=== PATIENT | female | born 1935 | race Caucasian/White ===

== ENCOUNTER → 2017-07-22 | Outpatient (CLI) | payer MEDICARE, BC ==
[2017-07-22 07:56] LABS: Anisocytosis Moderate; HCT 33.5 % (34.0-46.0); HGB 9.4 gm/dL (11.4-16.0); Hypochromasia Marked; MCH 22.8 pg (25.0-35.0); Mean Platelet Volume 8.8; Microcytosis Moderate; Platelet Count 326 k/uL (150-450); Poikilocytosis Slight; RBC 4.11 m/uL (3.80-5.40); RDW 21.2 % (11.5-15.5); WBC 7.2 k/uL (3.8-10.6)
[2017-07-22 08:01] LABS: MCV 81.3 fL (80.0-100.0)
[2017-07-22 08:08] LABS: Anion Gap 9 mmol/L; Blood Urea Nitrogen 8 mg/dL (7-17); Carbon Dioxide 31 mmol/L (22-30); Chloride 100 mmol/L (98-107); Potassium 3.9 mmol/L (3.5-5.1); Sodium 140 mmol/L (137-145)
== END | disposition home or self-care (01) ==
LOC: LABWHC1 07:15
PROVIDERS: ATTEND Internal Medicine Cardiovascular Disease
DX: I50.31 Acute diastolic (congestive) heart failure (principal)
CPT/HCPCS: 36415; 80051; 82565; 83880; 84443; 84520; 85027

== ENCOUNTER → 2017-08-28 | Outpatient (CLI) | payer MEDICARE, BC ==
--- NOTE | 2017-08-29 08:07 | MM ---
Reason for exam: screening (asymptomatic). Baseline mammogram. History: Patient is postmenopausal, has history of colon cancer at age 81, and history of other cancer. Family history of breast cancer in mother at age 60. Physical Findings: A clinical breast exam by your physician is recommended on an annual basis and results should be correlated with mammographic findings. MG 3D Screening Mammo W/Cad Bilateral CC and MLO view(s) were taken. There are scattered fibroglandular densities. Finding: There are typically benign vascular, round calcifications in both breasts. There is a chronic nodularity in the right axilla, presumed benign lymph node. There is no discrete abnormality. These results were verbally communicated with the patient and result sheet given to the patient on 08/28/17. ASSESSMENT: Benign, BI-RAD 2 RECOMMENDATION: Routine screening mammogram of both breasts in 1 year.
== END | disposition home or self-care (01) ==
LOC: RADMAMWWP 14:08
PROVIDERS: ATTEND Internal Medicine Hematology & Oncology
DX: Z12.31 Encounter for screening mammogram for malignant neoplasm of breast (principal)
CPT/HCPCS: 77063; 77067

== ENCOUNTER → 2017-12-10 | Outpatient (CLI) | payer MEDICARE, BC ==
[2017-12-10 16:16] LABS: Anisocytosis Slight; HCT 39.3 % (34.0-46.0); HGB 12.4 gm/dL (11.4-16.0); MCH 27.4 pg (25.0-35.0); MCHC 31.5 g/dL (31.0-37.0); MCV 86.9 fL (80.0-100.0); Mean Platelet Volume 9.4; Platelet Count 256 k/uL (150-450); RBC 4.52 m/uL (3.80-5.40)
== END | disposition home or self-care (01) ==
LOC: LABWHC1 15:25
PROVIDERS: ATTEND Internal Medicine Cardiovascular Disease
DX: I48.2 Chronic atrial fibrillation (principal)
CPT/HCPCS: 36415; 85027

== ENCOUNTER 2019-06-24 20:18 | Emergency (ER) | payer BC, MEDICARE ==
[2019-06-24] MEDS ORDERED: TOPICAL SKIN ADHESIVE 1 EACH AMP TOPICAL ONE (21:28)
--- NOTE | 2019-06-24 21:54 | ED ---
Wound/Laceration HPI - General Chief Complaint: Wound/Laceration Stated Complaint: L Hand Lac Time Seen by Provider: 06/24/19 21:14 Source: patient Mode of arrival: ambulatory Limitations: no limitations - History of Present Illness Initial Comments: patient is an 83-year-old female presenting to emergency Department with complaints of a small wound on her left hand that will not stop bleeding. Patient states she was making her bed and lifted up her left hand and hit the side table. Patient states she has a small skin tear on her left hand however it will not stop bleeding. Patient is on a blood thinner. Patient states she has applied pressure to the area for approximate 4 hours and it continues to bleed. Patient's tetanus is up-to-date. Patient has no other complaints at this time. Upon arrival to the ER, her vital signs are stable. - Related Data Home Medications Medication Instructions Recorded Confirmed Aspirin EC [Ecotrin Low Dose] 81 mg PO DAILY 05/25/17 06/24/19 Atenolol [Tenormin] 25 mg PO BID 05/25/17 06/24/19 Cholecalciferol [Vitamin D3 (25 1,000 unit PO DAILY 05/25/17 06/24/19 Mcg = 1000 Iu)] Cyanocobalamin (Vitamin B-12) 1,000 mcg PO DAILY 05/25/17 06/24/19 [Vitamin B-12] Olmesartan Medoxomil [Benicar] 40 mg PO DAILY 05/25/17 06/24/19 Vit A/Vit C/Vit E/Zinc/Copper 1 cap PO DAILY 05/25/17 06/24/19 [ICAPS SOFTGEL] metFORMIN HCL 1,000 mg PO BID 05/25/17 06/24/19 Rivaroxaban [Xarelto] 2.5 mg PO 06/24/19 Previous Rx's Medication Instructions Recorded Ferrous Sulfate [Iron (65 MG 325 mg PO BID-W/MEALS tab 05/30/17 Elemental)] Allergies Allergy/AdvReac Type Severity Reaction Status Date / Time No Known Allergies Allergy Verified 06/24/19 20:24 Review of Systems ROS Statement: Those systems with pertinent positive or pertinent negative responses have been documented in the HPI. ROS Other: All systems not noted in ROS Statement are negative. Past Medical History Past Medical History: Atrial Fibrillation, Diabetes Mellitus, Hypertension Additional Past Medical History / Comment(s): "heart beats too fast" History of Any Multi-Drug Resistant Organisms: None Reported Past Surgical History: Cholecystectomy, Hernia Repair, Hysterectomy Additional Past Surgical History / Comment(s): cataract surgery Past Anesthesia/Blood Transfusion Reactions: Postoperative Nausea & Vomiting (PONV) Additional Past Anesthesia/Blood Transfusion Reaction / Comment(s): this is first blood transfusion- no reaction Past Psychological History: No Psychological Hx Reported Smoking Status: Never smoker Past Alcohol Use History: None Reported Past Drug Use History: None Reported - Past Family History Sister(s) Family Medical History: Cancer Additional Family Medical History / Comment(s): both sisters had cancer. one had colon cancer. Brother(s) Family Medical History: Cancer Additional Family Medical History / Comment(s): colon cancer Mother Family Medical History: Cancer Additional Family Medical History / Comment(s): breast cancer and colon cancer Father Family Medical History: CVA/TIA General Exam - General Exam Comments Initial Comments: GENERAL: Well-appearing, well-nourished and in no acute distress. HEAD: Atraumatic, normocephalic. EYES: Pupils equal round and reactive to light, extraocular movements intact, sclera anicteric, conjunctiva are normal. ENT: Moist mucous membranes. NECK: Normal range of motion, supple without lymphadenopathy or JVD. LUNGS: Breath sounds clear to auscultation bilaterally and equal. No wheezes rales or rhonchi. HEART: Regular rate and rhythm without murmurs, rubs or gallops. ABDOMEN: Soft, nontender, normoactive bowel sounds. No guarding, no rebound. No masses appreciated. EXTREMITIES: she has full range of motion of her left hand and wrist. SKIN: Warm, Dry, normal turgor, no rashes. Pt has a 1 cm skin tear to the dorsal aspect of her left hand. There is mild bleeding coming from the wound. No signs of infection. Limitations: no limitations Course Vital Signs 06/24/19 20:19 Temperature 98.1 F Pulse Rate 90 Respiratory 16 Rate Blood Pressure 227/130 O2 Sat by Pulse 96 Oximetry Medical Decision Making - Medical Decision Making patient is an 83-year-old female presenting with a 1 cm skin tear of the dorsal aspect of the left hand that happened today. There is minimal bleeding from the wound however it will not stop. Patient's wound was cleaned and Steri-Strips were applied along with topical skin glue. A pressure bandage was also applied and bleeding has stopped. patient's skin is too thin for sutures. I discussed with patient to keep this bandage in place until tomorrow. Steri-Strips should stay on the wound for approximately one week. Patient is stable for discharge at this time and she is in agreement with plan of care. Patient can follow-up with her PCP. Disposition Clinical Impression: Skin tear of left hand without complication Disposition: HOME SELF-CARE Condition: Stable Instructions (If sedation given, give patient instructions): Skin Tear (ED) Additional Instructions: Please return to the Emergency Department if symptoms worsen or any other concerns. Pressure bandage in place until tomorrow. May change bandage at that point. Keep Steri-Strips in place for 1 week. Is patient prescribed a controlled substance at d/c from ED?: No Referrals: Wiliam Myers MD [Primary Care Provider] - 1-2 days
[2019-06-24 21:59] VITALS: BP 149/89; PULSE 79; RESP 18; TEMP 97
== END 2019-06-24 21:58 | disposition home or self-care (01) ==
LOC: EC 20:18
DX: S61.412A Laceration without foreign body of left hand, initial encounter (principal); I48.91 Unspecified atrial fibrillation; E11.9 Type 2 diabetes mellitus without complications; I10 Essential (primary) hypertension; Z79.82 Long term (current) use of aspirin; Z79.84 Long term (current) use of oral hypoglycemic drugs; Z79.01 Long term (current) use of anticoagulants; Z79.899 Other long term (current) drug therapy; W22.03XA Walked into furniture, initial encounter; Y93.89 Activity, other specified; Y92.003 Bedroom of unspecified non-institutional (private) residence as the place of occurrence of the external cause
CPT/HCPCS: 99282

== ENCOUNTER 2019-08-19 14:00 | Inpatient (IN) | payer MEDICARE, BC ==
--- NOTE | 2019-08-19 15:31 | ED ---
General Adult HPI - General Chief complaint: Extremity Problem,Nontraumatic Stated complaint: Leg weakness Time Seen by Provider: 08/19/19 14:45 Source: patient, family, RN notes reviewed Mode of arrival: wheelchair Limitations: no limitations - History of Present Illness Initial comments: Patient is a pleasant 84-year-old female presenting to the emergency Department with complaints of leg weakness. Symptoms have progressed with the past several days. Symptoms do worsen with exertion. Patient states she is barely able to make it to the bathroom with the use of her walker. states she also appears somewhat generally fatigued. No isolated area of weakness or confusion. No back pain. Patient states there is some mild discomfort right lateral hip region however this is not severe. No history of similar symptoms previously. Onset of symptoms was gradual. - Related Data Home Medications Medication Instructions Recorded Confirmed Aspirin EC [Ecotrin Low Dose] 81 mg PO DAILY 05/25/17 06/24/19 Atenolol [Tenormin] 25 mg PO BID 05/25/17 06/24/19 Cholecalciferol [Vitamin D3 (25 1,000 unit PO DAILY 05/25/17 06/24/19 Mcg = 1000 Iu)] Cyanocobalamin (Vitamin B-12) 1,000 mcg PO DAILY 05/25/17 06/24/19 [Vitamin B-12] Olmesartan Medoxomil [Benicar] 40 mg PO DAILY 05/25/17 06/24/19 Vit A/Vit C/Vit E/Zinc/Copper 1 cap PO DAILY 05/25/17 06/24/19 [ICAPS SOFTGEL] metFORMIN HCL 1,000 mg PO BID 05/25/17 06/24/19 Rivaroxaban [Xarelto] 2.5 mg PO 06/24/19 Previous Rx's Medication Instructions Recorded Ferrous Sulfate [Iron (65 MG 325 mg PO BID-W/MEALS tab 05/30/17 Elemental)] Allergies Allergy/AdvReac Type Severity Reaction Status Date / Time No Known Allergies Allergy Verified 08/19/19 14:11 Review of Systems ROS Statement: Those systems with pertinent positive or pertinent negative responses have been documented in the HPI. ROS Other: All systems not noted in ROS Statement are negative. Constitutional: Denies: fever Eyes: Denies: eye pain ENT: Denies: ear pain Respiratory: Denies: cough Cardiovascular: Denies: chest pain Endocrine: Reports: fatigue Gastrointestinal: Denies: abdominal pain Genitourinary: Denies: dysuria Musculoskeletal: Denies: back pain Skin: Denies: rash Neurological: Reports: weakness. Denies: headache, confusion Past Medical History Past Medical History: Atrial Fibrillation, Diabetes Mellitus, Hypertension Additional Past Medical History / Comment(s): "heart beats too fast" History of Any Multi-Drug Resistant Organisms: None Reported Past Surgical History: Cholecystectomy, Hernia Repair, Hysterectomy Additional Past Surgical History / Comment(s): cataract surgery Past Anesthesia/Blood Transfusion Reactions: Postoperative Nausea & Vomiting (PONV) Additional Past Anesthesia/Blood Transfusion Reaction / Comment(s): this is first blood transfusion- no reaction Past Psychological History: No Psychological Hx Reported Smoking Status: Never smoker Past Alcohol Use History: None Reported Past Drug Use History: None Reported - Past Family History Sister(s) Family Medical History: Cancer Additional Family Medical History / Comment(s): both sisters had cancer. one had colon cancer. Brother(s) Family Medical History: Cancer Additional Family Medical History / Comment(s): colon cancer Mother Family Medical History: Cancer Additional Family Medical History / Comment(s): breast cancer and colon cancer Father Family Medical History: CVA/TIA General Exam Limitations: no limitations General appearance: alert, in no apparent distress Head exam: Present: normocephalic Eye exam: Present: normal appearance, PERRL ENT exam: Present: normal oropharynx Neck exam: Present: normal inspection Respiratory exam: Present: normal lung sounds bilaterally Cardiovascular Exam: Present: regular rate, normal rhythm Expanded Peripheral pulses: 2+: Dorsalis Pedis (R), Dorsalis Pedis (L) GI/Abdominal exam: Present: soft. Absent: tenderness Extremities exam: Present: pedal edema (+1 bilateral). Absent: calf tenderness Back exam: Absent: vertebral tenderness Neurological exam: Present: alert Expanded Motor strength exam: RUE: 5, LUE: 5, RLE: 2/1 (Good strength with dorsi and plantarflexion of the feet), LLE: 2/1 (Good strength with dorsi and plantarflexion of the feet) Eye Response: (4) open spontaneously Motor Response: (6) obeys commands Verbal Response: (5) oriented Psychiatric exam: Present: normal affect, normal mood Skin exam: Present: normal color Course Vital Signs 08/19/19 14:08 Temperature 97.8 F Pulse Rate 81 Respiratory 20 Rate Blood Pressure 153/74 O2 Sat by Pulse 99 Oximetry - Reevaluation(s) Reevaluation #1: 08/19/19 17:11 Case was discussed with Dr. Ruthann Ramirez, who will admit Medical Decision Making - Medical Decision Making Patient reevaluated and resting comfortably in bed. Patient and family updated on results and plan. Some physician group has been paged for admission covering for Dr. Montes, who admits for Dr. Weston - Lab Data Result diagrams: 08/19/19 16:00 08/19/19 16:00 Lab Results 08/19/19 08/19/19 08/19/19 Range/Units 16:00 16:00 16:00 WBC 12.0 H (3.8-10.6) k/uL RBC 4.75 (3.80-5.40) m/uL Hgb 14.2 (11.4-16.0) gm/dL Hct 43.4 (34.0-46.0) % MCV 91.3 (80.0-100.0) fL MCH 30.0 (25.0-35.0) pg MCHC 32.8 (31.0-37.0) g/dL RDW 13.4 (11.5-15.5) % Plt Count 199 (150-450) k/uL Neutrophils % 86 % Lymphocytes % 7 % Monocytes % 4 % Eosinophils % 1 % Basophils % 1 % Neutrophils # 10.3 H (1.3-7.7) k/uL Lymphocytes # 0.8 L (1.0-4.8) k/uL Monocytes # 0.5 (0-1.0) k/uL Eosinophils # 0.1 (0-0.7) k/uL Basophils # 0.1 (0-0.2) k/uL PT 10.0 (9.0-12.0) sec INR 1.0 (<1.2) APTT 25.6 (22.0-30.0) sec Sodium 132 L (137-145) mmol/L Potassium 3.6 (3.5-5.1) mmol/L Chloride 97 L (98-107) mmol/L Carbon Dioxide 24 (22-30) mmol/L Anion Gap 11 mmol/L BUN 16 (7-17) mg/dL Creatinine 0.64 (0.52-1.04) mg/dL Est GFR (CKD-EPI)AfAm >90 (>60 ml/min/1.73 sqM) Est GFR (CKD-EPI)NonAf 83 (>60 ml/min/1.73 sqM) Glucose 165 H (74-99) mg/dL Calcium 9.1 (8.4-10.2) mg/dL Total Bilirubin 1.5 H (0.2-1.3) mg/dL AST 28 (14-36) U/L ALT 16 (4-34) U/L Alkaline Phosphatase 90 (38-126) U/L Troponin I (0.000-0.034) ng/mL Total Protein 6.4 (6.3-8.2) g/dL Albumin 3.5 (3.5-5.0) g/dL Urine Color Urine Appearance (Clear) Urine pH (5.0-8.0) Ur Specific [place] (1.001-1.035) Urine Protein (Negative) Urine Glucose (UA) (Negative) Urine Ketones (Negative) Urine Blood (Negative) Urine Nitrite (Negative) Urine Bilirubin (Negative) Urine Urobilinogen (<2.0) mg/dL Ur Leukocyte Esterase (Negative) Urine RBC (0-5) /hpf Urine WBC (0-5) /hpf Ur Squamous Epith Cells (0-4) /hpf Urine Mucus (None) /hpf 08/19/19 08/19/19 Range/Units 16:00 16:25 WBC (3.8-10.6) k/uL RBC (3.80-5.40) m/uL Hgb (11.4-16.0) gm/dL Hct (34.0-46.0) % MCV (80.0-100.0) fL MCH (25.0-35.0) pg MCHC (31.0-37.0) g/dL RDW (11.5-15.5) % Plt Count (150-450) k/uL Neutrophils % % Lymphocytes % % Monocytes % % Eosinophils % % Basophils % % Neutrophils # (1.3-7.7) k/uL Lymphocytes # (1.0-4.8) k/uL Monocytes # (0-1.0) k/uL Eosinophils # (0-0.7) k/uL Basophils # (0-0.2) k/uL PT (9.0-12.0) sec INR (<1.2) APTT (22.0-30.0) sec Sodium (137-145) mmol/L Potassium (3.5-5.1) mmol/L Chloride (98-107) mmol/L Carbon Dioxide (22-30) mmol/L Anion Gap mmol/L BUN (7-17) mg/dL Creatinine (0.52-1.04) mg/dL Est GFR (CKD-EPI)AfAm (>60 ml/min/1.73 sqM) Est GFR (CKD-EPI)NonAf (>60 ml/min/1.73 sqM) Glucose (74-99) mg/dL Calcium (8.4-10.2) mg/dL Total Bilirubin (0.2-1.3) mg/dL AST (14-36) U/L ALT (4-34) U/L Alkaline Phosphatase (38-126) U/L Troponin I <0.012 (0.000-0.034) ng/mL Total Protein (6.3-8.2) g/dL Albumin (3.5-5.0) g/dL Urine Color Yellow Urine Appearance Clear (Clear) Urine pH 5.5 (5.0-8.0) Ur Specific [place] 1.010 (1.001-1.035) Urine Protein 1+ H (Negative) Urine Glucose (UA) Negative (Negative) Urine Ketones Negative (Negative) Urine Blood Negative (Negative) Urine Nitrite Negative (Negative) Urine Bilirubin Negative (Negative) Urine Urobilinogen <2.0 (<2.0) mg/dL Ur Leukocyte Esterase Moderate H (Negative) Urine RBC 1 (0-5) /hpf Urine WBC 30 H (0-5) /hpf Ur Squamous Epith Cells 1 (0-4) /hpf Urine Mucus Occasional H (None) /hpf - Radiology Data Radiology results: report reviewed (Computed tomography scan of the brain shows mild. Ventricular white matter changes. No acute intercranial abnormality.), image reviewed (Chest x-ray shows cardiomegaly) Disposition Clinical Impression: Leg weakness, UTI (urinary tract infection) Disposition: ADMITTED IP TO THIS HOSP Is patient prescribed a controlled substance at d/c from ED?: No Referrals: Wiliam Myers MD [Primary Care Provider] - 1-2 days Decision Time: 17:04
[2019-08-19 16:20] LABS: Basophils # (A) 0.1 k/uL (0-0.2); Basophils % (A) 1 %; Eosinophils # (A) 0.1 k/uL (0-0.7); Eosinophils % (A) 1 %; HCT 43.4 % (34.0-46.0); HGB 14.2 gm/dL (11.4-16.0); Lymphocytes # (A) 0.8 k/uL (1.0-4.8); Lymphocytes % (A) 7 %; MCHC 32.8 g/dL (31.0-37.0); MCV 91.3 fL (80.0-100.0); Mean Platelet Volume 10.3; Monocytes # (A) 0.5 k/uL (0-1.0); Monocytes % (A) 4 %; Neutrophils # (A) 10.3 k/uL (1.3-7.7); Neutrophils % (A) 86 %; Platelet Count 199 k/uL (150-450); RBC 4.75 m/uL (3.80-5.40); RDW 13.4 % (11.5-15.5)
[2019-08-19 16:33] LABS: Partial Thromboplastin Time 25.6 sec (22.0-30.0)
--- NOTE | 2019-08-19 16:52 | CT ---
EXAMINATION TYPE: CT brain wo con DATE OF EXAM: 08/19/2019 COMPARISON: None INDICATION: bilateral foot numbness DLP: 1099.4 mGycm, Automated exposure control for dose reduction was used. CONTRAST: None CT of the brain is performed utilizing 3 mm thick sections through the posterior fossa and 3 mm thick sections through the remaining calvarium. Study is performed within 24 hours of arrival to the hosp ital. No abnormal hyperdensity is present to suggest an acute intracranial hemorrhage. No mass lesion is evident. No acute infarcts are evident. There is mild periventricular white matter hypodensity, likely on the basis of chronic white matter ischemic changes. Ventricles and sulci are appropriate for the patient age. Paranasal sinuses and mastoid air cells within the [id number] are clear. IMPRESSIONS: 1. Mild periventricular white matter ischemic changes. 2. No acute intracranial process.
[2019-08-19 16:53] LABS: ALT 16 U/L (4-34); AST 28 U/L (14-36); African American GFR (CKD) >90 (>60 ml/min/1.73 sqM); Albumin 3.5 g/dL (3.5-5.0); Alkaline Phosphatase 90 U/L (38-126); Anion Gap 11 mmol/L; Blood Urea Nitrogen 16 mg/dL (7-17); Calcium 9.1 mg/dL (8.4-10.2); Carbon Dioxide 24 mmol/L (22-30); Chloride 97 mmol/L (98-107); Glucose 165 mg/dL (74-99); Non-African American GFR(CKD) 83 (>60 ml/min/1.73 sqM); Potassium 3.6 mmol/L (3.5-5.1); Sodium 132 mmol/L (137-145); Total Bilirubin 1.5 mg/dL (0.2-1.3); Total Protein 6.4 g/dL (6.3-8.2)
--- NOTE | 2019-08-19 16:53 | XR ---
EXAMINATION TYPE: XR chest 2V DATE OF EXAM: 08/19/2019 COMPARISON: 05/25/2017 INDICATION: Weakness TECHNIQUE: Frontal and lateral views of the chest are obtained. FINDINGS: The heart size is borderline prominent. The pulmonary vasculature is normal. The lungs are clear. IMPRESSION: 1. Mild cardiomegaly
[2019-08-19 16:58] LABS: Appearance,Urine Clear (Clear); Bilirubin,Urine Negative (Negative); Blood,Urine Negative (Negative); Color,Urine Yellow; Glucose,Urine (UA) Negative (Negative); Ketones,Urine Negative (Negative); Leukocyte Esterase,Urine Moderate (Negative); Mucus,Urine Occasional /hpf; Nitrite,Urine Negative (Negative); PH, Urine 5.5 (5.0-8.0); Protein,Urine 1+ (Negative); RBC,Urine 1 /hpf (0-5); Squamous Epithelial Cell,Urine 1 /hpf (0-4); Urobilinogen,Urine <2.0 mg/dL (<2.0); WBC,Urine 30 /hpf (0-5)
[2019-08-19] MEDS ORDERED: NALOXONE 0.4 MG/ML 1 ML VIAL IV PRN (17:04)
--- NOTE | 2019-08-19 17:30 | XR ---
EXAMINATION TYPE: XR Hip Complete RT DATE OF EXAM: 08/19/2019 COMPARISON: none HISTORY: pain TECHNIQUE: 2 view right hip FINDINGS: There is mild narrowing of the joint space. No fractures are evident. IMPRESSION: 1. No acute fractures.
--- NOTE | 2019-08-19 18:10 | P.HPIM ---
History of Present Illness Chief Complaint: Leg weakness This is a 84-year-old female who comes to emergency department for evaluation of bilateral lower extremity weakness for 3 days. 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 Patient's usual state is ambulation with a cane. She was in her usual state of health up about 3 days ago when she started noticing difficulties in ambulation that she attributed to "my legs not listening ". She started feeling that her legs are weak and she has difficulties initiating the movements. She was not able to stand up from sitting position. She was feeling mostly weak in her thighs. She did not have any pain in her muscles. She not have any weakness in her upper extremities. She denies any pain in her shoulders. Denies any joint swelling headache. Denies any pain or paresthesias in her legs. She does state that she might be having some sort of a discomfort in both buttocks but not radiating further down. She denies any difficulties with urination and she states that her last bowel movement was yesterday. Patient denies any recent febrile illnesses or respiratory illnesses. She does have steady chronic diarrhea due to: Surgery. Patient denies any acute back pain. In emergency department her basic blood work was stable along with vital signs. CT of the head showed chronic ischemic changes. Chest x-ray was unremarkable. Patient is admitted for further evaluation Review of Systems Review of system was performed and is negative except mentioned in HPI Past Medical History Past Medical History: Atrial Fibrillation, Diabetes Mellitus, Hypertension Additional Past Medical History / Comment(s): "heart beats too fast" History of Any Multi-Drug Resistant Organisms: None Reported Past Surgical History: Cholecystectomy, Hernia Repair, Hysterectomy Additional Past Surgical History / Comment(s): cataract surgery Past Anesthesia/Blood Transfusion Reactions: Postoperative Nausea & Vomiting (PONV) Additional Past Anesthesia/Blood Transfusion Reaction / Comment(s): this is first blood transfusion- no reaction Past Psychological History: No Psychological Hx Reported Smoking Status: Never smoker Past Alcohol Use History: None Reported Past Drug Use History: None Reported - Past Family History Sister(s) Family Medical History: Cancer Additional Family Medical History / Comment(s): both sisters had cancer. one had colon cancer. Brother(s) Family Medical History: Cancer Additional Family Medical History / Comment(s): colon cancer Mother Family Medical History: Cancer Additional Family Medical History / Comment(s): breast cancer and colon cancer Father Family Medical History: CVA/TIA Medications and Allergies Home Medications Medication Instructions Recorded Confirmed Type Aspirin EC [Ecotrin Low Dose] 81 mg PO DAILY 05/25/17 08/19/19 History Cholecalciferol [Vitamin D3 (25 1,000 unit PO DAILY 05/25/17 08/19/19 History Mcg = 1000 Iu)] Cyanocobalamin (Vitamin B-12) 1,000 mcg PO DAILY 05/25/17 08/19/19 History [Vitamin B-12] Vit A/Vit C/Vit E/Zinc/Copper 1 cap PO DAILY 05/25/17 08/19/19 History [ICAPS SOFTGEL] metFORMIN HCL 1,000 mg PO BID 05/25/17 08/19/19 History Ferrous Sulfate [Iron (65 MG 325 mg PO BID-W/MEALS tab 05/30/17 08/19/19 Rx Elemental)] Rivaroxaban [Xarelto] 2.5 mg PO BID 06/24/19 08/19/19 History Atenolol [Tenormin] 50 mg PO DAILY 08/19/19 08/19/19 History Bimatoprost [Lumigan .01% Ophth 1 drop BOTH EYES HS 08/19/19 08/19/19 History Soln] Furosemide [Lasix] 20 mg PO DAILY PRN 08/19/19 08/19/19 History Losartan Potassium 100 mg PO DAILY 08/19/19 08/19/19 History Timolol Maleate [Timolol Maleate 1 applic BOTH EYES HS 08/19/19 08/19/19 History 0.5% Ophth Gel] Allergies Allergy/AdvReac Type Severity Reaction Status Date / Time No Known Allergies Allergy Verified 08/19/19 18:41 Physical Exam Vitals: Vital Signs Temp Pulse Resp BP Pulse Ox 08/19/19 14:08 97.8 F 81 20 153/74 99 Intake and Output 08/19/19 08/19/19 08/19/19 06:59 14:59 22:59 Other: Weight 81.647 kg Vital Signs: I have reviewed the vital signs. GENERAL: Well-nourished, Well-developed , no apparent distress, cooperative Eyes: PERRL, extraoculry movements intact, clear conjunctiva Head: : Atraumatic external nose and ears, oropharyngeal mucosa is moist without lesions or exudates Neck: Symmetric, trachea midline, No thyromegaly, no masses or neck vain pulsation, no neck rigidity CVS: +S1/S2, No murmurs or gallops. Peripheral pulses 2+ and equal in all extremities. RESP: Unlabored respiratory effort. Clear to auscultation bilaterally. Abdomen: Bowel sounds present in all 4 quadrants, Soft to palpation, Nontender/Nondistended, No hepatosplenomegaly, no hernias or masses, no CVA tnderness Musculoskeletal: Extremities w/o deformity, No cyanosis or clubbing, no joint swelling ; she does not have any tenderness over her spine or paraspinal muscles or succulent joints Skin: Warm, Dry. No rashes or lesions Neuro: technical project lead II-XII grossly intact, she clearly has motor strength 2/5 approximately in both thighs. She is able to lift both legs against gravity but not keep them up more than a second. She has a good strength on plantar and dorsiflexion in both feet. There is no clonus. Flexor is equivocal bilaterally. Patellar reflex bilaterally is absent. Sensitivity to light touch and pinprick in the feet is preserved. Positional sensitivity and lower extremity is preserved. [id number] test is in tach. [id number] not able to perform. Psych: Awake, Alert, & Oriented (AAO) x3 Appropriate mood and affect Results CBC & Chem 7: 08/19/19 16:00 08/19/19 16:00 Labs: Abnormal Lab Results - Last 24 Hours (Table) 08/19/19 08/19/19 08/19/19 Range/Units 16:00 16:00 16:25 WBC 12.0 H (3.8-10.6) k/uL Neutrophils # 10.3 H (1.3-7.7) k/uL Lymphocytes # 0.8 L (1.0-4.8) k/uL Sodium 132 L (137-145) mmol/L Chloride 97 L (98-107) mmol/L Glucose 165 H (74-99) mg/dL Total Bilirubin 1.5 H (0.2-1.3) mg/dL Urine Protein 1+ H (Negative) Ur Leukocyte Esterase Moderate H (Negative) Urine WBC 30 H (0-5) /hpf Urine Mucus Occasional H (None) /hpf Assessment and Plan Assessment: 1. Paraplegia 2. Type 2 diabetes mellitus 3. Chronic diarrhea 4. History of colon cancer 5. History of atrial fibrillation on Xarelto 6. Hypertension Plan: This is a 84-year-old female that presenting with bilateral leg weakness, on examination consistent with proximal bilateral leg weakness and thigh weakness. She does not have any shoulder weakness or pain or any muscle discomfort. Exam is also consistent with peripheral nerve involvement. Whether this patient has underlying peripheral neuropathy that could be obscuring clinical picture is not known at this time per At this time differential diagnosis include stroke, myelopathy, GBS, myopathy, peripheral neuropathy of diabetes versus nutritional given her chronic diarrhea. I will order MRI of the spine and brain stat, total CPK, ESR, CRP, A1c, B12, B1, B6, copper levels. Neurology consulted. If this tests are not sufficient to explain her symptomatology she might need to proceed with lumbar puncture and or EMG. Appetite will defer this decision to neurology at this point. Patient is a full code is surrogate decision maker Patient will need more than 2 midnights stay for this hospitalization Patient has listed aspirin and Xarelto her list of home medications. This is for atrial fibrillation. I will hold his medications for now until we rule out any problem in the spine and spinal cord including bleeding.
[2019-08-19] MEDS: SODIUM CHLORIDE 0.9% 1,000 ML IV SCH (18:17)
[2019-08-19] MEDS: ATENOLOL 50 MG TAB PO SCH (18:55)
[2019-08-19 20:04] LABS: C Reactive Protein 174.2 mg/L (<10.0)
[2019-08-19 21:16] LABS: Glucose,Whole Blood 187 mg/dL (75-99)
[2019-08-19] MEDS: LATANOPROST 0.005% OPHTH DROPS 2.5 ML BTL BOTH EYES SCH (21:30)
[2019-08-19] MEDS: TIMOLOL 0.5% OPHTH DROPS 5 ML BTL BOTH EYES SCH (21:31)
[2019-08-19] MEDS: INSULIN ASPART (NovoLOG) 100 UNIT/ML VIAL SQ SCH (21:31)
[2019-08-20 05:48] LABS: Hemoglobin A1C 6.1 % (4.0-6.0)
[2019-08-20] MEDS: SODIUM CHLORIDE 0.9% 1,000 ML IV SCH ×2 (06:09→22:29)
[2019-08-20 06:58] LABS: Glucose,Whole Blood 140 mg/dL (75-99)
[2019-08-20] MEDS: ATENOLOL 50 MG TAB PO SCH (07:44)
[2019-08-20] MEDS: FERROUS SULFATE 325 MG TAB PO SCH ×2 (07:44→17:19)
[2019-08-20] MEDS: TIMOLOL 0.5% OPHTH DROPS 5 ML BTL BOTH EYES SCH ×2 (07:45→20:56)
[2019-08-20] MEDS: LOSARTAN 50 MG TAB PO SCH (07:45)
[2019-08-20] MEDS: INSULIN ASPART (NovoLOG) 100 UNIT/ML VIAL SQ SCH ×4 (07:45→20:52)
[2019-08-20 08:37] LABS: Basophils # (A) 0.1 k/uL (0-0.2); Basophils % (A) 1 %; Eosinophils # (A) 0.1 k/uL (0-0.7); Eosinophils % (A) 1 %; HCT 37.1 % (34.0-46.0); HGB 12.5 gm/dL (11.4-16.0); Lymphocytes # (A) 0.9 k/uL (1.0-4.8); Lymphocytes % (A) 8 %; MCH 31.1 pg (25.0-35.0); MCHC 33.8 g/dL (31.0-37.0); Mean Platelet Volume 10.3; Monocytes # (A) 0.7 k/uL (0-1.0); Monocytes % (A) 6 %; Neutrophils # (A) 9.9 k/uL (1.3-7.7); Neutrophils % (A) 84 %; Platelet Count 241 k/uL (150-450); RBC 4.03 m/uL (3.80-5.40); RDW 13.3 % (11.5-15.5); WBC 11.8 k/uL (3.8-10.6)
[2019-08-20 08:46] LABS: ALT 13 U/L (4-34); AST 22 U/L (14-36); African American GFR (CKD) >90 (>60 ml/min/1.73 sqM); Albumin 3.1 g/dL (3.5-5.0); Alkaline Phosphatase 84 U/L (38-126); Anion Gap 10 mmol/L; Blood Urea Nitrogen 13 mg/dL (7-17); Calcium 8.8 mg/dL (8.4-10.2); Carbon Dioxide 26 mmol/L (22-30); Chloride 100 mmol/L (98-107); Glucose 200 mg/dL (74-99); Non-African American GFR(CKD) 84 (>60 ml/min/1.73 sqM); Potassium 3.3 mmol/L (3.5-5.1); Sodium 136 mmol/L (137-145); Total Bilirubin 1.5 mg/dL (0.2-1.3); Total Protein 5.8 g/dL (6.3-8.2)
[2019-08-20] MEDS ORDERED: POTASSIUM CHLORIDE ER 20 MEQ TAB.ER PO STA (10:25)
--- NOTE | 2019-08-20 11:45 | P.CNNES ---
History of Present Illness Consult date: 08/20/19 Requesting physician: Kolton Champagne Reason for Consult: Leg weakness History of Present Illness: Patient is an 84-year-old female with history of diabetes for last 15 years, controlled, has been using cane off and on for the last 3 years for walking. Sometimes she uses a walker. Patient has been usual state of health, until 3 days ago, when gradually she started noticing weakness in the legs, to the point that she couldn't walk with her walker, could not move her feet for the last 3 days. Patient denies any back pain, hip pain, neck pain or any numbness or tingling of the lower extremities. She does have mild low back discomfort, as she has been laying in the bed for the last 3 days. Denies any radicular pains. Patient states that she does occasionally has bladder accidents but that is not a new problem, have been there for some time. Patient denies any numbness or tingling or pain in her feet or legs. Denies history of diabetic neuropathy. Denies any injury, or moving furniture. No slurred speech facial droop problem with the vision hoarseness or throat dysphagia. Patient has history of diabetes for around 15 years, controlled. Denies any tobacco or alcohol use. Patient denies any injury to her back, did not move furniture. Patient's blood test shows elevated WBC 12.0 with mild left shift. ESR is 46, PT/PTT normal. Sodium 136 potassium 3.3 renal functions normal. Hemoglobin A1c 6.1. Liver panel normal. CRP 174, B12 1096, UA showed moderate leukocyte esterase, 30 WBCs and occasional bacteria. Urine culture so far negative. RPR negative. Patient had x-ray of the right hip, which showed no acute fracture. Mild narrowing of the joint space. Chest x-ray showed mild cardiomegaly. Lungs are clear. CT of the head revealed mild periventricular white matter ischemic changes. No acute process. On my review, there is evidence of possible chronic lacunar infarction in the left anterior limb of internal capsule. Patient currently takes aspirin 81 mg and Xarelto 2.5 mg twic e a day. Review of Systems As per in HPI in detail. Patient denies any chest pain shortness of breath wheezing cough diplopia. Denies headache. Past Medical History Past Medical History: Atrial Fibrillation, Cancer, Diabetes Mellitus, Hypertension Additional Past Medical History / Comment(s): colon cancer History of Any Multi-Drug Resistant Organisms: None Reported Past Surgical History: Bowel Resection, Cholecystectomy, Hernia Repair, Hysterectomy Additional Past Surgical History / Comment(s): cataract surgery; bowel resection June 2017 r/t colon cancer Past Anesthesia/Blood Transfusion Reactions: Postoperative Nausea & Vomiting (PONV) Additional Past Anesthesia/Blood Transfusion Reaction / Comment(s): Has had blood transfusion; no reaction. Past Psychological History: No Psychological Hx Reported Smoking Status: Never smoker Past Alcohol Use History: None Reported Past Drug Use History: None Reported - Past Family History Sister(s) Family Medical History: Cancer Additional Family Medical History / Comment(s): both sisters had cancer. one had colon cancer. other sister in her thirties from cancer (unknown) but she had a hysterectomy prior to her . Brother(s) Family Medical History: Cancer Additional Family Medical History / Comment(s): colon cancer Mother Family Medical History: Cancer Additional Family Medical History / Comment(s): breast cancer and colon cancer Father Family Medical History: CVA/TIA Medications and Allergies Home Medications Medication Instructions Recorded Confirmed Type Aspirin EC [Ecotrin Low Dose] 81 mg PO DAILY 05/25/17 08/19/19 History Cholecalciferol [Vitamin D3 (25 1,000 unit PO DAILY 05/25/17 08/19/19 History Mcg = 1000 Iu)] Cyanocobalamin (Vitamin B-12) 1,000 mcg PO DAILY 05/25/17 08/19/19 History [Vitamin B-12] Vit A/Vit C/Vit E/Zinc/Copper 1 cap PO DAILY 05/25/17 08/19/19 History [ICAPS SOFTGEL] metFORMIN HCL 1,000 mg PO BID 05/25/17 08/19/19 History Ferrous Sulfate [Iron (65 MG 325 mg PO BID-W/MEALS tab 05/30/17 08/19/19 Rx Elemental)] Rivaroxaban [Xarelto] 2.5 mg PO BID 06/24/19 08/19/19 History Atenolol [Tenormin] 50 mg PO DAILY 08/19/19 08/19/19 History Bimatoprost [Lumigan .01% Ophth 1 drop BOTH EYES HS 08/19/19 08/19/19 History Soln] Furosemide [Lasix] 20 mg PO DAILY PRN 08/19/19 08/19/19 History Losartan Potassium 100 mg PO DAILY 08/19/19 08/19/19 History Timolol Maleate [Timolol Maleate 1 applic BOTH EYES HS 08/19/19 08/19/19 History 0.5% Ophth Gel] Allergies Allergy/AdvReac Type Severity Reaction Status Date / Time No Known Allergies Allergy Verified 08/19/19 18:41 Physical Examination - Vital Signs Vital Signs: Vital Signs Temp Pulse Pulse Resp BP BP Pulse Ox 08/20/19 07:40 73 12 08/20/19 07:00 97.7 F 73 12 171/93 95 08/20/19 01:05 98.4 F 61 159/82 94 L 08/20/19 00:00 16 08/19/19 18:40 97.7 F 71 16 208/91 94 L 08/19/19 18:23 87 16 187/93 98 08/19/19 14:08 97.8 F 81 20 153/74 99 Intake and Output 08/19/19 08/20/19 08/20/19 22:59 06:59 14:59 Other: Voiding Method Toilet Toilet Bedside Commode Bedside Commode Diaper Diaper # Voids 1 1 Weight 81.647 kg On examination patient is an elderly female, in no distress. Patient is alert and awake oriented to time place and person. Speech and language functions are normal. Attention and concentration fund of knowledge is adequate. On cranial nerve examination pupils are round and reactive to light, visual oglesby are full on confrontation, extraocular muscles are intact with no nystagmus. Face is symmetric, tongue protrudes the midline. Palatal elevation and sensation normal. On muscle strength testing there is no pronator drift and the strength is normal in arms distally and proximally. In the lower extremities, the strength is normal in the ankles, toes in the knees. Her hip flexion is 2-3, hip abduction is 5, abduction 4+. Straight leg raising test was mildly positive. Examination of the hip was also mildly positive. Reflexes are 1 at the knees, absent ankles and plantars are downgoing. Sensory touch is equal in both lower extremities. No ataxia for [id number] testing. Patient cannot perform [id number] testing because of leg weakness. Tone and bulk of muscles normal. No carotid bruit or murmur, peripheral pulses present. Results - Laboratory Findings CBC and BMP: 08/20/19 07:47 08/20/19 07:47 Abnormal Lab Findings: Abnormal Labs 08/19/19 08/19/19 08/19/19 16:00 16:00 16:25 WBC 12.0 H Neutrophils # 10.3 H Lymphocytes # 0.8 L ESR Sodium 132 L Potassium Chloride 97 L Glucose 165 H POC Glucose (mg/dL) Hemoglobin A1c Total Bilirubin 1.5 H C-Reactive Protein Total Protein Albumin Vitamin B12 Urine Protein 1+ H Ur Leukocyte Esterase Moderate H Urine WBC 30 H Urine Mucus Occasional H 08/19/19 08/19/19 08/19/19 18:40 18:40 19:48 WBC Neutrophils # Lymphocytes # ESR 46 H Sodium Potassium Chloride Glucose POC Glucose (mg/dL) Hemoglobin A1c Total Bilirubin C-Reactive Protein 174.2 H Total Protein Albumin Vitamin B12 1096.0 H Urine Protein Ur Leukocyte Esterase Urine WBC Urine Mucus 08/19/19 08/19/19 08/20/19 19:48 21:15 06:56 WBC Neutrophils # Lymphocytes # ESR Sodium Potassium Chloride Glucose POC Glucose (mg/dL) 187 H 140 H Hemoglobin A1c 6.1 H Total Bilirubin C-Reactive Protein Total Protein Albumin Vitamin B12 Urine Protein Ur Leukocyte Esterase Urine WBC Urine Mucus 08/20/19 08/20/19 07:47 07:47 WBC 11.8 H Neutrophils # 9.9 H Lymphocytes # 0.9 L ESR Sodium 136 L Potassium 3.3 L Chloride Glucose 200 H POC Glucose (mg/dL) Hemoglobin A1c Total Bilirubin 1.5 H C-Reactive Protein Total Protein 5.8 L Albumin 3.1 L Vitamin B12 Urine Protein Ur Leukocyte Esterase Urine WBC Urine Mucus Assessment and Plan Assessment: * 84-year-old female admitted with 3 days history of gradual weakness of bilateral lower extremities with difficulty walking. Examination reveals only proximal weakness in bilateral hip flexion and hip abduction. Her knees, ankles and toes are normal. Reflexes are mildly hypoactive at the knees and absent ankles. Patient denies any back pain or any radicular symptoms. Exact cause is uncertain. Rule out lumbar spinal stenosis. Her presentation with rapid progression over 3 days raises concerns of CVA, although the weakness is very symmetric with no laterality and no symptoms related to the upper extremities or the cranial region. Diabetic bilateral lumbar plexopathy is a possibility, but patient has no pain, which usually occurs with plexopathy. Plan: * Patient is undergoing MRI of the thoracic and lumbar spines, as well as MRI of the brain. * Further management will be based upon results of these MRI. * Discussed with primary attending.
[2019-08-20 11:47] LABS: Glucose,Whole Blood 128 mg/dL (75-99)
--- NOTE | 2019-08-20 14:34 | MR ---
EXAMINATION TYPE: MR thoracic spine wo con DATE OF EXAM: 08/20/2019 2:16 PM COMPARISON: NONE HISTORY: Bilateral leg weakness x 3 days Multiplanar MultiSpin echo imaging of the thoracic spine was performed. Sagittal T2 weighted data im age of the lumbar spine was also obtained. The patient could not tolerate further imaging. Therefore evaluation of the lumbar spine is limited. Disc spaces: Multilevel decreased signal ossified throughout the cervical spine compatible with degen erative disc disease. There is posterior disc bulge are noted. No evidence for disc herniation or pro trusion. Spinal canal: No evidence for canal stenosis. No intrinsic or extrinsic lesion. Thoracic spinal cord: Thoracic spinal cord is of normal caliber and signal. Paraspinal soft tissues: No evidence for paraspinal mass. No destructive lesions seen. Vertebral segments: Minimal loss of height involving the superior endplate of T12 does not appear to be acute. No bony retropulsion. No distinct fracture is identified. Sagittal T2 lumbar spine: Moderate multilevel decreased signal ossified compatible degenerative disc disease. Posterior disc bulge L2-3 through L5-S1. Facet joint arthropathy with L3-4 and L4-5 bilatera l foraminal encroachment. Mild central stenosis suggested at L3-4 and L4-5. IMPRESSION: 1. Multilevel degenerative disc disease throughout the thoracic spine without evidence for cord compr ession or central stenosis. 2. Multilevel degenerative disc disease throughout the lumbar spine with a mild stenosis suggested at L3-4 and L4-5. 3. Age-indeterminate minimal loss of height superior endplate T12.
--- NOTE | 2019-08-20 16:18 | P.PN ---
Subjective Progress Note Date: 08/20/19 (delayed charting seen at 10:15) Principal diagnosis: weakness Patient is an 84-year-old female with past medical history of colon cancer status post surgical resection not requiring chemo or radiation, A. fib, diabetes, and hypertension who presented to the emergency department with complaints of progressive lower extremity weakness over 3 days' time. In the ER she underwent an extensive evaluation. Initial vital signs were within normal limits. Initial laboratory analysis showed an elevated white blood cell count at 12, PTT and INR were normal, sodium low at 132, negative troponin, and negative urinalysis. CT brain showed no acute process with mild periventricular white matter ischemic changes, chest x-ray showed mild cardiomegaly, hip x-ray showed no acute fractures. She is admitted for further management. Upon arrival an ESR and CRP checked which were grossly elevated, B12 normal, hemoglobin A1c acceptable at 6.1, and bilirubin mildly elevated at 1.5. Neurology was consulted. Patient seen and examined at bedside with family present. She states she initially started noticing weakness in the feet which progressed up to her legs, she then noted some low back pain after presenting to the hospital. She denies any recent falls or trauma, she has no history of lesions in the spine, she has not had anything similar previously. She has not had any surgeries in the back. No recent instrumentation. Objective - Vital Signs Vital signs: Vital Signs Temp 98.2 F 08/20/19 15:00 Pulse 82 08/20/19 15:00 Resp 12 08/20/19 15:00 BP 183/83 08/20/19 15:00 Pulse Ox 96 08/20/19 15:00 Intake & Output 08/19/19 08/20/19 08/20/19 18:59 06:59 18:59 Weight 81.647 kg Other: Voiding Method Toilet Toilet Bedside Commode Bedside Commode Diaper Diaper # Voids 1 2 - Exam General: ill appearing, no distress, appears at stated age Derm: warm, dry Head: atraumatic, normocephalic, symmetric Eyes: EOMI, no lid lag, anicteric sclera Mouth: no lip lesion, mucus membranes moist Cardiovascular: S1S2 reg, systolic ejection murmur, positive posterior tibial pulse bilateral, Lungs: Decreased bs bilateral, no rhonchi, no rales , no accessory muscle use Abdominal: soft, nontender to palpation, no guarding, no appreciable organomegaly Ext: no gross muscle atrophy, no edema, no contractures Neuro: CN II-XI grossly intact, muscle strength 2/5 b/l hip flexors, 4/5 dorsi and planta flexion, hypoactive b/l patellar reflexes, light touch intact all 4 extremities and bilateral face Psych: Alert, oriented, appropriate affect - Labs CBC & Chem 7: 08/20/19 07:47 08/20/19 07:47 Labs: Abnormal Lab Results - Last 24 Hours (Table) 08/19/19 08/19/19 08/19/19 Range/Units 16:00 16:00 16:25 WBC 12.0 H (3.8-10.6) k/uL Neutrophils # 10.3 H (1.3-7.7) k/uL Lymphocytes # 0.8 L (1.0-4.8) k/uL ESR (0-20) mm/hr Sodium 132 L (137-145) mmol/L Potassium (3.5-5.1) mmol/L Chloride 97 L (98-107) mmol/L Glucose 165 H (74-99) mg/dL POC Glucose (mg/dL) (75-99) mg/dL Hemoglobin A1c (4.0-6.0) % Total Bilirubin 1.5 H (0.2-1.3) mg/dL C-Reactive Protein (<10.0) mg/L Total Protein (6.3-8.2) g/dL Albumin (3.5-5.0) g/dL Vitamin B12 (200.0-944.0) pg/mL Urine Protein 1+ H (Negative) Ur Leukocyte Esterase Moderate H (Negative) Urine WBC 30 H (0-5) /hpf Urine Mucus Occasional H (None) /hpf 08/19/19 08/19/19 08/19/19 Range/Units 18:40 18:40 19:48 WBC (3.8-10.6) k/uL Neutrophils # (1.3-7.7) k/uL Lymphocytes # (1.0-4.8) k/uL ESR 46 H (0-20) mm/hr Sodium (137-145) mmol/L Potassium (3.5-5.1) mmol/L Chloride (98-107) mmol/L Glucose (74-99) mg/dL POC Glucose (mg/dL) (75-99) mg/dL Hemoglobin A1c (4.0-6.0) % Total Bilirubin (0.2-1.3) mg/dL C-Reactive Protein 174.2 H (<10.0) mg/L Total Protein (6.3-8.2) g/dL Albumin (3.5-5.0) g/dL Vitamin B12 1096.0 H (200.0-944.0) pg/mL Urine Protein (Negative) Ur Leukocyte Esterase (Negative) Urine WBC (0-5) /hpf Urine Mucus (None) /hpf 08/19/19 08/19/19 08/20/19 Range/Units 19:48 21:15 06:56 WBC (3.8-10.6) k/uL Neutrophils # (1.3-7.7) k/uL Lymphocytes # (1.0-4.8) k/uL ESR (0-20) mm/hr Sodium (137-145) mmol/L Potassium (3.5-5.1) mmol/L Chloride (98-107) mmol/L Glucose (74-99) mg/dL POC Glucose (mg/dL) 187 H 140 H (75-99) mg/dL Hemoglobin A1c 6.1 H (4.0-6.0) % Total Bilirubin (0.2-1.3) mg/dL C-Reactive Protein (<10.0) mg/L Total Protein (6.3-8.2) g/dL Albumin (3.5-5.0) g/dL Vitamin B12 (200.0-944.0) pg/mL Urine Protein (Negative) Ur Leukocyte Esterase (Negative) Urine WBC (0-5) /hpf Urine Mucus (None) /hpf 08/20/19 08/20/19 08/20/19 Range/Units 07:47 07:47 11:43 WBC 11.8 H (3.8-10.6) k/uL Neutrophils # 9.9 H (1.3-7.7) k/uL Lymphocytes # 0.9 L (1.0-4.8) k/uL ESR (0-20) mm/hr Sodium 136 L (137-145) mmol/L Potassium 3.3 L (3.5-5.1) mmol/L Chloride (98-107) mmol/L Glucose 200 H (74-99) mg/dL POC Glucose (mg/dL) 128 H (75-99) mg/dL Hemoglobin A1c (4.0-6.0) % Total Bilirubin 1.5 H (0.2-1.3) mg/dL C-Reactive Protein (<10.0) mg/L Total Protein 5.8 L (6.3-8.2) g/dL Albumin 3.1 L (3.5-5.0) g/dL Vitamin B12 (200.0-944.0) pg/mL Urine Protein (Negative) Ur Leukocyte Esterase (Negative) Urine WBC (0-5) /hpf Urine Mucus (None) /hpf Microbiology - Last 24 Hours (Table) 08/19/19 16:25 Urine Culture - Preliminary Urine,Voided Assessment and Plan Assessment: bilateral lower extremity weakness with elevated ESR and CRP - MRI T and L spine with disc buldge at multiple levels. - Neurorecs appreciated - PT/POT evaluation - Start prednisone for possible polymyalgia rheumatica - creatinine kinase level normal - Possible outpatient rheumoatology evaluation - fall precuations - B 12 normal - consult spine for review of MRI T/L spine withcentral steonsis at L3/4 or L4/5 DM 2 well controlled - A1C 6.1 - of metfromin on SSI - follow BS closely with steroids HTN, controlled - coontinue with atenolol, cozaar - follow BP A fib - xarelto on hold until MRI brain obtained - follow HR - atenolol DVT prophylaxis: SCDs Discussed with: Patient, family, nursing, neurology Anticipated discharge: 2-[address]: Home with home health vs SNF A total of 45 minutes was spent on the care of this complex patient more than 50% of the time was spent in counseling and care coordination.
[2019-08-20] MEDS: predniSONE 20 MG TAB PO SCH (16:22)
[2019-08-20 17:04] LABS: Glucose,Whole Blood 132 mg/dL (75-99)
[2019-08-20 19:57] LABS: Glucose,Whole Blood 254 mg/dL (75-99)
[2019-08-20] MEDS: CEPHALEXIN 500 MG CAP PO SCH (20:51)
[2019-08-20] MEDS: LATANOPROST 0.005% OPHTH DROPS 2.5 ML BTL BOTH EYES SCH (20:56)
[2019-08-21 07:01] LABS: Glucose,Whole Blood 193 mg/dL (75-99)
[2019-08-21] MEDS: TIMOLOL 0.5% OPHTH DROPS 5 ML BTL BOTH EYES SCH ×2 (07:39→20:52)
[2019-08-21] MEDS: predniSONE 20 MG TAB PO SCH (07:42)
[2019-08-21] MEDS: LOSARTAN 50 MG TAB PO SCH (07:42)
[2019-08-21] MEDS: CEPHALEXIN 500 MG CAP PO SCH ×2 (07:42→20:50)
[2019-08-21] MEDS: ATENOLOL 50 MG TAB PO SCH (07:42)
[2019-08-21] MEDS: INSULIN ASPART (NovoLOG) 100 UNIT/ML VIAL SQ SCH ×4 (07:43→20:50)
[2019-08-21] MEDS: SODIUM CHLORIDE 0.9% 1,000 ML IV SCH (07:43)
[2019-08-21] MEDS: FERROUS SULFATE 325 MG TAB PO SCH ×2 (07:43→17:43)
[2019-08-21 08:52] LABS: HCT 38.2 % (34.0-46.0); HGB 12.4 gm/dL (11.4-16.0); MCH 30.2 pg (25.0-35.0); MCHC 32.6 g/dL (31.0-37.0); MCV 92.8 fL (80.0-100.0); Mean Platelet Volume 9.8; Platelet Count 270 k/uL (150-450); RBC 4.11 m/uL (3.80-5.40); RDW 13.2 % (11.5-15.5); WBC 10.7 k/uL (3.8-10.6)
[2019-08-21 09:09] LABS: ALT 15 U/L (4-34); AST 22 U/L (14-36); African American GFR (CKD) >90 (>60 ml/min/1.73 sqM); Alkaline Phosphatase 85 U/L (38-126); Anion Gap 7 mmol/L; Blood Urea Nitrogen 17 mg/dL (7-17); Calcium 8.7 mg/dL (8.4-10.2); Carbon Dioxide 27 mmol/L (22-30); Chloride 103 mmol/L (98-107); Glucose 238 mg/dL (74-99); Non-African American GFR(CKD) 80 (>60 ml/min/1.73 sqM); Sodium 137 mmol/L (137-145); Total Bilirubin 0.7 mg/dL (0.2-1.3); Total Protein 5.8 g/dL (6.3-8.2)
[2019-08-21 09:24] LABS: C Reactive Protein 180.8 mg/L (<10.0)
--- NOTE | 2019-08-21 09:49 | MR ---
EXAMINATION TYPE: MR brain wo/w con DATE OF EXAM: 08/21/2019 COMPARISON: CT brain 08/19/2019 HISTORY: Bilateral leg weakness CONTRAST: Performed utilizing 7.5 mL intravenous Gadavist gadolinium contrast. TECHNIQUE: Multiplanar, multiecho imaging on a 3.0 Moira magnet is performed through the brain. Stud y is performed within 24 hours of arrival to the hospital. The craniovertebral junction is normal. The pituitary is normal. Diffusion-weighted imaging is performed. No abnormal hyperintensity is present to suggest an acute i ntracranial infarct or acute ischemic change. There are multiple periventricular white matter changes some of which are perpendicular to the ventri cles. Findings can be suggestive for, although not diagnostic of, multiple sclerosis. The patient of this age microvascular ischemic change be considered high within the differential. Reference lesions: 1. 0.8 cm white matter change right centrum semiovale series 501 image 22. 2. 0.9 cm white matter change left centrum semiovale, series 501 image 22. Ventricles and sulci are prominent for the patient age. Normal vascular flow voids are present. Optic chiasm is visualized appears normal. Orbits as visualiz ed are normal. Tiny liver, robins space may be within the left basal ganglion. No suspicious enhancement is evident. IMPRESSIONS: 1. Multiple bilateral white matter changes are more likely related to microvascular ischemic change. Other etiologies including multiple sclerosis are not excluded.
--- NOTE | 2019-08-21 11:59 | CDI ---
+- Documentation Clarification Form Date: 08/21/2019 11:43:28 AM From: Yoselyn Oliver RN, CCDS Admit Date: 08/20/2019 08:49:00 AM Patient Name: Alma Singer Visit Number: [id number] Discharge Date: ATTENTION: The Clinical Documentation Specialists (CDI) and [facility] Coding Staff appreciate your assistance in clarifying documentation. Please respond to the clarification below the line at the bottom and electronically sign. The CDI & [facility] Coding staff will review the response and follow-up if needed. Please note: Queries are made part of the Legal Health Record. If you have any questions, please contact the author of this message via ITS. Dr. Beth Dietz Atrial Fibrillation is documented in the patient past medical history, the H&P on 08/20, the ongoing progress notes with current treatment and further clarification is needed History/Risk Factors: Atrial fibrillation, Hypertension, Diabetes mellitus Clinical Indicators: The past medical history under comments on 08/19" heart beats too fast" per patient. Her home medication include; ASA (low dose 81 mg, and Xarelto 2.5 mg po bid for treatment of her atrial fibrillation. EKG/telemetry: not noted 08/18 PT 11.6, INR 1.1, APTT 29.5 Treatment: Xarelto 2.5 mg PO BID (on hold0 ASA 81 mg POS Daily (on hold) Monitor PT/INR, APTT n your professional opinion, can you please clarify the type of Atrial Fibrillation, if known? Chronic/Permanent Paroxysmal Persistent Other, please specify Unable to determine (Last Revision: October 2017) Chronic/Permanent MTDD
[2019-08-21 12:09] LABS: Glucose,Whole Blood 177 mg/dL (75-99)
--- NOTE | 2019-08-21 12:25 | P.CNOR ---
History of Present Illness - [facility] Consult date: 08/21/19 Requesting physician: Beth Dietz Consult reason: other (Bilateral hip flexion weakness) History of present illness: Patient is a very pleasant 84-year-old female who is seen and examined at bedside for further evaluation for bilateral lower extremity weakness. Patient states she is known to have using a walker over the past 3 years intermittently to aid in ambulation. Since 08/19/2019, she started to experience significant extremity weakness and difficulty with ambulation. She was unable to ambulate even a few steps. She was brought to the emergency department for further evaluation. She denied any specific back pain or lower extremity radiculopathy bilaterally. She has been seen by neurology. Patient is scheduled to have a brain MRI performed today. Patient's lower extremity weakness is mainly when trying to perform hip flexion bilaterally. She was started on prednisone yesterday. Since that time she has had great improvement of her symptoms. She has been able to stand and ambulate some at the bedside. She feels her weakness has been significantly improving. She is not complaining of low back pain or lower extremity radiculopathy at the bedside. She denies any recent injuries. Patient did have MRI imaging of the thoracic and lumbar spine performed yesterday the patient was unable to finish the MRI due to nausea. She is not currently nauseous at the bedside. Patient has been discussed in detail with medicine who states the patient has also significantly improved since yesterday. They're planning for discharge tomorrow. Patient does have a medical history which includes diabetes mellitus over the past 15 years, hypertension, and atrial fibrillation. Past Medical History Past Medical History: Atrial Fibrillation, Cancer, Diabetes Mellitus, Hypertension Additional Past Medical History / Comment(s): colon cancer History of Any Multi-Drug Resistant Organisms: None Reported Past Surgical History: Bowel Resection, Cholecystectomy, Hernia Repair, Hysterectomy Additional Past Surgical History / Comment(s): cataract surgery; bowel resection June 2017 r/t colon cancer Past Anesthesia/Blood Transfusion Reactions: Postoperative Nausea & Vomiting (PONV) Additional Past Anesthesia/Blood Transfusion Reaction / Comm: Has had blood transfusion; no reaction. Past Psychological History: No Psychological Hx Reported Smoking Status: Never smoker Past Alcohol Use History: None Reported Past Drug Use History: None Reported - Past Family History Sister(s) Family Medical History: Cancer Additional Family Medical History / Comment(s): both sisters had cancer. one had colon cancer. other sister in her thirties from cancer (unknown) but she had a hysterectomy prior to her . Brother(s) Family Medical History: Cancer Additional Family Medical History / Comment(s): colon cancer Mother Family Medical History: Cancer Additional Family Medical History / Comment(s): breast cancer and colon cancer Father Family Medical History: CVA/TIA Medications and Allergies Home Medications Medication Instructions Recorded Confirmed Type Aspirin EC [Ecotrin Low Dose] 81 mg PO DAILY 05/25/17 08/19/19 History Cholecalciferol [Vitamin D3 (25 1,000 unit PO DAILY 05/25/17 08/19/19 History Mcg = 1000 Iu)] Cyanocobalamin (Vitamin B-12) 1,000 mcg PO DAILY 05/25/17 08/19/19 History [Vitamin B-12] Vit A/Vit C/Vit E/Zinc/Copper 1 cap PO DAILY 05/25/17 08/19/19 History [ICAPS SOFTGEL] metFORMIN HCL 1,000 mg PO BID 05/25/17 08/19/19 History Ferrous Sulfate [Iron (65 MG 325 mg PO BID-W/MEALS tab 05/30/17 08/19/19 Rx Elemental)] Rivaroxaban [Xarelto] 2.5 mg PO BID 06/24/19 08/19/19 History Atenolol [Tenormin] 50 mg PO DAILY 08/19/19 08/19/19 History Bimatoprost [Lumigan .01% Ophth 1 drop BOTH EYES HS 08/19/19 08/19/19 History Soln] Furosemide [Lasix] 20 mg PO DAILY PRN 08/19/19 08/19/19 History Losartan Potassium 100 mg PO DAILY 08/19/19 08/19/19 History Timolol Maleate [Timolol Maleate 1 applic BOTH EYES HS 08/19/19 08/19/19 History 0.5% Ophth Gel] Allergies Allergy/AdvReac Type Severity Reaction Status Date / Time No Known Allergies Allergy Verified 08/19/19 18:41 Physical Examination Physical exam: Patient is awake, alert, and oriented 3 Vital signs stable Good chest excursion with deep inspiration and expiration Abdomen soft nontender Examination of &lumbar spine reveals skin is intact with no abrasions, lacerations, or bruises; no erythema, purulence or signs of infection No pain with palpation along the thoracic or lumbar spines Dorsiflexion, plantarflexion, and extensor hallucis longus positive sustained bilaterally Patient is able to lift her legs off the bed independently with hip flexion but does continue to have weakness with hip flexion bilaterally No lower extremity hyperreflexia bilaterally Straight leg test negative bilateral lower extremities Negative Lasegue's test bilaterally No signs or symptoms of DVT; no calf pain No pain with internal and external rotation of the hips bilaterally Neurovascularly intact Results Pertinent Studies: MRI of the thoracic and lumbar spine taken on 08/20/2019: Multilevel thoracic degenerative disc disease without evidence of cord compression; T12 age-indeterm inate compression fracture deformity; multilevel lumbar degenerative disc disease with mild spinal canal stenosis at L3-4 and L4-5; L2-3 degenerative disc disease; L2-S1 disc desiccation; axial imaging of the lumbar spine is not visible due to discontinuation of the MRI during testing - Labs Labs: Abnormal Lab Results - Last 24 Hours (Table) 08/20/19 08/20/19 08/21/19 Range/Units 17:00 19:56 06:59 WBC (3.8-10.6) k/uL Glucose (74-99) mg/dL POC Glucose (mg/dL) 132 H 254 H 193 H (75-99) mg/dL C-Reactive Protein (<10.0) mg/L Total Protein (6.3-8.2) g/dL Albumin (3.5-5.0) g/dL 08/21/19 08/21/19 08/21/19 Range/Units 08:22 08:22 12:03 WBC 10.7 H (3.8-10.6) k/uL Glucose 238 H (74-99) mg/dL POC Glucose (mg/dL) 177 H (75-99) mg/dL C-Reactive Protein 180.8 H (<10.0) mg/L Total Protein 5.8 L (6.3-8.2) g/dL Albumin 3.0 L (3.5-5.0) g/dL Microbiology - Last 24 Hours (Table) 08/19/19 16:25 Urine Culture - Preliminary Urine,Voided Gram Neg Bacilli H & H 08/19/19 08/20/19 08/21/19 Range/Units 16:00 07:47 08:22 Hgb 14.2 12.5 12.4 (11.4-16.0) gm/dL Hct 43.4 37.1 38.2 (34.0-46.0) % Coagulation 08/19/19 Range/Units 16:00 INR 1.0 (<1.2) Result Diagrams: 08/21/19 08:22 08/21/19 08:22 Assessment and Plan Assessment: Assessment: Bilateral acute onset hip flexion weakness improving since yesterday Inability to ambulate at presentation with improvement since admission Thoracic degenerative disc disease Lumbar degenerative disc disease T12 age-indeterminate compression fracture deformity Hypertension Diabetes mellitus History of atrial fibrillation (1) Bilateral leg weakness Current Visit: Yes Status: Acute Code(s): R29.898 - OTH SYMPTOMS AND SIGNS INVOLVING THE MUSCULOSKELETAL SYSTEM SNOMED Code(s): 0613782 (2) Thoracic degenerative disc disease Current Visit: Yes Status: Acute Code(s): M51.34 - OTHER INTERVERTEBRAL DISC DEGENERATION, THORACIC REGION SNOMED Code(s): 38777320 (3) Lumbar degenerative disc disease Current Visit: Yes Status: Acute Code(s): M51.36 - OTHER INTERVERTEBRAL DISC DEGENERATION, LUMBAR REGION SNOMED Code(s): 90818437 (4) T12 compression fracture Current Visit: Yes Status: Acute Code(s): S22.080A - WEDGE COMPRESSION FRACTURE OF T11-T12 VERTEBRA, INIT SNOMED Code(s): 689577585 (5) Diabetes mellitus Current Visit: Yes Status: Acute Code(s): E11.9 - TYPE 2 DIABETES MELLITUS WITHOUT COMPLICATIONS SNOMED Code(s): 44095112 (6) History of atrial fibrillation Current Visit: Yes Status: Acute Code(s): Z86.79 - PERSONAL HISTORY OF OTHER DISEASES OF THE CIRCULATORY SYSTEM SNOMED Code(s): 731243448 (7) Hypertension Current Visit: No Status: Acute Code(s): I10 - ESSENTIAL (PRIMARY) HYPERTENSION SNOMED Code(s): 38743997 Plan: Plan: 1. After further discussion with the patient, physical examination the patient, reviewing of imaging, and further discussion with medicine, we are not currently planning for any acute surgical intervention or further imaging to be obtained at this time. Patient was experiencing significant difficulty with hip flexion bilaterally and inability to ambulate yesterday. She has had significant improvement since that time after being started on prednisone. Patient has been able to ambulate small distances with the assistance of a walker. She is planning to try to increase her mobility today. She is not currently experiencing any significant low back pain or lower extremity radiculopathy bilaterally. Patient does have some degenerative changes at her thoracic and lumbar spines. Due to her overall improvement, medicine is planning for discharge home tomorrow. We discussed we will plan have the patient follow up in the outpatient setting approximately 2-3 weeks for further evaluation. If her symptoms worsen or do not continue to improve to her baseline, we may plan to obtain further imaging at that time. Patient is clear for discharge from an orthopedic spine standpoint. She may follow-up with Lyle Bello PA-C or Dr. Jamel Mobley at [facility]. 2. Patient will continue be seen and examined by medicine for further evaluation treatment; medicine is currently planning for discharge tomorrow Time with Patient: Greater than 30 (Including obtaining history, physical exam ination, reviewing of imaging, and dictation.)
[2019-08-21 17:21] LABS: Glucose,Whole Blood 219 mg/dL (75-99)
--- NOTE | 2019-08-21 18:23 | P.PN ---
Subjective Progress Note Date: 08/21/19 (delayed charting seen at 1130) Principal diagnosis: weakness Patient is an 84-year-old female with past medical history of colon cancer status post surgical resection not requiring chemo or radiation, A. fib, diabetes, and hypertension who presented to the emergency department with complaints of progressive lower extremity weakness over 3 days' time. In the ER she underwent an extensive evaluation. Initial vital signs were within normal limits. Initial laboratory analysis showed an elevated white blood cell count at 12, PTT and INR were normal, sodium low at 132, negative troponin, and negative urinalysis. CT brain showed no acute process with mild periventricular white matter ischemic changes, chest x-ray showed mild cardiomegaly, hip x-ray showed no acute fractures. She is admitted for further management. Upon arrival an ESR and CRP checked which were grossly elevated, B12 normal, hemoglobin A1c acceptable at 6.1, and bilirubin mildly elevated at 1.5. Neurology was consulted. MRI thorasic adn lumbar spine shoed degenerative disc disease with mild central canal stenosis, and MRI brain showed 2 white matter ischemic lesions. She was started on prednisone for possible PMR on 08/20 and had a repid improvement by 08/21. She was seen by ortho spine who recommended outpatient follow-up. Patient seen and examined at bedside. Feeling much better today. Able to move her legs much better than yesterday. Was able to ambulate the door with physic al therapy. No chest pain, shortness breath, nausea, or vomiting. Eating well. Discussed option of home with home health versus correction facility. Patient like to go home with home health and feels as though her daughter and to help her manage at home. We discussed the possibility of polymyalgia rheumatica was likely diagnosis. We discussed that it sometimes takes a long time to recover and she could be followed by rheumatology. Objective - Vital Signs Vital signs: Vital Signs Temp 98 F 08/21/19 14:40 Pulse 79 08/21/19 14:40 Resp 12 08/21/19 14:40 BP 185/92 08/21/19 14:40 Pulse Ox 98 08/21/19 14:40 Intake & Output 08/20/19 08/21/19 08/21/19 18:59 06:59 18:59 Other: Voiding Method Diaper Bedside Commode Bedside Commode Diaper Diaper # Voids 2 1 1 - Exam General: Nontoxic, no distress, appears at stated age Derm: warm, dry Head: atraumatic, normocephalic, symmetric Eyes: EOMI, no lid lag, anicteric sclera Mouth: no lip lesion, mucus membranes moist Cardiovascular: S1S2 reg, systolic ejection murmur, positive posterior tibial pulse bilateral, Lungs: Decreased bs bilateral, no rhonchi, no rales , no accessory muscle use Abdominal: soft, nontender to palpation, no guarding, no appreciable organomegaly Ext: no gross muscle atrophy, no edema, no contractures Neuro: CN II-XI grossly intact, muscle strength 4 out of 5 bilateral hip flexors, 4 out of 5 bilateral knee flexors and extensors, 4 out of 5 with dorsi and plantar flexion Psych: Alert, oriented, appropriate affect - Labs CBC & Chem 7: 08/21/19 08:22 08/21/19 08:22 Labs: Abnormal Lab Results - Last 24 Hours (Table) 08/20/19 08/21/19 08/21/19 Range/Units 19:56 06:59 08:22 WBC 10.7 H (3.8-10.6) k/uL Glucose (74-99) mg/dL POC Glucose (mg/dL) 254 H 193 H (75-99) mg/dL C-Reactive Protein (<10.0) mg/L Total Protein (6.3-8.2) g/dL Albumin (3.5-5.0) g/dL 08/21/19 08/21/19 08/21/19 Range/Units 08:22 12:03 17:19 WBC (3.8-10.6) k/uL Glucose 238 H (74-99) mg/dL POC Glucose (mg/dL) 177 H 219 H (75-99) mg/dL C-Reactive Protein 180.8 H (<10.0) mg/L Total Protein 5.8 L (6.3-8.2) g/dL Albumin 3.0 L (3.5-5.0) g/dL Microbiology - Last 24 Hours (Table) 08/19/19 16:25 Urine Culture - Preliminary Urine,Voided Gram Neg Bacilli Assessment and Plan Assessment: bilateral lower extremity weakness with elevated ESR and CRP probable PMR - MRI T and L spine with disc buldge at multiple levels., Outpatient follow-up with ortho spine - Neurorecs appreciated - PT/POT evaluation - Start prednisone for possible polymyalgia rheumatica - creatinine kinase level normal - Possible outpatient rheumoatology evaluation - fall precuations - B 12 normal DM 2 well controlled - A1C 6.1 - of metfromin on SSI - follow BS closely with steroids HTN, controlled - coontinue with atenolol, cozaar - follow BP Chronic A fib - resume xarelto - follow HR - atenolol DVT prophylaxis: SCDs Discussed with: Patient, family, nursing, neurology Anticipated discharge: in AM Anticipated discharge place: Home with home health vs SNF A total of 25 minutes was spent on the care of this complex patient more than 50% of the time was spent in counseling and care coordination.
--- NOTE | 2019-08-21 19:39 | P.PN ---
Subjective Progress Note Date: 08/21/19 Patient states she is doing much better. She feels can lift her legs, move her feet and can walk with her walker. Nothing hurts yet. Denies any new focal symptoms. Objective - Vital Signs Vital signs: Vital Signs Temp 98 F 08/21/19 14:40 Pulse 79 08/21/19 14:40 Resp 12 08/21/19 14:40 BP 185/92 08/21/19 14:40 Pulse Ox 98 08/21/19 14:40 Intake & Output 08/21/19 08/21/19 08/22/19 06:59 18:59 06:59 Other: Voiding Method Bedside Commode Bedside Commode Diaper Diaper # Voids 1 1 - Exam Patient's mental status, speech and language functions normal. Cranial nerves normal. Muscle strength is normal in both arms. In the lower limbs, hip flexion is 4+, adduction 5, abduction 5-, knees and ankles toes normal. Sensations normal. - Labs CBC & Chem 7: 08/21/19 08:22 08/21/19 08:22 Labs: Abnormal Lab Results - Last 24 Hours (Table) 08/20/19 08/21/19 08/21/19 Range/Units 19:56 06:59 08:22 WBC 10.7 H (3.8-10.6) k/uL Glucose (74-99) mg/dL POC Glucose (mg/dL) 254 H 193 H (75-99) mg/dL C-Reactive Protein (<10.0) mg/L Total Protein (6.3-8.2) g/dL Albumin (3.5-5.0) g/dL 08/21/19 08/21/19 08/21/19 Range/Units 08:22 12:03 17:19 WBC (3.8-10.6) k/uL Glucose 238 H (74-99) mg/dL POC Glucose (mg/dL) 177 H 219 H (75-99) mg/dL C-Reactive Protein 180.8 H (<10.0) mg/L Total Protein 5.8 L (6.3-8.2) g/dL Albumin 3.0 L (3.5-5.0) g/dL Microbiology - Last 24 Hours (Table) 08/19/19 16:25 Urine Culture - Preliminary Urine,Voided Gram Neg Bacilli Assessment and Plan Assessment: * Possible polymyalgia rheumatica with elevated ESR and CRP. Patient does not have much pain however. All workup negative. Plan: * Patient underwent MRI of the thoracic and lumbar spines, yesterday, which revealed multilevel degenerative disc disease throughout the thoracic spine without evidence for cord compression or central stenosis. Multilevel degenerative disc disease throughout the lumbar spine with a mild spinal stenosis at L3 4 and L4 5. * Patient underwent MRI of the brain, which is normal, with no evidence of an acute stroke. * Patient has elevated ESR 46 and CRP 180. She possibly has polymyalgia rheumatica, although does not have significant pain which is unusual. * Patient has been started on prednisone 60 mg daily. Patient is doing much better. Recheck ESR and CRP to guide the treatment with steroids. * Possible discharge in a.m. Patient to follow up with neurologist locally as outpatient.
[2019-08-21 19:57] LABS: Glucose,Whole Blood 237 mg/dL (75-99)
[2019-08-21] MEDS: LATANOPROST 0.005% OPHTH DROPS 2.5 ML BTL BOTH EYES SCH (20:52)
[2019-08-22 03:25] VITALS: RESP 18
[2019-08-22] MEDS: SODIUM CHLORIDE 0.9% 1,000 ML IV SCH (04:09)
[2019-08-22] MEDS: TIMOLOL 0.5% OPHTH DROPS 5 ML BTL BOTH EYES SCH (06:06)
[2019-08-22] MEDS: predniSONE 20 MG TAB PO SCH (06:34)
[2019-08-22] MEDS: LOSARTAN 50 MG TAB PO SCH (06:34)
[2019-08-22] MEDS: CEPHALEXIN 500 MG CAP PO SCH (06:34)
[2019-08-22] MEDS: FERROUS SULFATE 325 MG TAB PO SCH (06:34)
[2019-08-22] MEDS: ATENOLOL 50 MG TAB PO SCH (06:34)
[2019-08-22 06:43] LABS: Glucose,Whole Blood 127 mg/dL (75-99)
[2019-08-22] MEDS: INSULIN ASPART (NovoLOG) 100 UNIT/ML VIAL SQ SCH ×2 (06:43→11:49)
[2019-08-22] MEDS ORDERED: FUROSEMIDE 20 MG TAB PO STA (08:11)
[2019-08-22 08:41] LABS: HGB 12.3 gm/dL (11.4-16.0); MCH 29.7 pg (25.0-35.0); MCHC 32.3 g/dL (31.0-37.0); MCV 91.9 fL (80.0-100.0); Mean Platelet Volume 10.1; Platelet Count 275 k/uL (150-450); RBC 4.13 m/uL (3.80-5.40); RDW 13.3 % (11.5-15.5); WBC 13.1 k/uL (3.8-10.6)
[2019-08-22 08:48] VITALS: BP 161/82; PULSE 94; TEMP 97.7
[2019-08-22] MEDS ORDERED: ASPIRIN 81 MG PO SCH (09:00)
[2019-08-22] MEDS ORDERED: RIVAROXABAN 2.5 MG TABLET PO SCH (09:00)
--- NOTE | 2019-08-22 11:01 | P.DS ---
Providers Date of admission: 08/20/19 08:49 Expected date of discharge: 08/22/19 Attending physician: Prashanth Garsia MD Consults: 08/19/19 17:10 Consult Physician Urgent Consulting Provider: [place] Consult Reason/Comments: leg weakness Do you want consulting provider notified?: Yes 08/20/19 16:17 Consult Physician Routine Consulting Provider: Garrett Mobley Consult Reason/Comments: L3/4 L 4/5 central stenosis with b/l LE weakness Do you want consulting provider notified?: Yes Primary care physician: Wiliam Myers [facility] Course: Discharge Diagnosis: Bilateral lower extremity weakness-secondary to degenerative disc disease versus polymyalgia rheumatica though this felt to be less likely secondary to significant amounts of weakness. stroke ruled out, space-occupying lesion ruled out, epidural hematoma ruled out. Thoracic and lumbar degenerative disc disease with T12 age indeterminate compression fracture Diabetes mellitus type 2 Hypertension Chronic A. fib, has not been taking Xarelto Klebsiella urinary tract infection, present on admission Hospital Course: Patient is an 84-year-old female with past medical history of colon cancer status post surgical resection not requiring chemo or radiation, A. fib, diabetes, and hypertension who presented to the emergency department with complaints of progressive lower extremity weakness over 3 days' time. In the ER she underwent an extensive evaluation. Initial vital signs were within normal limits. Initial laboratory analysis showed an elevated white blood cell count at 12, PTT and INR were normal, sodium low at 132, negative troponin, and negative urinalysis. CT brain showed no acute process with mild periventricular white matter ischemic changes, chest x-ray showed mild cardiomegaly, hip x-ray showed no acute fractures. She is admitted for further management. Upon arrival an ESR and CRP checked which were grossly elevated, B12 normal, hemoglobin A1c acceptable at 6.1, and bilirubin mildly elevated at 1.5. Neurology was consulted. MRI thorasic adn lumbar spine shoed degenerative disc disease with mild central canal stenosis, and MRI brain showed 2 white matter ischemic lesions. She was started on prednisone for possible PMR on 08/20 and had a rapid improvement by 08/21. She was seen by ortho spine who recommended outpatient follow-up due to degenerative disc disease. Her urine culture came back with kelbsiella. Her weakness is much improved and she was determined stable for discharge home. D/W patient that there could be multiple etiologies of her weakness including DJD, PMR, or UTI and patient is aware. She will follow-up with Dr. Myers next week, Dr. Sams for neurology in 2 weeks, and Dr. Mobley in 2 weeks. Consider rheumatology improvement if pain/weakness recurs. She will complete Keflex and prednisone treatment. Patient seen and examined at bedside. Weakness is greatly improved doing better every day, no nausea, no vomiting, no chest pain, no shortness of breath, no diarrhea. She is not having any significant urinary symptoms on presentation however she was feeling generally weak and worn down. Vital signs reviewed and stable. General: non toxic, no distress, appears at stated age Derm: warm, dry Head: atraumatic, normocephalic, symmetric Eyes: EOMI, no lid lag, anicteric sclera Mouth: no lip lesion, mucus membranes moist Cardiovascular: S1S2 reg, no murmur, positive posterior tibial pulse bilateral, Lungs: Decreased bs bilateral, no rhonchi, no rales , no accessory muscle use Abdominal: soft, nontender to palpation, no guarding, no appreciable organomegaly Ext: no gross muscle atrophy, no edema, no contractures Neuro: CN II-XI grossly intact, no focal neuro deficits, bilateral lower extremities 4/5 hip flexors, knee extensors/flexors 4/5, dorsi and plantar flexion 5/5 Psych: Alert, oriented, appropriate affect A total of 35 minutes of time were spent preparing this complex discharge summary . Patient Condition at Discharge: Stable Plan - Discharge Summary Discharge Rx Participant: Yes New Discharge Prescriptions: New Cephalexin [Keflex] 500 mg PO BID #7 cap predniSONE 0 mg PO DIRECTED #15 tab Continue Cyanocobalamin (Vitamin B-12) [Vitamin B-12] 1,000 mcg PO DAILY metFORMIN HCL 1,000 mg PO BID Vit A/Vit C/Vit E/Zinc/Copper [ICAPS SOFTGEL] 1 cap PO DAILY Cholecalciferol [Vitamin D3 (25 Mcg = 1000 Iu)] 1,000 unit PO DAILY Aspirin EC [Ecotrin Low Dose] 81 mg PO DAILY Ferrous Sulfate [Iron (65 MG Elemental)] 325 mg PO BID-W/MEALS tab Timolol Maleate [Timolol Maleate 0.5% Ophth Gel] 1 applic BOTH EYES HS Losartan Potassium 100 mg PO DAILY Bimatoprost [Lumigan .01% Ophth Soln] 1 drop BOTH EYES HS Furosemide [Lasix] 20 mg PO DAILY PRN PRN Reason: Edema Atenolol [Tenormin] 50 mg PO DAILY Discontinued Rivaroxaban [Xarelto] 2.5 mg PO BID Discharge Medication List Aspirin EC [Ecotrin Low Dose] 81 mg PO DAILY 05/25/17 [History] Cholecalciferol [Vitamin D3 (25 Mcg = 1000 Iu)] 1,000 unit PO DAILY 05/25/17 [History] Cyanocobalamin (Vitamin B-12) [Vitamin B-12] 1,000 mcg PO DAILY 05/25/17 [History] Vit A/Vit C/Vit E/Zinc/Copper [ICAPS SOFTGEL] 1 cap PO DAILY 05/25/17 [History] metFORMIN HCL 1,000 mg PO BID 05/25/17 [History] Ferrous Sulfate [Iron (65 MG Elemental)] 325 mg PO BID-W/MEALS tab 05/30/17 [Rx] Atenolol [Tenormin] 50 mg PO DAILY 08/19/19 [History] Bimatoprost [Lumigan .01% Ophth Soln] 1 drop BOTH EYES HS 08/19/19 [History] Furosemide [Lasix] 20 mg PO DAILY PRN 08/19/19 [History] Losartan Potassium 100 mg PO DAILY 08/19/19 [History] Timolol Maleate [Timolol Maleate 0.5% Ophth Gel] 1 applic BOTH EYES HS 08/19/19 [History] Cephalexin [Keflex] 500 mg PO BID #7 cap 08/22/19 [Rx] predniSONE 0 mg PO DIRECTED #15 tab 08/22/19 [Rx] Follow up Appointment(s)/Referral(s): Garrett Mobley DO [Doctor of Osteopathic Medicine] - 09/01/19 8:30 am [facility], [NON-STAFF] - As Needed Wiliam Myers MD [Primary Care Provider] - 1-2 days Montrell Sams DO [STAFF PHYSICIAN] - 2 Weeks Activity/Diet/Wound Care/Special Instructions: Activity: as tolerated Diet: carb consistent Special Instructions: 1. Patient may ambulate to tolerance 2. Patient is encouraged to use a walker or other aid to aid in ambulation as needed Discharge Disposition: HOME SELF-CARE
[2019-08-22 11:46] LABS: Glucose,Whole Blood 301 mg/dL (75-99)
[2019-08-22 14:29] LABS: Vit B1(Thiamine) 57 ug/L (38-122)
== END 2019-08-22 12:48 | disposition home health service (06) | DRG 552 ==
LOC: EC 14:00 → 4SSUR 17:05 → OBSVTOIN 08-20 08:49
PROVIDERS: ADMIT Internal Medicine; ATTEND Internal Medicine
DX: M51.36 Other intervertebral disc degeneration, lumbar region (principal); N39.0 Urinary tract infection, site not specified; I48.20 Chronic atrial fibrillation, unspecified; S22.089A Unspecified fracture of T11-T12 vertebra, initial encounter for closed fracture; M48.54XA Collapsed vertebra, not elsewhere classified, thoracic region, initial encounter for fracture; B96.1 Klebsiella pneumoniae [K. pneumoniae] as the cause of diseases classified elsewhere; E11.9 Type 2 diabetes mellitus without complications; I10 Essential (primary) hypertension; M35.3 Polymyalgia rheumatica; K52.9 Noninfective gastroenteritis and colitis, unspecified; M48.061 Spinal stenosis, lumbar region without neurogenic claudication; M51.34 Other intervertebral disc degeneration, thoracic region; R26.2 Difficulty in walking, not elsewhere classified; Z79.82 Long term (current) use of aspirin; Z79.84 Long term (current) use of oral hypoglycemic drugs; Z79.01 Long term (current) use of anticoagulants; Z79.899 Other long term (current) drug therapy; Z85.038 Personal history of other malignant neoplasm of large intestine; Z90.49 Acquired absence of other specified parts of digestive tract; Z90.710 Acquired absence of both cervix and uterus; Z98.890 Other specified postprocedural states; Z98.49 Cataract extraction status, unspecified eye; Z80.0 Family history of malignant neoplasm of digestive organs; Z80.3 Family history of malignant neoplasm of breast; Z82.3 Family history of stroke
CPT/HCPCS: 36415; 70450; 70553; 71046; 72146; 73502; 80053; 81001; 82525; 82550; 82607; 83036; 83605; 83880; 84425; 84484; 85025; 85027; 85610; 85652; 85730; 86140; 86780; 87077; 87086; 87186; 93005; 99285

== ENCOUNTER 2019-11-27 11:58 | Inpatient (IN) | payer MEDICARE, BC ==
[2019-11-27] MEDS ORDERED: SODIUM CHLORIDE 0.9% 500 ML 500 ML IV STA (12:45)
--- NOTE | 2019-11-27 12:48 | ED ---
Weakness HPI - General Chief complaint: Weakness Stated complaint: Unable to walk Time Seen by Provider: 11/27/19 12:17 Source: patient, family Mode of arrival: ambulatory Limitations: physical limitation - History of Present Illness Initial comments: Patient is an 84 year old female past medical history of A. fib on eliquis, colon cancer with resection who presents to the emergency room in with reported progressive weakness, nausea and diarrhea. Patient states that nausea and diarrhea is chronic for however it has been a little bit more profuse recently. Denies any melenic stools or hematochezia. Patient has been taking Imodium and Zofran at home without improvement in her symptoms. states she's had poor by mouth intake. He states that when she does eat she ends up throwing up. She had a history of colon cancer however has been in remission for the past 2 years. She saw a surgeon out of [facility]. Patient is anticoagulated on Eliquis. Denies any urinary changes. No history of kidney disease. Denies hematemesis. There are no other alleviating, Perceptin or modifying factors - Related Data Home Medications Medication Instructions Recorded Confirmed Aspirin EC [Ecotrin Low Dose] 81 mg PO DAILY 05/25/17 11/27/19 Vit A/Vit C/Vit E/Zinc/Copper 1 cap PO DAILY 05/25/17 11/27/19 [ICAPS SOFTGEL] metFORMIN HCL 1,000 mg PO BID 05/25/17 11/27/19 Atenolol [Tenormin] 25 mg PO BID 08/19/19 11/27/19 Bimatoprost [Lumigan .01% Ophth 1 drop BOTH EYES HS 08/19/19 11/27/19 Soln] Losartan Potassium 100 mg PO DAILY 08/19/19 11/27/19 Timolol Maleate [Timolol Maleate 1 drop BOTH EYES HS 08/19/19 11/27/19 0.5% Ophth Gel] Dulaglutide [Trulicity] 0.75 mg SQ FR 11/27/19 11/27/19 Furosemide [Lasix] 40 mg PO BID 11/27/19 11/27/19 Loperamide [Imodium] 2 mg PO QID PRN 11/27/19 11/27/19 Metolazone [Zaroxolyn] 2.5 mg PO HS 11/27/19 11/27/19 Multivitamins, Thera [Multivitamin 1 tab PO DAILY 11/27/19 11/27/19 (formulary)] Ondansetron Odt [Zofran Odt] 4 mg PO Q4H PRN 11/27/19 11/27/19 Potassium Chloride ER [K-Dur 20] 20 meq PO DAILY 11/27/19 11/27/19 Rivaroxaban [Xarelto] 20 mg PO HS 11/27/19 11/27/19 Allergies Allergy/AdvReac Type Severity Reaction Status Date / Time No Known Allergies Allergy Verified 11/27/19 16:07 Review of Systems ROS Statement: Those systems with pertinent positive or pertinent negative responses have been documented in the HPI. ROS Other: All systems not noted in ROS Statement are negative. Past Medical History Past Medical History: Atrial Fibrillation, Cancer, Diabetes Mellitus, Hypertension Additional Past Medical History / Comment(s): colon cancer History of Any Multi-Drug Resistant Organisms: None Reported Past Surgical History: Bowel Resection, Cholecystectomy, Hernia Repair, Hysterectomy Additional Past Surgical History / Comment(s): cataract surgery; bowel resection June 2017 r/t colon cancer Past Anesthesia/Blood Transfusion Reactions: Postoperative Nausea & Vomiting (PONV) Additional Past Anesthesia/Blood Transfusion Reaction / Comment(s): Has had blood transfusion; no reaction. Past Psychological History: No Psychological Hx Reported Smoking Status: Never smoker Past Alcohol Use History: None Reported Past Drug Use History: None Reported - Past Family History Sister(s) Family Medical History: Cancer Additional Family Medical History / Comment(s): both sisters had cancer. one had colon cancer. other sister in her thirties from cancer (unknown) but she had a hysterectomy prior to her . Brother(s) Family Medical History: Cancer Additional Family Medical History / Comment(s): colon cancer Mother Family Medical History: Cancer Additional Family Medical History / Comment(s): breast cancer and colon cancer Father Family Medical History: CVA/TIA General Exam Limitations: physical limitation General appearance: alert, other (weak, pale, clammy) Head exam: Present: atraumatic, normocephalic, normal inspection ENT exam: Present: mucous membranes dry Neck exam: Present: normal inspection. Absent: tenderness, meningismus, lymphadenopathy Respiratory exam: Present: normal lung sounds bilaterally. Absent: respiratory distress, wheezes, rales, rhonchi, stridor Cardiovascular Exam: Present: regular rate, normal rhythm, normal heart sounds. Absent: systolic murmur, diastolic murmur, rubs, gallop, clicks GI/Abdominal exam: Present: soft, tenderness (mild, generalized) Rectal exam: Present: heme (+) stool, black stool Extremities exam: Present: normal inspection, full ROM, normal capillary refill. Absent: tenderness, pedal edema, joint swelling, calf tenderness Neurological exam: Present: alert Psychiatric exam: Present: flat affect Skin exam: Present: warm, pallor Course Vital Signs 11/27/19 11/27/19 11/27/19 12:06 14:02 15:18 Temperature 97.8 F Pulse Rate 67 61 Respiratory 16 16 Rate Blood Pressure 96/50 132/54 132/54 O2 Sat by Pulse 100 98 Oximetry 11/27/19 11/27/19 16:29 17:03 Temperature Pulse Rate 59 L 60 Respiratory 16 18 Rate Blood Pressure 124/73 132/56 O2 Sat by Pulse 97 95 Oximetry EKG Findings - EKG Comments: EKG Findings:: EKG demonstrates atrial fibrillation with a ventricular rate of 69. DC interval 0 QRS 90. QTC of 426. Mild ST depression in 1, aVL and V6. No acute ST segment elevations Medical Decision Making - Medical Decision Making Upon return of the patient's placed into room 3. There are history and physical exam was performed. Patient does have a bowel movement. On rectal exam she does have dark melenic stools. Fecal occult is sent to lab. Peripheral IV is established. Laboratory studies are performed. The patient doesn't a chest x-ray performed. Hemoglobin is 9.5 which is fallen from the patient's previous value 12.3. Sodium is 125. The 1133. Creatinine 8.1. BNP is elevated at 17,700. Fecal occult is positive. C. diff is negative. Chest x-ray demonstrates no acute cardiopulmonary process. The patient is given a 500 mL bolus of normal saline and she does have physical signs of third spacing. This is then followed by 50 mL per hour. I recommended hospital admission. I called and discussed the case with Dr. Stearns who accepted admission. I discussed the case with Dr. Mclean who accepted admission to the ICU. Case discussed with Dr. Garzon as well. I attempted to call and page nephrology multiple times however I'm currently awaiting callback. Patient remained in hemodynamically stable condition awaiting transfer to floor - Lab Data Result diagrams: 12/01/19 08:26 12/01/19 08:26 Lab Results 11/27/19 11/27/19 11/27/19 Range/Units 13:08 13:08 13:08 WBC 9.1 (3.8-10.6) k/uL RBC 3.37 L (3.80-5.40) m/uL Hgb 9.5 L (11.4-16.0) gm/dL Hct 29.4 L (34.0-46.0) % MCV 87.2 (80.0-100.0) fL MCH 28.2 (25.0-35.0) pg MCHC 32.3 (31.0-37.0) g/dL RDW 18.7 H (11.5-15.5) % Plt Count 315 (150-450) k/uL Neutrophils % 75 % Lymphocytes % 19 % Monocytes % 3 % Eosinophils % 1 % Basophils % 0 % Neutrophils # 6.8 (1.3-7.7) k/uL Lymphocytes # 1.7 (1.0-4.8) k/uL Monocytes # 0.3 (0-1.0) k/uL Eosinophils # 0.1 (0-0.7) k/uL Basophils # 0.0 (0-0.2) k/uL Anisocytosis Slight PT (9.0-12.0) sec INR (<1.2) APTT (22.0-30.0) sec Sodium 125 L (137-145) mmol/L Potassium 3.6 (3.5-5.1) mmol/L Chloride 90 L (98-107) mmol/L Carbon Dioxide 17 L (22-30) mmol/L Anion Gap 18 mmol/L BUN 173 H* (7-17) mg/dL Creatinine 8.16 H* (0.52-1.04) mg/dL Est GFR (CKD-EPI)AfAm 5 (>60 ml/min/1.73 sqM) Est GFR (CKD-EPI)NonAf 4 (>60 ml/min/1.73 sqM) Glucose 130 H (74-99) mg/dL Plasma Lactic Acid Wilber 2.0 (0.7-2.0) mmol/L Calcium 8.4 (8.4-10.2) mg/dL Magnesium 1.1 L (1.6-2.3) mg/dL Total Bilirubin 0.4 (0.2-1.3) mg/dL AST 22 (14-36) U/L ALT 16 (4-34) U/L Alkaline Phosphatase 61 (38-126) U/L Creatine Kinase <20 L (30-135) U/L Troponin I (0.000-0.034) ng/mL NT-Pro-B Natriuret Pep pg/mL Total Protein 5.8 L (6.3-8.2) g/dL Albumin 3.0 L (3.5-5.0) g/dL TSH 1.730 (0.465-4.680) mIU/L Stool Occult Blood (Negative) C. difficile (EIA) Intrp (Negative) 11/27/19 11/27/19 11/27/19 Range/Units 13:08 13:08 13:08 WBC (3.8-10.6) k/uL RBC (3.80-5.40) m/uL Hgb (11.4-16.0) gm/dL Hct (34.0-46.0) % MCV (80.0-100.0) fL MCH (25.0-35.0) pg MCHC (31.0-37.0) g/dL RDW (11.5-15.5) % Plt Count (150-450) k/uL Neutrophils % % Lymphocytes % % Monocytes % % Eosinophils % % Basophils % % Neutrophils # (1.3-7.7) k/uL Lymphocytes # (1.0-4.8) k/uL Monocytes # (0-1.0) k/uL Eosinophils # (0-0.7) k/uL Basophils # (0-0.2) k/uL Anisocytosis PT 10.4 (9.0-12.0) sec INR 1.0 (<1.2) APTT 23.7 (22.0-30.0) sec Sodium (137-145) mmol/L Potassium (3.5-5.1) mmol/L Chloride (98-107) mmol/L Carbon Dioxide (22-30) mmol/L Anion Gap mmol/L BUN (7-17) mg/dL Creatinine (0.52-1.04) mg/dL Est GFR (CKD-EPI)AfAm (>60 ml/min/1.73 sqM) Est GFR (CKD-EPI)NonAf (>60 ml/min/1.73 sqM) Glucose (74-99) mg/dL Plasma Lactic Acid Wilber (0.7-2.0) mmol/L Calcium (8.4-10.2) mg/dL Magnesium (1.6-2.3) mg/dL Total Bilirubin (0.2-1.3) mg/dL AST (14-36) U/L ALT (4-34) U/L Alkaline Phosphatase (38-126) U/L Creatine Kinase (30-135) U/L Troponin I 0.024 (0.000-0.034) ng/mL NT-Pro-B Natriuret Pep 61509 pg/mL Total Protein (6.3-8.2) g/dL Albumin (3.5-5.0) g/dL TSH (0.465-4.680) mIU/L Stool Occult Blood (Negative) C. difficile (EIA) Intrp (Negative) 11/27/19 11/27/19 Range/Units 14:30 14:30 WBC (3.8-10.6) k/uL RBC (3.80-5.40) m/uL Hgb (11.4-16.0) gm/dL Hct (34.0-46.0) % MCV (80.0-100.0) fL MCH (25.0-35.0) pg MCHC (31.0-37.0) g/dL RDW (11.5-15.5) % Plt Count (150-450) k/uL Neutrophils % % Lymphocytes % % Monocytes % % Eosinophils % % Basophils % % Neutrophils # (1.3-7.7) k/uL Lymphocytes # (1.0-4.8) k/uL Monocytes # (0-1.0) k/uL Eosinophils # (0-0.7) k/uL Basophils # (0-0.2) k/uL Anisocytosis PT (9.0-12.0) sec INR (<1.2) APTT (22.0-30.0) sec Sodium (137-145) mmol/L Potassium (3.5-5.1) mmol/L Chloride (98-107) mmol/L Carbon Dioxide (22-30) mmol/L Anion Gap mmol/L BUN (7-17) mg/dL Creatinine (0.52-1.04) mg/dL Est GFR (CKD-EPI)AfAm (>60 ml/min/1.73 sqM) Est GFR (CKD-EPI)NonAf (>60 ml/min/1.73 sqM) Glucose (74-99) mg/dL Plasma Lactic Acid Wilber (0.7-2.0) mmol/L Calcium (8.4-10.2) mg/dL Magnesium (1.6-2.3) mg/dL Total Bilirubin (0.2-1.3) mg/dL AST (14-36) U/L ALT (4-34) U/L Alkaline Phosphatase (38-126) U/L Creatine Kinase (30-135) U/L Troponin I (0.000-0.034) ng/mL NT-Pro-B Natriuret Pep pg/mL Total Protein (6.3-8.2) g/dL Albumin (3.5-5.0) g/dL TSH (0.465-4.680) mIU/L Stool Occult Blood Positive H (Negative) C. difficile (EIA) Intrp Negative (Negative) Critical Care Time Critical Care Time: Yes Critical Care Time: 35 minutes Disposition Clinical Impression: Anemia, Acute renal failure, GI bleed, Hyponatremia Disposition: ADMITTED IP TO THIS [facility] Condition: Serious Is patient prescribed a controlled substance at d/c from ED?: No Decision to Admit Reason: Admit from EC Decision Date: 11/27/19 Decision Time: 14:58
[2019-11-27 13:58] LABS: Partial Thromboplastin Time 23.7 sec (22.0-30.0); Prothrombin Time 10.4 sec (9.0-12.0)
--- NOTE | 2019-11-27 14:00 | XR ---
EXAMINATION TYPE: XR chest 2V DATE OF EXAM: 11/27/2019 COMPARISON: 08/19/2019 HISTORY: Weakness TECHNIQUE: Frontal and lateral views of the chest are obtained. FINDINGS: There is no focal air space opacity, pleural effusion, or pneumothorax seen. The cardiac silhouette size is mildly enlarged as seen on the prior. Moderate multilevel degenerative change of t he spine and diffuse osseous demineralization. Dextroscoliosis of the thoracic spine, likely partiall y positional. IMPRESSION: No acute cardiopulmonary process.
[2019-11-27 14:01] LABS: Anisocytosis Slight; Basophils % (A) 0 %; Eosinophils # (A) 0.1 k/uL (0-0.7); Eosinophils % (A) 1 %; HCT 29.4 % (34.0-46.0); HGB 9.5 gm/dL (11.4-16.0); Lymphocytes # (A) 1.7 k/uL (1.0-4.8); Lymphocytes % (A) 19 %; MCH 28.2 pg (25.0-35.0); MCHC 32.3 g/dL (31.0-37.0); MCV 87.2 fL (80.0-100.0); Mean Platelet Volume 8.6; Monocytes # (A) 0.3 k/uL (0-1.0); Monocytes % (A) 3 %; Neutrophils # (A) 6.8 k/uL (1.3-7.7); Neutrophils % (A) 75 %; Platelet Count 315 k/uL (150-450); RBC 3.37 m/uL (3.80-5.40); RDW 18.7 % (11.5-15.5); WBC 9.1 k/uL (3.8-10.6)
[2019-11-27 14:02] LABS: ALT 16 U/L (4-34); AST 22 U/L (14-36); African American GFR (CKD) 5 (>60 ml/min/1.73 sqM); Alkaline Phosphatase 61 U/L (38-126); Anion Gap 18 mmol/L; Calcium 8.4 mg/dL (8.4-10.2); Carbon Dioxide 17 mmol/L (22-30); Chloride 90 mmol/L (98-107); Creatine Kinase <20 U/L (30-135); Glucose 130 mg/dL (74-99); Magnesium 1.1 mg/dL (1.6-2.3); Non-African American GFR(CKD) 4 (>60 ml/min/1.73 sqM); Potassium 3.6 mmol/L (3.5-5.1); Sodium 125 mmol/L (137-145); Total Bilirubin 0.4 mg/dL (0.2-1.3); Total Protein 5.8 g/dL (6.3-8.2)
[2019-11-27 14:12] LABS: Blood Urea Nitrogen 173 mg/dL (7-17)
[2019-11-27] MEDS ORDERED: PANTOPRAZOLE 40 MG/10 ML VIAL IVP STA (14:38)
[2019-11-27] MEDS ORDERED: NALOXONE 0.4 MG/ML 1 ML VIAL IV PRN (14:59)
[2019-11-27] MEDS: MAGNESIUM SULFATE-D5W PMX 1 GM in DEXTROSE/WATER 1 100ML.BAG IVPB SCH ×2 (17:01→20:09)
[2019-11-27] MEDS: SODIUM CHLORIDE 0.9% 1,000 ML IV SCH (17:02)
[2019-11-27 17:29] LABS: Glucose,Whole Blood 158 mg/dL (75-99)
[2019-11-27] MEDS ORDERED: LOPERAMIDE 2 MG CAP PO PRN (17:57)
[2019-11-27] MEDS ORDERED: ONDANSETRON 4 MG/2 ML VIAL IVP PRN (18:02)
[2019-11-27 18:11] LABS: Appearance,Urine Cloudy (Clear); Bacteria,Urine Rare /hpf; Bilirubin,Urine Negative (Negative); Blood,Urine Negative (Negative); Budding Yeast,Urine Many /hpf; Color,Urine Yellow; Glucose,Urine (UA) Negative (Negative); Ketones,Urine Negative (Negative); Leukocyte Esterase,Urine Negative (Negative); Nitrite,Urine Negative (Negative); Protein,Urine Trace (Negative); RBC,Urine 2 /hpf (0-5); Specific Gravity,Urine 1.013 (1.001-1.035); Urobilinogen,Urine <2.0 mg/dL (<2.0); WBC,Urine 3 /hpf (0-5)
[2019-11-27 19:32] LABS: Anisocytosis Slight; HCT 26.7 % (34.0-46.0); HGB 8.8 gm/dL (11.4-16.0); MCHC 32.8 g/dL (31.0-37.0); MCV 88.3 fL (80.0-100.0); Mean Platelet Volume 7.5; Platelet Count 300 k/uL (150-450); RBC 3.02 m/uL (3.80-5.40); RDW 18.8 % (11.5-15.5); WBC 9.2 k/uL (3.8-10.6)
[2019-11-27] MEDS: INSULIN ASPART (NovoLOG) 100 UNIT/ML VIAL SQ SCH ×2 (19:37→23:51)
[2019-11-27 19:41] LABS: Albumin 2.6 g/dL (3.5-5.0); Calcium 8.1 mg/dL (8.4-10.2); Potassium 3.2 mmol/L (3.5-5.1); Total Bilirubin 0.3 mg/dL (0.2-1.3); Total Protein 5.1 g/dL (6.3-8.2)
[2019-11-27] MEDS: LATANOPROST 0.005% OPHTH DROPS 2.5 ML BTL BOTH EYES SCH (20:10)
[2019-11-27] MEDS ORDERED: TIMOLOL 0.5% OPHTH DROPS 5 ML BTL BOTH EYES SCH (21:00)
[2019-11-27 23:15] LABS: Glucose,Whole Blood 175 mg/dL (75-99)
[2019-11-27] MEDS ORDERED: ATROPINE SULFATE 0.1 MG/ML 10ML SYRINGE ONE (23:30)
--- NOTE | 2019-11-28 00:32 | P.HPIM ---
History of Present Illness H&P Date: 11/27/19 Chief Complaint: N/V Patient is a 84-year-old female with a known history of atrial fibrillation on anticoagulation with Eliquis, history of colon cancer status post resection in 2017 currently in remission., hypertension, diabetes type 2, chronic bilateral lower extremity swelling presents to ER with complaints of nausea vomiting and generalized weakness for the past 1 month. Patient also complaining of blood in the emesis mainly bright-colored streaks. Patient was also having diarrhea. Patient does have chronic diarrhea but more profuse recently. Denied any dark- colored stools. Patient has been taking Imodium and Zofran at home without any improvement of symptoms. Patient does have decreased appetite and unable to tolerate any oral diet. Denied any complaints of dysuria or hematuria. No fever no chills. Patient has been taking 2 diuretics for bilateral lower extremity edema. Chest x-ray showed no acute cardiopulmonary process EKG showed atrial fibrillation with heart rate 69 laboratory data showed WBC 9.1, hemoglobin 9.5 was 12.4 during recent admissions RDW 18.7 Sodium 135, potassium 3.6, chloride 90 and bicarb is 17 BUN 173 and creatinine 8.16 GFR 5 Magnesium 1.1 proBNP 70742 Albumin 3.0 and TSH 1.73 FOBT positive Urine is cloudy and 2 RBCs and 3 WBCs. C. difficile negative Review of Systems Constitutional: Patient denies any fever or chills . generalized weakness and fatigue. Abdomen: Patient denied nausea vomiting and diarrhea and abdominal pain. Cardiovascular: Patient denies any chest pain or short of breath no palpitations. leg swelling Respiratory: patient denied any cough is from production. No shortness of breath Neurologic: Patient denied any numbness or tingling. Patient does have dizziness and near syncope.. Musculoskeletal: Patient denies any complaints of joint swelling or deformity. Skin: Negative Psychiatric: Negative Endocrine: No heat or cold intolerance. No recent weight gain. Genitourinary: No dysuria or hematuria. All other 14 point ROS negative except the above Past Medical History Past Medical History: Atrial Fibrillation, Cancer, Diabetes Mellitus, Hypertension Additional Past Medical History / Comment(s): colon cancer History of Any Multi-Drug Resistant Organisms: None Reported Past Surgical History: Bowel Resection, Cholecystectomy, Hernia Repair, Hysterectomy Additional Past Surgical History / Comment(s): cataract surgery; bowel resection June 2017 r/t colon cancer Past Anesthesia/Blood Transfusion Reactions: Postoperative Nausea & Vomiting (PONV) Additional Past Anesthesia/Blood Transfusion Reaction / Comment(s): Has had blood transfusion; no reaction. Past Psychological History: No Psychological Hx Reported Smoking Status: Never smoker Past Alcohol Use History: None Reported Past Drug Use History: None Reported - Past Family History Sister(s) Family Medical History: Cancer Additional Family Medical History / Comment(s): both sisters had cancer. one had colon cancer. other sister in her thirties from cancer (unknown) but she had a hysterectomy prior to her . Brother(s) Family Medical History: Cancer Additional Family Medical History / Comment(s): colon cancer Mother Family Medical History: Cancer Additional Family Medical History / Comment(s): breast cancer and colon cancer Father Family Medical History: CVA/TIA Medications and Allergies Home Medications Medication Instructions Recorded Confirmed Type Aspirin EC [Ecotrin Low Dose] 81 mg PO DAILY 05/25/17 11/27/19 History Vit A/Vit C/Vit E/Zinc/Copper 1 cap PO DAILY 05/25/17 11/27/19 History [ICAPS SOFTGEL] metFORMIN HCL 1,000 mg PO BID 05/25/17 11/27/19 History Atenolol [Tenormin] 25 mg PO BID 08/19/19 11/27/19 History Bimatoprost [Lumigan .01% Ophth 1 drop BOTH EYES HS 08/19/19 11/27/19 History Soln] Losartan Potassium 100 mg PO DAILY 08/19/19 11/27/19 History Timolol Maleate [Timolol Maleate 1 drop BOTH EYES HS 08/19/19 11/27/19 History 0.5% Ophth Gel] Dulaglutide [Trulicity] 0.75 mg SQ FR 11/27/19 11/27/19 History Furosemide [Lasix] 40 mg PO BID 11/27/19 11/27/19 History Loperamide [Imodium] 2 mg PO QID PRN 11/27/19 11/27/19 History Metolazone [Zaroxolyn] 2.5 mg PO HS 11/27/19 11/27/19 History Multivitamins, Thera [Multivitamin 1 tab PO DAILY 11/27/19 11/27/19 History (formulary)] Ondansetron Odt [Zofran Odt] 4 mg PO Q4H PRN 11/27/19 11/27/19 History Potassium Chloride ER [K-Dur 20] 20 meq PO DAILY 11/27/19 11/27/19 History Rivaroxaban [Xarelto] 20 mg PO HS 11/27/19 11/27/19 History Allergies Allergy/AdvReac Type Severity Reaction Status Date / Time No Known Allergies Allergy Verified 11/27/19 16:07 Physical Exam Vitals: Vital Signs Temp Pulse Pulse Resp BP BP Pulse Ox 11/28/19 00:00 97.9 F 51 L 16 92/42 98 11/27/19 23:30 47 L 10 L 86/46 98 11/27/19 23:00 40 L 10 L 99/41 98 11/27/19 22:30 42 L 11 L 97/43 98 11/27/19 22:00 48 L 18 94/42 98 11/27/19 21:30 46 L 12 117/63 95 11/27/19 21:00 67 22 118/58 94 L 11/27/19 20:30 55 L 15 110/49 98 11/27/19 20:00 97.9 F 60 19 107/60 99 11/27/19 19:30 60 21 105/51 98 11/27/19 19:00 50 L 16 110/55 97 11/27/19 18:30 50 L 20 114/63 97 11/27/19 18:00 52 L 19 104/56 97 11/27/19 17:30 97.9 F 63 59 L 17 113/58 114/63 95 11/27/19 17:03 60 18 132/56 95 11/27/19 16:29 59 L 16 124/73 97 11/27/19 15:18 61 16 132/54 98 11/27/19 14:02 132/54 11/27/19 12:06 97.8 F 67 16 96/50 100 Intake and Output 11/27/19 11/27/19 11/28/19 14:59 22:59 06:59 Intake Total 400 100 Output Total 825 110 Balance -425 -10 Intake: IV 400 100 Magnesium Sulfate-D5w Pmx 100 1 gm In Dextrose/Water 1 100ml.bag @ 100 mls/hr IVPB Q1H [facility] Rx#: [id number] Sodium Chloride 0.9% 1, 300 100 000 ml @ 50 mls/hr IV . Q20H [facility] Rx#:[id number] Output: Urine 825 110 Other: Voiding Method Indwelling Catheter Indwelling Catheter Weight 65.771 kg 69.536 kg PHYSICAL EXAMINATION: Patient is lying in the bed comfortably, no acute distress, awake alert and oriented.lethargic . HEENT: Normocephalic. Neck is supple. Pupils reactive. Nostrils clear. Oral cavity is moist. Ears reveal no drainage. Neck reveals no JVD, carotid bruits, or thyromegaly. CHEST EXAMINATION: Trachea is central. Symmetrical expansion. CTA. no wheezing. CARDIAC: Normal S1, S2 with no gallops. No murmurs ABDOMEN: Soft. Bowel sounds normal. No organomegaly. No abdominal bruits. Extremities: 2+ b/l edema. No clubbing or cyanosis. tachycardic Neurologically awake, alert, oriented x3 with well-coordinated movements. No focal deficits noted Skin: No rash or skin lesions. Psychiatric: Coperative. Nonsuicidal Musculoskeletal: No joint swelling or deformity. Normal range of motion. Results CBC & Chem 7: 11/27/19 19:18 11/27/19 19:18 Labs: Abnormal Lab Results - Last 24 Hours (Table) 11/27/19 11/27/19 11/27/19 Range/Units 13:08 13:08 14:30 RBC 3.37 L (3.80-5.40) m/uL Hgb 9.5 L (11.4-16.0) gm/dL Hct 29.4 L (34.0-46.0) % RDW 18.7 H (11.5-15.5) % Sodium 125 L (137-145) mmol/L Potassium (3.5-5.1) mmol/L Chloride 90 L (98-107) mmol/L Carbon Dioxide 17 L (22-30) mmol/L BUN 173 H* (7-17) mg/dL Creatinine 8.16 H* (0.52-1.04) mg/dL Glucose 130 H (74-99) mg/dL POC Glucose (mg/dL) (75-99) mg/dL Calcium (8.4-10.2) mg/dL Magnesium 1.1 L (1.6-2.3) mg/dL Creatine Kinase <20 L (30-135) U/L Total Protein 5.8 L (6.3-8.2) g/dL Albumin 3.0 L (3.5-5.0) g/dL Urine Appearance (Clear) Urine Protein (Negative) Urine Bacteria (None) /hpf Urine Yeast (Budding) (None) /hpf Stool Occult Blood Positive H (Negative) 11/27/19 11/27/19 11/27/19 Range/Units 17:26 17:50 19:18 RBC 3.02 L (3.80-5.40) m/uL Hgb 8.8 L (11.4-16.0) gm/dL Hct 26.7 L (34.0-46.0) % RDW 18.8 H (11.5-15.5) % Sodium (137-145) mmol/L Potassium (3.5-5.1) mmol/L Chloride (98-107) mmol/L Carbon Dioxide (22-30) mmol/L BUN (7-17) mg/dL Creatinine (0.52-1.04) mg/dL Glucose (74-99) mg/dL POC Glucose (mg/dL) 158 H (75-99) mg/dL Calcium (8.4-10.2) mg/dL Magnesium (1.6-2.3) mg/dL Creatine Kinase (30-135) U/L Total Protein (6.3-8.2) g/dL Albumin (3.5-5.0) g/dL Urine Appearance Cloudy H (Clear) Urine Protein Trace H (Negative) Urine Bacteria Rare H (None) /hpf Urine Yeast (Budding) Many H (None) /hpf Stool Occult Blood (Negative) 11/27/19 11/27/19 Range/Units 19:18 23:13 RBC (3.80-5.40) m/uL Hgb (11.4-16.0) gm/dL Hct (34.0-46.0) % RDW (11.5-15.5) % Sodium 125 L (137-145) mmol/L Potassium 3.2 L (3.5-5.1) mmol/L Chloride 93 L (98-107) mmol/L Carbon Dioxide 16 L (22-30) mmol/L BUN 165 H* (7-17) mg/dL Creatinine 7.60 H* (0.52-1.04) mg/dL Glucose 118 H (74-99) mg/dL POC Glucose (mg/dL) 175 H (75-99) mg/dL Calcium 8.1 L (8.4-10.2) mg/dL Magnesium (1.6-2.3) mg/dL Creatine Kinase (30-135) U/L Total Protein 5.1 L (6.3-8.2) g/dL Albumin 2.6 L (3.5-5.0) g/dL Urine Appearance (Clear) Urine Protein (Negative) Urine Bacteria (None) /hpf Urine Yeast (Budding) (None) /hpf Stool Occult Blood (Negative) Thrombosis Risk Factor Assmnt - DVT/VTE Prophylaxis DVT/VTE Prophylaxis: Mechanical Prophylaxis ordered - Choose All That Apply Any of the Below Risk Factors Present?: Yes Each Risk Factor Represents 3 Points: Age 75 years or older Thrombosis Risk Factor Assessment Total Risk Factor Score: 3 Thrombosis Risk Factor Assessment Level: Moderate Risk Assessment and Plan Assessment: Acute blood loss anemia likely due to upper GI bleed. Symptomatic anemia Acute kidney injury due to ATN and diuretic therapy. Creatinine 8.16 on admission Generalized weakness Metabolic acidosis secondary to kidney injury Intractable nausea vomiting and diarrhea. Elevated BNP level Chronic atrial fibrillation on anticoagulation with Eliquis History of colon cancer status post resection 2017 currently in remission follow-up at [facility] Hypertension Diabetes type 2 Chronic lower extremity swel. Ling bilaterally DVT prophylaxis with SCDs Plan: Patient is being transfused with 2 units of PRBC. Continue with telemetry monitoring. Monitor renal function closely. Replace magnesium. Nephrology was consulted and patient is being transferred to medical intensive care unit. Prognosis guarded due to multiple medical problems and comorbid conditions. Discussed with the patient and her at bedside in detail. Eliquis is on hold. Continue with PPI IV, IV hydration and symptomatic management for nausea and vomiting. Time with Patient: Greater than 30
[2019-11-28] MEDS ORDERED: POTASSIUM CHLORIDE 10 MEQ in WATER FOR INJECTION 1 100ML.BAG IVPB SCH (01:00)
[2019-11-28] MEDS ORDERED: POTASSIUM CHLORIDE 40 MEQ in WATER FOR INJECTION 1 100ML.BAG IVPB STA (01:04)
[2019-11-28] MEDS ORDERED: POTASSIUM CHLORIDE 20 MEQ in WATER FOR INJECTION 1 100ML.BAG IVPB STA (01:08)
[2019-11-28] MEDS ORDERED: POTASSIUM CHLORIDE 20 MEQ in WATER FOR INJECTION 1 100ML.BAG IVPB ONE (03:09)
[2019-11-28] MEDS ORDERED: DOPamine DRIP 250 ML IV ONE (06:29)
[2019-11-28 06:30] LABS: Anisocytosis Slight; Basophils % (A) 0 %; Eosinophils # (A) 0.1 k/uL (0-0.7); Eosinophils % (A) 1 %; HCT 22.7 % (34.0-46.0); Lymphocytes # (A) 1.7 k/uL (1.0-4.8); Lymphocytes % (A) 20 %; MCH 27.8 pg (25.0-35.0); MCHC 31.9 g/dL (31.0-37.0); MCV 87.2 fL (80.0-100.0); Mean Platelet Volume 8.6; Monocytes # (A) 0.4 k/uL (0-1.0); Monocytes % (A) 5 %; Neutrophils # (A) 6.2 k/uL (1.3-7.7); Neutrophils % (A) 73 %; Platelet Count 269 k/uL (150-450); RBC 2.61 m/uL (3.80-5.40); WBC 8.5 k/uL (3.8-10.6)
[2019-11-28 06:41] LABS: Calcium 7.5 mg/dL (8.4-10.2); Magnesium 1.8 mg/dL (1.6-2.3); Phosphorus 3.7 mg/dL (2.5-4.5); Potassium 3.7 mmol/L (3.5-5.1)
[2019-11-28 06:51] LABS: HGB 7.3 gm/dL (11.4-16.0)
[2019-11-28] MEDS: DOPamine DRIP 800 MG in WATER FOR INJECTION 1 250ML.BAG IV SCH (06:51)
[2019-11-28] MEDS: INSULIN ASPART (NovoLOG) 100 UNIT/ML VIAL SQ SCH ×3 (07:01→20:41)
[2019-11-28] MEDS ORDERED: ATENOLOL 25 MG TAB PO SCH (09:00)
[2019-11-28] MEDS: MULTIVITAMINS, THERA 1 EACH TAB PO SCH (09:12)
[2019-11-28] MEDS: PANTOPRAZOLE 40 MG/10 ML VIAL IV SCH (09:13)
[2019-11-28] MEDS: SODIUM CHLORIDE 0.9% 1,000 ML IV SCH (09:36)
--- NOTE | 2019-11-28 10:10 | P.NPCON ---
History of Present Illness - Reason for Consult acute renal failure - History of Present Illness Reason for consultation: Acute kidney injury History of present illness: The patient is a 84-year-old female seen in renal consultation for acute kidney injury. Creatinine was 8.16 on admission and is down to 7.02 today. Baseline creatinine from August 2019 is 0.7. Patient presented to the hospital with generalized weakness along with vomiting and diarrhea going on for the last few days. Patient is not a reliable historian but states her symptoms have been going on for the last few days. She's also been having dark-colored bowel movements. Hemoglobin was 9.5 on admission is 7.3 today. She has not received any blood transfusions so far. She is not sure if she was taking any nonsteroidals or not. She's currently receiving IV fluids. Urine output was 35-40 mL per hour overnight but last hour she had 100 mL out. She did receive 1 L normal saline bolus and is currently maintained on normal saline at 100 mL an hour. Diuretics, losartan are held. Patient's heart rate was in the 30s yesterday and she is maintained on dopamine. Chest x-ray is not suggestive of fluid overload. No hematuria or dysuria. Vital signs are stable. General: The patient appeared well nourished and normally developed. HEENT: Head exam is unremarkable. Neck is without jugular venous distension. LUNGS: Lungs are clear to auscultation and percussion. Breath sounds decreased. HEART: Rate and Rhythm are regular. First and second heart sounds normal. No murmurs, rubs or gallops. ABDOMEN: Abdominal exam reveals normal bowel sounds. Non-tender and non- distended. EXTREMITITES: No clubbing, cyanosis, or edema. Past Medical History Past Medical History: Atrial Fibrillation, Cancer, Diabetes Mellitus, Hypertension Additional Past Medical History / Comment(s): colon cancer History of Any Multi-Drug Resistant Organisms: None Reported Past Surgical History: Bowel Resection, Cholecystectomy, Hernia Repair, Hysterectomy Additional Past Surgical History / Comment(s): cataract surgery; bowel resection June 2017 r/t colon cancer Past Anesthesia/Blood Transfusion Reactions: Postoperative Nausea & Vomiting (PONV) Additional Past Anesthesia/Blood Transfusion Reaction / Comment(s): Has had blood transfusion; no reaction. Past Psychological History: No Psychological Hx Reported Smoking Status: Never smoker Past Alcohol Use History: None Reported Past Drug Use History: None Reported - Past Family History Sister(s) Family Medical History: Cancer Additional Family Medical History / Comment(s): both sisters had cancer. one had colon cancer. other sister in her thirties from cancer (unknown) but she had a hysterectomy prior to her . Brother(s) Family Medical History: Cancer Additional Family Medical History / Comment(s): colon cancer Mother Family Medical History: Cancer Additional Family Medical History / Comment(s): breast cancer and colon cancer Father Family Medical History: CVA/TIA Medications and Allergies Home Medications Medication Instructions Recorded Confirmed Type Aspirin EC [Ecotrin Low Dose] 81 mg PO DAILY 05/25/17 11/27/19 History Vit A/Vit C/Vit E/Zinc/Copper 1 cap PO DAILY 05/25/17 11/27/19 History [ICAPS SOFTGEL] metFORMIN HCL 1,000 mg PO BID 05/25/17 11/27/19 History Atenolol [Tenormin] 25 mg PO BID 08/19/19 11/27/19 History Bimatoprost [Lumigan .01% Ophth 1 drop BOTH EYES HS 08/19/19 11/27/19 History Soln] Losartan Potassium 100 mg PO DAILY 08/19/19 11/27/19 History Timolol Maleate [Timolol Maleate 1 drop BOTH EYES HS 08/19/19 11/27/19 History 0.5% Ophth Gel] Dulaglutide [Trulicity] 0.75 mg SQ FR 11/27/19 11/27/19 History Furosemide [Lasix] 40 mg PO BID 11/27/19 11/27/19 History Loperamide [Imodium] 2 mg PO QID PRN 11/27/19 11/27/19 History Metolazone [Zaroxolyn] 2.5 mg PO HS 11/27/19 11/27/19 History Multivitamins, Thera [Multivitamin 1 tab PO DAILY 11/27/19 11/27/19 History (formulary)] Ondansetron Odt [Zofran Odt] 4 mg PO Q4H PRN 11/27/19 11/27/19 History Potassium Chloride ER [K-Dur 20] 20 meq PO DAILY 11/27/19 11/27/19 History Rivaroxaban [Xarelto] 20 mg PO HS 11/27/19 11/27/19 History Allergies Allergy/AdvReac Type Severity Reaction Status Date / Time No Known Allergies Allergy Verified 11/27/19 16:07 Physical Exam Vitals: Vital Signs Temp Pulse Pulse Resp BP BP Pulse Ox 11/28/19 07:00 45 L 12 95/55 96 11/28/19 06:00 45 L 12 85/51 98 11/28/19 05:00 41 L 12 73/37 97 11/28/19 04:00 97.9 F 40 L 12 88/54 97 11/28/19 03:00 42 L 12 88/48 97 11/28/19 02:30 49 L 22 82/42 98 11/28/19 02:00 40 L 19 86/35 98 11/28/19 01:30 37 L 12 81/35 97 11/28/19 01:00 39 L 14 83/40 99 11/28/19 00:30 35 L 13 95/57 98 11/28/19 00:00 97.9 F 51 L 16 92/42 98 11/27/19 23:30 47 L 10 L 86/46 98 11/27/19 23:00 40 L 10 L 99/41 98 11/27/19 22:30 42 L 11 L 97/43 98 11/27/19 22:00 48 L 18 94/42 98 11/27/19 21:30 46 L 12 117/63 95 11/27/19 21:00 67 22 118/58 94 L 11/27/19 20:30 55 L 15 110/49 98 11/27/19 20:00 97.9 F 60 19 107/60 99 11/27/19 19:30 60 21 105/51 98 11/27/19 19:00 50 L 16 110/55 97 11/27/19 18:30 50 L 20 114/63 97 11/27/19 18:00 52 L 19 104/56 97 11/27/19 17:30 97.9 F 63 59 L 17 113/58 114/63 95 11/27/19 17:03 60 18 132/56 95 11/27/19 16:29 59 L 16 124/73 97 11/27/19 15:18 61 16 132/54 98 11/27/19 14:02 132/54 11/27/19 12:06 97.8 F 67 16 96/50 100 Intake and Output 11/27/19 11/28/19 11/28/19 22:59 06:59 14:59 Intake Total 400 1350 114.015 Output Total 825 385 140 Balance -425 965 -25.985 Intake: IV 400 1350 100 Magnesium Sulfate-D5w Pmx 100 1 gm In Dextrose/Water 1 100ml.bag @ 100 mls/hr IVPB Q1H [facility] Rx#: [id number] Sodium Chloride 0.9% 1, 300 1350 100 000 ml @ 50 mls/hr IV . Q20H [facility] Rx#:[id number] Intake, IV Titration 14.015 Amount DOPamine DRIP 800 mg In 14.015 Water For Injection 1 250ml.bag @ 5 MCG/KG/MIN 6.519 mls/hr IV .Q24H [facility] Rx#:[id number] Output: Urine 825 385 140 Other: Voiding Method Indwelling Catheter Indwelling Catheter Weight 69.536 kg 68 kg 68 kg Results - Lab Results Most recent lab results Calcium 7.5 mg/dL (8.4-10.2) L 11/28/19 05:27 Phosphorus 3.7 mg/dL (2.5-4.5) 11/28/19 05:27 Magnesium 1.8 mg/dL (1.6-2.3) 11/28/19 05:27 11/28/19 05:27 11/28/19 05:27 Assessment and Plan Plan: Assessment: 1. Acute kidney injury secondary to ATN secondary to hypotension and further worsened with the use of losartan and Lasix. Creatinine was 8.1 on admission and is 7.02 today. 2. Chronic A. fib. Bradycardic this admission. Currently on dopamine. 3. Metabolic acidosis secondary to acute kidney injury and diarrhea. 4. Hypovolemic hyponatremia improving with IV hydration. 5. GI bleed. Hemoglobin 7.3 this morning. 6. Hypokalemia from poor oral intake and diuresis. Magnesium normal. Plan: Discontinue normal saline and start isotonic bicarbonate drip to be run at 100 mL an hour. I will give her 1 dose of IV DDAVP. Potassium being replaced. Monitor hemoglobin. Avoid nephrotoxins. Continue to hold antihypertensives and diuretics. Check renal ultrasound. Wean vasopressors. No urgent need for renal replacement therapy at this time. Continue to assess on a daily basis. Thank you for the consultation. I will continue to follow the patient with you during her hospital stay.
[2019-11-28] MEDS ORDERED: DESMOPRESSIN ACETATE 20 MCG in SODIUM CHLORIDE 0.9% 50 ML IVPB ONE (10:30)
[2019-11-28] MEDS: DEXTROSE 5% IN WATER 1,000 ML with SODIUM BICARB (1 MEQ/ML) 150 ML IV SCH ×2 (11:17→22:38)
--- NOTE | 2019-11-28 12:17 | P.CNPUL ---
History of Present Illness Consult date: 11/28/19 Requesting physician: Price Stearns Reason for consult: other (GI bleeding) Chief complaint: Generalized weakness times one month History of present illness: This is an 84-year-old female with history of multiple medical problems including chronic atrial fibrillation, maintained on Eliquis, history of colon cancer and resection in 2017, benign essential hypertension, type 2 diabetes, patient presented to the ER yesterday with one month history of nausea vomiting and generalized weakness. Patient also had some intermittent episodes of blood streaked vomitus, and she was also experiencing diarrhea with normal colored stools. The diarrhea has been more perfuse in the last couple of days. Denies any abdominal pain, denies any fever, no chills, no hemoptysis. Patient does have poor appetite, has been compliant with all her medications including her Eliquis, denies taking any nonsteroidal anti-inflammatory drugs. On admission the patient had a relatively normal chest x-ray. She was noted to have acute kidney injury with BUN of 173 creatinine 8.16. Patient was noted to have low magnesium, relatively low potassium, and elevated BNP level. Considering the patient's blood pressure was marginal and considering her multiple comorbidities and suspected upper GI bleeding, patient was admitted to the intensive care unit, and I was asked to see her on consultation. Since admission, the patient did not require any blood transfusion. She has been receiving fluids, and she required dopamine because of intermittent episodes of bradycardia arrhythmias with marginal blood pressure, hence she was placed on dopamine by cardiology. The dopamine is being tapered down she is on 1 mcg/kg/m at present. Patient was seen by nephrology, placed on sodium bicarb drip, and she was also seen by gastroenterology, scheduled to undergo EGD in a.m. Review of Systems Constitutional: Weakness fatigue malaise no fever no chills. HEENT: Negative. Cardiovascular denies any chest pain orthopnea or PND she does have chronic leg swelling. Pulmonary: Denies any cough wheezing shortness of breath chest pain or hemoptysis. GI: As noted in HPI. Hematologic: History of atrial fibrillation maintained on Eliquis. Genitourinary: Negative musculoskeletal: Negative Endocrine: No heat or cold intolerance. Psychiatric: No symptoms of active depression. Neurologic: No blurred vision no headache, no dizziness no syncope. Past Medical History Past Medical History: Atrial Fibrillation, Cancer, Diabetes Mellitus, Hypertension Additional Past Medical History / Comment(s): colon cancer History of Any Multi-Drug Resistant Organisms: None Reported Past Surgical History: Bowel Resection, Cholecystectomy, Hernia Repair, Hysterectomy Additional Past Surgical History / Comment(s): cataract surgery; bowel resection June 2017 r/t colon cancer Past Anesthesia/Blood Transfusion Reactions: Postoperative Nausea & Vomiting (PONV) Additional Past Anesthesia/Blood Transfusion Reaction / Comment(s): Has had blood transfusion; no reaction. Past Psychological History: No Psychological Hx Reported Smoking Status: Never smoker Past Alcohol Use History: None Reported Past Drug Use History: None Reported - Past Family History Sister(s) Family Medical History: Cancer Additional Family Medical History / Comment(s): both sisters had cancer. one had colon cancer. other sister in her thirties from cancer (unknown) but she had a hysterectomy prior to her . Brother(s) Family Medical History: Cancer Additional Family Medical History / Comment(s): colon cancer Mother Family Medical History: Cancer Additional Family Medical History / Comment(s): breast cancer and colon cancer Father Family Medical History: CVA/TIA Medications and Allergies Home Medications Medication Instructions Recorded Confirmed Type Aspirin EC [Ecotrin Low Dose] 81 mg PO DAILY 05/25/17 11/27/19 History Vit A/Vit C/Vit E/Zinc/Copper 1 cap PO DAILY 05/25/17 11/27/19 History [ICAPS SOFTGEL] metFORMIN HCL 1,000 mg PO BID 05/25/17 11/27/19 History Atenolol [Tenormin] 25 mg PO BID 08/19/19 11/27/19 History Bimatoprost [Lumigan .01% Ophth 1 drop BOTH EYES HS 08/19/19 11/27/19 History Soln] Losartan Potassium 100 mg PO DAILY 08/19/19 11/27/19 History Timolol Maleate [Timolol Maleate 1 drop BOTH EYES HS 08/19/19 11/27/19 History 0.5% Ophth Gel] Dulaglutide [Trulicity] 0.75 mg SQ FR 11/27/19 11/27/19 History Furosemide [Lasix] 40 mg PO BID 11/27/19 11/27/19 History Loperamide [Imodium] 2 mg PO QID PRN 11/27/19 11/27/19 History Metolazone [Zaroxolyn] 2.5 mg PO HS 11/27/19 11/27/19 History Multivitamins, Thera [Multivitamin 1 tab PO DAILY 11/27/19 11/27/19 History (formulary)] Ondansetron Odt [Zofran Odt] 4 mg PO Q4H PRN 11/27/19 11/27/19 History Potassium Chloride ER [K-Dur 20] 20 meq PO DAILY 11/27/19 11/27/19 History Rivaroxaban [Xarelto] 20 mg PO HS 11/27/19 11/27/19 History Allergies Allergy/AdvReac Type Severity Reaction Status Date / Time No Known Allergies Allergy Verified 11/27/19 16:07 Physical Exam Vitals: Vital Signs Temp Pulse Pulse Resp BP BP Pulse Ox 11/28/19 07:00 45 L 12 95/55 96 11/28/19 06:00 45 L 12 85/51 98 11/28/19 05:00 41 L 12 73/37 97 11/28/19 04:00 97.9 F 40 L 12 88/54 97 11/28/19 03:00 42 L 12 88/48 97 11/28/19 02:30 49 L 22 82/42 98 11/28/19 02:00 40 L 19 86/35 98 11/28/19 01:30 37 L 12 81/35 97 11/28/19 01:00 39 L 14 83/40 99 11/28/19 00:30 35 L 13 95/57 98 11/28/19 00:00 97.9 F 51 L 16 92/42 98 11/27/19 23:30 47 L 10 L 86/46 98 11/27/19 23:00 40 L 10 L 99/41 98 11/27/19 22:30 42 L 11 L 97/43 98 11/27/19 22:00 48 L 18 94/42 98 11/27/19 21:30 46 L 12 117/63 95 11/27/19 21:00 67 22 118/58 94 L 11/27/19 20:30 55 L 15 110/49 98 11/27/19 20:00 97.9 F 60 19 107/60 99 11/27/19 19:30 60 21 105/51 98 11/27/19 19:00 50 L 16 110/55 97 05/22/20 18:30 50 L 20 114/63 97 11/27/19 18:00 52 L 19 104/56 97 11/27/19 17:30 97.9 F 63 59 L 17 113/58 114/63 95 11/27/19 17:03 60 18 132/56 95 11/27/19 16:29 59 L 16 124/73 97 11/27/19 15:18 61 16 132/54 98 11/27/19 14:02 132/54 11/27/19 12:06 97.8 F 67 16 96/50 100 Intake and Output 11/27/19 11/28/19 11/28/19 22:59 06:59 14:59 Intake Total 400 1350 116.688 Output Total 825 385 140 Balance -425 965 -23.312 Intake: IV 400 1350 100 Magnesium Sulfate-D5w Pmx 100 1 gm In Dextrose/Water 1 100ml.bag @ 100 mls/hr IVPB Q1H [facility] Rx#: [id number] Sodium Chloride 0.9% 1, 300 1350 100 000 ml @ 50 mls/hr IV . Q20H [facility] Rx#:[id number] Intake, IV Titration 16.688 Amount DOPamine DRIP 800 mg In 16.688 Water For Injection 1 250ml.bag @ 5 MCG/KG/MIN 6.519 mls/hr IV .Q24H [facility] Rx#:[id number] Output: Urine 825 385 140 Other: Voiding Method Indwelling Catheter Indwelling Catheter Weight 69.536 kg 68 kg 68 kg Physical Exam: Revealed a 84-year-old female, pleasant, in no distress. Patient is on room air. Head: Atraumatic, normocephalic. HEENT:[Neck is supple.] [No neck masses.] [No thyromegaly.] [No JVD.] PERRLA, EOMI, no active. Chest: [Clear throughout, no crackles, no rhonchi, no wheezes.] Cardiac Exam: [Irregular irregular rhythm, no S3 gallop..] Abdomen: [Soft, nontender, no megaly, no rebound, no guarding, normal bowel sounds.] Extremities: [No clubbing, 1+ bipedal edema, no cyanosis.] Neurological Exam: [No focal neurologic deficit.] Alert oriented 3. Psychiatric: Normal mood, affect and normal mental status examination. Skin: No rashes. Results - Laboratory Findings CBC and BMP: 11/28/19 05:27 11/28/19 05:27 PT/INR, D-dimer PT 10.4 sec (9.0-12.0) 11/27/19 13:08 INR 1.0 (<1.2) 11/27/19 13:08 Abnormal lab findings: Abnormal Labs 11/27/19 11/27/19 11/27/19 13:08 13:08 14:30 RBC 3.37 L Hgb 9.5 L Hct 29.4 L RDW 18.7 H Sodium 125 L Potassium Chloride 90 L Carbon Dioxide 17 L BUN 173 H* Creatinine 8.16 H* Glucose 130 H POC Glucose (mg/dL) Calcium Magnesium 1.1 L Creatine Kinase <20 L Total Protein 5.8 L Albumin 3.0 L Urine Appearance Urine Protein Urine Bacteria Urine Yeast (Budding) Stool Occult Blood Positive H 11/27/19 11/27/19 11/27/19 17:26 17:50 19:18 RBC 3.02 L Hgb 8.8 L Hct 26.7 L RDW 18.8 H Sodium Potassium Chloride Carbon Dioxide BUN Creatinine Glucose POC Glucose (mg/dL) 158 H Calcium Magnesium Creatine Kinase Total Protein Albumin Urine Appearance Cloudy H Urine Protein Trace H Urine Bacteria Rare H Urine Yeast (Budding) Many H Stool Occult Blood 11/27/19 11/27/19 11/28/19 19:18 23:13 05:27 RBC Hgb Hct RDW Sodium 125 L 127 L Potassium 3.2 L Chloride 93 L Carbon Dioxide 16 L 16 L BUN 165 H* 155 H* Creatinine 7.60 H* 7.02 H* Glucose 118 H POC Glucose (mg/dL) 175 H Calcium 8.1 L 7.5 L Magnesium Creatine Kinase Total Protein 5.1 L Albumin 2.6 L Urine Appearance Urine Protein Urine Bacteria Urine Yeast (Budding) Stool Occult Blood 11/28/19 05:27 RBC 2.61 L Hgb 7.3 L D Hct 22.7 L RDW 19.0 H Sodium Potassium Chloride Carbon Dioxide BUN Creatinine Glucose POC Glucose (mg/dL) Calcium Magnesium Creatine Kinase Total Protein Albumin Urine Appearance Urine Protein Urine Bacteria Urine Yeast (Budding) Stool Occult Blood - Diagnostic Findings Chest x-ray: image reviewed (No evidence of active cardiopulmonary process.) Assessment and Plan Assessment: Impression: Acute blood loss anemia, strongly suspect upper GI bleeding. Acute kidney injury, exact etiology is yet to be determined, nephrology is following. Chronic atrial fibrillation on anticoagulations therapy which is a contributing factor to her upper GI bleeding. Acute anion gap metabolic acidosis secondary to acute kidney injury. Intractable nausea and vomiting with diarrhea. Benign essential hypertension. Type 2 diabetes. Possible underlying nephropathy related to diabetes. History of colon cancer and previous resection in 2017 presently in remission. Recommendation: I fully agree with the present treatment plan, Transfuse if hemoglobin below 7. Continue to monitor in the ICU, continue to hold Eliquis. Started on Protonix 40 mg IV push every 12 hours. Nephrology is addressing her acute kidney injury and metabolic acidosis. Gastroenterology is planning EGD in the next 24 hours. Cautious hydration, and we will continue to follow closely. Taper and discontinue dopamine. Time with Patient: Greater than 30
--- NOTE | 2019-11-28 12:56 | US ---
EXAMINATION TYPE: US kidneys/renal and bladder DATE OF EXAM: 11/28/2019 COMPARISON: CT 05/30/2017 CLINICAL HISTORY: [facility] ICU patient EXAM MEASUREMENTS: Right Kidney: 11.3 x 4.6 x 4.7 cm Left Kidney: 11.0 x 5.7 x 5.5 cm Right Kidney: No hydronephrosis. Difficult to visualized upper pole exophytic lesion measuring 1.0 cm , possible cyst vs other Left Kidney: No hydronephrosis or masses seen Bladder: Not distended, patient has cr Bilateral Jets seen: No There is no evidence for hydronephrosis at this point in time. No nephrolithiasis is seen. Cortical medullary differentiation is maintained but somewhat increased. IMPRESSION: Renal sizes as described, there may be underlying medical renal disease.
--- NOTE | 2019-11-28 13:22 | CONS ---
CONSULTATION DATE OF DICTATION: November 28, 2019. REQUESTING PHYSICIAN: Dr. Chan. REASON FOR CONSULTATION: Acute GI bleed. HISTORY OF PRESENT ILLNESS: The patient is an 84-year-old pleasant white female with history of atrial fibrillation on Xarelto, prior history of colon cancer for which she underwent resection in 2017 and remains in clinical remission. She came to the emergency room complaining of fatigue, weakness, nausea, vomiting for the last one month duration. She also had some bloody emesis with apparently a small amount of bright red blood streaks and several episodes of black tarry stools. She had about 3 or 4 of these loose black stools yesterday. Came to the emergency room yesterday and subsequently was noted to have anemia with a hemoglobin of 8.8 and repeat hemoglobin today 7.3 g/dL. Of note, she was also noted to have significantly elevated BUN and creatinine at 165 and 7.6 respectively and nephrology has also been consulted. The patient since being in the hospital has had not had any active bleeding. She denies any abdominal pain. Reports no nausea, vomiting. She is n.p.o. currently. Her last dose of Xarelto was yesterday morning. She denies any prior history of peptic ulcer disease. She does not recall using any NSAIDs recently. Last EGD and colonoscopy was done by Dr. Witt in 2017 at which time she was diagnosed with a cecal mass and subsequently underwent colon resection. PAST MEDICAL HISTORY: Past medical history is significant for atrial fibrillation on Xarelto, history of hypertension, diabetes mellitus, chronic lower extremity swelling. PAST SURGICAL HISTORY: Cholecystectomy, right colon resection for colon cancer in 2006, hernia repair, hysterectomy, bilateral cataract surgery. SOCIAL HISTORY: No smoking. No alcohol use. FAMILY HISTORY: Sister had colon cancer and mother had colon cancer also. REVIEW OF SYSTEMS: CARDIOPULMONARY: No chest pain, shortness of breath. no dysuria or hematuria. Musculoskeletal she complains of chronic back pain. Neurology unremarkable. Psychiatric unremarkable. ENT/vision unremarkable. HEMATOLOGY severe anemia as mentioned above. ENT vision: Unremarkable. CONSTITUTIONAL: Fatigue, weakness but no weight loss. No fever, chills, night sweats. PHYSICAL EXAMINATION: She appears comfortable. No apparent distress. Vital signs are stable. Blood pressure is 95/55, pulse 45, temperature 97.8. HEENT examination unremarkable. Conjunctivae pink. Sclerae anicteric. Oral cavity no lesions. NECK: No JVD or lymph node enlargement. CHEST: The chest was clear to auscultation. HEART: Regular rate and rhythm. ABDOMEN: Soft, it was nontender, nondistended. Bowel sounds are positive. No organomegaly. EXTREMITIES no pedal edema. SKIN no rashes. NEURO: She is alert and oriented x3. No focal deficits. LABS: Done at the time of admission to the hospital: WBC 9.2, hemoglobin 8.8, platelets 300. Today, hemoglobin is 7.3, and platelets are 269. BUN 165, creatinine 7.6. AST, ALT, T- bilirubin and alkaline phosphatase are within normal limits. C difficile toxin negative. IMPRESSION: 1. Acute gastrointestinal bleed, possibly upper in etiology. Rule out peptic ulcer disease. The patient had multiple episodes of black tarry stools for the last 2-3 days duration. Hemoglobin is 7.2 g/dL. No active bleeding since being in the hospital. 2. Atrial fibrillation on Xarelto which is currently on hold last dose was yesterday. 3. Acute kidney injury. Nephrology following the patient closely. 4. History of metabolic acidosis secondary to acute kidney injury. 5. History of colon cancer status post resection in 2017, in clinical remission. RECOMMENDATIONS: 1. Continue with Protonix 40 mg twice daily. 2. Monitor CBC on a daily basis and transfuse if hemoglobin is less than 7.2. 3. We will proceed with an upper endoscopy tomorrow. I discussed with the patient risks, benefits and complications of the procedure and she is agreeable to it. Thank you for this consultation. We will follow with you closely. MMODL / IJN: [id number] /
[2019-11-28 14:17] LABS: Anisocytosis Slight; HCT 26.8 % (34.0-46.0); HGB 8.5 gm/dL (11.4-16.0); Hypochromasia Slight; MCH 28.2 pg (25.0-35.0); MCHC 31.6 g/dL (31.0-37.0); MCV 89.2 fL (80.0-100.0); Mean Platelet Volume 7.8; Platelet Count 251 k/uL (150-450); RDW 18.9 % (11.5-15.5); WBC 8.3 k/uL (3.8-10.6)
[2019-11-28 16:57] LABS: Glucose,Whole Blood 186 mg/dL (75-99)
--- NOTE | 2019-11-28 20:13 | PN ---
PROGRESS NOTE DATE OF SERVICE: 11/28/2019 This 84-year-old woman was admitted with acute blood loss anemia due to upper gastrointestinal bleeding. Symptomatic anemia. Patient also had acute kidney injury as well. Gastroenterology is following the patient for possible EGD. The bladder ultrasound was also done which showed no evidence of hydronephrosis and no nephrolithiasis. Dr. Yen and Dr. Moralez is also following the patient closely. The patient closely monitored in ICU. Acute kidney injury was thought to be secondary to ATN secondary to hypotension, further worsened by use of losartan, Lasix. The hemoglobin currently it is 8.5, and the patient is not receiving transfusions yet. Creatinine is at 7.2. The baseline creatinine was 0.7, which was done a few months ago. The patient being closely monitored. The patient also had bradycardia with atrial fibrillation for which dopamine drip was also administered. PAST MEDICAL HISTORY: Reviewed. REVIEW OF SYSTEMS: CARDIOVASCULAR SYSTEM: No angina or palpitations. RESPIRATIONS as mentioned earlier. GI: As mentioned earlier. : As mentioned earlier. NERVOUS SYSTEM: Diffusely weak. CURRENT MEDICATIONS: Reviewed and include: 1. Bicarb drip. 2. Dopamine drip. 3. NovoLog. 4. Imodium. 5. Multivitamins. 6. Narcan. 7. Zofran. 8. Protonix. 9. Doses reviewed. PHYSICAL EXAM: Patient is alert, oriented x3. Pulse 48. Blood pressure is 84/41, respiration 11, temperature is normal. Pulse ox 98% on room air. HEENT: Conjunctivae normal. Oral mucosa moist. NECK is no jugular venous distention. No carotid bruit. No lymph node enlargement. CARDIOVASCULAR system: S1, S2 muffled. RESPIRATORY: Breath sounds diminished in the bases. A few scattered rhonchi. ABDOMEN: Soft, nontender. LEGS are no edema. No swelling. CENTRAL NERVOUS SYSTEM: Diffusely weak. LABS: WBC 8.2, hemoglobin is 8.5, and sodium 127. ASSESSMENT: 1. Acute upper gastrointestinal bleeding with acute blood loss anemia. 2. Symptomatic anemia. 3. Acute kidney injury, possibly secondary to acute tubular necrosis secondary to hypotension and medication induced. 4. Chronic atrial fibrillation. 5. Generalized weakness. 6. Metabolic acidosis. 7. Intractable nausea, vomiting. 8. Elevated BNP. 9. Chronic atrial fibrillation anticoagulated with Eliquis. 10.History of colon cancer status post resection at [facility]. 11.Hypertension. 12.Diabetes mellitus type 2. 13.Chronic lower extremity swelling. 14.Hyponatremia. 15.Hypokalemia. 16.Hypoalbuminemia. 17.History of hypertension. 18.History of bowel resection. 19.History of cholecystectomy. 20.History of cataracts. 21.FULL CODE. RECOMMENDATIONS AND DISCUSSION: This 84-year-old woman who presented with multiple complex medical issues, we will monitor the patient closely, continue the current medications, management and symptomatic treatment. Otherwise, at this time, I recommend continue the bicarb drip. Otherwise monitor the heart rate closely and dopamine drip has also been recommended. Avoid beta blockers. Recommend proton pump inhibitors. EGD by Gastroenterology. We will hold the patient's usual medications including Atenolol and Lasix. Monitor the blood sugars closely. The anticoagulation rivaroxaban and as well as aspirin is also on hold. Once again, the prognosis is extremely guarded because of multiple complex medical issues. Further recommendations to follow. MMODL / IJN: [id number] /
[2019-11-28] MEDS: LATANOPROST 0.005% OPHTH DROPS 2.5 ML BTL BOTH EYES SCH (20:33)
[2019-11-28 20:40] LABS: Glucose,Whole Blood 197 mg/dL (75-99)
--- NOTE | 2019-11-28 22:24 | P.CRDCN ---
History of Present Illness History of present illness: This is Dr. Dukes dictating a consult on this patient The patient was interviewed and examined by me IMPRESSION / ASSESSMENT: GI bleeding with low hemoglobin, acute anemia Permanent atrial fibrillation, heart rates in the 50s currently on dopamine Acute kidney injury, ATN, secondary to hypertension, creatinine 8.0 on admission Hyperkalemia PLAN: Agree with stopping atenolol for now Stopping losartan Avoiding diuretics Management of hyperkalemia Low dose dopamine Workup and management of acute anemia Further recommendations to follow HPI 84-year-old female presenting with progressive weakness nausea diarrhea and black stools. She is complaining of weakness and inability to walk Past history of atrial fibrillation, on ELIQUIS Past history of colon cancer with resection, in remission for the last 2 years Following evaluation in the ER she was found to be acutely anemic secondary to GI bleed, hypernatremic and acute renal failure She is on aspirin atenolol 50 g daily Lasix losartan and atenolol eyedrops History of type 2 diabetes and hypertension Patient's main complaint is weakness at this time. Denies any chest discomfort dizziness and does not appear to be short of breath, denies shortness of breath ROS: No fever chills or rigors, no cough, phlegm or expectoration, no nausea, vomiting or diarrhea, no hematuria, dysuria, no musculoskeletal complaints, no strokes or seizures, no skin lesions. EXAMINATION: Blood pressure is still in the 80s and 90s systolic pulse rate in the 50s and 60s afebrile Breath sounds are clear no rhonchi no crackles Abdomen is soft nontender Extremities warm no edema Heart sounds are irregular but normal On telemetry heart rate in the 50s REVIEW OF LABS, ECG & MEDICAL DATA Chest x-ray no acute changes Twelve-lead ECG shows atrial fibrillation, ventricular rate 69 beats a minute narrow QRS Past Medical History Past Medical History: Atrial Fibrillation, Cancer, Diabetes Mellitus, Hypertension Additional Past Medical History / Comment(s): colon cancer History of Any Multi-Drug Resistant Organisms: None Reported Past Surgical History: Bowel Resection, Cholecystectomy, Hernia Repair, H ysterectomy Additional Past Surgical History / Comment(s): cataract surgery; bowel resection June 2017 r/t colon cancer Past Anesthesia/Blood Transfusion Reactions: Postoperative Nausea & Vomiting (PONV) Additional Past Anesthesia/Blood Transfusion Reaction / Comment(s): Has had blood transfusion; no reaction. Past Psychological History: No Psychological Hx Reported Smoking Status: Never smoker Past Alcohol Use History: None Reported Past Drug Use History: None Reported - Past Family History Sister(s) Family Medical History: Cancer Additional Family Medical History / Comment(s): both sisters had cancer. one had colon cancer. other sister in her thirties from cancer (unknown) but she had a hysterectomy prior to her . Brother(s) Family Medical History: Cancer Additional Family Medical History / Comment(s): colon cancer Mother Family Medical History: Cancer Additional Family Medical History / Comment(s): breast cancer and colon cancer Father Family Medical History: CVA/TIA Medications and Allergies Home Medications Medication Instructions Recorded Confirmed Type Aspirin EC [Ecotrin Low Dose] 81 mg PO DAILY 05/25/17 11/27/19 History Vit A/Vit C/Vit E/Zinc/Copper 1 cap PO DAILY 05/25/17 11/27/19 History [ICAPS SOFTGEL] metFORMIN HCL 1,000 mg PO BID 05/25/17 11/27/19 History Atenolol [Tenormin] 25 mg PO BID 08/19/19 11/27/19 History Bimatoprost [Lumigan .01% Ophth 1 drop BOTH EYES HS 08/19/19 11/27/19 History Soln] Losartan Potassium 100 mg PO DAILY 08/19/19 11/27/19 History Timolol Maleate [Timolol Maleate 1 drop BOTH EYES HS 08/19/19 11/27/19 History 0.5% Ophth Gel] Dulaglutide [Trulicity] 0.75 mg SQ FR 11/27/19 11/27/19 History Furosemide [Lasix] 40 mg PO BID 11/27/19 11/27/19 History Loperamide [Imodium] 2 mg PO QID PRN 11/27/19 11/27/19 History Metolazone [Zaroxolyn] 2.5 mg PO HS 11/27/19 11/27/19 History Multivitamins, Thera [Multivitamin 1 tab PO DAILY 11/27/19 11/27/19 History (formulary)] Ondansetron Odt [Zofran Odt] 4 mg PO Q4H PRN 11/27/19 11/27/19 History Potassium Chloride ER [K-Dur 20] 20 meq PO DAILY 11/27/19 11/27/19 History Rivaroxaban [Xarelto] 20 mg PO HS 11/27/19 11/27/19 History Allergies Allergy/AdvReac Type Severity Reaction Status Date / Time No Known Allergies Allergy Verified 11/27/19 16:07 Physical Exam Vitals: Vital Signs Temp Pulse Resp BP Pulse Ox 11/28/19 22:00 64 33 H 88/50 99 11/28/19 21:30 42 L 12 88/45 92 L 11/28/19 21:00 61 14 96/44 11/28/19 20:30 97.8 F 58 L 17 90/54 11/28/19 20:00 62 19 100/50 96 11/28/19 19:30 58 L 17 102/49 97 11/28/19 19:00 54 L 19 98/37 97 11/28/19 18:30 56 L 12 103/45 96 11/28/19 18:00 62 17 112/50 94 L 11/28/19 17:30 61 16 91/41 97 11/28/19 17:00 48 L 12 78/40 96 11/28/19 16:30 48 L 11 L 84/41 96 11/28/19 16:00 46 L 12 103/47 96 11/28/19 15:30 44 L 18 101/47 96 11/28/19 15:00 54 L 15 92/38 97 11/28/19 14:30 71 20 88/55 97 11/28/19 14:00 58 L 16 97/42 96 11/28/19 13:30 53 L 16 96/53 98 11/28/19 13:00 59 L 25 H 96/47 98 11/28/19 12:30 54 L 22 101/42 96 11/28/19 12:00 97.1 F L 51 L 12 104/55 97 11/28/19 11:30 12 99/49 100 11/28/19 11:00 48 L 12 99/49 98 11/28/19 10:30 49 L 7 L 100/55 98 11/28/19 10:00 55 L 15 99/54 98 11/28/19 09:30 67 14 114/47 98 11/28/19 09:00 63 14 114/62 96 11/28/19 08:30 78 13 116/51 96 11/28/19 08:00 97.5 F L 19 99/48 92 L 11/28/19 07:30 61 12 89/50 94 L 11/28/19 07:00 45 L 12 95/55 96 11/28/19 06:00 45 L 12 85/51 98 11/28/19 05:00 41 L 12 73/37 97 11/28/19 04:00 97.9 F 40 L 12 88/54 97 11/28/19 03:00 42 L 12 88/48 97 11/28/19 02:30 49 L 22 82/42 98 11/28/19 02:00 40 L 19 86/35 98 11/28/19 01:30 37 L 12 81/35 97 11/28/19 01:00 39 L 14 83/40 99 11/28/19 00:30 35 L 13 95/57 98 11/28/19 00:00 97.9 F 51 L 16 92/42 98 11/27/19 23:30 47 L 10 L 86/46 98 11/27/19 23:00 40 L 10 L 99/41 98 11/27/19 22:30 42 L 11 L 97/43 98 Intake and Output 11/28/19 11/28/19 11/28/19 06:59 14:59 22:59 Intake Total 1350 766.688 800 Output Total 385 410 445 Balance 965 356.688 355 Intake: IV 1350 750 800 Desmopressin Acetate 20 50 mcg In Sodium Chloride 0. 9% 50 ml @ 200 mls/hr IVPB ONCE ONE Rx#: [id number] Dextrose 5% in Water 1, 300 800 000 ml @ 100 mls/hr IV . [id number] BRIDGETTE with Sodium Bicarb (1 Meq/ml) 150 ml Rx#:[id number] Sodium Chloride 0.9% 1, 1350 400 000 ml @ 50 mls/hr IV . Q20H BR[facility] Rx#:[id number] Intake, IV Titration 16.688 Amount DOPamine DRIP 800 mg In 16.688 Water For Injection 1 250ml.bag @ 5 MCG/KG/MIN 6.519 mls/hr IV .Q24H BRIDGETTE Rx#:[id number] Output: Urine 385 410 445 Other: Voiding Method Indwelling Catheter Indwelling Catheter Indwelling Catheter Weight 68 kg 68 kg Results 11/28/19 14:02 11/28/19 05:27 CBC 11/28/19 11/28/19 Range/Units 05:27 14:02 WBC 8.5 8.3 (3.8-10.6) k/uL RBC 2.61 L 3.00 L (3.80-5.40) m/uL Hgb 7.3 L D 8.5 L (11.4-16.0) gm/dL Hct 22.7 L 26.8 L (34.0-46.0) % Plt Count 269 251 (150-450) k/uL Comprehensive Metabolic Panel 11/28/19 Range/Units 05:27 Sodium 127 L (137-145) mmol/L Potassium 3.7 (3.5-5.1) mmol/L Chloride 98 (98-107) mmol/L Carbon Dioxide 16 L (22-30) mmol/L BUN 155 H* (7-17) mg/dL Creatinine 7.02 H* (0.52-1.04) mg/dL Glucose 76 (74-99) mg/dL Calcium 7.5 L (8.4-10.2) mg/dL Current Medications Generic Name Dose Route Start Last Admin Trade Name Freq PRN Reason Stop Dose Admin Dopamine HCl/Dextrose 800 mg/ 250 mls @ 6.519 mls/hr 11/28/19 06:45 11/28/19 11:23 IV Solution IV 0 mcg/kg/min .Q24H BRIDGETTE 0 mls/hr Titration Protocol 5 MCG/KG/MIN Sodium Bicarbonate 150 ml/ 1,150 mls @ 100 mls/hr 11/28/19 10:30 11/28/19 11:17 Dextrose/Water IV 100 mls/hr .[id number] BRIDGETTE Administration Insulin Aspart 0 unit 11/28/19 17:30 11/28/19 20:41 Novolog SQ 2 unit ACHS BRIDGETTE Administration Protocol Latanoprost 1 drops 11/27/19 21:00 11/28/19 20:33 Xalatan 0.005% BOTH EYES 1 drops HS BR[facility]GETTE Administration Loperamide HCl 2 mg 11/27/19 17:57 Imodium PO QID PRN Diarrhea Multivitamins 1 each 11/28/19 09:00 11/28/19 09:12 Theragran PO Not Given DAILY BRIDGETTE Naloxone HCl 0.2 mg 11/27/19 14:59 Narcan IV Q2M PRN Opioid Reversal Ondansetron HCl 4 mg 11/27/19 18:02 Zofran IVP Q8HR PRN Nausea And Vomiting Pantoprazole Sodium 40 mg 11/28/19 09:00 11/28/19 09:13 Protonix IV 40 mg DAILY BRIDGETTE Administration Intake and Output 11/28/19 11/28/19 11/28/19 06:59 14:59 22:59 Intake Total 1350 766.688 800 Output Total 385 410 445 Balance 965 356.688 355 Intake: IV 1350 750 800 Desmopressin Acetate 20 50 mcg In Sodium Chloride 0. 9% 50 ml @ 200 mls/hr IVPB ONCE ONE Rx#: [id number] Dextrose 5% in Water 1, 300 800 000 ml @ 100 mls/hr IV . [id number] BR[facility]GETTE with Sodium Bicarb (1 Meq/ml) 150 ml Rx#:[id number] Sodium Chloride 0.9% 1, 1350 400 000 ml @ 50 mls/hr IV . Q20H BR[facility]GETTE Rx#:[id number] Intake, IV Titration 16.688 Amount DOPamine DRIP 800 mg In 16.688 Water For Injection 1 250ml.bag @ 5 MCG/KG/MIN 6.519 mls/hr IV .Q24H BR[facility]GETTE Rx#:[id number] Output: Urine 385 410 445 Other: Voiding Method Indwelling Catheter Indwelling Catheter Indwelling Catheter Weight 68 kg 68 kg Patient Weight 11/29/19 06:59 Weight 68 kg 11/28/19 14:02 11/28/19 05:27
[2019-11-29 02:06] LABS: Anisocytosis Slight; Basophils # (A) 0.1 k/uL (0-0.2); Basophils % (A) 1 %; Eosinophils # (A) 0.2 k/uL (0-0.7); Eosinophils % (A) 3 %; HCT 25.4 % (34.0-46.0); Lymphocytes # (A) 2.1 k/uL (1.0-4.8); Lymphocytes % (A) 25 %; MCH 27.2 pg (25.0-35.0); MCHC 31.4 g/dL (31.0-37.0); MCV 86.6 fL (80.0-100.0); Mean Platelet Volume 8.6; Monocytes # (A) 0.4 k/uL (0-1.0); Monocytes % (A) 5 %; Neutrophils # (A) 5.3 k/uL (1.3-7.7); Neutrophils % (A) 66 %; Platelet Count 211 k/uL (150-450); RBC 2.93 m/uL (3.80-5.40); RDW 19.9 % (11.5-15.5); WBC 8.2 k/uL (3.8-10.6)
[2019-11-29 05:19] LABS: Calcium 7.7 mg/dL (8.4-10.2); Potassium 2.9 mmol/L (3.5-5.1)
[2019-11-29] MEDS ORDERED: POTASSIUM CHLORIDE 20 MEQ in WATER FOR INJECTION 1 100ML.BAG IVPB STA (06:07)
[2019-11-29 06:27] LABS: Glucose,Whole Blood 172 mg/dL (75-99)
[2019-11-29] MEDS: POTASSIUM CHLORIDE 10 MEQ in WATER FOR INJECTION 1 100ML.BAG IVPB SCH (06:48)
[2019-11-29] MEDS: INSULIN ASPART (NovoLOG) 100 UNIT/ML VIAL SQ SCH ×4 (06:49→21:09)
[2019-11-29] MEDS: DOPamine DRIP 800 MG in WATER FOR INJECTION 1 250ML.BAG IV SCH (07:05)
[2019-11-29] MEDS ORDERED: ePHEDrine SULFATE/0.9% NACL/PF 50 MG/5 ML SYRINGE IV ONE (07:30)
[2019-11-29] MEDS ORDERED: PROPOFOL 10 MG/ML 20 ML VIAL IV ONE (07:30)
[2019-11-29] MEDS ORDERED: LIDOCAINE 1% INJ 10MG/ML (20 ML MDV) ONE (07:30)
[2019-11-29] MEDS ORDERED: SODIUM CHLORIDE 0.9% 500 ML 500 ML IV ONE (07:44)
--- NOTE | 2019-11-29 07:52 | P.PCN ---
Date of Procedure: 11/29/19 Procedure(s) Performed: BRIEF HISTORY: Patient is a 84-year-old, pleasant, female admitted to the hospital with black tarry stools for the last 3 days' duration. Hemoglobin is 9.3 g/dL. She was on Xarelto which has been on hold for the last 2 days. She is scheduled for an upper endoscopy to evaluate for acute GI bleed. PROCEDURE PERFORMED: Esophagogastroduodenoscopy with biopsy. PREOPERATIVE DIAGNOSIS: Acute GI bleed. IV sedation per anesthesia. PROCEDURE: After informed consent was obtained, the patient was brought into the endoscopy unit. IV sedation was administered by Anesthesia under continuous monitoring. Initially the Olympus GIF-140 video endoscope was inserted into the mouth. Esophagus intubated without any difficulty. It was gradually advanced into the stomach and duodenum and carefully examined. The bulb and the second part of the duodenum appeared normal. The scope at this time was withdrawn to the stomach, adequately insufflated with air, and upon careful examination, mucosa of the antrum, had mild gastritis. In the mid body the stomach there are at least small superficial ulcerations measuring between 5 mm to 1 cm in size with no active bleeding. Biopsies were done from the margin of the ulcer. The rest of the body, cardia and the fundus appeared normal. The scope was then withdrawn into the esophagus. The GE junction was located at 39 cm from the incisors. The esophagus appeared normal. There were no erosions or ulcerations seen and the patient tolerated the procedure well. IMPRESSION: 1. Multiple small superficial ulcerations in the mid body the stomach measuring between 5 mm to 1 cm in size with no active bleeding. 2. Mild antral gastritis. RECOMMENDATIONS: The findings of this examination were discussed with the patient. She'll be continued on Protonix 40 mg twice daily. Advance diet as tolerated. Monitor CBC on a daily basis. Continue to hold the Xarelto for.
[2019-11-29] MEDS ORDERED: POTASSIUM CHLORIDE 20 MEQ in WATER FOR INJECTION 1 100ML.BAG IVPB ONE (08:15)
[2019-11-29] MEDS ORDERED: POTASSIUM CHLORIDE ER 10 MEQ TAB.ER.PRT PO STA (09:20)
[2019-11-29] MEDS: MULTIVITAMINS, THERA 1 EACH TAB PO SCH (09:46)
[2019-11-29] MEDS: SODIUM CHLORIDE 0.9% 1,000 ML IV SCH (09:47)
[2019-11-29] MEDS: PANTOPRAZOLE 40 MG/10 ML VIAL IV SCH ×2 (09:47→20:53)
--- NOTE | 2019-11-29 10:34 | P.PN ---
Subjective Patient is seen in follow for acute kidney injury. Renal function is improving. Creatinine 5.54 today. She is nonoliguric. Awake and alert. Off vasopressors. She underwent EGD this morning which revealed stomach ulcerations with no active bleeding. Vital signs are stable. General: The patient appeared well nourished and normally developed. HEENT: Head exam is unremarkable. Neck is without jugular venous distension. LUNGS: Breath sounds decreased. HEART: Rate and Rhythm are regular. ABDOMEN: Nontender, nondistended. EXTREMITITES: No clubbing, cyanosis, or edema. Objective - Vital Signs Vital signs: Vital Signs Temp 97.9 F 11/29/19 08:30 Pulse 62 11/29/19 09:00 Resp 17 11/29/19 09:00 BP 112/58 11/29/19 09:00 Pulse Ox 95 11/29/19 09:00 Intake & Output 11/28/19 11/29/19 11/29/19 18:59 06:59 18:59 Intake Total 0850.369 2212 350 Output Total 595 710 210 Balance 571.688 490 140 Weight 68 kg 70.1 kg Intake: IV 1150 1200 350 Desmopressin Acetate 20 50 mcg In Sodium Chloride 0. 9% 50 ml @ 200 mls/hr IVPB ONCE ONE Rx#: [id number] Dextrose 5% in Water 1, 700 1200 300 000 ml @ 100 mls/hr IV . [id number] BR[facility]GETTE with Sodium Bicarb (1 Meq/ml) 150 ml Rx#:[id number] Sodium Chloride 0.9% 1, 400 000 ml @ 50 mls/hr IV . Q20H [facility] Rx#:[id number] Intake, IV Titration 16.688 0 Amount DOPamine DRIP 800 mg In 16.688 0 Water For Injection 1 250ml.bag @ 5 MCG/KG/MIN 6.519 mls/hr IV .Q24H [facility] Rx#:[id number] Output: Urine 595 710 210 Other: Voiding Method Indwelling Catheter Indwelling Catheter Indwelling Catheter - Labs CBC & Chem 7: 11/29/19 01:50 11/29/19 04:51 Labs: Abnormal Lab Results - Last 24 Hours (Table) 11/28/19 11/28/19 11/28/19 Range/Units 14:02 16:55 20:37 RBC 3.00 L (3.80-5.40) m/uL Hgb 8.5 L (11.4-16.0) gm/dL Hct 26.8 L (34.0-46.0) % RDW 18.9 H (11.5-15.5) % Sodium (137-145) mmol/L Potassium (3.5-5.1) mmol/L Chloride (98-107) mmol/L BUN (7-17) mg/dL Creatinine (0.52-1.04) mg/dL Glucose (74-99) mg/dL POC Glucose (mg/dL) 186 H 197 H (75-99) mg/dL Calcium (8.4-10.2) mg/dL 11/29/19 11/29/19 11/29/19 Range/Units 01:50 04:51 06:26 RBC 2.93 L (3.80-5.40) m/uL Hgb 8.0 L (11.4-16.0) gm/dL Hct 25.4 L (34.0-46.0) % RDW 19.9 H (11.5-15.5) % Sodium 129 L (137-145) mmol/L Potassium 2.9 L (3.5-5.1) mmol/L Chloride 96 L (98-107) mmol/L BUN 141 H* (7-17) mg/dL Creatinine 5.54 H (0.52-1.04) mg/dL Glucose 158 H (74-99) mg/dL POC Glucose (mg/dL) 172 H (75-99) mg/dL Calcium 7.7 L (8.4-10.2) mg/dL Assessment and Plan Plan: Assessment: 1. Acute kidney injury secondary to ATN secondary to hypotension and further worsened with the use of losartan and Lasix. Creatinine was 8.1 on admission and is 5.54 today. No evidence of hydronephrosis and kidney ultrasound. 2. Chronic A. fib. Bradycardic this admission. Status post dopamine. Better. 3. Metabolic acidosis secondary to acute kidney injury and diarrhea. Improved. 4. Hypovolemic hyponatremia improving with IV hydration. 5. GI bleed. Hemoglobin 8 this morning. EGD this admission revealed stomach ulcers without any active bleeding. Status post IV DDAVP on admission. 6. Hypokalemia secondary to intracellular shifting due to IV bicarb. Plan: Discontinue bicarbonate drip. Start normal saline at 100 mL an hour. Potassium being replaced. Avoid nephrotoxins. Continue to monitor renal function and urine output.
[2019-11-29 12:10] LABS: Glucose,Whole Blood 118 mg/dL (75-99)
--- NOTE | 2019-11-29 12:18 | P.PN ---
Subjective Progress Note Date: 11/29/19 Principal diagnosis: Acute blood loss anemia secondary to GI bleeding This is an 84-year-old female with history of multiple medical problems including chronic atrial fibrillation, maintained on Eliquis, history of colon cancer and resection in 2017, benign essential hypertension, type 2 diabetes, patient presented to the ER yesterday with one month history of nausea vomiting and generalized weakness. Patient also had some intermittent episodes of blood streaked vomitus, and she was also experiencing diarrhea with normal colored stools. The diarrhea has been more perfuse in the last couple of days. Denies any abdominal pain, denies any fever, no chills, no hemoptysis. Patient does have poor appetite, has been compliant with all her medications including her Eliquis, denies taking any nonsteroidal anti-inflammatory drugs. On admission the patient had a relatively normal chest x-ray. She was noted to have acute kidney injury with BUN of 173 creatinine 8.16. Patient was noted to have low magnesium, relatively low potassium, and elevated BNP level. Considering the patient's blood pressure was marginal and considering her multiple comorbidities and suspected upper GI bleeding, patient was admitted to the intensive care unit, and I was asked to see her on consultation. Since admission, the patient did not require any blood transfusion. She has been receiving fluids, and she required dopamine because of intermittent episodes of bradycardia arrhythmias with marginal blood pressure, hence she was placed on dopamine by cardiology. The dopamine is being tapered down she is on 1 mcg/kg/m at present. Patient was seen by nephrology, placed on sodium bicarb drip, and she was also seen by gastroenterology, scheduled to undergo EGD in a.m. Reevaluated today on 11/25/19, patient remains in the intensive care unit, her Xarelto remains on hold, EGD revealed a gastric ulcer, no active bleeding. Patient remains on bicarb which I have discontinued today. Her Xarelto remains on hold. And she remains on Protonix. She was on dopamine yesterday, this was discontinued today. Patient had intermittent episodes of bradycardia today, however she seems to be in sinus rhythm today, and doing fairly well. Electrolytes showed low sodium and low potassium 129 and 2.9 respectively. Her BUN is improving down to 141 and creatinine is down to 5.54. Hence I have recommended we continue slow hydration of the patient, patient must have been quite hypovolemic on admission. And she is responding well to hydration. And her electrolytes are being corrected accordingly. Bicarb drip was discontinued this morning. And we'll continue to correct her electrolytes. Objective - Vital Signs Vital signs: Vital Signs Temp 97.9 F 11/29/19 08:30 Pulse 62 11/29/19 09:00 Resp 17 11/29/19 09:00 BP 112/58 11/29/19 09:00 Pulse Ox 95 11/29/19 09:00 Intake & Output 11/28/19 11/29/19 11/29/19 18:59 06:59 18:59 Intake Total 1589.604 6762 350 Output Total 595 710 210 Balance 571.688 490 140 Weight 68 kg 70.1 kg Intake: IV 1150 1200 350 Desmopressin Acetate 20 50 mcg In Sodium Chloride 0. 9% 50 ml @ 200 mls/hr IVPB ONCE ONE Rx#: [id number] Dextrose 5% in Water 1, 700 1200 300 000 ml @ 100 mls/hr IV . [id number] BRIDGETTE with Sodium Bicarb (1 Meq/ml) 150 ml Rx#:[id number] Sodium Chloride 0.9% 1, 400 000 ml @ 50 mls/hr IV . Q20H BRIDGETTE Rx#:[id number] Intake, IV Titration 16.688 0 Amount DOPamine DRIP 800 mg In 16.688 0 Water For Injection 1 250ml.bag @ 5 MCG/KG/MIN 6.519 mls/hr IV .Q24H BRIDGETTE Rx#:[id number] Output: Urine 595 710 210 Other: Voiding Method Indwelling Catheter Indwelling Catheter Indwelling Catheter - Exam Physical Exam: Revealed a 84-year-old female, pleasant, in no distress. Patient is on room air. Head: Atraumatic, normocephalic. HEENT:[Neck is supple.] [No neck masses.] [No thyromegaly.] [No JVD.] PERRLA, EOMI, no active. Chest: [Clear throughout, no crackles, no rhonchi, no wheezes.] Cardiac Exam: [Irregular irregular rhythm, no S3 gallop..] Abdomen: [Soft, nontender, no megaly, no rebound, no guarding, normal bowel sounds.] Extremities: [No clubbing, 1+ bipedal edema, no cyanosis.] Neurological Exam: [No focal neurologic deficit.] Alert oriented 3. Psychiatric: Normal mood, affect and normal mental status examination. Skin: No rashes. - Labs CBC & Chem 7: 11/29/19 01:50 11/29/19 04:51 Labs: Abnormal Lab Results - Last 24 Hours (Table) 11/28/19 11/28/19 11/28/19 Range/Units 14:02 16:55 20:37 RBC 3.00 L (3.80-5.40) m/uL Hgb 8.5 L (11.4-16.0) gm/dL Hct 26.8 L (34.0-46.0) % RDW 18.9 H (11.5-15.5) % Sodium (137-145) mmol/L Potassium (3.5-5.1) mmol/L Chloride (98-107) mmol/L BUN (7-17) mg/dL Creatinine (0.52-1.04) mg/dL Glucose (74-99) mg/dL POC Glucose (mg/dL) 186 H 197 H (75-99) mg/dL Calcium (8.4-10.2) mg/dL 11/29/19 11/29/19 11/29/19 Range/Units 01:50 04:51 06:26 RBC 2.93 L (3.80-5.40) m/uL Hgb 8.0 L (11.4-16.0) gm/dL Hct 25.4 L (34.0-46.0) % RDW 19.9 H (11.5-15.5) % Sodium 129 L (137-145) mmol/L Potassium 2.9 L (3.5-5.1) mmol/L Chloride 96 L (98-107) mmol/L BUN 141 H* (7-17) mg/dL Creatinine 5.54 H (0.52-1.04) mg/dL Glucose 158 H (74-99) mg/dL POC Glucose (mg/dL) 172 H (75-99) mg/dL Calcium 7.7 L (8.4-10.2) mg/dL Assessment and Plan Assessment: Impression: Acute blood loss anemia, strongly suspect upper GI bleeding. Acute kidney injury, exact etiology is yet to be determined, nephrology is follo wing. Possible profound hypovolemia on presentation. Chronic atrial fibrillation on anticoagulations therapy which is a contributing factor to her upper GI bleeding. Acute anion gap metabolic acidosis secondary to acute kidney injury. Resolved. Intractable nausea and vomiting with diarrhea. With hypovolemia, Improving. Benign essential hypertension. Type 2 diabetes. Possible underlying nephropathy related to diabetes. History of colon cancer and previous resection in 2017 presently in remission. Recommendation: Discontinue bicarb. And place patient on IV fluid 0.9 normal saline at 100 mL per hour. Continue to monitor hemoglobin and hematocrit, and transfuse if hemoglobin below 7.. Continue to hold Eliquis.. Continue Protonix. Continue hydration. Consider transferring the patient out of the ICU to a monitor bed on selective. We'll continue to follow. Time with Patient: Less than 30
--- NOTE | 2019-11-29 14:58 | XR ---
EXAMINATION TYPE: XR chest 1V portable DATE OF EXAM: 11/29/2019 COMPARISON: Prior chest x-ray 11/27/2019 HISTORY: Congestive heart failure, abnormal chest x-ray TECHNIQUE: Single frontal view of the chest is obtained. FINDINGS: Retrocardiac density is present with suggestion of air bronchograms. No evident pneumothor ax or pleural effusion. Patient is rotated. Aorta is dense. Heart size is likely stable accounting fo r differences in technique. There are overlying cardiac leads. IMPRESSION: Probable left lower lobe atelectasis, correlate to exclude pneumonia. Follow-up recommen ded.
[2019-11-29 17:38] LABS: Glucose,Whole Blood 187 mg/dL (75-99)
[2019-11-29] MEDS: SUCRALFATE 1 GM TAB PO SCH ×2 (17:52→20:53)
--- NOTE | 2019-11-29 18:11 | PN ---
PROGRESS NOTE DATE OF SERVICE: 11/29/2019 This 84-year-old woman who was admitted with acute upper GI bleeding as well as acute blood loss anemia had symptomatic anemia. The patient underwent EGD by Dr. Garzon and EGD showed multiple small superficial ulceration in the midbody of the stomach measuring 5 mm to 1 cm with no active bleeding. Mild antral gastritis. Biopsies obtained at this time. The patient continues to be mildly confused. Hemoglobin is 8 this morning and BUN is 141, creatinine is 5.54. PAST MEDICAL HISTORY: Reviewed. REVIEW OF SYSTEMS: Cardiovascular system: No angina. Respiratory: As mentioned earlier. GASTROINTESTINAL: As mentioned earlier. no dysuria. NERVOUS SYSTEM: Weakness. CURRENT MEDICATIONS: 1. NovoLog scale. 2. Xalatan. 3. Imodium 2 mg q.i.d. p.r.n. 4. Multivitamins 1 p.o. daily. 5. Narcan. 6. Zofran. 7. Protonix 40 mg IV daily. PHYSICAL EXAMINATION: Alert and oriented times three. Pulse 62, blood pressure 112/58, respirations 17, temperature 97.9, pulse ox 94% on room air. HEENT conjunctivae normal. Oral mucosa moist. NECK is no jugular venous distention. No carotid bruit. No lymph node enlargement. CARDIOVASCULAR: S1, S2 muffled. RESPIRATION: Breath sounds diminished in the bases. Scattered rhonchi and crackles. Expiratory wheezing also present. ABDOMEN: Soft, nontender. No mass palpable. LEGS are no edema. GOLD MINER BLASTING: No focal deficits. LABS: WBC 8.2, hemoglobin is 8, sodium is 129, potassium 2.9. ASSESSMENT: 1. Acute upper gastrointestinal bleeding with acute blood loss anemia due to multiple gastric ulcer, status post EGD and mild antral gastritis. 2. Symptomatic anemia. 3. Severe hyponatremia. 4. Severe hypokalemia. 5. Acute kidney injury with possibly secondary to acute tubular necrosis secondary to hypertension and medication induced. 6. Chronic atrial fibrillation. 7. Generalized weakness. 8. Acute metabolic acidosis. 9. Intractable nausea, vomiting. 10.Elevated BNP. 11.Chronic atrial fibrillation with anticoagulated with Eliquis. 12.History of colon cancer status post resection at [facility]. 13.Hypertension. 14.Diabetes mellitus type 2. 15.Chronic lower extremity swelling. 16.Hypoalbuminemia. 17.Hypertension. 18.History of bowel resection. 19.History of cholecystectomy. 20.History of cataracts. 21.FULL CODE. RECOMMENDATIONS AND DISCUSSION: In this 84-year-old woman who presented with multiple complex medical issues, we will monitor the patient closely, continue the current management. Increase the dose of Protonix to IV twice daily and add Carafate to the current regimen. Otherwise closely monitor with Dr. Yen. Potassium supplementation. We will check lytes, repeat lytes. Prognosis guarded because of multiple complex medical issues. Follow closely with Dr. Moralez. See orders for details. Monitor blood pressure closely. Patient is off on multiple medications. Hold off anticoagulants and antiplatelets because of concerns of gastric ulcers and the bleeding also. MMODL / IJN: [id number] /
[2019-11-29 21:03] LABS: Glucose,Whole Blood 136 mg/dL (75-99)
[2019-11-29] MEDS: LATANOPROST 0.005% OPHTH DROPS 2.5 ML BTL BOTH EYES SCH (21:04)
[2019-11-30 04:47] LABS: Anisocytosis Slight; Basophils % (A) 0 %; Eosinophils # (A) 0.2 k/uL (0-0.7); Eosinophils % (A) 2 %; HCT 25.4 % (34.0-46.0); HGB 7.9 gm/dL (11.4-16.0); Hypochromasia Slight; Lymphocytes # (A) 1.8 k/uL (1.0-4.8); Lymphocytes % (A) 24 %; MCH 27.8 pg (25.0-35.0); MCHC 31.2 g/dL (31.0-37.0); MCV 89.2 fL (80.0-100.0); Mean Platelet Volume 8.1; Monocytes # (A) 0.4 k/uL (0-1.0); Monocytes % (A) 5 %; Neutrophils % (A) 67 %; Platelet Count 228 k/uL (150-450); RBC 2.85 m/uL (3.80-5.40); RDW 19.4 % (11.5-15.5); WBC 7.4 k/uL (3.8-10.6)
[2019-11-30 04:56] LABS: Calcium 7.9 mg/dL (8.4-10.2); Potassium 3.4 mmol/L (3.5-5.1)
[2019-11-30 06:12] LABS: Glucose,Whole Blood 122 mg/dL (75-99)
[2019-11-30] MEDS ORDERED: POTASSIUM BICARBONATE/CIT AC 20 MEQ TABLET.EFF PO ONE (06:33)
[2019-11-30] MEDS: SODIUM CHLORIDE 0.9% 1,000 ML IV SCH ×3 (06:37→19:29)
[2019-11-30] MEDS: SUCRALFATE 1 GM TAB PO SCH ×4 (08:01→22:36)
[2019-11-30] MEDS: INSULIN ASPART (NovoLOG) 100 UNIT/ML VIAL SQ SCH ×6 (08:01→22:34)
[2019-11-30] MEDS: MULTIVITAMINS, THERA 1 EACH TAB PO SCH (08:49)
[2019-11-30] MEDS: PANTOPRAZOLE 40 MG/10 ML VIAL IV SCH ×2 (08:49→22:34)
--- NOTE | 2019-11-30 11:00 | PN ---
PROGRESS NOTE DATE OF SERVICE: November 30, 2019 Patient is an 84-year-old pleasant white female admitted to the hospital with abdominal pain, nausea, vomiting, and black tarry stools. She was noted to have a hemoglobin of 7.9 g/dL. She underwent an upper endoscopy yesterday that showed multiple small gastric ulcers in the proximal body of the stomach. Remains on Protonix 40 mg daily. She is doing much better on a regular diet tolerating well. No further episodes of bleeding. She also has acute kidney injury and with gentle IV hydration her renal parameters are improving. PHYSICAL EXAMINATION: Appears comfortable, no apparent distress. VITAL SIGNS: Stable. Blood pressure 114/49, pulse is 76, temperature 98.5. HEENT examination unremarkable. Conjunctivae pink. Sclerae anicteric. Oral cavity no lesions. NECK: No JVD or lymph node enlargement. CHEST: Clear to auscultation. HEART: Regular rate and rhythm. ABDOMEN: Soft. Bowel sounds are positive. No organomegaly. EXTREMITIES: No pedal edema. SKIN no rashes. NEUROLOGIC: Alert and oriented x3. No focal deficits. LABS: From today WBC 7.4, hemoglobin 7.9, platelets normal. Basic metabolic panel showed a BUN of 131, creatinine 4.36. IMPRESSION: 1. Acute gastrointestinal bleed, stable hemoglobin at 7.9 g/dL. She is status post EGD yesterday that showed multiple small gastric ulcers in the proximal body of the stomach. Biopsies are still pending on Protonix 40 mg daily, doing well. No bleeding. 2. Acute kidney injury. Improving renal parameters with gentle hydration. 3. History of atrial fibrillation on Xarelto, currently on hold. RECOMMENDATIONS: 1. Continue with Protonix 40 mg daily. 2. Advance diet as tolerated. 3. Monitor CBC daily. 4. Hold Xarelto for now. 5. We will follow with you. Thank you for this consultation. MMODL / IJN: [id number] /
--- NOTE | 2019-11-30 11:09 | PN ---
PROGRESS NOTE This is an 84-year-old lady with a history of chronic atrial fibrillation, who has been on Xarelto, came in with a GI bleed, also demonstrated some low heart rates. Atenolol has been held and since then, her heart rates have come up to the mid 70s. She is resting comfortably today. No chest pain, shortness of breath or palpitation. No further GI bleeding. Her vitals are stable today. Blood pressure is about 114/70, pulse rate is about 70 irregular. JVD 1 cm. No carotid bruit. S1-S2 heard normally. Irregularly irregular rhythm noted. Short systolic murmur. Lungs are clear. Abdomen is soft, nontender. Lower extremities reveal diminished pulses. Central nervous system grossly no focal deficits. IMPRESSION: 1. Atrial fibrillation with controlled rate probably underlying sick sinus syndrome off atenolol. 2. Gastrointestinal bleeding with black tarry stool. Multiple superficial stomach ulcerations with no active bleeding and antral gastritis noted. RECOMMENDATIONS: I would recommend that we continue current medications. No anticoagulation. No atenolol. We will continue to see her as needed. MMODL / IJN: [id number] /
--- NOTE | 2019-11-30 11:16 | P.PN ---
Subjective Patient is seen in follow for acute kidney injury. Renal function is improving. Creatinine 4.36 today. She is nonoliguric. Awake and alert. Off vasopressors. She underwent EGD November 28 which revealed stomach ulcerations with no active bleeding. She's been having loose bowel movements. Oral intake fair. Vital signs are stable. General: The patient appeared well nourished and normally developed. HEENT: Head exam is unremarkable. Neck is without jugular venous distension. LUNGS: Breath sounds decreased. HEART: Rate and Rhythm are regular. ABDOMEN: Nontender, nondistended. EXTREMITITES: No clubbing, cyanosis, or edema. Objective - Vital Signs Vital signs: Vital Signs Temp 98.5 F 11/30/19 09:56 Pulse 76 11/30/19 09:56 Resp 16 11/30/19 09:56 BP 113/65 11/30/19 09:56 Pulse Ox 99 11/30/19 09:56 Intake & Output 11/29/19 11/30/19 11/30/19 18:59 06:59 18:59 Intake Total 1050 1100 Output Total 1210 1250 Balance -160 -150 Intake: IV 1050 Dextrose 5% in Water 1, 1000 000 ml @ 100 mls/hr IV . [id number] BRIDGETTE with Sodium Bicarb (1 Meq/ml) 150 ml Rx#:[id number] Intake, IV Titration 1100 Amount Sodium Chloride 0.9% 1, 1100 000 ml @ 100 mls/hr IV . Q10H BRIDGETTE Rx#:[id number] Output: Urine 1210 1250 Other: Voiding Method Indwelling Catheter Indwelling Catheter Indwelling Catheter - Labs CBC & Chem 7: 11/30/19 03:59 11/30/19 03:59 Labs: Abnormal Lab Results - Last 24 Hours (Table) 11/29/19 11/29/19 11/29/19 Range/Units 12:08 17:37 21:01 RBC (3.80-5.40) m/uL Hgb (11.4-16.0) gm/dL Hct (34.0-46.0) % RDW (11.5-15.5) % Sodium (137-145) mmol/L Potassium (3.5-5.1) mmol/L Carbon Dioxide (22-30) mmol/L BUN (7-17) mg/dL Creatinine (0.52-1.04) mg/dL POC Glucose (mg/dL) 118 H 187 H 136 H (75-99) mg/dL Calcium (8.4-10.2) mg/dL 11/30/19 11/30/19 11/30/19 Range/Units 03:59 03:59 06:10 RBC 2.85 L (3.80-5.40) m/uL Hgb 7.9 L (11.4-16.0) gm/dL Hct 25.4 L (34.0-46.0) % RDW 19.4 H (11.5-15.5) % Sodium 132 L (137-145) mmol/L Potassium 3.4 L (3.5-5.1) mmol/L Carbon Dioxide 19 L (22-30) mmol/L BUN 131 H* (7-17) mg/dL Creatinine 4.36 H (0.52-1.04) mg/dL POC Glucose (mg/dL) 122 H (75-99) mg/dL Calcium 7.9 L (8.4-10.2) mg/dL Assessment and Plan Plan: Assessment: 1. Acute kidney injury secondary to ATN secondary to hypotension and further worsened with the use of losartan and Lasix. Creatinine was 8.1 on admission and is 4.36 today. No evidence of hydronephrosis and kidney ultrasound. 2. Chronic A. fib. Bradycardic this admission. Status post dopamine. Better. 3. Metabolic acidosis secondary to acute kidney injury and diarrhea. 4. Hypovolemic hyponatremia improving with IV hydration. 5. GI bleed. EGD this admission revealed stomach ulcers without any active bleeding. Status post IV DDAVP on admission. 6. Hypokalemia secondary to intracellular shifting due to IV bicarb and poor intake. Plan: Continue normal saline at 100 mL an hour. Potassium was replaced. Avoid nephrotoxins. Continue to monitor renal function and urine output. Add oral sodium bicarbonate.
[2019-11-30 11:23] LABS: Glucose,Whole Blood 113 mg/dL (75-99)
--- NOTE | 2019-11-30 11:40 | P.PN ---
Subjective Progress Note Date: 11/29/19 Alma Singer Patient seen on 28 of November in the ICU Patient resting in bed. Still feels weak heart rate 7 the 50s and 60s Blood pressure 112/58 mmHg Breath sounds are reduced bilaterally Heart sounds S1 and S2 are normal Atenolol is been discontinued No further GI bleeding Hemoglobin 7.9 BUN 131 creatinine 4.36 Sodium 3.4 Impression Bradycardia Underlying persistent atrial fibrillation Currently atenolol and hold Acute anemia secondary to GI bleeding Elevated BUN and creatinine Suggest Stop atenolol completely and continue telemetry monitoring Patient may go to a regular floor or 3 S. Objective - Vital Signs Vital signs: Vital Signs Temp 98.5 F 11/30/19 09:56 Pulse 76 11/30/19 09:56 Resp 16 11/30/19 09:56 BP 113/65 11/30/19 09:56 Pulse Ox 99 11/30/19 09:56 Intake & Output 11/29/19 11/30/19 11/30/19 18:59 06:59 18:59 Intake Total 1050 1100 Output Total 1210 1250 Balance -160 -150 Intake: IV 1050 Dextrose 5% in Water 1, 1000 000 ml @ 100 mls/hr IV . [id number] BRIDGETTE with Sodium Bicarb (1 Meq/ml) 150 ml Rx#:[id number] Intake, IV Titration 1100 Amount Sodium Chloride 0.9% 1, 1100 000 ml @ 100 mls/hr IV . Q10H BRIDGETTE Rx#:[id number] Output: Urine 1210 1250 Other: Voiding Method Indwelling Catheter Indwelling Catheter Indwelling Catheter - Labs CBC & Chem 7: 11/30/19 03:59 11/30/19 03:59 Labs: Abnormal Lab Results - Last 24 Hours (Table) 11/29/19 11/29/19 11/29/19 Range/Units 12:08 17:37 21:01 RBC (3.80-5.40) m/uL Hgb (11.4-16.0) gm/dL Hct (34.0-46.0) % RDW (11.5-15.5) % Sodium (137-145) mmol/L Potassium (3.5-5.1) mmol/L Carbon Dioxide (22-30) mmol/L BUN (7-17) mg/dL Creatinine (0.52-1.04) mg/dL POC Glucose (mg/dL) 118 H 187 H 136 H (75-99) mg/dL Calcium (8.4-10.2) mg/dL 11/30/19 11/30/19 11/30/19 Range/Units 03:59 03:59 06:10 RBC 2.85 L (3.80-5.40) m/uL Hgb 7.9 L (11.4-16.0) gm/dL Hct 25.4 L (34.0-46.0) % RDW 19.4 H (11.5-15.5) % Sodium 132 L (137-145) mmol/L Potassium 3.4 L (3.5-5.1) mmol/L Carbon Dioxide 19 L (22-30) mmol/L BUN 131 H* (7-17) mg/dL Creatinine 4.36 H (0.52-1.04) mg/dL POC Glucose (mg/dL) 122 H (75-99) mg/dL Calcium 7.9 L (8.4-10.2) mg/dL 11/30/19 Range/Units 11:16 RBC (3.80-5.40) m/uL Hgb (11.4-16.0) gm/dL Hct (34.0-46.0) % RDW (11.5-15.5) % Sodium (137-145) mmol/L Potassium (3.5-5.1) mmol/L Carbon Dioxide (22-30) mmol/L BUN (7-17) mg/dL Creatinine (0.52-1.04) mg/dL POC Glucose (mg/dL) 113 H (75-99) mg/dL Calcium (8.4-10.2) mg/dL
[2019-11-30] MEDS: SODIUM BICARBONATE TAB 650 MG TAB PO SCH ×2 (12:36→22:34)
[2019-11-30] MEDS: POTASSIUM CHLORIDE 10 MEQ in WATER FOR INJECTION 1 100ML.BAG IVPB SCH (12:38)
--- NOTE | 2019-11-30 13:51 | P.PN ---
Subjective Progress Note Date: 11/30/19 Principal diagnosis: Acute blood loss anemia secondary to GI bleed This is an 84-year-old female with history of multiple medical problems including chronic atrial fibrillation, maintained on Eliquis, history of colon cancer and resection in 2017, benign essential hypertension, type 2 diabetes, patient presented to the ER yesterday with one month history of nausea vomiting and generalized weakness. Patient also had some intermittent episodes of blood streaked vomitus, and she was also experiencing diarrhea with normal colored stools. The diarrhea has been more perfuse in the last couple of days. Denies any abdominal pain, denies any fever, no chills, no hemoptysis. Patient does have poor appetite, has been compliant with all her medications including her Eliquis, denies taking any nonsteroidal anti-inflammatory drugs. On admission the patient had a relatively normal chest x-ray. She was noted to have acute kidney injury with BUN of 173 creatinine 8.16. Patient was noted to have low magnesium, relatively low potassium, and elevated BNP level. Considering the patient's blood pressure was marginal and considering her multiple comorbidities and suspected upper GI bleeding, patient was admitted to the intensive care unit, and I was asked to see her on consultation. Since admission, the patient did not require any blood transfusion. She has been receiving fluids, and she required dopamine because of intermittent episodes of bradycardia arrhythmias with marginal blood pressure, hence she was placed on dopamine by cardiology. The dopamine is being tapered down she is on 1 mcg/kg/m at present. Patient was seen by nephrology, placed on sodium bicarb drip, and she was also seen by gastroenterology, scheduled to undergo EGD in a.m. Reevaluated today on 11/25/19, patient remains in the intensive care unit, her Xarelto remains on hold, EGD revealed a gastric ulcer, no active bleeding. Patient remains on bicarb which I have discontinued today. Her Xarelto remains on hold. And she remains on Protonix. She was on dopamine yesterday, this was discontinued today. Patient had intermittent episodes of bradycardia today, however she seems to be in sinus rhythm today, and doing fairly well. Electrolytes showed low sodium and low potassium 129 and 2.9 respectively. Her BUN is improving down to 141 and creatinine is down to 5.54. Hence I have recommended we continue slow hydration of the patient, patient must have been quite hypovolemic on admission. And she is responding well to hydration. And her electrolytes are being corrected accordingly. Bicarb drip was discontinued this morning. And we'll continue to correct her electrolytes. The patient is seen today 11/30/2019 in follow-up on the regular medical floor. She is currently resting comfortably in bed. Awake and alert in no acute distress. Maintaining in good O2 saturations in the high 90s on room air. She's afebrile. Hemodynamically stable. White count 7.4. Hemoglobin 7.9. Sodium 132. Potassium 3.4. BUN 131. Creatinine 4.36. She remains on oral bicarb. 0.9 normal saline at 100 ML's per hour. Protonix. Carafate. Objective - Vital Signs Vital signs: Vital Signs Temp 98.5 F 11/30/19 09:56 Pulse 76 11/30/19 09:56 Resp 16 11/30/19 09:56 BP 113/65 11/30/19 09:56 Pulse Ox 99 11/30/19 09:56 Intake & Output 11/29/19 11/30/19 11/30/19 18:59 06:59 18:59 Intake Total 1050 1100 Output Total 1210 1250 Balance -160 -150 Intake: IV 1050 Dextrose 5% in Water 1, 1000 000 ml @ 100 mls/hr IV . [id number] [facility] with Sodium Bicarb (1 Meq/ml) 150 ml Rx#:[id number] Intake, IV Titration 1100 Amount Sodium Chloride 0.9% 1, 1100 000 ml @ 100 mls/hr IV . Q10H [facility] Rx#:[id number] Output: Urine 1210 1250 Other: Voiding Method Indwelling Catheter Indwelling Catheter Indwelling Catheter - Exam GENERAL EXAM: Alert, pleasant 84-year-old female patient, on room air, comfortable in no apparent distress. HEAD: Normocephalic. EYES: Normal reaction of pupils, equal size. NOSE: Clear with pink turbinates. THROAT: No erythema or exudates. NECK: No masses, no JVD. CHEST: No chest wall deformity. LUNGS: Equal air entry with no crackles, wheeze, rhonchi or dullness. CVS: S1 and S2 normal with no audible murmur, regular rhythm. ABDOMEN: No hepatosplenomegaly, normal bowel sounds, no guarding or rigidity. SPINE: No scoliosis or deformity SKIN: No rashes CENTRAL NERVOUS SYSTEM: No focal deficits, tone is normal in all 4 extremities. EXTREMITIES: There is no peripheral edema. No clubbing, no cyanosis. Peripheral pulses are intact. - Labs CBC & Chem 7: 11/30/19 03:59 11/30/19 03:59 Labs: Abnormal Lab Results - Last 24 Hours (Table) 11/29/19 11/29/19 11/30/19 Range/Units 17:37 21:01 03:59 RBC 2.85 L (3.80-5.40) m/uL Hgb 7.9 L (11.4-16.0) gm/dL Hct 25.4 L (34.0-46.0) % RDW 19.4 H (11.5-15.5) % Sodium (137-145) mmol/L Potassium (3.5-5.1) mmol/L Carbon Dioxide (22-30) mmol/L BUN (7-17) mg/dL Creatinine (0.52-1.04) mg/dL POC Glucose (mg/dL) 187 H 136 H (75-99) mg/dL Calcium (8.4-10.2) mg/dL 11/30/19 11/30/19 11/30/19 Range/Units 03:59 06:10 11:16 RBC (3.80-5.40) m/uL Hgb (11.4-16.0) gm/dL Hct (34.0-46.0) % RDW (11.5-15.5) % Sodium 132 L (137-145) mmol/L Potassium 3.4 L (3.5-5.1) mmol/L Carbon Dioxide 19 L (22-30) mmol/L BUN 131 H* (7-17) mg/dL Creatinine 4.36 H (0.52-1.04) mg/dL POC Glucose (mg/dL) 122 H 113 H (75-99) mg/dL Calcium 7.9 L (8.4-10.2) mg/dL Assessment and Plan Assessment: Acute blood loss anemia, strongly suspect upper GI bleeding. Acute kidney injury, exact etiology is yet to be determined, nephrology is following. Possible profound hypovolemia on presentation. Chronic atrial fibrillation on anticoagulations therapy which is a contributing factor to her upper GI bleeding. Acute anion gap metabolic acidosis secondary to acute kidney injury. Resolved. Intractable nausea and vomiting with diarrhea. With hypovolemia, Improving. Benign essential hypertension. Type 2 diabetes. Possible underlying nephropathy related to diabetes. History of colon cancer and previous resection in 2017 presently in remission. Recommendation: The patient was seen and evaluated by Dr. Moralez Continue Protonix and Carafate Continue bicarb and IV hydration Continue to monitor hemoglobin We'll continue to follow I, the cosigning physician, performed a history & physical examination of the patient. Lungs sounds with crackles in the left lower lobe. Maintaining good O2 saturations in the 90s on room air. I discussed the assessment and plan of care with my nurse practitioner, Tiffany Metcalf. I attest to the above note as dictated by her.
[2019-11-30 16:52] LABS: Glucose,Whole Blood 192 mg/dL (75-99)
--- NOTE | 2019-11-30 22:09 | PN ---
PROGRESS NOTE DATE OF SERVICE: 11/30/2019 This 84-year-old woman was admitted with acute upper gastrointestinal bleeding, has been closely monitored. EGD showed multiple gastric ulcers without any active bleeding, but hemoglobin has dropped to 7.9 from admission 8.8. Patient closely monitored. Patient also received DDAVP. The patient also had renal failure which is multifactorial. Creatinine was 7.6 on admission, slightly improving at 4.36. Patient is still complaining of tiredness and weakness. PAST MEDICAL HISTORY: Reviewed. REVIEW OF SYSTEMS: CARDIOVASCULAR: No angina, palpitations. RESPIRATORY: No cough, hemoptysis. GI: As mentioned earlier. GI: No dysuria or retention. NERVOUS SYSTEM: No numbness, weakness. PHYSICAL EXAM: Patient is alert, oriented x2. Pulse 87. Blood pressure 128/79, respirations 16, temperature 97.7, pulse ox 94% on room air. HEENT: Conjunctivae normal. Oral mucosa moist. NECK: No jugular venous distention. No lymph node enlargement. CARDIOVASCULAR: S1, S2. RESPIRATORY: Diminished breath sounds at the bases. A few scattered rhonchi, no crackles. ABDOMEN: Soft, nontender. LEGS: No edema, no swelling. NERVOUS SYSTEM: No focal deficits. LABS: WBC 7.4, hemoglobin 7.9, sodium 132, potassium 3.4. Creatinine is 4.36. ASSESSMENT: 1. Acute upper gastrointestinal bleeding with acute blood loss anemia due to multiple gastric ulcers, status post EGD and mild antral gastritis. 2. Symptomatic anemia. 3. Severe hyponatremia. 4. Severe hypokalemia. 5. Acute kidney injury possibly secondary to acute tubular necrosis secondary to hypotension and medication induced. 6. Chronic atrial fibrillation. 7. Generalized weakness. 8. Acute metabolic acidosis. 9. Intractable nausea, vomiting. 10.Elevated BNP. 11.Chronic atrial fibrillation with anticoagulation with Eliquis. 12.History of colon cancer status post resection at [facility]. 13.Hypertension history. 14.Diabetes mellitus type 2. 15.Chronic lower extremity swelling. 16.Hypoalbuminemia. 17.History of cholecystectomy. 18.History of cataracts. 19.FULL CODE. RECOMMENDATIONS AND DISCUSSION: Recommend to continue current medication, continue symptomatic treatment. Otherwise, as mentioned earlier we will continue with cautious IV fluids. Carafate has been added to the current regimen. Monitor hemoglobin closely. If the hemoglobin goes less than 7 I would recommend transfusion. Otherwise, hold off antiplatelet agents and anticoagulants for now. We will monitor the blood pressure closely. Once the blood pressure is elevated, we will restart some of the home medications. I will monitor blood sugars closely. Prognosis guarded because of multiple complex medical issues. Further recommendations to follow. MMODL / IJN: [id number] /
[2019-11-30] MEDS: LATANOPROST 0.005% OPHTH DROPS 2.5 ML BTL BOTH EYES SCH (22:38)
[2019-11-30 22:45] LABS: Glucose,Whole Blood 197 mg/dL (75-99)
[2019-12-01] MEDS: SODIUM CHLORIDE 0.9% 1,000 ML IV SCH ×3 (03:03→21:44)
[2019-12-01 07:06] LABS: Glucose,Whole Blood 142 mg/dL (75-99)
[2019-12-01] MEDS: MULTIVITAMINS, THERA 1 EACH TAB PO SCH (07:52)
[2019-12-01] MEDS: SODIUM BICARBONATE TAB 650 MG TAB PO SCH ×2 (07:52→21:44)
[2019-12-01] MEDS: INSULIN ASPART (NovoLOG) 100 UNIT/ML VIAL SQ SCH ×4 (07:52→21:33)
[2019-12-01] MEDS: SUCRALFATE 1 GM TAB PO SCH ×4 (07:52→21:44)
[2019-12-01] MEDS: PANTOPRAZOLE 40 MG/10 ML VIAL IV SCH ×2 (07:52→21:44)
[2019-12-01 09:21] LABS: Anisocytosis Slight; Basophils % (A) 1 %; Eosinophils # (A) 0.1 k/uL (0-0.7); Eosinophils % (A) 1 %; HCT 24.8 % (34.0-46.0); HGB 7.9 gm/dL (11.4-16.0); Lymphocytes # (A) 1.2 k/uL (1.0-4.8); Lymphocytes % (A) 19 %; MCH 28.3 pg (25.0-35.0); MCHC 31.7 g/dL (31.0-37.0); MCV 89.1 fL (80.0-100.0); Mean Platelet Volume 8.9; Monocytes # (A) 0.2 k/uL (0-1.0); Monocytes % (A) 4 %; Neutrophils # (A) 4.8 k/uL (1.3-7.7); Neutrophils % (A) 75 %; Platelet Count 199 k/uL (150-450); RBC 2.79 m/uL (3.80-5.40); RDW 19.8 % (11.5-15.5); WBC 6.4 k/uL (3.8-10.6)
[2019-12-01 09:32] LABS: Calcium 7.6 mg/dL (8.4-10.2); Magnesium 1.1 mg/dL (1.6-2.3); Potassium 2.8 mmol/L (3.5-5.1)
[2019-12-01 11:04] VITALS: BMI 24.9
[2019-12-01 12:06] LABS: Glucose,Whole Blood 128 mg/dL (75-99)
[2019-12-01] MEDS ORDERED: POTASSIUM CHLORIDE ER 20 MEQ TAB.ER PO STA (13:50)
--- NOTE | 2019-12-01 14:10 | P.PN ---
Subjective Patient is seen in follow for acute kidney injury. Renal function is improving. Creatinine 3.76 today. She is nonoliguric. Awake and alert. She underwent EGD November 28 which revealed stomach ulcerations with no active bleeding. Currently sitting up in chair. She is tolerating oral intake. She has been voiding. Murray catheter removed. Vital signs are stable. General: The patient appeared well nourished and normally developed. HEENT: Head exam is unremarkable. Neck is without jugular venous distension. LUNGS: Breath sounds decreased. HEART: Rate and Rhythm are regular. ABDOMEN: Nontender, nondistended. EXTREMITITES: No clubbing, cyanosis, or edema. Objective - Vital Signs Vital signs: Vital Signs Temp 98.1 F 12/01/19 07:11 Pulse 77 12/01/19 07:11 Resp 14 12/01/19 07:11 BP 120/73 12/01/19 07:11 Pulse Ox 93 L 12/01/19 07:11 Intake & Output 11/30/19 12/01/19 12/01/19 18:59 06:59 18:59 Intake Total 540 Output Total 400 Balance 140 Weight 70.1 kg Intake: Oral 540 Output: Urine 400 Other: Voiding Method Indwelling Catheter # Voids 1 # Bowel Movements 1 - Labs CBC & Chem 7: 12/01/19 08:26 12/01/19 08:26 Labs: Abnormal Lab Results - Last 24 Hours (Table) 11/30/19 11/30/19 12/01/19 Range/Units 16:48 22:23 07:03 RBC (3.80-5.40) m/uL Hgb (11.4-16.0) gm/dL Hct (34.0-46.0) % RDW (11.5-15.5) % Potassium (3.5-5.1) mmol/L Carbon Dioxide (22-30) mmol/L BUN (7-17) mg/dL Creatinine (0.52-1.04) mg/dL Glucose (74-99) mg/dL POC Glucose (mg/dL) 192 H 197 H 142 H (75-99) mg/dL Calcium (8.4-10.2) mg/dL Magnesium (1.6-2.3) mg/dL 05/26/20 05/26/20 05/26/20 Range/Units 08:26 08:26 11:43 RBC 2.79 L (3.80-5.40) m/uL Hgb 7.9 L (11.4-16.0) gm/dL Hct 24.8 L (34.0-46.0) % RDW 19.8 H (11.5-15.5) % Potassium 2.8 L (3.5-5.1) mmol/L Carbon Dioxide 21 L (22-30) mmol/L BUN 111 H* (7-17) mg/dL Creatinine 3.76 H (0.52-1.04) mg/dL Glucose 160 H (74-99) mg/dL POC Glucose (mg/dL) 128 H (75-99) mg/dL Calcium 7.6 L (8.4-10.2) mg/dL Magnesium 1.1 L (1.6-2.3) mg/dL Assessment and Plan Plan: Assessment: 1. Acute kidney injury secondary to ATN secondary to hypotension and further worsened with the use of losartan and Lasix. Creatinine was 8.1 on admission and is 3.76 today. No evidence of hydronephrosis and kidney ultrasound. 2. Chronic A. fib. Bradycardic this admission. Status post dopamine. Better. 3. Metabolic acidosis secondary to acute kidney injury and diarrhea. Ma intained on oral sodium bicarbonate. 4. Hypovolemic hyponatremia improving with IV hydration. 5. GI bleed. EGD this admission revealed stomach ulcers without any active bleeding. Status post IV DDAVP on admission. 6. Hypokalemia secondary to poor intake and hypomagnesemia. 7. Hypomagnesemia from poor intake and GI losses. Plan: Decreased rate of normal saline to 75 mL an hour. Encouraged oral intake. Replace potassium. 60 mg today. Replace magnesium. 3 g IV today. Avoid nephrotoxins. Continue to monitor renal function and urine output.
[2019-12-01] MEDS: POTASSIUM CHLORIDE ER 20 MEQ TAB.ER PO SCH ×2 (14:19→15:32)
[2019-12-01] MEDS: MAGNESIUM SULFATE-D5W PMX 1 GM in DEXTROSE/WATER 1 100ML.BAG IVPB SCH ×3 (14:19→16:54)
--- NOTE | 2019-12-01 15:38 | PN ---
PROGRESS NOTE DATE OF SERVICE: 12/01/2019 Patient is an 84-year-old pleasant white female admitted to the hospital with acute GI bleed and acute kidney injury. EGD done 3 days ago revealed small superficial gastric ulcer. The patient has no further bleeding. Xarelto has been on hold. She is doing well. No new complaints. Still complains of fatigue and weakness, but no abdominal pain. No nausea, vomiting. PHYSICAL EXAMINATION: Blood pressure is 120/73, pulse rate 77, temperature 98.1. HEENT: Examination unremarkable, conjunctivae are pink, sclerae nonicteric, oral cavity no lesions. NECK: No JVD or lymph node enlargement. CHEST: Clear to auscultation. HEART: Regular rate and rhythm. ABDOMEN: Soft. Bowel sounds are positive. No organomegaly. EXTREMITIES: No pedal edema. NEUROLOGIC: Alert and oriented x3. No focal deficits. IMPRESSION: 1. Acute upper gastrointestinal bleed, status post EGD done 2 days ago that showed multiple small proximal body ulcers. No active bleeding, Xarelto on hold. Patient doing well. Hemoglobin stable. 2. Acute kidney injury with improving BUN and creatinine with hydration. 3. History of atrial fibrillation on Xarelto, currently on hold. RECOMMENDATION: 1. Monitor CBC on a daily basis. 2. Continue Protonix daily. 3. Okay to start back on anticoagulation, if indicated. 4. Will follow with you closely. Thank you for this consultation. MMCASSIEL / IJN: [id number] /
[2019-12-01 16:50] LABS: Glucose,Whole Blood 233 mg/dL (75-99)
--- NOTE | 2019-12-01 19:54 | PN ---
PROGRESS NOTE DATE OF SERVICE: 12/01/2019 This 84-year-old woman who was admitted with acute upper GI bleeding and acute blood loss anemia had multiple gastric ulcers. The patient had EGD and mild antral gastritis. Patient is being closely monitored. No chest pain. No palpitations. No fever. PHYSICAL EXAMINATION: Alert and oriented x3. Pulse 77, blood pressure 120/73, respiration 14, temperature 98.1, pulse ox 93% on room air. HEENT: Conjunctivae normal. NECK: No jugular venous distention. CARDIOVASCULAR SYSTEM: S1, S2 muffled. RESPIRATORY SYSTEM: Breath sounds diminished at the bases. A few scattered rhonchi. ABDOMEN: Soft, non-tender. No mass palpable. NERVOUS SYSTEM: No focal deficit. LABS: Hemoglobin 7.9 and creatinine is 3.76. Magnesium is 1.1. ASSESSMENT: 1. Acute upper gastrointestinal bleeding with acute blood loss anemia due to multiple gastric ulcers, status post esophagogastroduodenoscopy, and mild antral gastritis. 2. Symptomatic anemia. 3. Severe hyponatremia. 4. Severe hypokalemia. 5. Acute kidney injury, possibly secondary to acute tubular necrosis secondary to hypotension as well as medication-induced. 6. Chronic atrial fibrillation. 7. Generalized weakness. 8. Acute metabolic acidosis. 9. Intractable nausea and vomiting. 10.Hypomagnesemia. 11.Elevated BNP. 12.Chronic atrial fibrillation, on anticoagulation with Eliquis. 13.History of colon cancer, status post resection at [facility]. 14.Hypertension history. 15.Diabetes mellitus, type 2. 16.Chronic lower extremity swelling. 17.Hypoalbuminemia. 18.History of cholecystectomy. 19.History of cataracts. 20.FULL CODE. RECOMMENDATIONS AND DISCUSSION: I recommend to continue current medications, continue with the monitoring, symptomatic treatment. Continue with magnesium supplementation. Repeat magnesium. Follow closely with Nephrology. Kidney function is improving relentlessly. Hemoglobin is stable at 7.9 today. Will repeat labs and probably discharge in the next 24-48 hours if the patient is deemed stable. Once again, the prognosis is extremely guarded because of multiple complex medical issues. Further recommendations to follow. MMODL / IJN: [id number] /
[2019-12-01 21:10] LABS: Glucose,Whole Blood 121 mg/dL (75-99)
[2019-12-01] MEDS: LATANOPROST 0.005% OPHTH DROPS 2.5 ML BTL BOTH EYES SCH (23:28)
[2019-12-02 06:54] LABS: Glucose,Whole Blood 168 mg/dL (75-99)
[2019-12-02] MEDS: MULTIVITAMINS, THERA 1 EACH TAB PO SCH (07:30)
[2019-12-02] MEDS: SUCRALFATE 1 GM TAB PO SCH ×3 (07:30→21:33)
[2019-12-02] MEDS: SODIUM BICARBONATE TAB 650 MG TAB PO SCH ×2 (07:30→21:33)
[2019-12-02] MEDS: PANTOPRAZOLE 40 MG/10 ML VIAL IV SCH ×2 (07:30→21:35)
[2019-12-02] MEDS: INSULIN ASPART (NovoLOG) 100 UNIT/ML VIAL SQ SCH ×3 (07:31→21:34)
--- NOTE | 2019-12-02 08:26 | P.PN ---
Subjective Progress Note Date: 12/01/19 This is a pleasant 84-year-old female currently being treated for acute GI bleeding. She has a history of atrial fibrillation on long-term anticoagulation. On admission she was having frequent episodes of bradycardia. Atenolol was discontinued. Anticoagulation continues continues to be on hold. EGD revealed small superficial gastric ulcers. Laboratory data reviewed, WBC 6.4, hemoglobin 7.9, platelets 199, sodium 137, potassium 2.8, creatinine 3.76, magnesium 1.1. Blood pressure 120/73 heart rate 77 afebrile maintaining oxygen saturation on room air. Nephrology is following closely, losartan and Lasix have been on hold secondary to renal function. Telemetry tracings reveal persistent atrial fibrillation with heart rates remaining above 50 with ongoing short pauses noted. GENERAL: Well-appearing, well-nourished and in no acute distress. NECK: Supple without JVD or thyromegaly. LUNGS: Breath sounds clear to auscultation bilaterally. Respiration equal and unlabored. No wheezes, rales or rhonchi. Diminished bilaterally. HEART: Irregular rate and rhythm with systolic ejection murmur at the base, no rubs or gallops. S1 and S2 heard. EXTREMITIES: Normal range of motion, no edema. No clubbing or cyanosis. Peripheral pulses intact. ASSESSMENT Bradycardia Chronic persistent atrial fibrillation Acute anemia secondary to GI bleeding Acute kidney injury Hypomagnesemia Hypokalemia PLAN Electrolytes replaced per protocol. Repeat BMP in the morning. Will likely initiate Coumadin tomorrow if hemoglobin remains stable. Nurse Practitioner note has been reviewed, I agree with a documented findings and plan of care. Patient was seen and examined. Objective - Vital Signs Vital signs: Vital Signs Temp 98.1 F 12/02/19 07:00 Pulse 86 12/02/19 07:00 Resp 18 12/02/19 07:00 BP 109/55 12/02/19 07:00 Pulse Ox 98 12/02/19 07:00 Intake & Output 12/01/19 12/02/19 12/02/19 18:59 06:59 18:59 Intake Total 1215 Balance 1215 Weight 70.1 kg Intake: Intake, IV Titration 675 Amount Magnesium Sulfate-D5w Pmx 300 1 gm In Dextrose/Water 1 100ml.bag @ 100 mls/hr IVPB Q1H [facility] Rx#: [id number] Sodium Chloride 0.9% 1, 375 000 ml @ 75 mls/hr IV . [id number] [facility] Rx#:[id number] Oral 540 Other: Voiding Method Bedside Commode Diaper # Voids 2 2 # Bowel Movements 1 - Labs CBC & Chem 7: 12/02/19 08:50 12/02/19 08:50 Labs: Abnormal Lab Results - Last 24 Hours (Table) 12/01/19 12/01/19 12/01/19 Range/Units 08:26 08:26 11:43 RBC 2.79 L (3.80-5.40) m/uL Hgb 7.9 L (11.4-16.0) gm/dL Hct 24.8 L (34.0-46.0) % RDW 19.8 H (11.5-15.5) % Potassium 2.8 L (3.5-5.1) mmol/L Carbon Dioxide 21 L (22-30) mmol/L BUN 111 H* (7-17) mg/dL Creatinine 3.76 H (0.52-1.04) mg/dL Glucose 160 H (74-99) mg/dL POC Glucose (mg/dL) 128 H (75-99) mg/dL Calcium 7.6 L (8.4-10.2) mg/dL Magnesium 1.1 L (1.6-2.3) mg/dL 12/01/19 12/01/19 12/02/19 Range/Units 16:46 21:07 06:52 RBC (3.80-5.40) m/uL Hgb (11.4-16.0) gm/dL Hct (34.0-46.0) % RDW (11.5-15.5) % Potassium (3.5-5.1) mmol/L Carbon Dioxide (22-30) mmol/L BUN (7-17) mg/dL Creatinine (0.52-1.04) mg/dL Glucose (74-99) mg/dL POC Glucose (mg/dL) 233 H 121 H 168 H (75-99) mg/dL Calcium (8.4-10.2) mg/dL Magnesium (1.6-2.3) mg/dL
[2019-12-02 09:56] LABS: Anisocytosis Slight; HCT 24.5 % (34.0-46.0); HGB 7.7 gm/dL (11.4-16.0); Hypochromasia Moderate; MCH 29.3 pg (25.0-35.0); MCHC 31.7 g/dL (31.0-37.0); MCV 92.7 fL (80.0-100.0); Macrocytosis Slight; Mean Platelet Volume 8.1; Platelet Count 191 k/uL (150-450); RBC 2.64 m/uL (3.80-5.40); RDW 19.8 % (11.5-15.5); WBC 6.9 k/uL (3.8-10.6)
[2019-12-02 10:07] LABS: INR 1.1 (<1.2); Prothrombin Time 11.4 sec (9.0-12.0)
[2019-12-02 10:15] LABS: Calcium 7.7 mg/dL (8.4-10.2); Potassium 3.2 mmol/L (3.5-5.1)
[2019-12-02] MEDS ORDERED: POTASSIUM CHLORIDE ER 20 MEQ TAB.ER PO STA (11:20)
[2019-12-02] MEDS ORDERED: POTASSIUM CHLORIDE ER 10 MEQ TAB.ER.PRT PO STA (11:32)
--- NOTE | 2019-12-02 11:33 | P.PN ---
Subjective Patient is seen in follow for acute kidney injury. Renal function is improving. Creatinine 3.35 today. She is nonoliguric. Awake and alert. She underwent EGD November 28 which revealed stomach ulcerations with no active bleeding. Currently sitting up in chair. She is tolerating oral intake. She has been voiding. Murray catheter removed. No changes overnight. Potentially going to rehab today. Vital signs are stable. General: The patient appeared well nourished and normally developed. HEENT: Head exam is unremarkable. Neck is without jugular venous distension. LUNGS: Breath sounds decreased. HEART: Rate and Rhythm are regular. ABDOMEN: Nontender, nondistended. EXTREMITITES: No clubbing, cyanosis, or edema. Objective - Vital Signs Vital signs: Vital Signs Temp 98.1 F 12/02/19 07:00 Pulse 86 12/02/19 07:00 Resp 18 12/02/19 07:00 BP 109/55 12/02/19 07:00 Pulse Ox 98 12/02/19 07:00 Intake & Output 12/01/19 12/02/19 12/02/19 18:59 06:59 18:59 Intake Total 1215 Balance 1215 Weight 70.1 kg Intake: Intake, IV Titration 675 Amount Magnesium Sulfate-D5w Pmx 300 1 gm In Dextrose/Water 1 100ml.bag @ 100 mls/hr IVPB Q1H [facility] Rx#: [id number] Sodium Chloride 0.9% 1, 375 000 ml @ 75 mls/hr IV . [id number] [facility] Rx#:[id number] Oral 540 Other: Voiding Method Bedside Commode Diaper # Voids 2 2 1 # Bowel Movements 1 1 - Labs CBC & Chem 7: 12/02/19 08:50 12/02/19 08:50 Labs: Abnormal Lab Results - Last 24 Hours (Table) 12/01/19 12/01/19 12/01/19 Range/Units 11:43 16:46 21:07 RBC (3.80-5.40) m/uL Hgb (11.4-16.0) gm/dL Hct (34.0-46.0) % RDW (11.5-15.5) % Potassium (3.5-5.1) mmol/L Chloride (98-107) mmol/L Carbon Dioxide (22-30) mmol/L BUN (7-17) mg/dL Creatinine (0.52-1.04) mg/dL Glucose (74-99) mg/dL POC Glucose (mg/dL) 128 H 233 H 121 H (75-99) mg/dL Calcium (8.4-10.2) mg/dL 12/02/19 12/02/19 12/02/19 Range/Units 06:52 08:50 08:50 RBC 2.64 L (3.80-5.40) m/uL Hgb 7.7 L (11.4-16.0) gm/dL Hct 24.5 L (34.0-46.0) % RDW 19.8 H (11.5-15.5) % Potassium 3.2 L (3.5-5.1) mmol/L Chloride 112 H (98-107) mmol/L Carbon Dioxide 18 L (22-30) mmol/L BUN 99 H (7-17) mg/dL Creatinine 3.35 H (0.52-1.04) mg/dL Glucose 153 H (74-99) mg/dL POC Glucose (mg/dL) 168 H (75-99) mg/dL Calcium 7.7 L (8.4-10.2) mg/dL Assessment and Plan Plan: Assessment: 1. Acute kidney injury secondary to ATN secondary to hypotension and further worsened with the use of losartan and Lasix. Creatinine was 8.1 on admission and is 3.35 today. No evidence of hydronephrosis and kidney ultrasound. 2. Chronic A. fib. Bradycardic this admission. Status post dopamine. Better. 3. Metabolic acidosis secondary to acute kidney injury and diarrhea. Maintained on oral sodium bicarbonate. 4. Hypovolemic hyponatremia improving with IV hydration. 5. GI bleed. EGD this admission revealed stomach ulcers without any active bleeding. Status post IV DDAVP on admission. 6. Hypokalemia secondary to poor intake and hypomagnesemia. 7. Hypomagnesemia from poor intake and GI losses. Status post replacement. Better. Plan: Hep-Lock IV fluids. Encouraged oral intake. Replace potassium. 50 mg today. Avoid nephrotoxins. Continue to monitor renal function and urine output. Increase oral bicarb to 650 mg 3 times daily. Anticipate discharge soon. Repeat BMP and magnesium level II or 3 days post discharge. Follow up outpatient in 1-2 weeks.
[2019-12-02 12:29] LABS: Glucose,Whole Blood 180 mg/dL (75-99)
--- NOTE | 2019-12-02 14:28 | P.PN ---
Subjective This is a pleasant 84-year-old female currently being treated for acute GI bleeding. She has a history of atrial fibrillation on long-term anticoag ulation. On admission she was having frequent episodes of bradycardia. Atenolol was discontinued. Anticoagulation continues continues to be on hold. EGD revealed small superficial gastric ulcers. Laboratory data reviewed, WBC 6.4, hemoglobin 7.9, platelets 199, sodium 137, potassium 2.8, creatinine 3.76, magnesium 1.1. Blood pressure 120/73 heart rate 77 afebrile maintaining oxygen saturation on room air. Nephrology is following closely, losartan and Lasix have been on hold secondary to renal function. Telemetry tracings reveal persistent atrial fibrillation with heart rates remaining above 50 with ongoing short pauses noted. 12/02/2019 Pt seen and examined sitting up in the chair in no acute distress. She denies chest pain, shortness of breath, dizziness or palpitations. Blood pressure 109/55 heart rate 86 afebrile maintaining oxygen saturation on room air. Laboratory data reviewed, WBC 6.9, hemoglobin 7.7, platelets 191, sodium 139, potassium 3.2, creatinine 3.35 and magnesium 1.9. GENERAL: Well-appearing, well-nourished and in no acute distress. NECK: Supple without JVD or thyromegaly. LUNGS: Breath sounds clear to auscultation bilaterally. Respiration equal and unlabored. No wheezes, rales or rhonchi. Diminished bilaterally. HEART: Irregular rate and rhythm with systolic ejection murmur at the base, no rubs or gallops. S1 and S2 heard. EXTREMITIES: Normal range of motion, no edema. No clubbing or cyanosis. Peripheral pulses intact. ASSESSMENT Bradycardia Chronic persistent atrial fibrillation Acute anemia secondary to GI bleeding Acute kidney injury Hypomagnesemia Hypokalemia PLAN Initiate Coumadin today. Repeat CBC, PT/INR in the morning. Hemoglobin remained stable she can likely be discharged to rehab tomorrow. Nurse Practitioner note has been reviewed, I agree with a documented findings and plan of care. Patient was seen and examined. Objective - Vital Signs Vital signs: Vital Signs Temp 98.1 F 12/02/19 07:00 Pulse 86 12/02/19 07:00 Resp 18 12/02/19 07:00 BP 109/55 12/02/19 07:00 Pulse Ox 98 12/02/19 07:00 Intake & Output 12/01/19 12/02/19 12/02/19 18:59 06:59 18:59 Intake Total 1215 Balance 1215 Weight 70.1 kg Intake: Intake, IV Titration 675 Amount Magnesium Sulfate-D5w Pmx 300 1 gm In Dextrose/Water 1 100ml.bag @ 100 mls/hr IVPB Q1H BR[facility] Rx#: [id number] Sodium Chloride 0.9% 1, 375 000 ml @ 75 mls/hr IV . [id number] BR[facility]GET[facility] Rx#:[id number] Oral 540 Other: Voiding Method Bedside Commode Diaper # Voids 2 2 1 # Bowel Movements 1 1 - Labs CBC & Chem 7: 12/02/19 08:50 12/02/19 08:50 Labs: Abnormal Lab Results - Last 24 Hours (Table) 12/01/19 12/01/19 12/02/19 Range/Units 16:46 21:07 06:52 RBC (3.80-5.40) m/uL Hgb (11.4-16.0) gm/dL Hct (34.0-46.0) % RDW (11.5-15.5) % Potassium (3.5-5.1) mmol/L Chloride (98-107) mmol/L Carbon Dioxide (22-30) mmol/L BUN (7-17) mg/dL Creatinine (0.52-1.04) mg/dL Glucose (74-99) mg/dL POC Glucose (mg/dL) 233 H 121 H 168 H (75-99) mg/dL Calcium (8.4-10.2) mg/dL 12/02/19 12/02/19 12/02/19 Range/Units 08:50 08:50 12:26 RBC 2.64 L (3.80-5.40) m/uL Hgb 7.7 L (11.4-16.0) gm/dL Hct 24.5 L (34.0-46.0) % RDW 19.8 H (11.5-15.5) % Potassium 3.2 L (3.5-5.1) mmol/L Chloride 112 H (98-107) mmol/L Carbon Dioxide 18 L (22-30) mmol/L BUN 99 H (7-17) mg/dL Creatinine 3.35 H (0.52-1.04) mg/dL Glucose 153 H (74-99) mg/dL POC Glucose (mg/dL) 180 H (75-99) mg/dL Calcium 7.7 L (8.4-10.2) mg/dL
[2019-12-02 16:59] LABS: Glucose,Whole Blood 167 mg/dL (75-99)
[2019-12-02] MEDS ORDERED: WARFARIN 7.5 MG TAB PO ONE (18:00)
[2019-12-02] MEDS: SODIUM CHLORIDE 0.9% 1,000 ML IV SCH (19:47)
[2019-12-02 20:19] LABS: Glucose,Whole Blood 148 mg/dL (75-99)
--- NOTE | 2019-12-02 20:26 | PN ---
PROGRESS NOTE DATE OF SERVICE: 12/02/2019 This 84-year-old woman who was admitted with significant upper GI bleeding and acute blood loss anemia with multiple gastric ulcers is being closely monitored. ECF rehab is also planned. Preauthorization is pending. No chest pain. No palpitation. The patient has some diarrhea. PHYSICAL EXAMINATION: On exam, alert and oriented x2. Pulse 61, blood pressure 128/60, respirations 17, temperature 97.4, pulse ox 92% on room air. HEENT: Conjunctivae normal. NECK: No jugular venous distention. CARDIOVASCULAR SYSTEM: S1, S2 muffled. RESPIRATORY SYSTEM: Breath sounds diminished at the bases. A few scattered rhonchi. No crackles. ABDOMEN: Soft. LEGS: No edema. No swelling. NERVOUS SYSTEM: Diffusely weak. LABS: WBC 6.9, hemoglobin 7.7, sodium 139, potassium 3.2, creatinine 3.35. ASSESSMENT: 1. Acute upper gastrointestinal bleeding with acute blood loss anemia due to multiple gastric ulcers, status post esophagogastroduodenoscopy, and mild antral gastritis. 2. Symptomatic anemia. 3. Severe hyponatremia with severe hypokalemia. 4. Acute kidney injury possibly secondary to acute tubular necrosis secondary to hypotension as well as medication-induced. 5. Chronic atrial fibrillation. 6. Generalized weakness. 7. Acute metabolic acidosis. 8. Intractable nausea and vomiting. 9. Hypomagnesemia. 10.Elevated BNP. 11.Chronic atrial fibrillation, on anticoagulation with Eliquis. 12.History of colon cancer, status post resection at [facility]. 13.Hypertension history. 14.Diabetes mellitus, type 2. 15.Chronic lower extremity swelling. 16.Hypoalbuminemia. 17.History of cholecystectomy. 18.History of cataracts. 19.FULL CODE. RECOMMENDATIONS AND DISCUSSION: I recommend to continue current medications, continue with the monitoring, symptomatic treatment. Creatinine is 3.35 today. Recommend potassium replacement protocol and repeat labs. Once the patient is stable, the patient might be able to go to rehab at this time. Otherwise, I will continue to monitor. Repeat electrolytes are being ordered tomorrow. C difficile also being requested. Continue to monitor. MMODL / IJN: [id number] /
[2019-12-02] MEDS: LATANOPROST 0.005% OPHTH DROPS 2.5 ML BTL BOTH EYES SCH (21:44)
--- NOTE | 2019-12-03 01:36 | PN ---
PROGRESS NOTE DATE OF DICTATION: 12/02/2019 The patient is an 84-year-old pleasant white female admitted to hospital with GI bleed and acute kidney failure. She is being discharged to [facility] today or tomorrow. She is doing well. She reports no symptoms. Continues to remain weak, undergoing physical therapy, but denies any abdominal pain. No nausea, vomiting, or rectal bleeding. PHYSICAL EXAMINATION: Appears comfortable, in no apparent distress. Vital signs are stable. Blood pressure is 126/68, pulse is 68, and temperature 97.5. HEENT EXAMINATION: Unremarkable. Conjunctivae pink. Sclerae anicteric. Oral cavity, no lesions. NECK: No JVD or lymph node enlargement. CHEST: Clear to auscultation. HEART: Regular rate and rhythm. ABDOMEN: Soft. Bowel sounds are positive. EXTREMITIES: No pedal edema. Some bruise noted in the lower extremities. NEUROLOGIC: Alert and oriented x3. No focal deficits. LABS: WBC 6.9, hemoglobin 7.7, platelets 191. BUN and creatinine 99 and 3.35 respectively. IMPRESSION: 1. Acute upper gastrointestinal bleed, status post EGD 3 days ago that revealed small superficial gastric ulcer. Presently on Protonix 40 mg daily. No further bleeding. Xarelto on hold. 2. History of valve replacement and atrial fibrillation. Cardiology is following the patient closely. Planning to start her on anticoagulation soon. 3. Acute kidney injury with improving BUN and creatinine. 4. Generalized weakness, undergoing physical therapy. RECOMMENDATION: 1. Continue Protonix 40 mg twice daily. 2. Okay to start anticoagulation at this time as the patient does not have any active bleeding and hemoglobin remains stable. 3. Continue symptomatic and supportive care. 4. Avoid NSAIDs. 5. If patient is discharged, she was advised to follow up in the office in 3 to 4 weeks. Thank you for this consultation. MMODL / IJN: [id number] /
[2019-12-03 06:47] LABS: Glucose,Whole Blood 144 mg/dL (75-99)
[2019-12-03] MEDS: INSULIN ASPART (NovoLOG) 100 UNIT/ML VIAL SQ SCH ×5 (07:23→22:10)
[2019-12-03] MEDS: SODIUM BICARBONATE TAB 650 MG TAB PO SCH ×3 (07:23→22:23)
[2019-12-03] MEDS: SUCRALFATE 1 GM TAB PO SCH ×5 (07:24→22:23)
[2019-12-03] MEDS: MULTIVITAMINS, THERA 1 EACH TAB PO SCH (07:31)
[2019-12-03] MEDS: PANTOPRAZOLE 40 MG/10 ML VIAL IV SCH ×2 (07:31→22:23)
[2019-12-03 10:20] LABS: Anisocytosis Slight; HCT 24.3 % (34.0-46.0); HGB 7.5 gm/dL (11.4-16.0); Hypochromasia Marked; MCH 28.6 pg (25.0-35.0); MCHC 30.8 g/dL (31.0-37.0); MCV 92.8 fL (80.0-100.0); Macrocytosis Slight; Platelet Count 197 k/uL (150-450); RBC 2.62 m/uL (3.80-5.40); RDW 19.9 % (11.5-15.5); WBC 6.2 k/uL (3.8-10.6)
[2019-12-03 10:34] LABS: INR 1.1 (<1.2); Prothrombin Time 11.7 sec (9.0-12.0)
[2019-12-03 10:54] LABS: Calcium 8.2 mg/dL (8.4-10.2)
--- NOTE | 2019-12-03 10:55 | P.PN ---
Subjective Patient is seen in follow for acute kidney injury. Renal function is improving. Creatinine 3.35 as of yesterday. Awake and alert. She underwent EGD November 28 which revealed stomach ulcerations with no active bleeding. She is tolerating oral intake. She has been voiding. No changes overnight. Potentially going to rehab today. Vital signs are stable. General: The patient appeared well nourished and normally developed. HEENT: Head exam is unremarkable. Neck is without jugular venous distension. LUNGS: Breath sounds decreased. HEART: Rate and Rhythm are regular. ABDOMEN: Nontender, nondistended. EXTREMITITES: No clubbing, cyanosis, or edema. Objective - Vital Signs Vital signs: Vital Signs Temp 97.9 F 12/03/19 07:52 Pulse 105 H 12/03/19 07:52 Resp 17 12/03/19 07:52 BP 140/84 12/03/19 07:52 Pulse Ox 97 12/03/19 07:52 Intake & Output 12/02/19 12/03/19 12/03/19 18:59 06:59 18:59 Other: Voiding Method Bedside Commode Bedside Commode Diaper Diaper Incontinent Incontinent # Voids 1 1 # Bowel Movements 1 1 - Labs CBC & Chem 7: 12/03/19 09:34 12/02/19 08:50 Labs: Abnormal Lab Results - Last 24 Hours (Table) 12/02/19 12/02/19 12/02/19 Range/Units 12:26 16:56 20:17 RBC (3.80-5.40) m/uL Hgb (11.4-16.0) gm/dL Hct (34.0-46.0) % MCHC (31.0-37.0) g/dL RDW (11.5-15.5) % POC Glucose (mg/dL) 180 H 167 H 148 H (75-99) mg/dL 12/03/19 12/03/19 Range/Units 06:46 09:34 RBC 2.62 L (3.80-5.40) m/uL Hgb 7.5 L (11.4-16.0) gm/dL Hct 24.3 L (34.0-46.0) % MCHC 30.8 L (31.0-37.0) g/dL RDW 19.9 H (11.5-15.5) % POC Glucose (mg/dL) 144 H (75-99) mg/dL Assessment and Plan Plan: Assessment: 1. Acute kidney injury secondary to ATN secondary to hypotension and further worsened with the use of losartan and Lasix. Creatinine was 8.1 on admission and is 3.35 as of yesterday. No evidence of hydronephrosis and kidney ultrasound. 2. Chronic A. fib. Bradycardic this admission. Status post dopamine. Better. 3. Metabolic acidosis secondary to acute kidney injury and diarrhea. Maintained on oral sodium bicarbonate. 4. Hypovolemic hyponatremia improving with IV hydration. 5. GI bleed. EGD this admission revealed stomach ulcers without any active bleeding. Status post IV DDAVP on admission. Hemoglobin fairly stable. 6. Hypokalemia secondary to poor intake and hypomagnesemia. 7. Hypomagnesemia from poor intake and GI losses. Status post replacement. Better. Plan: Morning labs pending. I will give her a dose of Aranesp today. Encouraged oral intake. Avoid nephrotoxins. Continue to monitor renal function and urine output. Anticipate discharge soon. Repeat BMP and magnesium level II or 3 days post discharge. Follow up outpatient in 1-2 weeks.
[2019-12-03] MEDS ORDERED: DARBEPOETIN ALFA 25 MCG/0.42 ML SYRINGE SQ SCH (11:00)
[2019-12-03 11:54] LABS: Glucose,Whole Blood 154 mg/dL (75-99)
[2019-12-03 12:12] LABS: Crenated RBC Present; Eosinophils # (M) 0.06 k/uL (0-0.7); Lymphocytes # (M) 0.43 k/uL (1.0-4.8); Monocytes # (M) 0.31 k/uL (0-1.0); Neutrophils # (M) 5.39 k/uL (1.3-7.7); Neutrophils % (M) 87 %; Nucleated Red Blood Cells 0 /100 WBC (0-0); Poikilocytosis (M) Present; Total Cells Counted 100
[2019-12-03 12:13] LABS: Ovalocytes Present; RBC Fragments Present
--- NOTE | 2019-12-03 12:59 | P.PN ---
Subjective This is a pleasant 84-year-old female currently being treated for acute GI bleeding. She has a history of atrial fibrillation on long-term anticoag ulation. She follows in the office with Dr. Garzon. She is seen and examined sitting up in bed in no acute distress. She is eating breakfast. She denies chest pain, shortness of breath, dizziness or palpitations. Blood pressure 140/84 heart rate 105 afebrile and maintaining oxygen saturation on on room air. Telemetry tracing reviewed, persistent atrial fibrillation with intermittent episodes of rapid heart rates up to 120 bpm. Coumadin was initiated yesterday. Atenolol was discontinued on admission secondary to bradycardia. Losartan, lasix and zaroxolyn have been held secondary to acute kidney injury. Labs pending. GENERAL: Well-appearing, well-nourished and in no acute distress. NECK: Supple without JVD or thyromegaly. LUNGS: Breath sounds clear to auscultation bilaterally. Respiration equal and unlabored. No wheezes, rales or rhonchi. Diminished bilaterally. HEART: Irregular rate and rhythm with systolic ejection murmur at the base, no rubs or gallops. S1 and S2 heard. EXTREMITIES: Normal range of motion, no edema. No clubbing or cyanosis. Peripheral pulses intact. ASSESSMENT Bradycardia Chronic persistent atrial fibrillation Acute anemia secondary to GI bleeding Acute kidney injury Hypomagnesemia Hypokalemia PLAN Hemodynamically stable. Labs pending. If hgb stable continue coumadin. If there is a drop would consider holding and will address as an outpatient in 1-2 weeks. Nurse Practitioner note has been reviewed, I agree with a documented findings and plan of care. Patient was seen and examined. Objective - Vital Signs Vital signs: Vital Signs Temp 97.9 F 12/03/19 07:52 Pulse 105 H 12/03/19 07:52 Resp 17 12/03/19 07:52 BP 140/84 12/03/19 07:52 Pulse Ox 97 12/03/19 07:52 Intake & Output 12/02/19 12/03/19 12/03/19 18:59 06:59 18:59 Other: Voiding Method Bedside Commode Bedside Commode Diaper Diaper Incontinent Incontinent # Voids 1 1 # Bowel Movements 1 1 - Labs CBC & Chem 7: 12/03/19 09:34 05/28/20 09:34 Labs: Abnormal Lab Results - Last 24 Hours (Table) 12/02/19 12/02/19 12/02/19 Range/Units 08:50 08:50 12:26 RBC 2.64 L (3.80-5.40) m/uL Hgb 7.7 L (11.4-16.0) gm/dL Hct 24.5 L (34.0-46.0) % RDW 19.8 H (11.5-15.5) % Potassium 3.2 L (3.5-5.1) mmol/L Chloride 112 H (98-107) mmol/L Carbon Dioxide 18 L (22-30) mmol/L BUN 99 H (7-17) mg/dL Creatinine 3.35 H (0.52-1.04) mg/dL Glucose 153 H (74-99) mg/dL POC Glucose (mg/dL) 180 H (75-99) mg/dL Calcium 7.7 L (8.4-10.2) mg/dL 12/02/19 12/02/19 12/03/19 Range/Units 16:56 20:17 06:46 RBC (3.80-5.40) m/uL Hgb (11.4-16.0) gm/dL Hct (34.0-46.0) % RDW (11.5-15.5) % Potassium (3.5-5.1) mmol/L Chloride (98-107) mmol/L Carbon Dioxide (22-30) mmol/L BUN (7-17) mg/dL Creatinine (0.52-1.04) mg/dL Glucose (74-99) mg/dL POC Glucose (mg/dL) 167 H 148 H 144 H (75-99) mg/dL Calcium (8.4-10.2) mg/dL
--- NOTE | 2019-12-03 14:02 | P.DS ---
Providers Date of admission: 11/27/19 14:59 Expected date of discharge: 12/03/19 Attending physician: Price Stearns Consults: 11/27/19 14:59 Consult Physician Stat Consulting Provider: Leeann Moralez Consult Reason/Comments: gi bleed Do you want consulting provider notified?: Already Contacted Consult Physician Urgent Consulting Provider: Roz Garzon Consult Reason/Comments: gi bleed Do you want consulting provider notified?: Already Contacted 11/27/19 18:01 Consult Physician Routine Consulting Provider: Cleopatra Erwin Consult Reason/Comments: JUAN Do you want consulting provider notified?: Yes 11/28/19 00:45 Consult Physician Stat Consulting Provider: Mohit Rowe Consult Reason/Comments: Bradycardia Do you want consulting provider notified?: Yes Primary care physician: Dee Eaton [facility] Course: Final diagnosis Acute upper gastrointestinal bleeding with acute blood loss anemia due to multiple gastric ulcers and mild antral gastritis, status post EGD Symptomatic anemia Severe hyponatremia with severe hypokalemia Acute kidney injury possibly secondary to acute tubular necrosis secondary to hypotension as well as medication induced Chronic atrial fibrillation Generalized weakness Acute metabolic acidosis Intractable nausea and vomiting Hypomagnesemia Elevated BNP History of colon cancer, status post resection at [facility] Hypertension history Diabetes mellitus type 2 Chronic lower extremity swelling Hypoalbuminemia history of cholecystectomy history of cataracts Full code Discharge disposition Patient is being discharged in a stable condition with guarded prognosis to [facility] for continued PT/OT therapy. Patient will continue on sodium bicarbonate tablets in the outpatient setting. Patient will follow-up with Dr. Yen in the outpatient setting in 1-2 weeks along with cardiology in the outpatient setting as well. Coumadin currently being held due to low hemoglobin and will be reevaluated in the outpatient setting with cardiology. Total time taken is 35 minutes. History of present illness This is a 84-year-old female who was recently admitted with acute GI bleed and acute kidney failure and was being closely monitored. GI and cardiology along with nephrology following the patient. Patient was found to have acute renal failure and being closely followed by nephrology. Patient was initiated on a bi carbonate tablets and will continue in the outpatient setting. No active bleeding noted although hemoglobin continues to fluctuate. Hemoglobin this morning was 7.5 and will be given 1 unit of PRBCs prior to discharge. A prescription was provided for repeat CBC in a few days to monitor hemoglobin. Cardiology evaluated the patient for atrial fibrillation history and was initially started on Coumadin although due to hemoglobin drop will continue to hold Coumadin until cardiology follow-up. Patient will also need to monitor electrolytes as her kidney functions were slightly elevated. Most current creatinine is improved. Patient was given a dose of Aranesp today in the hospital and will follow-up with nephrology in the outpatient setting to discuss possible Procrit. Patient will need close monitoring of hemoglobin as mentioned previously. Patient also has history of diabetes mellitus and will need continued blood sugar monitoring before meals at bedtime and treat accordingly with sliding scale. Metformin will remain on hold due to worsening kidney functions. Today patient is much more alert and awake and has been working with physical therapy. Patient will be going to subacute rehab for continued PT/OT therapy. Currently no reports of chest pain, shortness of breath, or palpitations. Patient is afebrile. No reports of nausea or vomiting and patient is tolerating diet. Guarded prognosis area On exam vital signs are stable. Temp is 97.9F, pulse is 105, respirations are 17, blood pressure is 140/84, oxygen saturation is 97% on room air. Cardio S1, S2 are muffled. Respiratory system shows diminished breath sounds at the bases with no wheezing or rhonchi noted. Abdomen is soft and nontender. Nervous system shows diffuse weakness. Please refer to medication reconciliation sheet for a list of medications. Patient Condition at Discharge: Stable Plan - Discharge Summary Discharge Rx Participant: Yes New Discharge Prescriptions: New Sucralfate [Carafate] 1 gm PO ACHS tab INSULIN ASPART (NovoLOG) [NovoLOG (formulary)] 0 unit SQ ACHS vial Sodium Bicarbonate Tab 650 mg PO BID tab Pantoprazole Sodium [Protonix] 40 mg PO DAILY #30 tablet. Continue Vit A/Vit C/Vit E/Zinc/Copper [ICAPS SOFTGEL] 1 cap PO DAILY Timolol Maleate [Timolol Maleate 0.5% Ophth Gel] 1 drop BOTH EYES HS Bimatoprost [Lumigan .01% Ophth Soln] 1 drop BOTH EYES HS Loperamide [Imodium] 2 mg PO QID PRN PRN Reason: Diarrhea Multivitamins, Thera [Multivitamin (formulary)] 1 tab PO DAILY Ondansetron Odt [Zofran ODT] 4 mg PO Q4H PRN PRN Reason: Nausea And Vomiting Discontinued metFORMIN HCL 1,000 mg PO BID Aspirin EC [Ecotrin Low Dose] 81 mg PO DAILY Losartan Potassium 100 mg PO DAILY Atenolol [Tenormin] 25 mg PO BID Potassium Chloride ER [K-Dur 20] 20 meq PO DAILY Rivaroxaban [Xarelto] 20 mg PO HS Metolazone [Zaroxolyn] 2.5 mg PO HS Furosemide [Lasix] 40 mg PO BID Dulaglutide [Trulicity] 0.75 mg SQ FR Discharge Medication List Vit A/Vit C/Vit E/Zinc/Copper [ICAPS SOFTGEL] 1 cap PO DAILY 05/25/17 [History] Bimatoprost [Lumigan .01% Ophth Soln] 1 drop BOTH EYES HS 08/19/19 [History] Timolol Maleate [Timolol Maleate 0.5% Ophth Gel] 1 drop BOTH EYES HS 08/19/19 [History] Loperamide [Imodium] 2 mg PO QID PRN 11/27/19 [History] Multivitamins, Thera [Multivitamin (formulary)] 1 tab PO DAILY 11/27/19 [History] Ondansetron Odt [Zofran ODT] 4 mg PO Q4H PRN 11/27/19 [History] INSULIN ASPART (NovoLOG) [NovoLOG (formulary)] 0 unit SQ ACHS vial 12/02/19 [Rx] Sodium Bicarbonate Tab 650 mg PO BID tab 12/02/19 [Rx] Sucralfate [Carafate] 1 gm PO ACHS tab 12/02/19 [Rx] Pantoprazole Sodium [Protonix] 40 mg PO DAILY #30 tablet. 12/03/19 [Rx] Follow up Appointment(s)/Referral(s): Zohra Licea, [NON-STAFF] - As Needed [facility], [NON-STAFF] - As Needed None,Stated [REFERRING] - 1-2 days Tonio Yen DO [STAFF PHYSICIAN] - 1 Week (Please call office to set up a telehealth call) Dm Garzon MD [STAFF PHYSICIAN] - 2 Weeks Ambulatory/Diagnostic Orders: Basic Metabolic Panel [LAB.AMB] Time Frame: 2 Days, Location: None Selected Complete Blood Count w/diff [LAB.AMB] Time Frame: 2 Days, Location: None Selected Prothrombin Time INR [LAB.AMB] Time Frame: 2 Days, Location: None Selected Activity/Diet/Wound Care/Special Instructions: Patient is going to [facility] Continue current diet Activity as tolerated Continue monitoring blood sugar before meals at bedtime and treat accordingly with sliding scale Follow-up with primary care provider Follow-up with nephrology in the outpatient setting in 1 week, patient received Aranesp today and may need to initiate Procrit with nephrology Follow-up with cardiology in the outpatient setting Repeat labs in 2-3 days to monitor hemoglobin closely Will hold Coumadin and aspirin for at least one week until follow-up with cardiology to discuss resuming these, will need close monitoring with hemoglobin every few days Discharge Disposition: TRANSFER TO SNF/ECF
--- NOTE | 2019-12-03 15:48 | P.PN ---
Subjective Progress Note Date: 12/03/19 Principal diagnosis: This is an 84-year-old female was recently admitted with acute GI bleed and kidney failure and is being closely monitored. GI and cardiology following closely. Patient was initiated on Coumadin last night and given 1 dose although hemoglobin is trending down and is currently 7.5. Patient awaiting an IV catheter to receive 1 unit of PRBCs for symptomatic anemia. Will hold Coumadin for at least one week until outpatient follow-up with cardiology to discuss possible resumption of aspirin and Coumadin. Patient is currently tolerating diet with no reports of nausea or vomiting noted. Creatinine slightly improved today at 2.97 and will continue on sodium bicarb tablets. Nephrology following. Sodium is 138 today. No reports of chest pain or shortness of breath. Patient is afebrile. Active Medications Darbepoetin Kareem (Aranesp) 25 mcg SQ Q7D [facility] Last Admin: 12/03/19 13:01 Dose: 25 mcg Documented by: Insulin Aspart (Novolog) 0 unit SQ [facility]; Protocol Last Admin: 12/03/19 13:01 Dose: 1 unit Documented by: Latanoprost (Xalatan 0.005%) 1 drops BOTH EYES HS [facility] Last Admin: 12/02/19 21:44 Dose: Not Given Documented by: Loperamide HCl (Imodium) 2 mg PO QID PRN PRN Reason: Diarrhea Miscellaneous Information (Coumadin Per Pharmacy) 0 each MISCELLANE DIRECTED PRN PRN Reason: ANTICOAG Multivitamins (Theragran) 1 each PO DAILY [facility] Last Admin: 12/03/19 07:31 Dose: 1 each Documented by: Naloxone HCl (Narcan) 0.2 mg IV Q2M PRN PRN Reason: Opioid Reversal Ondansetron HCl (Zofran) 4 mg IVP Q8HR PRN PRN Reason: Nausea And Vomiting Pantoprazole Sodium (Protonix) 40 mg IV BID [facility] Last Admin: 12/03/19 07:31 Dose: 40 mg Documented by: Sodium Bicarbonate (Sodium Bicarbonate Tab) 1,300 mg PO BID [facility] Sucralfate (Carafate) 1 gm PO [facility] Last Admin: 12/03/19 13:01 Dose: 1 gm Documented by: Warfarin Sodium (Coumadin) 5 mg PO ONCE ONE Stop: 12/03/19 18:01 Objective - Vital Signs Vital signs: Vital Signs Temp 97.9 F 12/03/19 07:52 Pulse 105 H 12/03/19 07:52 Resp 17 12/03/19 07:52 BP 140/84 12/03/19 07:52 Pulse Ox 97 12/03/19 07:52 Intake & Output 12/02/19 12/03/19 12/03/19 18:59 06:59 18:59 Intake Total 0 Balance 0 Intake: Blood Product 0 Rc As-1 Unit 0 [id number] Other: Voiding Method Bedside Commode Bedside Commode Diaper Diaper Incontinent Incontinent # Voids 1 1 1 # Bowel Movements 1 1 - Exam Gen: This is a 84-year-old female sitting up in the chair, awake, alert and oriented 2-3, well-developed, well-nourished. Temp is 97.6F, pulse is 63, respirations are 16, blood pressure is 132/78, oxygen saturation is 99% on room air. HEENT: Head is atraumatic, normocephalic. Pupils equal, round. Sclerae is anicteric. NECK: Supple. No JVD. No lymphadenopathy. No thyromegaly. LUNGS: Diminished breath sounds at the bases with some scattered rhonchi noted. No wheezing noted on exam. No intercostal retractions. HEART: S1, S2 are muffled ABDOMEN: Soft. Bowel sounds are present. No masses. No tenderness. EXTREMITIES: No pedal edema. No calf tenderness. NEUROLOGICAL: Patient is awake, alert and oriented x2-3. Diffusely weak - Labs CBC & Chem 7: 12/03/19 09:34 12/03/19 09:34 Labs: Abnormal Lab Results - Last 24 Hours (Table) 12/02/19 12/02/19 12/03/19 Range/Units 16:56 20:17 06:46 RBC (3.80-5.40) m/uL Hgb (11.4-16.0) gm/dL Hct (34.0-46.0) % MCHC (31.0-37.0) g/dL RDW (11.5-15.5) % Lymphocytes # (Manual) (1.0-4.8) k/uL Chloride (98-107) mmol/L Carbon Dioxide (22-30) mmol/L BUN (7-17) mg/dL Creatinine (0.52-1.04) mg/dL Glucose (74-99) mg/dL POC Glucose (mg/dL) 167 H 148 H 144 H (75-99) mg/dL Calcium (8.4-10.2) mg/dL Crossmatch 12/03/19 12/03/19 12/03/19 Range/Units 09:34 09:34 11:52 RBC 2.62 L (3.80-5.40) m/uL Hgb 7.5 L (11.4-16.0) gm/dL Hct 24.3 L (34.0-46.0) % MCHC 30.8 L (31.0-37.0) g/dL RDW 19.9 H (11.5-15.5) % Lymphocytes # (Manual) 0.43 L (1.0-4.8) k/uL Chloride 113 H (98-107) mmol/L Carbon Dioxide 17 L (22-30) mmol/L BUN 93 H (7-17) mg/dL Creatinine 2.97 H (0.52-1.04) mg/dL Glucose 141 H (74-99) mg/dL POC Glucose (mg/dL) 154 H (75-99) mg/dL Calcium 8.2 L (8.4-10.2) mg/dL Crossmatch 12/03/19 Range/Units 12:57 RBC (3.80-5.40) m/uL Hgb (11.4-16.0) gm/dL Hct (34.0-46.0) % MCHC (31.0-37.0) g/dL RDW (11.5-15.5) % Lymphocytes # (Manual) (1.0-4.8) k/uL Chloride (98-107) mmol/L Carbon Dioxide (22-30) mmol/L BUN (7-17) mg/dL Creatinine (0.52-1.04) mg/dL Glucose (74-99) mg/dL POC Glucose (mg/dL) (75-99) mg/dL Calcium (8.4-10.2) mg/dL Crossmatch See Detail Assessment and Plan Assessment: Acute upper gastrointestinal bleeding with acute blood loss anemia due to multiple gastric ulcers and mild antral gastritis, status post EGD Symptomatic anemia Severe hyponatremia with severe hypokalemia Acute kidney injury possibly secondary to acute tubular necrosis secondary to hypotension as well as medication induced Chronic atrial fibrillation Generalized weakness Acute metabolic acidosis Intractable nausea and vomiting Hypomagnesemia Elevated BNP History of colon cancer, status post resection at [facility] Hypertension history Diabetes mellitus type 2 Chronic lower extremity swelling Hypoalbuminemia history of cholecystectomy history of cataracts Full code Recommendations and discussion: Recommend continue current medications, management, and symptomatic treatment. Currently awaiting to receive 1 unit of PRBCs for hemoglobin of 7.5. Case management and social work following as patient will be returning to [facility] on ce stabilized and discharged. Coumadin will be on hold and will follow-up in the outpatient setting with cardiology to discuss resuming after one week. Will repeat a.m. labs to monitor CBC. Due to multiple complex medical issues, prognosis is guarded. Further recommendations to follow. Possible discharge in 24 hours.
[2019-12-03 16:53] LABS: Glucose,Whole Blood 161 mg/dL (75-99)
[2019-12-03] MEDS ORDERED: WARFARIN 5 MG TAB PO ONE (18:00)
[2019-12-03 20:41] LABS: Glucose,Whole Blood 128 mg/dL (75-99)
--- NOTE | 2019-12-03 21:52 | PN ---
PROGRESS NOTE DATE OF DICTATION: 12/03/2019 This patient is an 84-year-old pleasant white female admitted to the hospital with acute GI bleed and acute kidney injury. EGD done 4 days ago revealed multiple superficial gastric ulcers. She Xarelto and was started on Coumadin yesterday. She dropped her hemoglobin to 7.5 g/dL and is receiving one unit of blood transfusion. She is going to be discharged to the intermediate tomorrow. She denies any complaints. No nausea or vomiting. No abdominal pain. No melena. PHYSICAL EXAMINATION: Blood pressure is 145/85, pulse rate 96, temperature 98. HEENT examination unremarkable. Conjunctivae pink. Sclerae anicteric. Oral cavity no lesions. NECK: No JVD or lymph node enlargement. CHEST: Clear to auscultation. HEART: Regular rate and rhythm. ABDOMEN: Soft. Bowel sounds are positive. No organomegaly. EXTREMITIES: No pedal edema. SKIN: No rashes. NEUROLOGIC: Alert and oriented x3. No focal deficits. LABS: WBC 6.2, hemoglobin 7.5, BUN 93, creatinine 2.97. IMPRESSION: 1. Acute upper gastrointestinal bleed, status post esophagogastroduodenoscopy 4 days ago that revealed multiple superficial gastric ulcers, on Protonix 40 mg daily. No further bleeding. Doing well. Hemoglobin today 7.5 g/dL. 2. Acute kidney injury, gradually improving BUN and creatinine. 3. History of atrial fibrillation. Xarelto was discontinued. She was started on Coumadin yesterday, which is again on hold because of slight drop in hemoglobin. She is receiving one unit of PRBC transfusion today. RECOMMENDATIONS: 1. Continue Protonix 40 mg daily. 2. Agree with one unit of PRBC transfusion. 3. Repeat CBC in the morning. If she remains stable, she can be discharged home with outpatient followup in 2 weeks. Thank you for this consultation. MMODL / IJN: [id number] /
[2019-12-03] MEDS: LATANOPROST 0.005% OPHTH DROPS 2.5 ML BTL BOTH EYES SCH (22:24)
[2019-12-04 02:57] VITALS: RESP 18; TEMP 97.9
[2019-12-04 07:08] LABS: Glucose,Whole Blood 130 mg/dL (75-99)
[2019-12-04] MEDS: INSULIN ASPART (NovoLOG) 100 UNIT/ML VIAL SQ SCH (07:09)
[2019-12-04 07:44] LABS: Anisocytosis Slight; Basophils % (A) 1 %; Eosinophils # (A) 0.2 k/uL (0-0.7); Eosinophils % (A) 4 %; HCT 27.2 % (34.0-46.0); Hypochromasia Slight; Lymphocytes # (A) 1.2 k/uL (1.0-4.8); Lymphocytes % (A) 20 %; MCH 29.8 pg (25.0-35.0); MCHC 33.2 g/dL (31.0-37.0); MCV 89.7 fL (80.0-100.0); Mean Platelet Volume 8.8; Monocytes # (A) 0.3 k/uL (0-1.0); Monocytes % (A) 6 %; Neutrophils % (A) 68 %; Platelet Count 189 k/uL (150-450); RBC 3.03 m/uL (3.80-5.40); RDW 19.3 % (11.5-15.5); WBC 5.9 k/uL (3.8-10.6)
[2019-12-04 08:09] VITALS: BP 133/76; PULSE 93
[2019-12-04 08:13] LABS: Potassium 3.2 mmol/L (3.5-5.1)
[2019-12-04] MEDS ORDERED: POTASSIUM CHLORIDE ER 20 MEQ TAB.ER PO STA (08:52)
--- NOTE | 2019-12-04 09:01 | P.DS ---
Providers Date of admission: 11/27/19 14:59 Expected date of discharge: 12/04/19 Attending physician: Price Stearns Consults: 11/27/19 14:59 Consult Physician Stat Consulting Provider: Leeann Moralez Consult Reason/Comments: gi bleed Do you want consulting provider notified?: Already Contacted Consult Physician Urgent Consulting Provider: Roz Garzon Consult Reason/Comments: gi bleed Do you want consulting provider notified?: Already Contacted 11/27/19 18:01 Consult Physician Routine Consulting Provider: Cleopatra Erwin Consult Reason/Comments: JUAN Do you want consulting provider notified?: Yes 11/28/19 00:45 Consult Physician Stat Consulting Provider: Mohit Rowe Consult Reason/Comments: Bradycardia Do you want consulting provider notified?: Yes Primary care physician: Dee Eaton [facility] Course: Final diagnosis Acute upper gastrointestinal bleeding with acute blood loss anemia due to multiple gastric ulcers and mild antral gastritis, status post EGD Symptomatic anemia Severe hyponatremia with severe hypokalemia Acute kidney injury possibly secondary to acute tubular necrosis secondary to hypotension as well as medication induced Chronic atrial fibrillation Generalized weakness Acute metabolic acidosis Intractable nausea and vomiting Hypomagnesemia Elevated BNP History of colon cancer, status post resection at [facility] Hypertension history Diabetes mellitus type 2 Chronic lower extremity swelling Hypoalbuminemia history of cholecystectomy history of cataracts Full code Discharge disposition Patient is being discharged in a stable condition with guarded prognosis to [facility] for continued PT/OT therapy. Patient will continue on sodium bicarbonate tablets in the outpatient setting. Patient will follow-up with Dr. Yen in the outpatient setting in 1-2 weeks along with cardiology in the outpatient setting as well. Coumadin currently being held due to low hemoglobin and will be reevaluated in the outpatient setting with cardiology. Total time taken is 35 minutes. History of present illness This is a 84-year-old female who was recently admitted with acute GI bleed and acute kidney failure and was being closely monitored. GI and cardiology along with nephrology following the patient. Patient was found to have acute renal failure and being closely followed by nephrology. Patient was initiated on a bi carbonate tablets and will continue in the outpatient setting. No active bleeding noted although hemoglobin continues to fluctuate. Hemoglobin this morning was 7.5 and will be given 1 unit of PRBCs prior to discharge. IV access was eventually established later in the afternoon and patient was transfused 1 unit of PRBCs. Hemoglobin this morning on 12/04/2019 is 9.0. A prescription was provided for repeat CBC in a few days to monitor hemoglobin. Cardiology evaluated the patient for atrial fibrillation history and was initially started on Coumadin although due to hemoglobin drop will continue to hold Coumadin until cardiology follow-up. Patient will also need to monitor electrolytes as her kidney functions were slightly elevated. Most current creatinine is improved at 2.87. Patient was given a dose of Aranesp today in the hospital and will follow-up with nephrology in the outpatient setting to discuss possible Procrit. Patient will need close monitoring of hemoglobin as mentioned previously. Patient also has history of diabetes mellitus and will need continued blood sugar monitoring before meals at bedtime and treat accordingly with sliding scale. Metformin will remain on hold due to worsening kidney functions. Today patient is much more alert and awake and has been working with physical therapy. Patient will be going to subacute rehab for continued PT/OT therapy. Currently no reports of chest pain, shortness of breath, or palpitations. Patient is afebrile. No reports of nausea or vomiting and patient is tolerating diet. Guarded prognosis. On exam vital signs are stable. Temp is 97.9F, pulse is 93, respirations are 18, blood pressure is 133/76, oxygen saturation is 99% on room air. Cardio S1, S2 are muffled. Respiratory system shows diminished breath sounds at the bases with no wheezing or rhonchi noted. Abdomen is soft and nontender. Nervous system shows diffuse weakness. Please refer to medication reconciliation sheet for a list of medications. Patient Condition at Discharge: Stable Plan - Discharge Summary Discharge Rx Participant: Yes New Discharge Prescriptions: New Sucralfate [Carafate] 1 gm PO ACHS tab INSULIN ASPART (NovoLOG) [NovoLOG (formulary)] 0 unit SQ ACHS vial Sodium Bicarbonate Tab 650 mg PO BID tab Pantoprazole Sodium [Protonix] 40 mg PO DAILY #30 tablet. Potassium Chloride ER [K-Dur 20] 20 meq PO DAILY tab.er.prt Continue Vit A/Vit C/Vit E/Zinc/Copper [ICAPS SOFTGEL] 1 cap PO DAILY Timolol Maleate [Timolol Maleate 0.5% Ophth Gel] 1 drop BOTH EYES HS Bimatoprost [Lumigan .01% Ophth Soln] 1 drop BOTH EYES HS Loperamide [Imodium] 2 mg PO QID PRN PRN Reason: Diarrhea Multivitamins, Thera [Multivitamin (formulary)] 1 tab PO DAILY Ondansetron Odt [Zofran ODT] 4 mg PO Q4H PRN PRN Reason: Nausea And Vomiting Discontinued metFORMIN HCL 1,000 mg PO BID Aspirin EC [Ecotrin Low Dose] 81 mg PO DAILY Losartan Potassium 100 mg PO DAILY Atenolol [Tenormin] 25 mg PO BID Potassium Chloride ER [K-Dur 20] 20 meq PO DAILY Rivaroxaban [Xarelto] 20 mg PO HS Metolazone [Zaroxolyn] 2.5 mg PO HS Furosemide [Lasix] 40 mg PO BID Dulaglutide [Trulicity] 0.75 mg SQ FR Discharge Medication List Vit A/Vit C/Vit E/Zinc/Copper [ICAPS SOFTGEL] 1 cap PO DAILY 05/25/17 [History] Bimatoprost [Lumigan .01% Ophth Soln] 1 drop BOTH EYES HS 08/19/19 [History] Timolol Maleate [Timolol Maleate 0.5% Ophth Gel] 1 drop BOTH EYES HS 08/19/19 [History] Loperamide [Imodium] 2 mg PO QID PRN 11/27/19 [History] Multivitamins, Thera [Multivitamin (formulary)] 1 tab PO DAILY 11/27/19 [History] Ondansetron Odt [Zofran ODT] 4 mg PO Q4H PRN 11/27/19 [History] INSULIN ASPART (NovoLOG) [NovoLOG (formulary)] 0 unit SQ ACHS vial 12/02/19 [Rx] Sodium Bicarbonate Tab 650 mg PO BID tab 12/02/19 [Rx] Sucralfate [Carafate] 1 gm PO ACHS tab 12/02/19 [Rx] Pantoprazole Sodium [Protonix] 40 mg PO DAILY #30 tablet. 12/03/19 [Rx] Potassium Chloride ER [K-Dur 20] 20 meq PO DAILY tab.er.prt 12/04/19 [Rx] Follow up Appointment(s)/Referral(s): Zohra Licea, [NON-STAFF] - As Needed [facility], [NON-STAFF] - As Needed None,Stated [REFERRING] - 1-2 days Tonio Yen DO [STAFF PHYSICIAN] - 1 Week (Please call office to set up a telehealth call) Dm Garzon MD [STAFF PHYSICIAN] - 2 Weeks Ambulatory/Diagnostic Orders: Basic Metabolic Panel [LAB.AMB] Time Frame: 2 Days, Location: None Selected Complete Blood Count w/diff [LAB.AMB] Time Frame: 2 Days, Location: None Selected Prothrombin Time INR [LAB.AMB] Time Frame: 2 Days, Location: None Selected Activity/Diet/Wound Care/Special Instructions: Patient is going to [facility] Continue current diet Activity as tolerated Continue monitoring blood sugar before meals at bedtime and treat accordingly with sliding scale Follow-up with primary care provider Follow-up with nephrology in the outpatient setting in 1 week, patient received Aranesp today and may need to initiate Procrit with nephrology Follow-up with cardiology in the outpatient setting Repeat labs in 2-3 days to monitor hemoglobin closely Will hold Coumadin and aspirin for at least one week until follow-up with cardiology to discuss resuming these, will need close monitoring with hemoglobin every few days Discharge Disposition: TRANSFER TO SNF/ECF
[2019-12-04] MEDS: SUCRALFATE 1 GM TAB PO SCH (09:27)
[2019-12-04] MEDS: PANTOPRAZOLE 40 MG/10 ML VIAL IV SCH (09:28)
[2019-12-04] MEDS: MULTIVITAMINS, THERA 1 EACH TAB PO SCH (09:29)
[2019-12-04] MEDS: SODIUM BICARBONATE TAB 650 MG TAB PO SCH (09:29)
== END 2019-12-04 11:05 | DRG 377 ==
LOC: SUPCPDRO 11:58 → EC 11:58 → 2SICU 14:59 → 4SSUR 11-30 09:53
PROVIDERS: ADMIT Internal Medicine; ATTEND Internal Medicine
PROC: 0DB68ZX Excision of Stomach, Via Natural or Artificial Opening Endoscopic, Diagnostic (ICD-10-PCS; principal; 2019-11-29 07:30)
PROC: 30233N1 Transfusion of Nonautologous Red Blood Cells into Peripheral Vein, Percutaneous Approach (ICD-10-PCS; principal; 2019-11-29 07:30)
DX: K25.4 Chronic or unspecified gastric ulcer with hemorrhage (principal); N17.0 Acute kidney failure with tubular necrosis; D62 Acute posthemorrhagic anemia; E87.1 Hypo-osmolality and hyponatremia; E87.2 Acidosis; I48.21 Permanent atrial fibrillation; I49.5 Sick sinus syndrome; E83.42 Hypomagnesemia; K29.71 Gastritis, unspecified, with bleeding; E86.1 Hypovolemia; E87.5 Hyperkalemia; E87.6 Hypokalemia; I11.0 Hypertensive heart disease with heart failure; R19.7 Diarrhea, unspecified; T46.5X5A Adverse effect of other antihypertensive drugs, initial encounter; T50.1X5A Adverse effect of loop [high-ceiling] diuretics, initial encounter; E88.09 Other disorders of plasma-protein metabolism, not elsewhere classified; I95.9 Hypotension, unspecified; E11.21 Type 2 diabetes mellitus with diabetic nephropathy; Z11.59 Encounter for screening for other viral diseases; Z79.01 Long term (current) use of anticoagulants; Z79.84 Long term (current) use of oral hypoglycemic drugs; Z79.82 Long term (current) use of aspirin; Z79.899 Other long term (current) drug therapy; Z85.038 Personal history of other malignant neoplasm of large intestine; Z90.49 Acquired absence of other specified parts of digestive tract; Z90.89 Acquired absence of other organs; Z98.890 Other specified postprocedural states; Z98.49 Cataract extraction status, unspecified eye; Z80.3 Family history of malignant neoplasm of breast; Z87.11 Personal history of peptic ulcer disease; Z80.0 Family history of malignant neoplasm of digestive organs; Z95.2 Presence of prosthetic heart valve; Z90.710 Acquired absence of both cervix and uterus; Z82.3 Family history of stroke
CPT/HCPCS: 36410; 36415; 43239; 71045; 71046; 76770; 76937; 80048; 80053; 81001; 82272; 82550; 83605; 83735; 83880; 84100; 84132; 84443; 84484; 85025; 85027; 85610; 85730; 86850; 86900; 86901; 86920; 87324; 87635; 88305; 93005; 96361; 96365; 96374; 99291

== ENCOUNTER 2020-01-20 13:40 | Inpatient (IN) | payer MEDICARE, BC ==
[2020-01-20] MEDS ORDERED: SODIUM CHLORIDE 0.9% 1,000 ML IV STA (14:27)
[2020-01-20 14:54] LABS: Basophils % (A) 0 %; Eosinophils # (A) 0.1 k/uL (0-0.7); Eosinophils % (A) 1 %; HCT 29.4 % (34.0-46.0); HGB 9.6 gm/dL (11.4-16.0); Hypochromasia Slight; Lymphocytes # (A) 0.6 k/uL (1.0-4.8); Lymphocytes % (A) 7 %; MCHC 32.4 g/dL (31.0-37.0); MCV 92.4 fL (80.0-100.0); Mean Platelet Volume 8.9; Monocytes # (A) 0.3 k/uL (0-1.0); Monocytes % (A) 4 %; Neutrophils # (A) 8.4 k/uL (1.3-7.7); Neutrophils % (A) 88 %; Platelet Count 270 k/uL (150-450); RBC 3.19 m/uL (3.80-5.40); RDW 14.5 % (11.5-15.5); WBC 9.5 k/uL (3.8-10.6)
[2020-01-20 15:01] LABS: Albumin 2.6 g/dL (3.5-5.0); Calcium 7.5 mg/dL (8.4-10.2); Total Bilirubin 0.7 mg/dL (0.2-1.3); Total Protein 5.1 g/dL (6.3-8.2)
--- NOTE | 2020-01-20 15:01 | ED ---
General Adult HPI - General Chief complaint: Extremity Problem,Nontraumatic Stated complaint: Possible UTI Time Seen by Provider: 01/20/20 13:56 Source: patient, RN notes reviewed, old records reviewed Mode of arrival: wheelchair Limitations: no limitations - History of Present Illness Initial comments: This is an 84-year-old female presents returns today with worsening lower extremity edema for the worse past week. Patient has evidence of erythema on bilateral extremities. She denies any fever. Patient denies abdominal pain. Patient's some weeping from her lower extremities. She is on Xarelto for afib and lasix for edema. Patient has no chest pain or shortness of breath. She denies fever. - Related Data Home Medications Medication Instructions Recorded Confirmed Vit A/Vit C/Vit E/Zinc/Copper 1 cap PO DAILY 05/25/17 01/20/20 [ICAPS SOFTGEL] Bimatoprost [Lumigan .01% Ophth 1 drop BOTH EYES HS 08/19/19 01/20/20 Soln] Aspirin EC [Ecotrin Low Dose] 81 mg PO DAILY 01/20/20 01/20/20 Atenolol [Tenormin] 25 mg PO DAILY 01/20/20 01/20/20 Cholecalciferol [Vitamin D3 (25 1,000 unit PO DAILY 01/20/20 01/20/20 Mcg = 1000 Iu)] Cyanocobalamin (Vitamin B-12) 1,000 mcg PO DAILY 01/20/20 01/20/20 [Vitamin B-12] Ferrous Sulfate [Feosol] 325 mg PO BID 01/20/20 01/20/20 Furosemide [Lasix] 40 mg PO DAILY 01/20/20 01/20/20 Losartan Potassium 100 mg PO DAILY 01/20/20 01/20/20 Ondansetron HCl [Zofran] 4 mg PO Q4H PRN 01/20/20 01/20/20 Rivaroxaban [Xarelto] 20 mg PO HS 01/20/20 01/20/20 Timolol 0.5% Ophth Soln [Timoptic 1 drop BOTH EYES HS 01/20/20 01/20/20 0.5% Ophth Soln] metFORMIN HCL 1,000 mg PO BID 01/20/20 01/20/20 Previous Rx's Medication Instructions Recorded Potassium Chloride ER [K-Dur 20] 20 meq PO DAILY tab.er.prt 12/04/19 Allergies Allergy/AdvReac Type Severity Reaction Status Date / Time No Known Allergies Allergy Verified 01/20/20 14:57 Review of Systems ROS Statement: Those systems with pertinent positive or pertinent negative responses have been documented in the HPI. ROS Other: All systems not noted in ROS Statement are negative. Past Medical History Past Medical History: Atrial Fibrillation, Cancer, Diabetes Mellitus, Hypertension Additional Past Medical History / Comment(s): colon cancer History of Any Multi-Drug Resistant Organisms: None Reported Past Surgical History: Bowel Resection, Cholecystectomy, Hernia Repair, Hysterectomy Additional Past Surgical History / Comment(s): cataract surgery; bowel resection June 2017 r/t colon cancer Past Anesthesia/Blood Transfusion Reactions: Postoperative Nausea & Vomiting (PONV) Additional Past Anesthesia/Blood Transfusion Reaction / Comment(s): Has had blood transfusion; no reaction. Past Psychological History: No Psychological Hx Reported Smoking Status: Never smoker Past Alcohol Use History: None Reported Past Drug Use History: None Reported - Past Family History Sister(s) Family Medical History: Cancer Additional Family Medical History / Comment(s): both sisters had cancer. one had colon cancer. other sister in her thirties from cancer (unknown) but she had a hysterectomy prior to her . Brother(s) Family Medical History: Cancer Additional Family Medical History / Comment(s): colon cancer Mother Family Medical History: Cancer Additional Family Medical History / Comment(s): breast cancer and colon cancer Father Family Medical History: CVA/TIA General Exam - General Exam Comments Initial Comments: 84-year-old female. Pleasant. No significant distress. Limitations: no limitations General appearance: alert, in no apparent distress Head exam: Present: atraumatic, normocephalic, normal inspection Eye exam: Present: normal appearance, PERRL, EOMI. Absent: scleral icterus, conjunctival injection, periorbital swelling ENT exam: Present: normal exam, mucous membranes moist Neck exam: Present: normal inspection. Absent: tenderness, meningismus, lymphadenopathy Respiratory exam: Present: normal lung sounds bilaterally. Absent: respiratory distress, wheezes, rales, rhonchi, stridor Cardiovascular Exam: Present: regular rate, normal rhythm, normal heart sounds. Absent: systolic murmur, diastolic murmur, rubs, gallop, clicks GI/Abdominal exam: Present: soft, normal bowel sounds. Absent: distended, tenderness, guarding, rebound, rigid Extremities exam: Present: full ROM, normal capillary refill, other (Patient has significant for plus bilateral pitting edema. She has evidence of erythema and abrasion over the right anterior leg with erythema to the right knee and upper thigh. ). Absent: normal inspection, tenderness, pedal edema, joint swelling, calf tenderness Back exam: Present: normal inspection Neurological exam: Present: alert, oriented X3, CN II-XII intact Psychiatric exam: Present: normal affect, normal mood Skin exam: Present: warm, dry, intact, normal color. Absent: rash Course Vital Signs 01/20/20 01/20/20 01/20/20 13:43 16:11 17:46 Temperature 98.3 F 98.3 F 98.2 F Pulse Rate 100 96 94 Respiratory 18 16 16 Rate Blood Pressure 143/71 143/84 129/78 O2 Sat by Pulse 100 99 99 Oximetry Medical Decision Making - Medical Decision Making 84-year-old female with history of A. fib presents emergency Department today with complaints of worsening bilateral extremity edema for the past week. At this time Patient has evidence of significant for plus pitting edema bilaterally. On her right leg she does have some erythema ascending up to the knee and upper thigh. Concern for cellulitis. She has no fevers. This time labs are reviewed. She is hypokalemic with potassium 2.6 and hypomagnesemia with potassium 0.9. Patient given replacement of this. Was started on for concern for cellulitis. Doppler ultrasound was completed of the right leg which was negative for DVT. X-ray shows evidence of soft tissue swelling, no osseous lesions. Patient's chest x-ray is negative for significant fluid overload. Her BNP is mildly elevated at 8000. Troponin was 0.0-3. She denies chest pain. I discussed admission at this time for concern for lower extremity edema and cellulitis as well as electrolyte abnormalities. Patient's was in the room and is hard of hearing and difficult to understand the full treatment plan. I did discuss this with her daughter who is agreeable to treatment and admission. - Lab Data Result diagrams: 01/20/20 14:41 01/20/20 14:41 Lab Results 01/20/20 01/20/20 01/20/20 Range/Units 14:41 14:41 14:41 WBC 9.5 (3.8-10.6) k/uL RBC 3.19 L (3.80-5.40) m/uL Hgb 9.6 L (11.4-16.0) gm/dL Hct 29.4 L (34.0-46.0) % MCV 92.4 (80.0-100.0) fL MCH 30.0 (25.0-35.0) pg MCHC 32.4 (31.0-37.0) g/dL RDW 14.5 (11.5-15.5) % Plt Count 270 (150-450) k/uL Neutrophils % 88 % Lymphocytes % 7 % Monocytes % 4 % Eosinophils % 1 % Basophils % 0 % Neutrophils # 8.4 H (1.3-7.7) k/uL Lymphocytes # 0.6 L (1.0-4.8) k/uL Monocytes # 0.3 (0-1.0) k/uL Eosinophils # 0.1 (0-0.7) k/uL Basophils # 0.0 (0-0.2) k/uL Hypochromasia Slight PT 10.8 (9.0-12.0) sec INR 1.1 (<1.2) APTT 23.5 (22.0-30.0) sec Sodium 131 L (137-145) mmol/L Potassium 2.6 L* (3.5-5.1) mmol/L Chloride 97 L (98-107) mmol/L Carbon Dioxide 27 (22-30) mmol/L Anion Gap 7 mmol/L BUN 19 H (7-17) mg/dL Creatinine 1.20 H (0.52-1.04) mg/dL Est GFR (CKD-EPI)AfAm 48 (>60 ml/min/1.73 sqM) Est GFR (CKD-EPI)NonAf 42 (>60 ml/min/1.73 sqM) Glucose 225 H (74-99) mg/dL Plasma Lactic Acid Wilber (0.7-2.0) mmol/L Calcium 7.5 L (8.4-10.2) mg/dL Magnesium 0.9 L* (1.6-2.3) mg/dL Total Bilirubin 0.7 (0.2-1.3) mg/dL AST 28 (14-36) U/L ALT 15 (4-34) U/L Alkaline Phosphatase 126 (38-126) U/L Troponin I (0.000-0.034) ng/mL NT-Pro-B Natriuret Pep pg/mL Total Protein 5.1 L (6.3-8.2) g/dL Albumin 2.6 L (3.5-5.0) g/dL Lipase 94 (23-300) U/L 01/20/20 01/20/20 01/20/20 Range/Units 14:41 14:41 14:41 WBC (3.8-10.6) k/uL RBC (3.80-5.40) m/uL Hgb (11.4-16.0) gm/dL Hct (34.0-46.0) % MCV (80.0-100.0) fL MCH (25.0-35.0) pg MCHC (31.0-37.0) g/dL RDW (11.5-15.5) % Plt Count (150-450) k/uL Neutrophils % % Lymphocytes % % Monocytes % % Eosinophils % % Basophils % % Neutrophils # (1.3-7.7) k/uL Lymphocytes # (1.0-4.8) k/uL Monocytes # (0-1.0) k/uL Eosinophils # (0-0.7) k/uL Basophils # (0-0.2) k/uL Hypochromasia PT (9.0-12.0) sec INR (<1.2) APTT (22.0-30.0) sec Sodium (137-145) mmol/L Potassium (3.5-5.1) mmol/L Chloride (98-107) mmol/L Carbon Dioxide (22-30) mmol/L Anion Gap mmol/L BUN (7-17) mg/dL Creatinine (0.52-1.04) mg/dL Est GFR (CKD-EPI)AfAm (>60 ml/min/1.73 sqM) Est GFR (CKD-EPI)NonAf (>60 ml/min/1.73 sqM) Glucose (74-99) mg/dL Plasma Lactic Acid Wilber 1.3 (0.7-2.0) mmol/L Calcium (8.4-10.2) mg/dL Magnesium (1.6-2.3) mg/dL Total Bilirubin (0.2-1.3) mg/dL AST (14-36) U/L ALT (4-34) U/L Alkaline Phosphatase (38-126) U/L Troponin I 0.023 (0.000-0.034) ng/mL NT-Pro-B Natriuret Pep 8250 pg/mL Total Protein (6.3-8.2) g/dL Albumin (3.5-5.0) g/dL Lipase (23-300) U/L 01/20/20 15:02 EKG shows atrial fibrillation with RVR. Abnormal EKG. Ventricular rate of 101 bpm. Was undetectable. QRS duration is 88 ms. QT QTc is 340/440 ms. - Radiology Data Radiology results: report reviewed Chest x-ray shows no evidence for acute pulmonary disease. Tib-fib x-ray shows soft tissue swelling correlate for cellulitis. The stopper of the right lower extremity was performed shows no evidence of DVT. Disposition Clinical Impression: Hypokalemia, Hypomagnesemia, Lower extremity edema, Cellulitis Disposition: ADMITTED IP TO THIS HOSP Condition: Good Is patient prescribed a controlled substance at d/c from ED?: No Referrals: Dee Chan III, MD [Primary Care Provider] - 1-2 days Time of Disposition: 17:46
[2020-01-20 15:03] LABS: Magnesium 0.9 mg/dL (1.6-2.3); Potassium 2.6 mmol/L (3.5-5.1)
[2020-01-20 15:09] LABS: INR 1.1 (<1.2); Partial Thromboplastin Time 23.5 sec (22.0-30.0); Prothrombin Time 10.8 sec (9.0-12.0)
[2020-01-20] MEDS ORDERED: POTASSIUM CHLORIDE ER 20 MEQ TAB.ER PO STA (15:21)
--- NOTE | 2020-01-20 15:45 | XR ---
EXAMINATION TYPE: XR chest 2V DATE OF EXAM: 01/20/2020 COMPARISON: 11/29/2019 HISTORY: Shortness of breath TECHNIQUE: Frontal and lateral views of the chest are obtained. FINDINGS: Scattered senescent parenchymal changes noted. Hyperinflation compatible with COPD. No evidence for infiltrate. No evidence for atelectasis. Heart size is enlarged. Pulmonary venous congestion without overt failure. Mediastinal structures are stable and grossly unremarkable. No evidence for hilar prominence. Degenerative changes dorsal spine. IMPRESSION: 1. No evidence for acute pulmonary disease.
[2020-01-20] MEDS: MAGNESIUM SULFATE-D5W PMX 1 GM in DEXTROSE/WATER 1 100ML.BAG IVPB SCH ×2 (16:13→18:12)
--- NOTE | 2020-01-20 16:18 | XR ---
Bilateral legs HISTORY: Pain From a lateral views of both legs minimal total 7 images Gastric opacifications are present in the distribution of the arterial supply to the legs. There is s oft tissue swelling present. Bone mineralization is decreased. No fracture or dislocation. No periost itis to suggest osteomyelitis. There is a plantar calcaneal spur noted on the right calcaneus. IMPRESSION: Soft tissue swelling, correlate for cellulitis.
--- NOTE | 2020-01-20 16:27 | US ---
EXAMINATION TYPE: US venous doppler duplex LE RT DATE OF EXAM: 01/20/2020 4:01 PM COMPARISON: NONE CLINICAL HISTORY: edema. Edema. Redness. No hx DVT. Not on blood thinners. SIDE PERFORMED: Right TECHNIQUE: The lower extremity deep venous system is examined utilizing real time linear array sonog sumanth with graded compression, doppler sonography and color-flow sonography. VESSELS IMAGED: External Iliac Vein (EIV) Common Femoral Vein Deep Femoral Vein Greater Saphenous Vein * Femoral Vein Popliteal Vein Small Saphenous Vein * Proximal Calf Veins (* superficial vessels) Right Leg: Mild subcutaneous edema. IMPRESSION: Grayscale, color doppler, spectral doppler imaging performed of the deep veins of the [facility] lower extremity. No evidence of DVT.
[2020-01-20] MEDS ORDERED: ACETAMINOPHEN TAB 325 MG TAB PO PRN (17:43)
[2020-01-20] MEDS ORDERED: HYDROcodone/APAP 5-325MG 1 EACH TAB PO PRN (17:43)
[2020-01-20] MEDS ORDERED: oxyCODONE-APAP 5-325MG 1 EACH TAB PO PRN (17:43)
[2020-01-20] MEDS ORDERED: IBUPROFEN 400 MG TAB PO PRN (17:43)
[2020-01-20] MEDS ORDERED: NALOXONE 0.4 MG/ML 1 ML VIAL IV PRN (17:43)
[2020-01-20] MEDS ORDERED: ONDANSETRON 4 MG TAB PO PRN (18:47)
[2020-01-20 21:02] LABS: Glucose,Whole Blood 262 mg/dL (75-99)
[2020-01-20] MEDS: SODIUM CHLORIDE 0.9% 1,000 ML IV SCH (21:05)
[2020-01-20] MEDS: POTASSIUM CHLORIDE 10 MEQ in WATER FOR INJECTION 1 100ML.BAG IVPB SCH ×3 (21:05→23:31)
[2020-01-20] MEDS: metFORMIN 500 MG TAB PO SCH (21:06)
[2020-01-20] MEDS: FERROUS SULFATE 325 MG TAB PO SCH (21:06)
[2020-01-20] MEDS: TIMOLOL 0.5% OPHTH DROPS 5 ML BTL BOTH EYES SCH (21:06)
[2020-01-20] MEDS: RIVAROXABAN 20 MG TAB PO SCH (21:07)
[2020-01-21] MEDS ORDERED: Potassium Replacement Protocol 1 EACH MISC MISCELLANE PRN (01:56)
[2020-01-21] MEDS: POTASSIUM CHLORIDE 10 MEQ in WATER FOR INJECTION 1 100ML.BAG IVPB SCH ×5 (02:04→17:36)
[2020-01-21] MEDS ORDERED: Magnesium Replacement Protocol 1 EACH MISC MISCELLANE PRN (02:16)
--- NOTE | 2020-01-21 02:16 | P.HPIM ---
History of Present Illness H&P Date: 01/20/20 Chief Complaint: leg swelling Patient is a 84-year-old female with a known history of chronic atrial fibrillation on anticoagulation with xarelto, history of colon cancer status post resection in 2016 currently in remission., hypertension, diabetes type 2, chronic bilateral lower extremity swelling with recent admission due to upper GI bleed status post EGD showed multiple gastric ulcers in November 2019 came to the hospital with complaints of worsening lower extremity swelling for the past 2 weeks and redness of the bilateral lower extremities. Patient otherwise denied any complaints of fever. Patient also noticed some weeping of serous fluid from her lower extremities. Denied any complaints of chest pain or shortness of breath. No nausea vomiting or abdominal pain. No cough or sputum production. Chest x-ray showed no acute pulmonary disease. Bilateral venous duplex scan showed no evidence of DVT. X-ray of the tibia/fibula showed soft tissue swelling. Correlate for cellulitis. EKG showed atrial fibrillation with ventricular rate 101 Lab data showed WBC 9.5, hemoglobin 9.6 and platelets 270 Potassium level is 2.6 Sodium 131, chloride 97, BUN 19 and creatinine 1.2 Magnesium 0.9 Troponin 0 0.023 and proBNP 8250, BNP was 17,700 during previous admission. Review of Systems Constitutional: Patient denies any fever or chills . No generalized weakness or weight loss. Abdomen: Patient denied nausea vomiting and diarrhea and abdominal pain. Cardiovascular: Patient denies any chest pain or short of breath no palpitations. Respiratory: patient denied any cough is from production. No shortness of breath Neurologic: Patient denied any numbness or tingling headache. Musculoskeletal: Patient denies any complaints of joint swelling or deformity. Skin: Negative Psychiatric: Negative Endocrine: No heat or cold intolerance. No recent weight gain. Bilateral lower extremity swelling. Genitourinary: No dysuria or hematuria. All other 14 point ROS negative except the above Past Medical History Past Medical History: Atrial Fibrillation, Cancer, Diabetes Mellitus, Hypertension Additional Past Medical History / Comment(s): colon cancer History of Any Multi-Drug Resistant Organisms: None Reported Past Surgical History: Bowel Resection, Cholecystectomy, Hernia Repair, Hysterectomy Additional Past Surgical History / Comment(s): cataract surgery; bowel resection June 2017 r/t colon cancer Past Anesthesia/Blood Transfusion Reactions: Postoperative Nausea & Vomiting (PONV) Additional Past Anesthesia/Blood Transfusion Reaction / Comment(s): Has had blood transfusion; no reaction. Past Psychological History: No Psychological Hx Reported Smoking Status: Never smoker Past Alcohol Use History: None Reported Past Drug Use History: None Reported - Past Family History Sister(s) Family Medical History: Cancer Additional Family Medical History / Comment(s): both sisters had cancer. one had colon cancer. other sister in her thirties from cancer (unknown) but she had a hysterectomy prior to her . Brother(s) Family Medical History: Cancer Additional Family Medical History / Comment(s): colon cancer Mother Family Medical History: Cancer Additional Family Medical History / Comment(s): breast cancer and colon cancer Father Family Medical History: CVA/TIA Medications and Allergies Home Medications Medication Instructions Recorded Confirmed Type Vit A/Vit C/Vit E/Zinc/Copper 1 cap PO DAILY 05/25/17 01/20/20 History [ICAPS SOFTGEL] Bimatoprost [Lumigan .01% Ophth 1 drop BOTH EYES HS 08/19/19 01/20/20 History Soln] Potassium Chloride ER [K-Dur 20] 20 meq PO DAILY tab.er.prt 12/04/19 01/20/20 Rx Aspirin EC [Ecotrin Low Dose] 81 mg PO DAILY 01/20/20 01/20/20 History Atenolol [Tenormin] 25 mg PO DAILY 01/20/20 01/20/20 History Cholecalciferol [Vitamin D3 (25 1,000 unit PO DAILY 01/20/20 01/20/20 History Mcg = 1000 Iu)] Cyanocobalamin (Vitamin B-12) 1,000 mcg PO DAILY 01/20/20 01/20/20 History [Vitamin B-12] Ferrous Sulfate [Feosol] 325 mg PO BID 01/20/20 01/20/20 History Furosemide [Lasix] 40 mg PO DAILY 01/20/20 01/20/20 History Losartan Potassium 100 mg PO DAILY 01/20/20 01/20/20 History Ondansetron HCl [Zofran] 4 mg PO Q4H PRN 01/20/20 01/20/20 History Rivaroxaban [Xarelto] 20 mg PO HS 01/20/20 01/20/20 History Timolol 0.5% Ophth Soln [Timoptic 1 drop BOTH EYES HS 01/20/20 01/20/20 History 0.5% Ophth Soln] metFORMIN HCL 1,000 mg PO BID 01/20/20 01/20/20 History Allergies Allergy/AdvReac Type Severity Reaction Status Date / Time No Known Allergies Allergy Verified 01/20/20 14:57 Physical Exam Vitals: Vital Signs Temp Pulse Resp BP Pulse Ox 01/20/20 16:11 98.3 F 96 16 143/84 99 01/20/20 13:43 98.3 F 100 18 143/71 100 Intake and Output 01/20/20 01/20/20 01/20/20 06:59 14:59 22:59 Other: Weight 72.575 kg PHYSICAL EXAMINATION: Patient is lying in the bed comfortably, no acute distress, awake alert and oriented.. HEENT: Normocephalic. Neck is supple. Pupils reactive. Nostrils clear. Oral cavity is moist. Ears reveal no drainage. Neck reveals no JVD, carotid bruits, or thyromegaly. CHEST EXAMINATION: Trachea is central. Symmetrical expansion. Lung [place] clear to auscultation and percussion. CARDIAC: Normal S1, S2 with no gallops. No murmurs , Irregular irregular rhythm. ABDOMEN: Soft. Bowel sounds normal. No organomegaly. No abdominal bruits. Extremities: Patient does have bilateral lower extremity 3+ edema with redness and serous discharge. No open wounds or purulent drainage noted.. No clubbing or cyanosis Neurologically awake, alert, oriented x3 with well-coordinated movements. No focal deficits noted Skin: No rash or skin lesions. Psychiatric: Coperative. Nonsuicidal Musculoskeletal: No joint swelling or deformity. Normal range of motion. Results CBC & Chem 7: 01/20/20 14:41 01/20/20 14:41 Labs: Abnormal Lab Results - Last 24 Hours (Table) 01/20/20 01/20/20 Range/Units 14:41 14:41 RBC 3.19 L (3.80-5.40) m/uL Hgb 9.6 L (11.4-16.0) gm/dL Hct 29.4 L (34.0-46.0) % Neutrophils # 8.4 H (1.3-7.7) k/uL Lymphocytes # 0.6 L (1.0-4.8) k/uL Sodium 131 L (137-145) mmol/L Potassium 2.6 L* (3.5-5.1) mmol/L Chloride 97 L (98-107) mmol/L BUN 19 H (7-17) mg/dL Creatinine 1.20 H (0.52-1.04) mg/dL Glucose 225 H (74-99) mg/dL Calcium 7.5 L (8.4-10.2) mg/dL Magnesium 0.9 L* (1.6-2.3) mg/dL Total Protein 5.1 L (6.3-8.2) g/dL Albumin 2.6 L (3.5-5.0) g/dL Thrombosis Risk Factor Assmnt - DVT/VTE Prophylaxis DVT/VTE Prophylaxis: Pharmacologic Prophylaxis ordered Assessment and Plan Assessment: Acute bilateral lower extremity cellulitis Chronic lower extremity edema Chronic atrial fibrillation on anticoagulation with Xarelto Severe hypokalemia and hypomagnesemia Recent admission with GI bleed status post EGD showed multiple gastric ulcers. Hemoglobin is stable now. Recent acute kidney injury due to ATN. Hypoalbuminemia Elevated BNP level. Lower than previous admission. History of colon cancer status post resection at [facility] Hypertension history Diabetes type 2 History of cholecystectomy, History of cataracts DVT prophylaxis patient is already on Xarelto Plan: Patient is being continued on antibiotics in the form of cefazolin. Duplex scan is negative for DVT. Continue with home medications including Xarelto and also PPI. Monitor H&H. Follow-up CBC and BMP. Replace magnesium and potassium and follow-up closely. Further recommendations based on clinical course. Continue with home medications. Time with Patient: Greater than 30
[2020-01-21] MEDS: MAGNESIUM SULFATE-D5W PMX 1 GM in DEXTROSE/WATER 1 100ML.BAG IVPB SCH ×4 (03:36→09:51)
[2020-01-21 05:37] LABS: Basophils % (A) 0 %; Eosinophils # (A) 0.1 k/uL (0-0.7); Eosinophils % (A) 1 %; HCT 25.7 % (34.0-46.0); HGB 8.3 gm/dL (11.4-16.0); Hypochromasia Slight; Lymphocytes # (A) 1.6 k/uL (1.0-4.8); Lymphocytes % (A) 16 %; MCH 30.1 pg (25.0-35.0); MCHC 32.2 g/dL (31.0-37.0); MCV 93.3 fL (80.0-100.0); Monocytes # (A) 0.4 k/uL (0-1.0); Monocytes % (A) 4 %; Neutrophils # (A) 8.2 k/uL (1.3-7.7); Neutrophils % (A) 79 %; Platelet Count 243 k/uL (150-450); RBC 2.75 m/uL (3.80-5.40); RDW 14.4 % (11.5-15.5); WBC 10.5 k/uL (3.8-10.6)
[2020-01-21 05:53] LABS: Calcium 7.3 mg/dL (8.4-10.2); Magnesium 1.9 mg/dL (1.6-2.3)
[2020-01-21 06:11] LABS: Potassium 2.7 mmol/L (3.5-5.1)
[2020-01-21] MEDS: POTASSIUM CHLORIDE ER 20 MEQ TAB.ER PO SCH ×4 (06:33→09:51)
[2020-01-21 07:10] LABS: Appearance,Urine Clear (Clear); Bacteria,Urine Rare /hpf; Bilirubin,Urine Negative (Negative); Blood,Urine Negative (Negative); Color,Urine Yellow; Glucose,Urine (UA) Negative (Negative); Ketones,Urine Negative (Negative); Leukocyte Esterase,Urine Moderate (Negative); Mucus,Urine Rare /hpf; Nitrite,Urine Negative (Negative); Protein,Urine Trace (Negative); RBC,Urine 1 /hpf (0-5); Specific Gravity,Urine 1.011 (1.001-1.035); Squamous Epithelial Cell,Urine 1 /hpf (0-4); Urobilinogen,Urine <2.0 mg/dL (<2.0); WBC,Urine 6 /hpf (0-5)
[2020-01-21 07:16] LABS: Glucose,Whole Blood 162 mg/dL (75-99)
[2020-01-21] MEDS: FUROSEMIDE 40 MG TAB PO SCH (08:31)
[2020-01-21] MEDS: metFORMIN 500 MG TAB PO SCH ×2 (08:31→20:29)
[2020-01-21] MEDS: VIT A,C & E-LUTEIN-MINERALS 1 EACH TAB PO SCH (08:31)
[2020-01-21] MEDS: CYANOCOBALAMIN 500 MCG TAB PO SCH (08:31)
[2020-01-21] MEDS: LOSARTAN 50 MG TAB PO SCH (08:31)
[2020-01-21] MEDS: CHOLECALCIFEROL 1,000 UNIT TAB PO SCH (08:31)
[2020-01-21] MEDS: atenoloL 25 MG TAB PO SCH (08:31)
[2020-01-21] MEDS: FERROUS SULFATE 325 MG TAB PO SCH ×2 (08:31→20:29)
[2020-01-21] MEDS: PANTOPRAZOLE 40 MG/10 ML VIAL IV SCH (08:32)
[2020-01-21 11:29] LABS: Glucose,Whole Blood 194 mg/dL (75-99)
[2020-01-21] MEDS: INSULIN ASPART (NovoLOG) 100 UNIT/ML VIAL SQ SCH ×3 (12:22→20:29)
[2020-01-21] MEDS: NYSTATIN 100,000 UNIT/GM OINT 30 GM TUBE TOPICAL SCH ×2 (12:24→20:30)
--- NOTE | 2020-01-21 15:19 | P.PN ---
Subjective Progress Note Date: 01/21/20 Principal diagnosis: Patient is a 84-year-old female with a known history of chronic atrial fibrillation on anticoagulation with xarelto, history of colon cancer status post resection in 2016 currently in remission., hypertension, diabetes type 2, chronic bilateral lower extremity swelling with recent admission due to upper GI bleed status post EGD showed multiple gastric ulcers in November 2019 came to the hospital with complaints of worsening lower extremity swelling for the past 2 weeks and redness of the bilateral lower extremities. Patient otherwise denied any complaints of fever. Patient also noticed some weeping of serous fluid from her lower extremities. Denied any complaints of chest pain or shortness of breath. No nausea vomiting or abdominal pain. No cough or sputum production. Chest x-ray showed no acute pulmonary disease. Bilateral venous duplex scan showed no evidence of DVT. X-ray of the tibia/fibula showed soft tissue swelling. Correlate for cellu litis. EKG showed atrial fibrillation with ventricular rate 101 Lab data showed WBC 9.5, hemoglobin 9.6 and platelets 270 Potassium level is 2.6 Sodium 131, chloride 97, BUN 19 and creatinine 1.2 Magnesium 0.9 Troponin 0 0.023 and proBNP 8250, BNP was 17,700 during previous admission. 01/21/2020 Patient is seen and evaluated and follow-up with no acute overnight issues. She is currently maintained on IV antibiotics in the form of cefazolin and infectious disease has been consulted. Patient continues to have some bilateral lower extremity edema and swelling with some redness noted more so on the left than the right. Patient does have a large hematoma on the right lateral aspect of the lower extremity due to her recent fall. Patient's potassium was found to be extremely low this morning at 2.7 and currently being replaced. Repeat potassium this afternoon shows 3.0 and will continue to replace. Will repeat a.m. labs. Currently patient has no reports of chest pain, shortness of breath, or palpitations. Patient is afebrile. No reports of nausea or vomiting and patient is tolerating diet. Objective - Vital Signs Vital signs: Vital Signs Temp 98.9 F 01/21/20 04:30 Pulse 95 01/21/20 04:30 Resp 20 01/21/20 04:30 BP 141/81 01/21/20 04:30 Pulse Ox 96 01/21/20 04:30 Intake & Output 07/01/21/20 01/21/20 18:59 06:59 18:59 Intake Total 900 Output Total 300 Balance 600 Weight 72.575 kg 72.575 kg 74 kg Intake: Intake, IV Titration 900 Amount Magnesium Sulfate-D5w Pmx 200 1 gm In Dextrose/Water 1 100ml.bag @ 100 mls/hr IVPB Q1H COUNTS INCLUDE 234 BEDS AT THE [facility] Rx#: [id number] Potassium Chloride 10 meq 430 In Water For Injection 1 100ml.bag @ 100 mls/hr IVPB Q1HR [facility] Rx#: [id number] Sodium Chloride 0.9% 1, 220 000 ml @ 20 mls/hr IV . Q24H COUNTS INCLUDE 234 BEDS AT THE [facility] Rx#:[id number] ceFAZolin 2 gm In Sodium 50 Chloride 0.9% 50 ml @ 100 mls/hr IVPB ONCE ONE Rx# :[id number] Output: Urine 300 Uretheral (Murray) 300 Other: Voiding Method Bedpan Bedpan Diaper Diaper Incontinent Incontinent - Exam Patient is sitting up in the bed comfortably, no acute distress, awake alert and oriented.. HEENT: Normocephalic. Neck is supple. Pupils reactive. Nostrils clear. Oral cavity is moist. Ears reveal no drainage. Neck reveals no JVD, carotid bruits, or thyromegaly. CHEST EXAMINATION: Trachea is central. Symmetrical expansion. Lung oglesby clear to auscultation and percussion. CARDIAC: Normal S1, S2 with no gallops. No murmurs , Irregular irregular rhythm. ABDOMEN: Soft. Bowel sounds normal. No organomegaly. No abdominal bruits. Extremities: Patient does have bilateral lower extremity 3+ edema with redness and serous discharge. No open wounds or purulent drainage noted.. No clubbing or cyanosis Neurologically awake, alert, oriented x3 with well-coordinated movements. No focal deficits noted Skin: No rash or skin lesions. Psychiatric: Cooperative. Non-suicidal Musculoskeletal: No joint swelling or deformity. Normal range of motion. - Labs CBC & Chem 7: 01/21/20 04:52 01/21/20 11:27 Labs: Abnormal Lab Results - Last 24 Hours (Table) 01/20/20 01/20/20 01/20/20 Range/Units 14:41 14:41 21:00 RBC 3.19 L (3.80-5.40) m/uL Hgb 9.6 L (11.4-16.0) gm/dL Hct 29.4 L (34.0-46.0) % Neutrophils # 8.4 H (1.3-7.7) k/uL Lymphocytes # 0.6 L (1.0-4.8) k/uL Sodium 131 L (137-145) mmol/L Potassium 2.6 L* (3.5-5.1) mmol/L Chloride 97 L (98-107) mmol/L BUN 19 H (7-17) mg/dL Creatinine 1.20 H (0.52-1.04) mg/dL Glucose 225 H (74-99) mg/dL POC Glucose (mg/dL) 262 H (75-99) mg/dL Calcium 7.5 L (8.4-10.2) mg/dL Magnesium 0.9 L* (1.6-2.3) mg/dL Total Protein 5.1 L (6.3-8.2) g/dL Albumin 2.6 L (3.5-5.0) g/dL Urine Protein (Negative) Ur Leukocyte Esterase (Negative) Urine WBC (0-5) /hpf Urine WBC Clumps (None) /hpf Urine Bacteria (None) /hpf Urine Mucus (None) /hpf 01/21/20 01/21/20 01/21/20 Range/Units 04:52 04:52 06:45 RBC 2.75 L (3.80-5.40) m/uL Hgb 8.3 L (11.4-16.0) gm/dL Hct 25.7 L (34.0-46.0) % Neutrophils # 8.2 H (1.3-7.7) k/uL Lymphocytes # (1.0-4.8) k/uL Sodium 130 L (137-145) mmol/L Potassium 2.7 L* (3.5-5.1) mmol/L Chloride (98-107) mmol/L BUN 18 H (7-17) mg/dL Creatinine 1.08 H (0.52-1.04) mg/dL Glucose 149 H (74-99) mg/dL POC Glucose (mg/dL) (75-99) mg/dL Calcium 7.3 L (8.4-10.2) mg/dL Magnesium (1.6-2.3) mg/dL Total Protein (6.3-8.2) g/dL Albumin (3.5-5.0) g/dL Urine Protein Trace H (Negative) Ur Leukocyte Esterase Moderate H (Negative) Urine WBC 6 H (0-5) /hpf Urine WBC Clumps Few H (None) /hpf Urine Bacteria Rare H (None) /hpf Urine Mucus Rare H (None) /hpf 01/21/20 01/21/20 Range/Units 07:14 11:25 RBC (3.80-5.40) m/uL Hgb (11.4-16.0) gm/dL Hct (34.0-46.0) % Neutrophils # (1.3-7.7) k/uL Lymphocytes # (1.0-4.8) k/uL Sodium (137-145) mmol/L Potassium (3.5-5.1) mmol/L Chloride (98-107) mmol/L BUN (7-17) mg/dL Creatinine (0.52-1.04) mg/dL Glucose (74-99) mg/dL POC Glucose (mg/dL) 162 H 194 H (75-99) mg/dL Calcium (8.4-10.2) mg/dL Magnesium (1.6-2.3) mg/dL Total Protein (6.3-8.2) g/dL Albumin (3.5-5.0) g/dL Urine Protein (Negative) Ur Leukocyte Esterase (Negative) Urine WBC (0-5) /hpf Urine WBC Clumps (None) /hpf Urine Bacteria (None) /hpf Urine Mucus (None) /hpf Assessment and Plan Assessment: Acute bilateral lower extremity cellulitis Chronic lower extremity edema Chronic atrial fibrillation on anticoagulation with Xarelto Severe hypokalemia and hypomagnesemia Recent admission with GI bleed status post EGD showed multiple gastric ulcers. Hemoglobin is stable now. Recent acute kidney injury due to ATN. Hypoalbuminemia Elevated BNP level. Lower than previous admission. History of colon cancer status post resection at [facility] Hypertension history Diabetes type 2 History of cholecystectomy, History of cataracts DVT prophylaxis patient is already on Xarelto Plan: Patient is being continued on antibiotics in the form of cefazolin. Infectious disease consulted and pending at this time. Continue with home medications including Xarelto and also PPI. Monitor H&H. Follow-up CBC and BMP. Replace magnesium and potassium and follow-up closely. Magnesium today was 1.9 and potassium continues to be low with a repeat at 3.0. Will replace and repeat a.m. labs. Further recommendations to follow based on clinical course.
[2020-01-21 17:11] LABS: Glucose,Whole Blood 152 mg/dL (75-99)
[2020-01-21] MEDS: SODIUM CHLORIDE 0.9% 1,000 ML IV SCH (17:39)
[2020-01-21 20:23] LABS: Glucose,Whole Blood 157 mg/dL (75-99)
[2020-01-21] MEDS: TIMOLOL 0.5% OPHTH DROPS 5 ML BTL BOTH EYES SCH (20:29)
[2020-01-21] MEDS: RIVAROXABAN 20 MG TAB PO SCH (20:29)
[2020-01-22 07:25] LABS: Glucose,Whole Blood 147 mg/dL (75-99)
[2020-01-22 08:15] LABS: Magnesium 2.2 mg/dL (1.6-2.3); Potassium 4.3 mmol/L (3.5-5.1)
[2020-01-22 08:16] LABS: Basophils % (A) 0 %; Eosinophils # (A) 0.1 k/uL (0-0.7); Eosinophils % (A) 1 %; HCT 28.5 % (34.0-46.0); HGB 8.8 gm/dL (11.4-16.0); Hypochromasia Slight; Lymphocytes # (A) 1.7 k/uL (1.0-4.8); Lymphocytes % (A) 16 %; MCH 28.4 pg (25.0-35.0); MCHC 30.9 g/dL (31.0-37.0); MCV 92.1 fL (80.0-100.0); Mean Platelet Volume 10.8; Monocytes # (A) 0.5 k/uL (0-1.0); Monocytes % (A) 5 %; Neutrophils # (A) 8.1 k/uL (1.3-7.7); Neutrophils % (A) 77 %; Platelet Count 288 k/uL (150-450); RBC 3.09 m/uL (3.80-5.40); RDW 14.4 % (11.5-15.5); WBC 10.4 k/uL (3.8-10.6)
[2020-01-22] MEDS: PANTOPRAZOLE 40 MG/10 ML VIAL IV SCH (08:44)
[2020-01-22] MEDS: POTASSIUM CHLORIDE ER 20 MEQ TAB.ER PO SCH (08:45)
[2020-01-22] MEDS: metFORMIN 500 MG TAB PO SCH ×2 (08:45→21:19)
[2020-01-22] MEDS: atenoloL 25 MG TAB PO SCH (08:45)
[2020-01-22] MEDS: VIT A,C & E-LUTEIN-MINERALS 1 EACH TAB PO SCH (08:45)
[2020-01-22] MEDS: CHOLECALCIFEROL 1,000 UNIT TAB PO SCH (08:45)
[2020-01-22] MEDS: LOSARTAN 50 MG TAB PO SCH (08:46)
[2020-01-22] MEDS: NYSTATIN 100,000 UNIT/GM OINT 30 GM TUBE TOPICAL SCH ×2 (08:46→21:19)
[2020-01-22] MEDS: FUROSEMIDE 40 MG TAB PO SCH (08:46)
[2020-01-22] MEDS: CYANOCOBALAMIN 500 MCG TAB PO SCH (08:46)
[2020-01-22] MEDS: FERROUS SULFATE 325 MG TAB PO SCH ×2 (08:46→21:19)
[2020-01-22] MEDS: INSULIN ASPART (NovoLOG) 100 UNIT/ML VIAL SQ SCH ×4 (08:51→20:40)
--- NOTE | 2020-01-22 09:28 | P.CONS ---
History of Present Illness - Reason for Consult Consult date: 01/21/20 Right lower extremity cellulitis Requesting physician: Price Stearns - Chief Complaint Bilateral leg swelling and right leg the redness x 2 weeks - History of Present Illness Patient is 84-year-old female presenting to the ER with chief complaints of increasing swelling to the lower extremity that has been getting worse for the last few weeks patient also have a history of fall with trauma in the bruise on the right lateral leg area patient complaining of more redness to the right leg for the last 1 week she did have some dull aching pain to the right leg with intensity about 4 out of 10 and no radiation patient currently denies having open wound or any drainage she did have some chills but denies high-grade fever with these symptoms the patient was evaluated by ER physician on arrival to the ER the patient has been afebrile patient did have a normal white count lower extremity Doppler was negative for DVT patient did have an x- ray we did show soft tissue swelling concerning for cellulitis but no bony abnormality patient has been admitted to the hospital infectious disease was consulted for further management of lower extremity cellulitis Review of Systems Positive point has been mentioned in the HPI rest of the systems are negative Past Medical History Past Medical History: Atrial Fibrillation, Cancer, Diabetes Mellitus, Hypertension Additional Past Medical History / Comment(s): colon cancer History of Any Multi-Drug Resistant Organisms: None Reported Past Surgical History: Bowel Resection, Cholecystectomy, Hernia Repair, Hysterectomy Additional Past Surgical History / Comment(s): cataract surgery; bowel resection June 2017 r/t colon cancer Past Anesthesia/Blood Transfusion Reactions: Postoperative Nausea & Vomiting (PONV) Additional Past Anesthesia/Blood Transfusion Reaction / Comm: Has had blood transfusion; no reaction. Past Psychological History: No Psychological Hx Reported Smoking Status: Never smoker Past Alcohol Use History: None Reported Past Drug Use History: None Reported - Past Family History Sister(s) Family Medical History: Cancer Additional Family Medical History / Comment(s): both sisters had cancer. one had colon cancer. other sister in her thirties from cancer (unknown) but she had a hysterectomy prior to her . Brother(s) Family Medical History: Cancer Additional Family Medical History / Comment(s): colon cancer Mother Family Medical History: Cancer Additional Family Medical History / Comment(s): breast cancer and colon cancer Father Family Medical History: CVA/TIA Medications and Allergies Home Medications Medication Instructions Recorded Confirmed Type Vit A/Vit C/Vit E/Zinc/Copper 1 cap PO DAILY 05/25/17 01/20/20 History [ICAPS SOFTGEL] Bimatoprost [Lumigan .01% Ophth 1 drop BOTH EYES HS 08/19/19 01/20/20 History Soln] Potassium Chloride ER [K-Dur 20] 20 meq PO DAILY tab.er.prt 12/04/19 01/20/20 Rx Aspirin EC [Ecotrin Low Dose] 81 mg PO DAILY 01/20/20 01/20/20 History Atenolol [Tenormin] 25 mg PO DAILY 01/20/20 01/20/20 History Cholecalciferol [Vitamin D3 (25 1,000 unit PO DAILY 01/20/20 01/20/20 History Mcg = 1000 Iu)] Cyanocobalamin (Vitamin B-12) 1,000 mcg PO DAILY 01/20/20 01/20/20 History [Vitamin B-12] Ferrous Sulfate [Feosol] 325 mg PO BID 01/20/20 01/20/20 History Furosemide [Lasix] 40 mg PO DAILY 01/20/20 01/20/20 History Losartan Potassium 100 mg PO DAILY 01/20/20 01/20/20 History Ondansetron HCl [Zofran] 4 mg PO Q4H PRN 01/20/20 01/20/20 History Rivaroxaban [Xarelto] 20 mg PO HS 01/20/20 01/20/20 History Timolol 0.5% Ophth Soln [Timoptic 1 drop BOTH EYES HS 01/20/20 01/20/20 History 0.5% Ophth Soln] metFORMIN HCL 1,000 mg PO BID 01/20/20 01/20/20 History Allergies Allergy/AdvReac Type Severity Reaction Status Date / Time No Known Allergies Allergy Verified 01/20/20 14:57 Physical Exam Vitals: Vital Signs Temp Pulse Pulse Resp BP BP Pulse Ox 01/21/20 04:30 98.9 F 95 20 141/81 96 01/20/20 19:40 99.1 F 98 22 151/80 98 01/20/20 19:21 94 16 124/87 99 01/20/20 17:46 98.2 F 94 16 129/78 99 01/20/20 16:11 98.3 F 96 16 143/84 99 01/20/20 13:43 98.3 F 100 18 143/71 100 Intake and Output 01/20/20 01/21/20 01/21/20 22:59 06:59 14:59 Intake Total 90 810 Output Total 300 Balance 90 510 Intake: Intake, IV Titration 90 810 Amount Magnesium Sulfate-D5w Pmx 200 1 gm In Dextrose/Water 1 100ml.bag @ 100 mls/hr IVPB Q1H [facility] Rx#: [id number] Potassium Chloride 10 meq 30 400 In Water For Injection 1 100ml.bag @ 100 mls/hr IVPB Q1HR [facility] Rx#: [id number] Sodium Chloride 0.9% 1, 60 160 000 ml @ 20 mls/hr IV . Q24H [facility] Rx#:[id number] ceFAZolin 2 gm In Sodium 50 Chloride 0.9% 50 ml @ 100 mls/hr IVPB ONCE ONE Rx# :[id number] Output: Urine 300 Uretheral (Murray) 300 Other: Voiding Method Bedpan Bedpan Diaper Diaper Incontinent Incontinent Weight 72.575 kg GENERAL DESCRIPTION: An elderly female up in the chair, no distress. No tach ypnea or accessory muscle of respiration use. HEENT: Shows Pallor , no scleral icterus. Oral mucous membrane is dry. No pharyngeal erythema or thrush NECK: Trachea central, no thyromegaly. LUNGS: Unlabored breathing. Clear to auscultation anteriorly. No wheeze or crackle. HEART: S1, S2, regular rate and rhythm. No loud murmur ABDOMEN: Soft, no tenderness , guarding or rigidity, no organomegaly EXTREMITIES: Diffuse swelling lower extremity or right leg with more redness slightly warm to touch no drainage SKIN: No rash, no masses palpable. NEUROLOGICAL: The patient is awake, alert, oriented x3, mood and affect normal. Results CBC & Chem 7: 01/22/20 07:11 01/22/20 07:11 Labs: Abnormal Lab Results - Last 24 Hours (Table) 01/20/20 01/20/20 01/20/20 Range/Units 14:41 14:41 21:00 RBC 3.19 L (3.80-5.40) m/uL Hgb 9.6 L (11.4-16.0) gm/dL Hct 29.4 L (34.0-46.0) % Neutrophils # 8.4 H (1.3-7.7) k/uL Lymphocytes # 0.6 L (1.0-4.8) k/uL Sodium 131 L (137-145) mmol/L Potassium 2.6 L* (3.5-5.1) mmol/L Chloride 97 L (98-107) mmol/L BUN 19 H (7-17) mg/dL Creatinine 1.20 H (0.52-1.04) mg/dL Glucose 225 H (74-99) mg/dL POC Glucose (mg/dL) 262 H (75-99) mg/dL Calcium 7.5 L (8.4-10.2) mg/dL Magnesium 0.9 L* (1.6-2.3) mg/dL Total Protein 5.1 L (6.3-8.2) g/dL Albumin 2.6 L (3.5-5.0) g/dL Urine Protein (Negative) Ur Leukocyte Esterase (Negative) Urine WBC (0-5) /hpf Urine WBC Clumps (None) /hpf Urine Bacteria (None) /hpf Urine Mucus (None) /hpf 01/21/20 01/21/20 01/21/20 Range/Units 04:52 04:52 06:45 RBC 2.75 L (3.80-5.40) m/uL Hgb 8.3 L (11.4-16.0) gm/dL Hct 25.7 L (34.0-46.0) % Neutrophils # 8.2 H (1.3-7.7) k/uL Lymphocytes # (1.0-4.8) k/uL Sodium 130 L (137-145) mmol/L Potassium 2.7 L* (3.5-5.1) mmol/L Chloride (98-107) mmol/L BUN 18 H (7-17) mg/dL Creatinine 1.08 H (0.52-1.04) mg/dL Glucose 149 H (74-99) mg/dL POC Glucose (mg/dL) (75-99) mg/dL Calcium 7.3 L (8.4-10.2) mg/dL Magnesium (1.6-2.3) mg/dL Total Protein (6.3-8.2) g/dL Albumin (3.5-5.0) g/dL Urine Protein Trace H (Negative) Ur Leukocyte Esterase Moderate H (Negative) Urine WBC 6 H (0-5) /hpf Urine WBC Clumps Few H (None) /hpf Urine Bacteria Rare H (None) /hpf Urine Mucus Rare H (None) /hpf 01/21/20 Range/Units 07:14 RBC (3.80-5.40) m/uL Hgb (11.4-16.0) gm/dL Hct (34.0-46.0) % Neutrophils # (1.3-7.7) k/uL Lymphocytes # (1.0-4.8) k/uL Sodium (137-145) mmol/L Potassium (3.5-5.1) mmol/L Chloride (98-107) mmol/L BUN (7-17) mg/dL Creatinine (0.52-1.04) mg/dL Glucose (74-99) mg/dL POC Glucose (mg/dL) 162 H (75-99) mg/dL Calcium (8.4-10.2) mg/dL Magnesium (1.6-2.3) mg/dL Total Protein (6.3-8.2) g/dL Albumin (3.5-5.0) g/dL Urine Protein (Negative) Ur Leukocyte Esterase (Negative) Urine WBC (0-5) /hpf Urine WBC Clumps (None) /hpf Urine Bacteria (None) /hpf Urine Mucus (None) /hpf Assessment and Plan Assessment: 1-patient with diffuse swelling bilateral lower extremity with more redness to the right leg which is warm to touch with concern for underlying cellulitis likely from gram-positive skin jerri (1) Cellulitis of right lower extremity Current Visit: Yes Status: Acute Code(s): L03.115 - CELLULITIS OF RIGHT LOWER LIMB SNOMED Code(s): 754127174 Plan: 1- marked the area of the redness right leg 2-Dale wrap to the leg from Juan the toe to below the knee 3-cefazolin 2 g every 8 hours We will follow on clinical condition and cultures to further adjust medication if needed Thank you for this consultation will follow this patient with you Time with Patient: Greater than 30
[2020-01-22 11:32] LABS: Glucose,Whole Blood 188 mg/dL (75-99)
--- NOTE | 2020-01-22 15:50 | P.PN ---
Subjective Progress Note Date: 01/22/20 Principal diagnosis: Patient is a 84-year-old female with a known history of chronic atrial fibrillation on anticoagulation with xarelto, history of colon cancer status post resection in 2017 currently in remission., hypertension, diabetes type 2, chronic bilateral lower extremity swelling with recent admission due to upper GI bleed status post EGD showed multiple gastric ulcers in November 2019 came to the hospital with complaints of worsening lower extremity swelling for the past 2 weeks and redness of the bilateral lower extremities. Patient otherwise denied any complaints of fever. Patient also noticed some weeping of serous fluid from her lower extremities. Denied any complaints of chest pain or shortness of breath. No nausea vomiting or abdominal pain. No cough or sputum production. Chest x-ray showed no acute pulmonary disease. Bilateral venous duplex scan showed no evidence of DVT. X-ray of the tibia/fibula showed soft tissue swelling. Correlate for cellu litis. EKG showed atrial fibrillation with ventricular rate 101 Lab data showed WBC 9.5, hemoglobin 9.6 and platelets 270 Potassium level is 2.6 Sodium 131, chloride 97, BUN 19 and creatinine 1.2 Magnesium 0.9 Troponin 0 0.023 and proBNP 8250, BNP was 17,700 during previous admission. 01/21/2020 Patient is seen and evaluated and follow-up with no acute overnight issues. She is currently maintained on IV antibiotics in the form of cefazolin and infectious disease has been consulted. Patient continues to have some bilateral lower extremity edema and swelling with some redness noted more so on the left than the right. Patient does have a large hematoma on the right lateral aspect of the lower extremity due to her recent fall. Patient's potassium was found to be extremely low this morning at 2.7 and currently being replaced. Repeat potassium this afternoon shows 3.0 and will continue to replace. Will repeat a.m. labs. Currently patient has no reports of chest pain, shortness of breath, or palpitations. Patient is afebrile. No reports of nausea or vomiting and patient is tolerating diet. 01/22/2020 Patient is seen and evaluated and follow-up is being closely monitored. Patient currently remains on IV cefazolin and will continue at this time. Infectious disease is following. Patient will likely transition to oral Keflex upon discharge. Patient's bilateral lower extremities redness and swelling have much improved and will continue with wound care at this time. Patient was maintained on oral Lasix 40 mg daily and will continue at this time as well. Patient continues on sliding scale and will continue to monitor blood sugars before meals at bedtime and treat accordingly. Patient's potassium was replaced and is currently 4.3 today. Patient continues to be weak and has been evaluated by physical therapy recommending subacute rehab for discharge to assist with strength and mobility as patient is a high risk for falls. Family has agreed and are willing to [place] and case management and professor of social work following and working on possible discharge planning needs for Saturday if facility is accepting. Currently no reports of chest pain, shortness of breath, or palpitations. Patient is afebrile. No reports of nausea or vomiting and patient is tolerating diet. Objective - Vital Signs Vital signs: Vital Signs Temp 96.8 F L 01/22/20 13:51 Pulse 63 01/22/20 13:51 Resp 16 01/22/20 13:51 BP 115/79 01/22/20 13:51 Pulse Ox 99 01/22/20 13:51 Intake & Output 01/21/20 01/22/20 01/22/20 18:59 06:59 18:59 Intake Total 370 Output Total 2 1 Balance -2 369 Weight 74 kg Intake: Intake, IV Titration 370 Amount Sodium Chloride 0.9% 1, 320 000 ml @ 20 mls/hr IV . Q24H [facility] Rx#:[id number] ceFAZolin 2 gm In Sodium 50 Chloride 0.9% 50 ml @ 100 mls/hr IVPB Q12H [facility] Rx# :[id number] Output: Urine 2 1 Other: Voiding Method Bedpan Diaper Incontinent # Voids 1 # Bowel Movements 2 - Exam Patient is sitting up in the bed comfortably, asleep but easily arousable, no acute distress, alert and oriented.. HEENT: Normocephalic. Neck is supple. Pupils reactive. Nostrils clear. Oral cavity is moist. Ears reveal no drainage. Neck reveals no JVD, carotid bruits, or thyromegaly. CHEST EXAMINATION: Trachea is central. Symmetrical expansion. Lung oglesby clear to auscultation and percussion. CARDIAC: Normal S1, S2 with no gallops. No murmurs , Irregular irregular rhythm. ABDOMEN: Soft. Bowel sounds normal. No organomegaly. No abdominal bruits. Extremities: Patient does have bilateral lower extremity 1+ edema with redness and serous discharge. No open wounds or purulent drainage noted.. No clubbing or cyanosis erythema and swelling has significantly improved of bilateral lower extremities. Right upper thigh area was marked with a pen and has improved on redness Neurologically awake, alert, oriented x3 with well-coordinated movements. Diffuse weakness Skin: No rash or skin lesions. Ecchymosis noted of the right lateral aspect of the lower extremity status post fall Psychiatric: Cooperative. Non-suicidal Musculoskeletal: No joint swelling or deformity. Normal range of motion. - Labs CBC & Chem 7: 01/22/20 07:11 01/22/20 07:11 Labs: Abnormal Lab Results - Last 24 Hours (Table) 01/21/20 01/21/20 01/22/20 Range/Units 17:09 20:19 07:11 RBC (3.80-5.40) m/uL Hgb (11.4-16.0) gm/dL Hct (34.0-46.0) % MCHC (31.0-37.0) g/dL Neutrophils # (1.3-7.7) k/uL Sodium 133 L (137-145) mmol/L BUN 20 H (7-17) mg/dL Creatinine 1.36 H (0.52-1.04) mg/dL Glucose 133 H (74-99) mg/dL POC Glucose (mg/dL) 152 H 157 H (75-99) mg/dL Calcium 8.0 L (8.4-10.2) mg/dL 01/22/20 01/22/20 01/22/20 Range/Units 07:11 07:24 11:31 RBC 3.09 L (3.80-5.40) m/uL Hgb 8.8 L (11.4-16.0) gm/dL Hct 28.5 L (34.0-46.0) % MCHC 30.9 L (31.0-37.0) g/dL Neutrophils # 8.1 H (1.3-7.7) k/uL Sodium (137-145) mmol/L BUN (7-17) mg/dL Creatinine (0.52-1.04) mg/dL Glucose (74-99) mg/dL POC Glucose (mg/dL) 147 H 188 H (75-99) mg/dL Calcium (8.4-10.2) mg/dL Microbiology - Last 24 Hours (Table) 01/20/20 16:22 Blood Culture - Preliminary Blood No Growth after 24 hours Assessment and Plan Assessment: Acute bilateral lower extremity cellulitis Chronic lower extremity edema Covid 19 ruled out, testing was negative Chronic atrial fibrillation on anticoagulation with Xarelto Severe hypokalemia and hypomagnesemia, approved Recent admission with GI bleed status post EGD showed multiple gastric ulcers. Hemoglobin is stable now. Recent acute kidney injury due to ATN. Hypoalbuminemia Elevated BNP level. Lower than previous admission. History of colon cancer status post resection at [facility] Hypertension history Diabetes type 2 History of cholecystectomy, History of cataracts DVT prophylaxis patient is already on Xarelto Plan: Patient is being continued on antibiotics in the form of cefazolin. Infectious disease following. Continue with home medications including Xarelto and also PPI. Monitor H&H. Follow-up CBC and BMP. Repeat potassium today is 4.1. Further recommendations to follow based on clinical course. Case management and social work following as patient will be discharged to [facility] for continued PT/OT therapy after 3 night stay. Patient will likely transition to oral Keflex upon discharge. Anticipate discharge in 24 hours.
--- NOTE | 2020-01-22 17:23 | PN ---
PROGRESS NOTE DATE OF SERVICE: 01/22/2020 REASON FOR FOLLOWUP: Right lower extremity cellulitis. INTERVAL HISTORY: The patient is currently afebrile. The patient is breathing comfortably. Denies having any chest pain or shortness of breath or cough. No nausea, vomiting, abdominal pain or pain to the right leg area. PHYSICAL EXAMINATION: Her blood pressure is 115/79 with a pulse of 63, temperature 96.8. She is 99% on room air. General description is an elderly female lying in bed in no distress. RESPIRATORY SYSTEM: Unlabored breathing. Clear to auscultation anteriorly. HEART: S1, S2. Regular rate and rhythm. ABDOMEN: Soft. No tenderness. LABS: Hemoglobin 8.8, white count 10.4, BUN of 20, creatinine 1.36. Blood culture has been negative. DIAGNOSTIC IMPRESSION AND PLAN: Patient with acute right lower extremity cellulitis in this patient recent history of any trauma, possibly Gram-positive skin jerri. Patient is covered with cefazolin; to continue and monitor her clinical course closely. MMODL / IJN: [id number] /
[2020-01-22 17:27] LABS: Glucose,Whole Blood 112 mg/dL (75-99)
[2020-01-22] MEDS: SODIUM CHLORIDE 0.9% 1,000 ML IV SCH (19:54)
[2020-01-22 20:38] LABS: Glucose,Whole Blood 112 mg/dL (75-99)
[2020-01-22] MEDS ORDERED: RIVAROXABAN 15 MG TAB PO SCH (21:00)
[2020-01-22] MEDS: TIMOLOL 0.5% OPHTH DROPS 5 ML BTL BOTH EYES SCH (21:19)
[2020-01-23 06:04] VITALS: TEMP 97.7
[2020-01-23 07:00] LABS: Glucose,Whole Blood 115 mg/dL (75-99)
[2020-01-23] MEDS: INSULIN ASPART (NovoLOG) 100 UNIT/ML VIAL SQ SCH ×2 (07:18→12:54)
[2020-01-23] MEDS ORDERED: PANTOPRAZOLE 40 MG TABLET PO SCH (07:30)
[2020-01-23] MEDS: CHOLECALCIFEROL 1,000 UNIT TAB PO SCH (07:55)
[2020-01-23] MEDS: LOSARTAN 50 MG TAB PO SCH (07:55)
[2020-01-23] MEDS: CYANOCOBALAMIN 500 MCG TAB PO SCH (07:55)
[2020-01-23] MEDS: metFORMIN 500 MG TAB PO SCH (07:55)
[2020-01-23] MEDS: POTASSIUM CHLORIDE ER 20 MEQ TAB.ER PO SCH (07:56)
[2020-01-23] MEDS: atenoloL 25 MG TAB PO SCH (07:56)
[2020-01-23] MEDS: FERROUS SULFATE 325 MG TAB PO SCH (07:56)
[2020-01-23] MEDS: FUROSEMIDE 40 MG TAB PO SCH (07:56)
[2020-01-23] MEDS: VIT A,C & E-LUTEIN-MINERALS 1 EACH TAB PO SCH (07:58)
[2020-01-23] MEDS: NYSTATIN 100,000 UNIT/GM OINT 30 GM TUBE TOPICAL SCH (08:02)
[2020-01-23 11:06] LABS: Glucose,Whole Blood 201 mg/dL (75-99)
[2020-01-23 11:28] VITALS: BP 137/83; PULSE 67; RESP 16
[2020-01-23] MEDS: SODIUM CHLORIDE 0.9% 1,000 ML IV SCH (12:27)
[2020-01-23 14:47] VITALS: BMI 29.0
--- NOTE | 2020-01-23 14:48 | PN ---
PROGRESS NOTE DATE OF SERVICE: 01/23/2020 REASON FOR FOLLOWUP: Right lower extremity cellulitis. INTERVAL HISTORY: Patient is currently afebrile. Patient is breathing comfortably. The patient denies having any chest pain. No shortness of breath or cough. No nausea or abdominal pain. Overall pain and discomfort to the right leg has improved. PHYSICAL EXAMINATION: Blood pressure 137/83 with a pulse of 67, temperature 97.7. She is 98% on room air. General description is an elderly female lying in bed in no distress. Respiratory system: Unlabored breathing, clear to auscultation anteriorly. Heart S1, S2. Regular rate and rhythm. Abdomen: Soft, no tenderness. Right leg overall swelling has improved, did have significant bruise though. LABS: No new labs have been obtained today. Blood culture has been negative. DIAGNOSTIC IMPRESSION AND PLAN: Patient with acute right lower extremity cellulitis. The patient did have diffuse swelling and redness with streptococcal cellulitis clinically responding to cefazolin. Finish therapy with oral Keflex 500 mg p.o. 3 times a day for about a week. Family at the bedside, questions answered. MMODL / IJN: [id number] /
--- NOTE | 2020-01-23 14:56 | P.DS ---
Providers Date of admission: 01/20/20 17:40 Expected date of discharge: 01/23/20 Attending physician: Cedric Carvalho Consults: 01/21/20 09:08 Consult Physician Urgent Consulting Provider: Ann Marie Davis Consult Reason/Comments: bilateral lower extremity cellulitis Do you want consulting provider notified?: Yes Primary care physician: Dee Eaton [facility] Course: discharge diagnosis Acute bilateral lower extremity cellulitis. Improved. Antibiotics changed to by mouth. Chronic lower extremity edema Covid 19 ruled out, testing was negative Chronic atrial fibrillation on anticoagulation with Xarelto Severe hypokalemia and hypomagnesemia, improved Acute kidney injury likely prerenal. Recent admission with GI bleed status post EGD showed multiple gastric ulcers. Hemoglobin is stable now. Recent acute kidney injury due to ATN. Hypoalbuminemia Elevated BNP level. Lower than previous admission. History of colon cancer status post resection at Hypertension history Diabetes type 2 History of cholecystectomy, History of cataracts DVT prophylaxis patient is already on Xarelto Hospital course Patient is a 84-year-old female with a known history of chronic atrial fibrillation on anticoagulation with xarelto, history of colon cancer status post resection in 2016 currently in remission., hypertension, diabetes type 2, chronic bilateral lower extremity swelling with recent admission due to upper GI bleed status post EGD showed multiple gastric ulcers in November 2019 came to the hospital with complaints of worsening lower extremity swelling for the past 2 weeks and redness of the bilateral lower extremities. Patient otherwise denied any complaints of fever. Patient also noticed some weeping of serous fluid from her lower extremities. Denied any complaints of chest pain or shortness of breath. No nausea vomiting or abdominal pain. No cough or sputum production. Chest x-ray showed no acute pulmonary disease. Bilateral venous duplex scan showed no evidence of DVT. X-ray of the tibia/fibula showed soft tissue swelling. Correlate for cellulitis. EKG showed atrial fibrillation with ventricular rate 101 Lab data showed WBC 9.5, hemoglobin 9.6 and platelets 270 Potassium level is 2.6 Sodium 131, chloride 97, BUN 19 and creatinine 1.2 Magnesium 0.9 Troponin 0 0.023 and proBNP 8250, BNP was 17,700 during previous admission. 01/21/2020 Patient is seen and evaluated and follow-up with no acute overnight issues. She is currently maintained on IV antibiotics in the form of cefazolin and infectious disease has been consulted. Patient continues to have some bilateral lower extremity edema and swelling with some redness noted more so on the left than the right. Patient does have a large hematoma on the right lateral aspect of the lower extremity due to her recent fall. Patient's potassium was found to be extremely low this morning at 2.7 and currently being replaced. Repeat potassium this afternoon shows 3.0 and will continue to replace. Will repeat a.m. labs. Currently patient has no reports of chest pain, shortness of breath, or palpitations. Patient is afebrile. No reports of nausea or vomiting and patient is tolerating diet. 01/22/2020 Patient is seen and evaluated and follow-up is being closely monitored. Patient currently remains on IV cefazolin and will continue at this time. Infectious disease is following. Patient will likely transition to oral Keflex upon discharge. Patient's bilateral lower extremities redness and swelling have much improved and will continue with wound care at this time. Patient was maintained on oral Lasix 40 mg daily and will continue at this time as well. Patient continues on sliding scale and will continue to monitor blood sugars before meals at bedtime and treat accordingly. Patient's potassium was replaced and is currently 4.3 today. Patient continues to be weak and has been evaluated by physical therapy recommending subacute rehab for discharge to assist with strength and mobility as patient is a high risk for falls. Family has agreed and are willing to [place] and case management and social human services assistants following and working on possible discharge planning needs for Saturday if facility is accepting. Currently no reports of chest pain, shortness of breath, or palpitations. Patient is afebrile. No reports of nausea or vomiting and patient is tolerating diet. Creatinine level was 1.3 today. 01/23/2020 Patient is currently sitting in the chair comfortably. Bilateral lower activity swelling and redness is much improved. Patient will be continued on Lasix. Potassium level is improved. Antibiotics will be changed to Keflex as per ID recommendations patient is being discharged to rehab. Next and denied any complaints of chest pain or shortness of breath. No palpitations. No dizziness. No nausea vomiting or abdominal pain. Tolerating oral diet. Physical examination Patient is sitting up in the bed comfortably, asleep but easily arousable, no acute distress, alert and oriented.. HEENT: Normocephalic. Neck is supple. Pupils reactive. Nostrils clear. Oral cavity is moist. Ears reveal no drainage. Neck reveals no JVD, carotid bruits, or thyromegaly. CHEST EXAMINATION: Trachea is central. Symmetrical expansion. Lung og[place] clear to auscultation and percussion. CARDIAC: Normal S1, S2 with no gallops. No murmurs , Irregular irregular rhythm. ABDOMEN: Soft. Bowel sounds normal. No organomegaly. No abdominal bruits. Extremities: Patient does have bilateral lower extremity 1+ edema with redness and serous discharge. No open wounds or purulent drainage noted.. No clubbing or cyanosis erythema and swelling has significantly improved of bilateral lower extremities. Right upper thigh area was marked with a pen and has improved on redness Neurologically awake, alert, oriented x3 with well-coordinated movements. Diffuse weakness Skin: No rash or skin lesions. Ecchymosis noted of the right lateral aspect of the lower extremity status post fall Psychiatric: Cooperative. Non-suicidal Musculoskeletal: No joint swelling or deformity. Normal range of motion. Vital Signs 01/23/20 01/23/20 06:03 11:26 Temperature 97.7 F 97.7 F Pulse Rate [ 59 L 67 Pulse Oximetery ] Respiratory 15 16 Rate Blood Pressure 115/78 137/83 [Left Arm] O2 Sat by Pulse 98 98 Oximetry Total time taken greater than 35 minutes including 18 minutes for counseling and coordination of care. Patient Condition at Discharge: Good Plan - Discharge Summary New Discharge Prescriptions: New Cephalexin [Keflex] 500 mg PO Q8HR 7 Days #21 cap Pantoprazole [Protonix] 40 mg PO [facility] #30 tablet. Continue Vit A/Vit C/Vit E/Zinc/Copper [ICAPS SOFTGEL] 1 cap PO DAILY Bimatoprost [Lumigan .01% Ophth Soln] 1 drop BOTH EYES HS Potassium Chloride ER [K-Dur 20] 20 meq PO DAILY tab.er.prt Ondansetron HCl [Zofran] 4 mg PO Q4H PRN PRN Reason: Nausea And Vomiting Ferrous Sulfate [Iron (65 MG Elemental)] 325 mg PO BID Cyanocobalamin (Vitamin B-12) [Vitamin B-12] 1,000 mcg PO DAILY Timolol 0.5% Ophth Soln [Timoptic 0.5% Ophth Soln] 1 drop BOTH EYES HS Losartan Potassium 100 mg PO DAILY Cholecalciferol [Vitamin D3 (25 Mcg = 1000 Iu)] 1,000 unit PO DAILY Aspirin EC [Ecotrin Low Dose] 81 mg PO DAILY metFORMIN HCL 1,000 mg PO BID Rivaroxaban [Xarelto] 20 mg PO HS Furosemide [Lasix] 40 mg PO DAILY Atenolol [Tenormin] 25 mg PO DAILY Discharge Medication List Vit A/Vit C/Vit E/Zinc/Copper [ICAPS SOFTGEL] 1 cap PO DAILY 05/25/17 [History] Bimatoprost [Lumigan .01% Ophth Soln] 1 drop BOTH EYES HS 08/19/19 [History] Potassium Chloride ER [K-Dur 20] 20 meq PO DAILY tab.er.prt 12/04/19 [Rx] Aspirin EC [Ecotrin Low Dose] 81 mg PO DAILY 01/20/20 [History] Atenolol [Tenormin] 25 mg PO DAILY 01/20/20 [History] Cholecalciferol [Vitamin D3 (25 Mcg = 1000 Iu)] 1,000 unit PO DAILY 01/20/20 [History] Cyanocobalamin (Vitamin B-12) [Vitamin B-12] 1,000 mcg PO DAILY 01/20/20 [History] Ferrous Sulfate [Iron (65 MG Elemental)] 325 mg PO BID 01/20/20 [History] Furosemide [Lasix] 40 mg PO DAILY 01/20/20 [History] Losartan Potassium 100 mg PO DAILY 01/20/20 [History] Ondansetron HCl [Zofran] 4 mg PO Q4H PRN 01/20/20 [History] Rivaroxaban [Xarelto] 20 mg PO HS 01/20/20 [History] Timolol 0.5% Ophth Soln [Timoptic 0.5% Ophth Soln] 1 drop BOTH EYES HS 01/20/20 [History] metFORMIN HCL 1,000 mg PO BID 01/20/20 [History] Cephalexin [Keflex] 500 mg PO Q8HR 7 Days #21 cap 01/22/20 [Rx] Pantoprazole [Protonix] 40 mg PO [facility] #30 tablet. 01/23/20 [Rx] Follow up Appointment(s)/Referral(s): Dee Chan III, MD [Primary Care Provider] - 1-2 days [facility], [NON-STAFF] - 1 Week Discharge Disposition: TRANSFER TO SNF/ECF
== END 2020-01-23 14:58 | DRG 603 ==
LOC: EC 13:40 → 5NMEDONC 17:40
PROVIDERS: ADMIT Hospitalist; ATTEND Hospitalist
DX: L03.115 Cellulitis of right lower limb (principal); I48.20 Chronic atrial fibrillation, unspecified; N17.9 Acute kidney failure, unspecified; E11.9 Type 2 diabetes mellitus without complications; I10 Essential (primary) hypertension; E87.6 Hypokalemia; E83.42 Hypomagnesemia; L03.116 Cellulitis of left lower limb; E88.09 Other disorders of plasma-protein metabolism, not elsewhere classified; B95.5 Unspecified streptococcus as the cause of diseases classified elsewhere; Z79.84 Long term (current) use of oral hypoglycemic drugs; Z79.82 Long term (current) use of aspirin; Z79.899 Other long term (current) drug therapy; Z79.01 Long term (current) use of anticoagulants; Z85.038 Personal history of other malignant neoplasm of large intestine; Z80.3 Family history of malignant neoplasm of breast; Z87.11 Personal history of peptic ulcer disease; Z90.710 Acquired absence of both cervix and uterus; Z90.49 Acquired absence of other specified parts of digestive tract; Z98.890 Other specified postprocedural states; Z98.49 Cataract extraction status, unspecified eye; Z80.0 Family history of malignant neoplasm of digestive organs; Z82.3 Family history of stroke; Z11.59 Encounter for screening for other viral diseases
CPT/HCPCS: 71046; 80048; 80053; 81001; 83605; 83690; 83735; 83880; 84132; 84484; 85025; 85610; 85730; 87040; 93005; 96365; 96367; 99285

== ENCOUNTER → 2020-08-19 | Outpatient (CLI) | payer MEDICARE, BC | END | disposition home or self-care (01) | LOC: LABWHC1 14:52 | PROVIDERS: ATTEND Family Medicine | DX: Z20.822 Contact with and (suspected) exposure to COVID-19 (principal) | CPT/HCPCS: U0003; C9803 ==

== ENCOUNTER 2023-07-29 13:03 | Inpatient (IN) | payer MEDICARE, BC ==
[2023-07-29 17:47] LABS: Basophils % (A) 1 %; Eosinophils # (A) 0.1 k/uL (0-0.7); Eosinophils % (A) 1 %; HCT 39.1 % (34.0-46.0); HGB 12.8 gm/dL (11.4-16.0); Lymphocytes # (A) 0.9 k/uL (1.0-4.8); Lymphocytes % (A) 13 %; MCH 28.4 pg (25.0-35.0); MCHC 32.6 g/dL (31.0-37.0); MCV 87.2 fL (80.0-100.0); Mean Platelet Volume 10.1; Monocytes # (A) 0.5 k/uL (0-1.0); Monocytes % (A) 7 %; Neutrophils # (A) 5.2 k/uL (1.3-7.7); Neutrophils % (A) 77 %; Platelet Count 212 k/uL (150-450); RBC 4.49 m/uL (3.80-5.40); RDW 15.6 % (11.5-15.5); WBC 6.8 k/uL (3.8-10.6)
[2023-07-29 18:29] LABS: African American GFR (CKD) 47 (>60 ml/min/1.73 sqM); Anion Gap 11 mmol/L; Blood Urea Nitrogen 28 mg/dL (7-17); Calcium 9.1 mg/dL (8.4-10.2); Carbon Dioxide 20 mmol/L (22-30); Chloride 106 mmol/L (98-107); Glucose 143 mg/dL (74-99); Non-African American GFR(CKD) 41 (>60 ml/min/1.73 sqM); Potassium 3.8 mmol/L (3.5-5.1); Sodium 137 mmol/L (137-145)
[2023-07-29 18:42] LABS: Appearance,Urine Clear (Clear); Bilirubin,Urine Negative (Negative); Blood,Urine Negative (Negative); Color,Urine Colorless; Glucose,Urine (UA) Negative (Negative); Ketones,Urine Negative (Negative); Leukocyte Esterase,Urine Negative (Negative); Nitrite,Urine Negative (Negative); Protein,Urine Trace (Negative); Specific Gravity,Urine 1.008 (1.001-1.035); Urobilinogen,Urine <2.0 mg/dL (<2.0)
[2023-07-29] MEDS ORDERED: ONDANSETRON 4 MG/2 ML VIAL IVP PRN (20:27)
[2023-07-29] MEDS ORDERED: NALOXONE 0.4 MG/ML 1 ML VIAL IV PRN (20:27)
[2023-07-29] MEDS ORDERED: hydrALAZINE HCL 20 MG/ML 1 ML VIAL IVP STA (20:27)
[2023-07-29] MEDS ORDERED: ACETAMINOPHEN TAB 325 MG TAB PO PRN (20:27)
--- NOTE | 2023-07-29 20:30 | ED ---
General Adult HPI - General Chief complaint: Recheck/Abnormal Lab/Rx Stated complaint: debility Time Seen by Provider: 07/29/23 15:34 Source: patient, family, RN notes reviewed, old records reviewed Mode of arrival: wheelchair Limitations: no limitations - History of Present Illness Initial comments: Patient is an 88-year-old female with past medical history remarkable for dementia, atrial fibrillation, diabetes. Presents with her daughter. Patient's is currently in the hospital will not be home for quite some time. Patient lives at home alone without much help at home for her care. Patient's daughter brings her in for long-term placement. They're unable to give the patient home. Patient has no acute complaints at this time. She has a history of dementia and baseline is alert and oriented 2 which she is currently. Patient presents for admission for placement at this time. - Related Data Home Medications Medication Instructions Recorded Confirmed Furosemide [Lasix] 20 mg PO DAILY 01/20/20 07/29/23 Timolol 0.5% Ophth Soln [Timoptic 1 drop BOTH EYES BID 01/20/20 07/29/23 0.5% Ophth Soln] metFORMIN HCL [Glucophage] 1,000 mg PO DAILY 01/20/20 07/29/23 Ketorolac 0.5% Ophth Soln [Acular 1 drop LEFT EYE QID 07/29/23 07/29/23 0.5%] Latanoprost [Latanoprost 0.005%] 1 drop BOTH EYES HS 07/29/23 07/29/23 Vit C/E/Zn/Coppr/Lutein/Zeaxan 1 cap PO DAILY 07/29/23 07/29/23 [Preservision Areds 2 Softgel] atenoloL [Tenormin] 25 mg PO DAILY 07/29/23 07/29/23 Allergies Allergy/AdvReac Type Severity Reaction Status Date / Time No Known Allergies Allergy Verified 07/29/23 16:41 Review of Systems ROS Statement: Those systems with pertinent positive or pertinent negative responses have been documented in the HPI. Review of Systems: CONST: Denies fever EYES: Denies blurry vision ENT: Denies nasal congestion C/V: Denies Chest pain RESP: Denies shortness of breath GI: Denies abdominal pain : Denies dysuria SKIN: Denies rash. MSK: Denies joint pain. NEURO: Denies headache ROS Other: All systems not noted in ROS Statement are negative. Past Medical History Past Medical History: Atrial Fibrillation, Cancer, Diabetes Mellitus, Hypertension Additional Past Medical History / Comment(s): colon cancer History of Any Multi-Drug Resistant Organisms: None Reported Past Surgical History: Bowel Resection, Cholecystectomy, Hernia Repair, Hysterectomy Additional Past Surgical History / Comment(s): cataract surgery; bowel resection June 2017 r/t colon cancer Past Anesthesia/Blood Transfusion Reactions: Postoperative Nausea & Vomiting (PONV) Additional Past Anesthesia/Blood Transfusion Reaction / Comment(s): Has had blood transfusion; no reaction. Past Psychological History: No Psychological Hx Reported Smoking Status: Never smoker Past Alcohol Use History: None Reported Past Drug Use History: None Reported - Past Family History Sister(s) Family Medical History: Cancer Additional Family Medical History / Comment(s): both sisters had cancer. one had colon cancer. other sister in her thirties from cancer (unknown) but she had a hysterectomy prior to her . Brother(s) Family Medical History: Cancer Additional Family Medical History / Comment(s): colon cancer Mother Family Medical History: Cancer Additional Family Medical History / Comment(s): breast cancer and colon cancer Father Family Medical History: CVA/TIA General Exam - General Exam Comments Initial Comments: General: Appears in no acute distress. HEAD: Normal with no signs of head trauma. EYES: PERRLA, EOMI, conjunctiva normal, no discharge. ENT: Hearing grossly intact, normal oropharynx. RESPIRATORY: Clear breath sounds bilaterally. No wheezes, rales, or rhonchi. C/V: Regular rate and rhythm. S1 and S2 auscultated, no edema, peripheral pulses 2+ and intact throughout ABD: Abd is soft, nontender, nondistended EXT: Normal range of motion, no obvious deformity SKIN: No rashes or lesions observed on exposed skin. NEURO: Alert and oriented x 2. Cranial nerves II-XII intact. No focal sensory or strength deficits. Limitations: no limitations Course Vital Signs 07/29/23 07/29/23 07/29/23 13:23 17:55 19:00 Temperature 98 F Pulse Rate 52 L 65 72 Respiratory 18 18 18 Rate Blood Pressure 164/93 180/106 158/99 O2 Sat by Pulse 99 97 96 Oximetry 07/29/23 20:00 Temperature Pulse Rate 54 L Respiratory 17 Rate Blood Pressure 175/113 O2 Sat by Pulse 95 Oximetry Medical Decision Making - Medical Decision Making Was pt. sent in by a medical professional or institution ([facility], [facility], urgent care, hospital, or fpc...) When possible be specific @ -No Did you speak to anyone other than the patient for history (EMS, parent, family, police, friend...)? What history was obtained from this source @ -Daughter is the primary historian is seeking placement for the patient as she cannot care for herself at home. Did you review nursing and triage notes (agree or disagree)? Why? @ -I reviewed and agree with nursing and triage notes Were old charts reviewed (outside hosp., previous admission, EMS record, old EKG, old radiological studies, urgent care reports/EKG's, fpc records)? Report findings @ -Old charts reviewed Differential Diagnosis (chest pain, altered mental status, abdominal pain women, abdominal pain men, vaginal bleeding, weakness, fever, dyspnea, syncope, headache, dizziness, GI bleed, back pain, seizure, CVA, palpatations, mental health, musculoskeletal)? @ -Chronic debility, chronic dementia, dehydration. This list is not all- inclusive. EKG interpreted by me (3pts min.). @ -As above X-rays interpreted by me (1pt min.). @ -None done CT interpreted by me (1pt min.). @ -None done U/S interpreted by me (1pt. min.). @ -None done What testing was considered but not performed or refused? (CT, X-rays, U/S, labs)? Why? @ -None What meds were considered but not given or refused? Why? @ -None Did you discuss the management of the patient with other professionals (professionals i.e. [facility]acker, [facility], lab, RT, psych nurse, social welfare research worker, application architect, teacher, humane officer, case maker)? Give summary @ -Discussed with Dr. Cueavs the patient's PCP who accepted the admission. Was smoking cessation discussed for >3mins.? @ -No Was critical care preformed (if so, how long)? @ -No Were there social determinants of health that impacted care today? How? (Homelessness, low income, unemployed, alcoholism, drug addiction, transportation, low edu. Level, literacy, decrease access to med. care, correction, rehab)? @ -No Was there de-escalation of care discussed even if they declined (Discuss DNR or withdrawal of care, Hospice)? DNR status @ -No What co-morbidities impacted this encounter? (DM, HTN, Smoking, COPD, CAD, Cancer, CVA, ARF, Chemo, Hep., AIDS, mental health diagnosis, sleep apnea, morbid obesity)? @ -Dementia Was patient admitted / discharged? Hospital course, mention meds given and route, prescriptions, significant lab abnormalities, going to OR and other pertinent info. @ -Based on the patient's presentation and physical exam, presents for placement. Primary historian is the daughter. No acute complaints at this time, patient's to normally with the caregiver will be in the hospital and not home for quite some time. Family would like the patient to be placed. We will obtain basic labs and screening EKG. Has a history of A. fib. They we re in agreement this plan. Vital signs are within acceptable limits. Patient's laboratory studies are all within acceptable limits. Patient has CK D. EKG shows atrial fibrillation with no signs of acute ischemic process. Currently rate controlled. At this time I updated family. Patient will be admitted for placement. I spoke with Dr. Cuevas the patient's PCP who accepted the admission. Physical therapy and occupational therapy consulted. Undiagnosed new problem with uncertain prognosis? @ -No Drug Therapy requiring intensive monitoring for toxicity (Heparin, Nitro, Insulin, Cardizem)? @ -No Were any procedures done? @ -No Diagnosis/symptom? @ -Debility, dementia Acute, or Chronic, or Acute on Chronic? @ -Acute Uncomplicated (without systemic symptoms) or Complicated (systemic symptoms)? @ -Uncomplicated Side effects of treatment? @ -No Exacerbation, Progression, or Severe Exacerbation? @ -No Poses a threat to life or bodily function? How? (Chest pain, [place], [place], pneumonia, PE, COPD, DKA, ARF, appy, cholecystitis, CVA, Diverticulitis, Homicidal, Suicidal, threat to staff... and all critical care pts) @ -yes - Lab Data Result diagrams: 07/29/23 16:29 07/29/23 16:29 Lab Results 07/29/23 07/29/23 07/29/23 Range/Units 16:29 16:29 16:29 WBC 6.8 (3.8-10.6) k/uL RBC 4.49 (3.80-5.40) m/uL Hgb 12.8 (11.4-16.0) gm/dL Hct 39.1 (34.0-46.0) % MCV 87.2 (80.0-100.0) fL MCH 28.4 (25.0-35.0) pg MCHC 32.6 (31.0-37.0) g/dL RDW 15.6 H (11.5-15.5) % Plt Count 212 (150-450) k/uL MPV 10.1 Neutrophils % 77 % Lymphocytes % 13 % Monocytes % 7 % Eosinophils % 1 % Basophils % 1 % Neutrophils # 5.2 (1.3-7.7) k/uL Lymphocytes # 0.9 L (1.0-4.8) k/uL Monocytes # 0.5 (0-1.0) k/uL Eosinophils # 0.1 (0-0.7) k/uL Basophils # 0.0 (0-0.2) k/uL Sodium 137 (137-145) mmol/L Potassium 3.8 (3.5-5.1) mmol/L Chloride 106 (98-107) mmol/L Carbon Dioxide 20 L (22-30) mmol/L Anion Gap 11 mmol/L BUN 28 H (7-17) mg/dL Creatinine 1.21 H (0.52-1.04) mg/dL Est GFR (CKD-EPI)AfAm 47 (>60 ml/min/1.73 sqM) Est GFR (CKD-EPI)NonAf 41 (>60 ml/min/1.73 sqM) Glucose 143 H (74-99) mg/dL Calcium 9.1 (8.4-10.2) mg/dL Urine Color Colorless Urine Appearance Clear (Clear) Urine pH 5.0 (5.0-8.0) Ur Specific [place] 1.008 (1.001-1.035) Urine Protein Trace H (Negative) Urine Glucose (UA) Negative (Negative) Urine Ketones Negative (Negative) Urine Blood Negative (Negative) Urine Nitrite Negative (Negative) Urine Bilirubin Negative (Negative) Urine Urobilinogen <2.0 (<2.0) mg/dL Ur Leukocyte Esterase Negative (Negative) - EKG Data -: EKG Interpreted by Me EKG Comments: 12-lead Electrocardiogram Interpretation Note EKG was reviewed and interpreted by myself. 12-lead ECG performed at 1644 is interpreted by me as revealing atrial fibrillation at a rate of 68 beats per minute. Steens is normal. QRS duration is 102 ms, QTc is 420 ms.. There were no ST or T wave abnormalities to suggest myocardial ischemia or injury. R wave progression across the precordium was satisfactory. By my interpretation this EKG is non-diagnostic for acute ischemia. Disposition Clinical Impression: Debility, Dementia Disposition: ADMITTED IP TO THIS HOSP Condition: Stable Referrals: Omid Ceuvas MD [Primary Care Provider] - 1-2 days Forms: Who Do I Call?, Adult Foster Senior Living List, Community Resources, Help In The Home, Personal Machine [employer]dle Cleaner Time of Disposition: 18:35
[2023-07-29] MEDS: LATANOPROST 0.005% OPHTH DROPS 2.5 ML BTL BOTH EYES SCH (22:06)
[2023-07-29] MEDS: TIMOLOL 0.5% OPHTH DROPS 5 ML BTL BOTH EYES SCH (22:08)
[2023-07-29] MEDS: KETOROLAC 0.5% OPHTH DROPS 5 ML BTL LEFT EYE SCH (22:12)
[2023-07-30] MEDS: atenoloL 25 MG TAB PO SCH (08:24)
[2023-07-30] MEDS: FUROSEMIDE 20 MG TAB PO SCH (08:24)
[2023-07-30] MEDS: KETOROLAC 0.5% OPHTH DROPS 5 ML BTL LEFT EYE SCH ×4 (08:27→20:10)
[2023-07-30] MEDS: TIMOLOL 0.5% OPHTH DROPS 5 ML BTL BOTH EYES SCH ×2 (08:27→20:10)
[2023-07-30 11:59] LABS: Glucose,Whole Blood 146 mg/dL (70-110)
[2023-07-30 13:40] LABS: Basophils # (A) 0.06 X 10*3/uL (0.00-0.10); Basophils % (A) 0.9 %; Eosinophils # (A) 0.03 X 10*3/uL (0.04-0.35); Eosinophils % (A) 0.4 %; HCT 38.7 % (37.2-46.3); HGB 12.1 g/dL (12.0-15.0); Lymphocytes % (A) 13.5 %; MCH 27.2 pg (27.0-32.0); MCHC 31.3 g/dL (32.0-37.0); Monocytes # (A) 0.81 X 10*3/uL (0.20-1.00); Monocytes % (A) 12.1 %; NRBC Per 100 WBC 0 X 10*3/uL (0.00-0.01); Neutrophils # (A) 4.85 X 10*3/uL (1.80-7.70); Neutrophils % (A) 72.7 %; Platelet Count 212 X 10*3/uL (140-440); RBC 4.45 X 10*6/uL (4.10-5.20); RDW 15.8 % (11.5-14.5); WBC 6.68 X 10*3/uL (4.50-10.00)
[2023-07-30 14:51] LABS: BUN/Creat Ratio 18.08 Ratio (12.00-20.00); Blood Urea Nitrogen 23.5 mg/dL (9.0-27.0); Calcium 8.9 mg/dL (8.7-10.3); Carbon Dioxide 21.1 mmol/L (21.6-31.8); Chloride 100 mmol/L (96-109); Glucose 144 mg/dL (70-110); Potassium 6.2 mmol/L (3.5-5.5); Sodium 135 mmol/L (135-145)
--- NOTE | 2023-07-30 16:32 | P.HPIM ---
History of Present Illness H&P Date: 07/30/23 Chief Complaint: Debility , aortic regurg and aortic regurg aortic stenosis, dementia progre History and physicalHistory Date date of serviceline 07/30/2023 line dictation [address]ation [address] Dr[address] uCevas Patient brought to the emergency roomPatient brought to the emergency room be cause of progressive debility because of progressive debility and confusion disorientation and confusion disorientation with visual hallucination with illusioninfusion. She was in the ER seenShe was in the ER seen and evaluated by Dr. Parish laboratory found that she had hyperkalemialaboratory History of present illnessHistory 88 years old white female brought to the emergency room by her daughter with the debility and incapacitated and also confusion disorientation with the dementia, Her in ICU because of his illness and pacemaker. Patient live alone with no added person to take care of her and need also for further evaluation of her heart Also the family her daughter is requesting halfway placement because of inability to strive and take care of her medication and health. Patient current medical problem: She had history of atrial fibrillation was controlled ventricular response and has been seen by Dr. Alberto cardiology. She is on anticoagulant Xarelto with the bruises on the knee and she uses a walker with a frequent fall and bruises from the Xarelto Also she is on aspirin 81 mg once a day well as at some old 25 mg once a day and eyedrops and also another eyedrops timolol ophthalmic maleate 0.5% solution. Line patient is diabetic and she is on metformin. 1000 mg twice a day. She had also history of dysfunctional with edema of the lower extremities and using furosemide 20 mg once a day. Past medical history she had cancer of the colon 2012 in [facility] and removed part of the colon she had blood transfusion 2014 History of severe aortic stenosis and aortic regurg Atrial fibrillation was controlled ventricular response Previous congestive heart failure and edema of the lower extremities currently not present. Social history she is She had 4 children to sons and 2 daughters. And one stillbirth. History of chronic kidney disease stage III. Anteroseptal NM by EKG. Coronary artery disease atherosclerotic heart disease Unstable on walking with the use of walker. History of positive MELINDA History of anemia of chronic disease. Habit: No smoking or drinking. Review of system: Patient seen her daughter at bedside and they did ask the patient herself she confused and disoriented she thinks that her mom is at home and she was not awar e of where she is but her level of consciousness is likely to waiting and she is thinking that she is fine and able to take care of herself and her which she thinking that her father in the ICU not her with some effusion and deluge and as well added to forgetfulness has been progressive. She had not complained of chest pain but she had significant irregularities of the heart as well as severe murmur for the aortic stenosis stenosis and regurg, meanwhile she is on Xarelto by her hothouse worker Dr. Alberto she is on the 20 mg once a day and she had recurrent bruises with the fall and without the fall as well and that needs to be adjusted to 10 or [address] Alberto ordered up to the cardiology with her age [id number] years old and the chronic kidney disease with her GFR 41. Endocrine she had history of diabetes mellitus2 unclear if she had history of thyroid disease or not we'll be checking on this admission. Musculoskeletal equal very weak using a walker with the wobbling and honest safe walking. Genitourinary she had history of recurrent UTI however on this admission was a urine negative. Chest and the respiratory, she denied any smoking in the past and no history of asthma. History of anemia in the past however her hemoglobin has been stable on admission 12.1 and 12.8 platelet count was normal and MCV was normal her white count was normal 6.8. Her potassium and was 3.8 however the repeat was 6.2 hyperkalemia etiology unknown Rest of the bullet noncontributory. Physical exam: Patient presented to Dr. Parish in the ER and he admitted patient with the underlying continuing medical problem and debility Initial vital sign indicating that blood pressure 180/106 with the hypertension uncontrolled Also on 07/29/2023 in the ER 1323 hour her temperature was 90 8F oral and heart rate 52 bpm respiratory rate 18, blood pressure 164/93 with a mean cell 116. Also oxygen saturation was 99% on room air. The head was normocephalic and atraumatic pupil was equal reactive conjunctiva was pink sclera was nonicteric oropharynx natural teeth Neck supple, positive bruits bilateral with the transmission from the heart murmur with aortic stenosis and regurg. No lymphadenopathy in the neck or the axilla. Skin: Multiple moles and keratosis scattered old the scan of the fascial and the back. Multiple bruises of the skin with the associated Xarelto and aspirin Chest: Normal breath sounds no wheezes no rhonchi's Heart: Atrial fibrillation with irregular irregularities and controlled response to bradycardia on admission with the positive murmur on the apex as well as left sternal border transmitted to the carotid grade 4/6 Abdomen with history of surgery in the past multiple and she had history of colon resection, positive bowel sound no tenderness on the 4 quadrant Extremities: No edema and positive pulses however 1 over 2 and dorsalis pedis and posterior tibial. Psychiatry: Very confused and with some effusion and deluge in thinking that her mom at home and her dad upstairs in the ICU. Dementia: Progressive no treatment has been rendered in the past and the patient is new to me no previous investigation as CAT scan or MRI from the history of previous physicians Assessment: #1 progressive dementia unknown etiology #2 underlying depression versus anxiety with with confusion #3 diabetes mellitus type 2 #4 severe aortic stenosis and aortic regurg with a history of previous congestive heart failure #5 hypertension with hypertensive heart disease on admission Plan: #1 will consult physical therapy #2 consult cardiology for evaluation and adjusting Xarelto and aspirin #3 consultation with urology for the progressive dementia #4 consultation with the psychiatry #5 high school social science teacher evaluation #6 repeat serum potassium because of the hyperkalemia could be hemolysis. #7 obtain echocardiogram to disease with Doppler #8 obtain lab in a.m. Past Medical History Past Medical History: Atrial Fibrillation, Cancer, Diabetes Mellitus, Hypertension Additional Past Medical History / Comment(s): colon cancer History of Any Multi-Drug Resistant Organisms: None Reported Past Surgical History: Bowel Resection, Cholecystectomy, Hernia Repair, Hysterectomy Additional Past Surgical History / Comment(s): cataract surgery; bowel resection June 2017 r/t colon cancer Past Anesthesia/Blood Transfusion Reactions: Postoperative Nausea & Vomiting (PONV) Additional Past Anesthesia/Blood Transfusion Reaction / Comment(s): Has had blood transfusion; no reaction. Past Psychological History: No Psychological Hx Reported Smoking Status: Never smoker Past Alcohol Use History: None Reported Past Drug Use History: None Reported - Past Family History Sister(s) Family Medical History: Cancer Additional Family Medical History / Comment(s): both sisters had cancer. one had colon cancer. other sister in her thirties from cancer (unknown) but she had a hysterectomy prior to her . Brother(s) Family Medical History: Cancer Additional Family Medical History / Comment(s): colon cancer Mother Family Medical History: Cancer Additional Family Medical History / Comment(s): breast cancer and colon cancer Father Family Medical History: CVA/TIA, Dementia, Diabetes Mellitus Medications and Allergies Home Medications Medication Instructions Recorded Confirmed Type Furosemide [Lasix] 20 mg PO DAILY 01/20/20 07/29/23 History Timolol 0.5% Ophth Soln [Timoptic 1 drop BOTH EYES BID 01/20/20 07/29/23 History 0.5% Ophth Soln] metFORMIN HCL [Glucophage] 1,000 mg PO DAILY 01/20/20 07/29/23 History Ketorolac 0.5% Ophth Soln [Acular 1 drop LEFT EYE QID 07/29/23 07/29/23 History 0.5%] Latanoprost [Latanoprost 0.005%] 1 drop BOTH EYES HS 07/29/23 07/29/23 History Vit C/E/Zn/Coppr/Lutein/Zeaxan 1 cap PO DAILY 07/29/23 07/29/23 History [Preservision Areds 2 Softgel] atenoloL [Tenormin] 25 mg PO DAILY 07/29/23 07/29/23 History Allergies Allergy/AdvReac Type Severity Reaction Status Date / Time No Known Allergies Allergy Verified 07/29/23 16:41 Physical Exam Vitals: Vital Signs Temp Pulse Pulse Resp BP BP Pulse Ox 07/30/23 07:50 98.2 F 61 16 152/70 94 L 07/30/23 06:38 98.9 F 52 L 16 144/57 96 07/30/23 03:35 69 17 153/81 94 L 07/29/23 23:22 65 17 158/82 95 07/29/23 20:00 54 L 17 175/113 95 07/29/23 19:00 72 18 158/99 96 07/29/23 17:55 65 18 180/106 97 Intake and Output 07/30/23 07/30/23 07/30/23 06:59 14:59 22:59 Other: Voiding Method External Catheter Weight 77.111 kg Results CBC & Chem 7: 07/30/23 06:10 01/23/24 06:10 Labs: Abnormal Lab Results - Last 24 Hours (Table) 07/29/23 07/29/23 07/29/23 Range/Units 16:29 16:29 16:29 MCHC (32.0-37.0) g/dL RDW 15.6 H (11.5-15.5) % Lymphocytes # 0.9 L (1.0-4.8) k/uL Eosinophils # (0.04-0.35) X 10*3/uL Potassium (3.5-5.5) mmol/L Carbon Dioxide 20 L (22-30) mmol/L Anion Gap (4.00-12.00) mmol/L BUN 28 H (7-17) mg/dL Creatinine 1.21 H (0.52-1.04) mg/dL Est GFR (CKD-EPI) (>=60) Glucose 143 H (74-99) mg/dL POC Glucose (mg/dL) (70-110) mg/dL Urine Protein Trace H (Negative) 07/30/23 07/30/23 07/30/23 Range/Units 06:10 06:10 11:57 MCHC 31.3 L (32.0-37.0) g/dL RDW 15.8 H (11.5-15.5) % Lymphocytes # (1.0-4.8) k/uL Eosinophils # 0.03 L (0.04-0.35) X 10*3/uL Potassium 6.2 A* (3.5-5.5) mmol/L Carbon Dioxide 21.1 L (22-30) mmol/L Anion Gap 13.90 H (4.00-12.00) mmol/L BUN (7-17) mg/dL Creatinine (0.52-1.04) mg/dL Est GFR (CKD-EPI) 40 L (>=60) Glucose 144 H (74-99) mg/dL POC Glucose (mg/dL) 146 H (70-110) mg/dL Urine Protein (Negative) Thrombosis Risk Factor Assmnt - Choose All That Apply Each Factor Represents 1 point: Medical pt on bed rest, Obesity (BMI >25) Each Risk Factor Represents 3 Points: Age 75 years or older Thrombosis Risk Factor Assessment Total Risk Factor Score: 5 Thrombosis Risk Factor Assessment Level: High Risk
[2023-07-30 16:36] LABS: Glucose,Whole Blood 137 mg/dL (70-110)
[2023-07-30 16:59] LABS: ALT 17 U/L (4-34); AST 28 U/L (14-36); African American GFR (CKD) 53 (>60 ml/min/1.73 sqM); Albumin 3.1 g/dL (3.5-5.0); Albumin/Globulin Ratio 1.1; Alkaline Phosphatase 84 U/L (38-126); Anion Gap 11 mmol/L; Blood Urea Nitrogen 24 mg/dL (7-17); Calcium 8.7 mg/dL (8.4-10.2); Carbon Dioxide 22 mmol/L (22-30); Chloride 104 mmol/L (98-107); Globulin 2.8 g/dL; Glucose 145 mg/dL (74-99); Non-African American GFR(CKD) 46 (>60 ml/min/1.73 sqM); Potassium 3.5 mmol/L (3.5-5.1); Sodium 137 mmol/L (137-145); Total Bilirubin 0.7 mg/dL (0.2-1.3); Total Protein 5.9 g/dL (6.3-8.2)
[2023-07-30] MEDS: RIVAROXABAN 15 MG TAB PO SCH (17:33)
[2023-07-30] MEDS: INSULIN ASPART (NovoLOG) 100 UNIT/ML VIAL SQ SCH (17:34)
--- NOTE | 2023-07-30 18:00 | CA ---
Transthoracic Echo Report Name: Alma Singer Age: 88 Gender: F : 1935 Exam Date: 07/30/2023 15:48 Exam Location: [place] [facility] Ht (in): 65 Wt (lb): 170 Ordering Physician: Omid Cuevas MD Attending/Referring Phys: Hardware Technician Myesha Murphy RDCS Procedure CPT: Indications: atrial fib .htnurgency,tia Cardiac Hx: Technical Quality: Good Contrast 1: Total Dose (mL): Contrast 2: Total Dose (mL): MEASUREMENTS (Male / Female) Normal Values 2D ECHO LV Diastolic Diameter PLAX 6.4 cm 4.2 - 5.9 / 3.9 - 5.3 cm LV Systolic Diameter PLAX 5.3 cm IVS Diastolic Thickness 1.0 cm 0.6 - 1.0 / 0.6 - 0.9 cm LVPW Diastolic Thickness 1.1 cm 0.6 - 1.0 / 0.6 - 0.9 cm LV Relative Wall Thickness 0.3 RV Internal Dim ED PLAX 3.0 cm LVOT Diameter 2.6 cm LA Systolic Diameter LX 5.6 cm 3.0 - 4.0 / 2.7 - 3.8 cm LV Diastolic Volume MOD 4C 74.9 cm??? LV Systolic Volume MOD 4C 45.2 cm??? LV Ejection Fraction MOD 4C 39.7 % LV Cardiac Index MOD 4C 860.3 cm???/min???m??? LV Diastolic Length 4C 7.2 cm LV Systolic Length 4C 6.1 cm LV Diastolic Volume MOD 2C 77.7 cm??? LV Systolic Volume MOD 2C 44.7 cm??? LV Ejection Fraction MOD 2C 42.5 % LV Cardiac Index MOD 2C 954.7 cm???/min???m??? LV Diastolic Length 2C 7.3 cm LV Systolic Length 2C 6.3 cm LA Volume 164.2 cm??? 18 - 58 / 22 - 52 cm??? LA Volume Index 86.4 cm???/m??? 16 - 28 cm???/m??? M-MODE Aortic Root Diameter MM 3.2 cm MV E Point Septal Separation 0.6 cm AV Cusp Separation MM 1.9 cm DOPPLER AV Peak Velocity 306.7 cm/s AV Peak Gradient 37.6 mmHg AV Mean Velocity 218.8 cm/s AV Mean Gradient 21.2 mmHg AV Velocity Time Integral 68.7 cm AI Peak Velocity 449.0 cm/s AI Peak Gradient 80.7 mmHg AI Pressure Half Time 861.5 ms LVOT Peak Velocity 82.3 cm/s LVOT Peak Gradient 2.7 mmHg AV Area Cont Eq pk 1.4 cm??? MV Area PHT 5.7 cm??? MV Deceleration Time 137.9 ms TR Peak Velocity 316.6 cm/s TR Peak Gradient 40.1 mmHg Right Ventricular Systolic Press 45.1 mmHg FINDINGS Left Ventricle Left ventricular ejection fraction is estimated at 40-45 %. Mildly increased septal wall thickness. Mildly increased posterior wall thickness. Severely increased left ventricular diastolic diameter. Right Ventricle Normal right ventricular size. Moderate pulmonary hypertension. Right ventricular systolic pressure estimated at 45 mm hg. Right Atrium Severe right atrial dilatation. Left Atrium Severely increased left atrial diameter. Severely increased left atrial volume. Moderately increased left atrial area. Mitral Valve Mitral valve thickened. Mild mitral annular calcification. [id number] mitral regurgitation. Aortic Valve Trileaflet aortic valve. Aortic valve sclerosis. Moderate aortic stenosis with a peak gradient of 38 mmHg and a mean gradient of 21 mmHg. moderate aortic regurgitation. Tricuspid Valve Structurally normal tricuspid valve. Mild tricuspid regurgitation. Pulmonic Valve Structurally normal pulmonic valve. Trace pulmonic regurgitation. Pericardium No pericardial effusion. Aorta Normal size aortic root and proximal ascending aorta. CONCLUSIONS Technically difficult study for interpretation Mildly impaired LV function with EF between 40-45% Severe biatrial enlargement Moderate to severe mitral regurgitation Moderate aortic stenosis and moderate aortic insufficiency Previewed by: Dr. Omar Tang MD (Electronically Signed) Final Date: 30 July 2023 17:59
[2023-07-30] MEDS: LATANOPROST 0.005% OPHTH DROPS 2.5 ML BTL BOTH EYES SCH (20:10)
[2023-07-31 07:41] LABS: Glucose,Whole Blood 138 mg/dL (70-110)
[2023-07-31] MEDS: INSULIN ASPART (NovoLOG) 100 UNIT/ML VIAL SQ SCH ×3 (08:09→17:18)
[2023-07-31] MEDS: atenoloL 25 MG TAB PO SCH (08:23)
[2023-07-31] MEDS: FUROSEMIDE 20 MG TAB PO SCH (08:23)
[2023-07-31] MEDS: VIT A,C & E-LUTEIN-MINERALS 1 EACH TAB PO SCH (08:24)
[2023-07-31] MEDS ORDERED: metFORMIN 500 MG TAB PO SCH (09:00)
[2023-07-31 11:43] LABS: Magnesium 1.4 mg/dL (1.5-2.4)
[2023-07-31 11:46] LABS: ALT 13 U/L (8-44); AST 26 U/L (13-35); Albumin 3.2 g/dL (3.8-4.9); Albumin/Globulin Ratio 1.45 Ratio (1.60-3.17); Alkaline Phosphatase 81 U/L (41-126); Blood Urea Nitrogen 20.8 mg/dL (9.0-27.0); Calcium 8.8 mg/dL (8.7-10.3); Carbon Dioxide 20.9 mmol/L (21.6-31.8); Chloride 102 mmol/L (96-109); Globulin 2.2 g/dL (1.6-3.3); Glucose 142 mg/dL (70-110); Potassium 3.5 mmol/L (3.5-5.5); Sodium 140 mmol/L (135-145); Total Bilirubin 0.6 mg/dL (0.3-1.2); Total Protein 5.4 g/dL (6.2-8.2)
[2023-07-31 11:51] LABS: Glucose,Whole Blood 176 mg/dL (70-110)
[2023-07-31] MEDS: KETOROLAC 0.5% OPHTH DROPS 5 ML BTL LEFT EYE SCH ×4 (12:30→20:40)
--- NOTE | 2023-07-31 12:33 | P.CRDCN ---
History of Present Illness Consult date: 07/31/23 Reason for Consult (text): Severe aortic stenosis and regurgitation History of present illness: History of present illness: This is an 88-year-old female patient of Dr. Waldemar Garzon with past medical history of hypertension, dyslipidemia, permanent atrial fibrillation, aortic stenosis and regurgitation. We have been asked to evaluate the patient for severe aortic stenosis and regurgitation, atrial fibrillation controlled. Family member at bedside states that patient's has been hospitalized and is in the intensive care unit. Patient is unable to manage at home by herself. She has severe dementia. Patient has not complained of any chest pain, shortness of breath, lightheadedness or dizziness. Echocardiogram performed on 07/30/2023 revealed technically difficult study for interpretation. Mildly impaired LV function with EF of 40 to 45%. Severe biatrial enlargement. Moderate to severe mitral regurgitation. Moderate aortic stenosis and moderate aortic insufficiency. According to patient's family, they are looking at getting her placed in a safe environment. Would not want any workup for aortic stenosis. EKG atrial fibrillation with ventricular rate of 68 bpm WBC 6.6, hemoglobin 12.1, platelet count 212. Electrolytes unremarkable. BUN 20 creatinine 1.3. Blood sugar 142. Hemoglobin A1c 7.3. Magnesium 1.4. Liver function test within normal limits. Troponin negative x 1. proBNP 18,900. TSH 1.67. Home cardiac medications: Atenolol 25 mg daily, Lasix 20 mg daily, Xarelto. Review Of Systems: At the time of my evaluation: Constitutional: No fever, no chills. Reported weakness, reported fatigue. EENT: No headache. No dizziness. Lungs: No shortness of breath, cough, no sputum production. No wheezing. Cardiovascular: No chest pain, no lower extremity edema. No lightheadedness or dizziness. No syncopal episodes. Musculoskeletal:+ muscle weakness. Integumentary: No wounds. Neurologic: No aphasia. No facial droop. Noted change in mentation. Physical examination: Gen: This is an 88-year-old female appears to be in no acute distress. VS: reviewed HEENT: Head is atraumatic, normocephalic. Pupils equal, round. Sclerae is anicteric. LUNGS: Clear to auscultation. No wheezes or rhonchi. No intercostal retractions. HEART: Irregular rate and rhythm. No murmur. ABDOMEN: Soft No tenderness. EXTREMITIES: No pedal edema. No calf tenderness. NEUROLOGICAL: Patient is awake. Assessment: Valvular heart disease with moderate aortic stenosis and moderate aortic insufficiency, moderate to severe mitral regurgitation Permanent atrial fibrillation Hypertension Dyslipidemia Plan: Resume patient's home cardiac medications Family does not wish to pursue any investigation into aortic stenosis. Cardiology will sign off this case and follow on an as-needed basis. Please reconsult for any new concerns. Patient may follow-up in the office in one to 2 weeks. Thank you kindly for this consultation. Nurse practitioner note has been reviewed, I agree with documented findings and plan of care. Patient was seen and examined. Past Medical History Past Medical History: Atrial Fibrillation, Cancer, Diabetes Mellitus, Hypertension Additional Past Medical History / Comment(s): colon cancer History of Any Multi-Drug Resistant Organisms: None Reported Past Surgical History: Bowel Resection, Cholecystectomy, Hernia Repair, Hysterectomy Additional Past Surgical History / Comment(s): cataract surgery; bowel resection June 2017 r/t colon cancer Past Anesthesia/Blood Transfusion Reactions: Postoperative Nausea & Vomiting (PONV) Additional Past Anesthesia/Blood Transfusion Reaction / Comment(s): Has had bl ood transfusion; no reaction. Past Psychological History: No Psychological Hx Reported Smoking Status: Never smoker Past Alcohol Use History: None Reported Past Drug Use History: None Reported - Past Family History Sister(s) Family Medical History: Cancer Additional Family Medical History / Comment(s): both sisters had cancer. one had colon cancer. other sister in her thirties from cancer (unknown) but she had a hysterectomy prior to her . Brother(s) Family Medical History: Cancer Additional Family Medical History / Comment(s): colon cancer Mother Family Medical History: Cancer Additional Family Medical History / Comment(s): breast cancer and colon cancer Father Family Medical History: CVA/TIA, Dementia, Diabetes Mellitus Medications and Allergies Home Medications Medication Instructions Recorded Confirmed Type Furosemide [Lasix] 20 mg PO DAILY 01/20/20 07/29/23 History Timolol 0.5% Ophth Soln [Timoptic 1 drop BOTH EYES BID 01/20/20 07/29/23 History 0.5% Ophth Soln] metFORMIN HCL [Glucophage] 1,000 mg PO DAILY 01/20/20 07/29/23 History Ketorolac 0.5% Ophth Soln [Acular 1 drop LEFT EYE QID 07/29/23 07/29/23 History 0.5%] Latanoprost [Latanoprost 0.005%] 1 drop BOTH EYES HS 07/29/23 07/29/23 History Vit C/E/Zn/Coppr/Lutein/Zeaxan 1 cap PO DAILY 07/29/23 07/29/23 History [Preservision Areds 2 Softgel] atenoloL [Tenormin] 25 mg PO DAILY 07/29/23 07/29/23 History Allergies Allergy/AdvReac Type Severity Reaction Status Date / Time No Known Allergies Allergy Verified 07/29/23 16:41 Physical Exam Vitals: Vital Signs Temp Pulse Pulse Resp BP BP Pulse Ox 07/31/23 07:30 98 F 64 18 167/77 94 L 07/31/23 02:00 98.4 F 58 L 16 150/77 94 L 07/30/23 23:15 98.3 F 58 L 16 148/79 94 L 07/30/23 22:00 60 20 155/85 97 07/30/23 15:20 98.9 F 57 L 16 148/80 94 L Intake and Output 07/30/23 07/31/23 07/31/23 22:59 06:59 14:59 Output Total 200 Balance -200 Output: Urine 200 Other: Voiding Method External Catheter External Catheter Results 07/30/23 06:10 07/31/23 05:42 Cardiac Enzymes 07/30/23 07/30/23 Range/Units 15:24 16:29 AST 28 (14-36) U/L Troponin I 0.031 (0.000-0.034) ng/mL CBC 07/30/23 Range/Units 06:10 WBC 6.68 (4.50-10.00) X 10*3/uL RBC 4.45 (4.10-5.20) X 10*6/uL Hgb 12.1 (12.0-15.0) g/dL Hct 38.7 (37.2-46.3) % Plt Count 212 (140-440) X 10*3/uL Comprehensive Metabolic Panel 07/30/23 07/30/23 Range/Units 06:10 16:29 Sodium 135 137 (135-145) mmol/L Potassium 6.2 A* 3.5 (3.5-5.5) mmol/L Chloride 100 104 (96-109) mmol/L Carbon Dioxide 21.1 L 22 (21.6-31.8) mmol/L BUN 23.5 24 H (9.0-27.0) mg/dL Creatinine 1.3 1.09 H (0.6-1.5) mg/dL Glucose 144 H 145 H (70-110) mg/dL Calcium 8.9 8.7 (8.7-10.3) mg/dL AST 28 (14-36) U/L ALT 17 (4-34) U/L Alkaline Phosphatase 84 (38-126) U/L Total Protein 5.9 L (6.3-8.2) g/dL Albumin 3.1 L (3.5-5.0) g/dL Current Medications Generic Name Dose Route Start Last Admin Trade Name Freq PRN Reason Stop Dose Admin Acetaminophen 650 mg 07/29/23 20:27 Acetaminophen Tab 325 Mg Tab PO Q6HR PRN Mild Pain or Fever > 100.5 Atenolol 25 mg 07/30/23 09:00 07/31/23 08:23 Atenolol 25 Mg Tab PO 25 mg DAILY BRIDGETTE Administration Furosemide 20 mg 07/30/23 09:00 07/31/23 08:23 Furosemide 20 Mg Tab PO 20 mg DAILY BRIDGETTE Administration Insulin Aspart 2 - 10 unit 07/30/23 17:30 07/31/23 08:09 Insulin Aspart (Novolog) 100 Unit/Ml Vial SQ Not Given AC-TID [facility] Protocol Ketorolac Tromethamine 1 drops 07/29/23 22:00 07/30/23 20:10 Ketorolac 0.5% Ophth Drops 5 Ml Btl LEFT EYE 1 drops QID BRIDGETTE Administration Latanoprost 1 drops 07/29/23 21:00 07/30/23 20:10 Latanoprost 0.005% Ophth Drops 2.5 Ml Btl BOTH EYES 1 drops HS BRIDGETTE Administration Metformin HCl 1,000 mg 07/31/23 09:00 07/31/23 08:23 Metformin 500 Mg Tab PO 1,000 mg DAILY BRIDGETTE Administration Multivitamins/Minerals 1 each 07/31/23 09:00 07/31/23 08:24 Vit A,C & [id number] 1 Each Tab PO 1 each DAILY BRIDGETTE Administration Naloxone HCl 0.2 mg 07/29/23 20:27 Naloxone 0.4 Mg/Ml 1 Ml Vial IV Q2M PRN Opioid Reversal Ondansetron HCl 4 mg 07/29/23 20:27 Ondansetron 4 Mg/2 Ml Vial IVP Q8HR PRN Nausea And Vomiting Rivaroxaban 15 mg 07/30/23 17:30 07/30/23 17:33 Rivaroxaban 15 Mg Tab PO 15 mg W/SUPPER BRIDGETTE Administration Protocol Timolol Maleate 1 drops 07/29/23 21:00 07/30/23 20:10 Timolol 0.5% Ophth Drops 5 Ml Btl BOTH EYES 1 drops BID BRIDGETTE Administration Intake and Output 07/30/23 07/31/23 07/31/23 22:59 06:59 14:59 Output Total 200 Balance -200 Output: Urine 200 Other: Voiding Method External Catheter External Catheter 07/30/23 06:10 07/30/23 16:29
--- NOTE | 2023-07-31 13:15 | P.CN ---
Psychiatric Consult - . Consult date: 07/31/23 Consult:: 07/31/23 12:47 IDENTIFYING DATA: This patient is a 88-year-old female, currently lives at home with her REASON FOR REFERRAL: Psychiatry was consulted for depression, anxiety and dementia HISTORY OF PRESENT ILLNESS: The patient presented to the hospital initially on 07/29 to the ER brought in by daughter. Apparently patient has history of dementia A-fib and diabetes mellitus. Patient was brought in for long-term p lacement as family cannot take care of her at home and she cannot care for herself. Patient was seen today sitting in her chair. She was fairly pleasant during conversation. She was a bit hesitant with some of her answers. She believed that it was "1984" today, she knew her name and also correct location. She did not know why she is in the hospital. She believes that she lives at home with her mother and father. She denies any issues with her mood and claims that her anxiety is "fine". Claims that her sleep and appetite are fair. At this time patient denies any suicidal or homical ideations, intent or plan. Patient denies any auditory, visual hallucinations and denies any paranoia or delusions. Patients admits to using no recreational drugs or cigarettes. Correctional Classification Counselor spoke with patient's daughters outside of the room. They claim that patient has progressively worsened with her dementia over the past few years. They state that it is more difficult to care for her at home and she is not regular with her medications. They state that her sleep has also been on and off and her appetite has been poor at times. They are continuing to look for fci placement at this time. PAST PSYCHIATRIC HISTORY: Patient has a a history of dementia. Patient denies being on any psychiatric medications. Patient denies any previous psychiatric hospitalizations. Patient denies any psychiatric outpatient follow-up. Patient denies any history of suicide attempts in the past. Past Medical History: Atrial Fibrillation, Cancer, Diabetes Mellitus, Hypertension Additional Past Medical History / Comment(s): colon cancer History of Any Multi-Drug Resistant Organisms: None Reported Past Surgical History: Bowel Resection, Cholecystectomy, Hernia Repair, Hysterectomy Additional Past Surgical History / Comment(s): cataract surgery; bowel resection June 2017 r/t colon cancer Past Anesthesia/Blood Transfusion Reactions: Postoperative Nausea & Vomiting (PONV) Additional Past Anesthesia/Blood Transfusion Reaction / Comment(s): Has had blood transfusion; no reaction. Past Psychological History: No Psychological Hx Reported Smoking Status: Never smoker Past Alcohol Use History: None Reported Past Drug Use History: None Reported ALLERGIES: as per EMR. CHEMICAL DEPENDENCY HISTORY: as per HPI. FAMILY PSYCHIATRIC/SUBSTANCE USE HISTORY: Denies SOCIAL HISTORY: Patient was born and raised in [facility]. States that she completed high school, used to work at a general store in the past. Denies any legal history. Patient has 2 daughters, currently lives at home with her . MENTAL STATUS EXAM: General Appearance: Patient appears to be have short hair, wearing glasses, stated age is alert, pleasant, and cooperative. Patient appears to have fair hygiene and grooming wearing hospital gown with fair eye contact. Behavior: Patient is calmly lying in bed without any agitated behavior. Speech: Patient's speech is fluent and nonpressured. Hesitant at times. [place] Mood/Affect: Patient reports their mood is "good", affect is congruent Suicidality/Homicidality: Patient denies having any suicidal or homicidal ideation intent or plan. Perceptions: Patient denies any visual hallucinations and denies any auditory hallucinations Though content/process: There is no evidence of any delusional thought content. Attempts to cooperate. No delusions. Memory and concentration: AOX2, does not know today's date, can identify objects. Cannot spell "WORLD" backwards Judgment and insight: Chronically limited IMPRESSIONS: Major neurocognitive disorder Insomnia PLAN: -At this time patient DOES NOT meet criteria for inpatient psychiatric admission. -Delirium precautions recommended with patient including - avoiding use of narcotics and SAS SQL DEVELOPER sedatives, limit anticholinergic medications when possible, frequent re-orientation, minimize use of restraints, open window shades during the day and close them at night -Would recommend the following medication changes/additions: Start Remeron 7.5 mg nightly for insomnia/mood -Communicated plan to patient's nurse -Psychiatry will sign off at this time -Please contact with any questions. 07/31/23 13:11
--- NOTE | 2023-07-31 13:32 | XR ---
EXAMINATION TYPE: XR chest 2V DATE OF EXAM: 07/31/2023 1:25 PM CLINICAL INDICATION:Female, 88 years old with history of pneumonia; [facility] COMPARISON: Chest radiographs from 01/20/2020 TECHNIQUE: XR chest 2V Frontal and lateral views of the chest. FINDINGS: Lungs/Pleura: There is no evidence of pleural effusion, focal consolidation, or pneumothorax. Pulmonary vascularity: Unremarkable. Heart/mediastinum: Cardiomediastinal silhouette is enlarged and stable. Atherosclerotic calcificatio ns are seen in the aorta. Musculoskeletal: No acute osseous pathology. IMPRESSION: No acute cardiopulmonary disease/process.
[2023-07-31] MEDS: TIMOLOL 0.5% OPHTH DROPS 5 ML BTL BOTH EYES SCH ×2 (15:16→20:40)
[2023-07-31 17:00] LABS: Glucose,Whole Blood 151 mg/dL (70-110)
[2023-07-31] MEDS: RIVAROXABAN 15 MG TAB PO SCH (17:23)
--- NOTE | 2023-07-31 17:33 | P.PN ---
Subjective Progress Note Date: 07/31/23 Principal diagnosis: Diagnosis: 1. Cardiomyopathy with ejection fraction 40 to 45% probably ischemic however we do not have the cardiology note of his impression at this time 2. She had abnormal pro BNP on admission. 3. Seen by Dr. Castle as psychiatrist with the impression severe neurocognitive function impairment 4. Dementia however we do not have the neurology assessing the patient yet with the possible Alzheimer's type 5. Mild acidosis with the carbon dioxide 20 with a suspicious of metformin with the acidosis will be discontinued 6. Diabetes mellitus type 2. 7. Chronic kidney disease stage III 8. Mild dehydration will discontinue Lasix for now 9. Elevated procalcitonin consult with infectious disease, started on IV 20 cc an hour, discontinuation of the Lasix 10. Thyroid function is normal with the TSH 1.670. 11. Anion gap 17 with possible mild dehydration. #12 Severe debility with the planned assisted placement. Progress note Dictation by Dr. Cuevas Date of service 07/31/2023 Patient seen today history of face discussed with her daughter who is the caregiver in detail and excessive time Discussed with her also the consultation with the psychiatrist, and echocardiogram Waiting for the chief communications officer opinion and recommendation, only seen by nurse practitioner Consultation to the infectious disease is pending Consultation with neurology is pending Patient had physical therapy consult and case investigator consult. On the physical exam today Temperature 98.4 F oral, her heart rate ranging between 59 and 64 with the irregular irregularities and atrial fibrillation chronic and covered with Xarelto. Respiratory rate 18/min none labored with the oxygen saturation 98% on room air Blood pressure 143/76 with a mean 98. Head was normocephalic atraumatic pupils equal reactive oropharynx negative able to eat however she is not eating well or drinking well as well She had no emotions facial and hard to communicate, as you have to pull the word out of her. Neck was supple no JVD no thyromegaly no lymphadenopathy Chest normal breath sound bilaterally Heart she had murmur on the apex and the base of the heart Echocardiogram indicating left ventricular ejection fraction 40-45% with mild increased septal wall thickening, mild increase posterior wall thickening Severely increased left ventricular diastolic diameter. Moderate pulmonary hypertension right ventricular systolic function pressure 45 mmHg, right atrium severely right atrial dilatation, left atrium severely increased left atrial diameter and severely increased left atrial volume Mitral valve calcification, moderate to severe mitral regurg Aortic valve trileaflet, moderate aortic stenosis with a peak gradient 38 mmHg and the mean gradient 21 mmHg, moderate aortic regurg. Mild tricuspid regurg, pulmonary valve pulmonary regurg. Abdomen: Soft positive bowel sound history of colon resection with a scar Extremities no edema positive pulses however slightly diminished and multiple bruises in both lower extremities from the Xarelto. Psychiatry: Per psychiatry note Neurology waiting for the evaluation. Assessment: Cardiomyopathy unclear yet ischemic waiting for cardiology input Impaired systolic ejection fraction with the diastolic abnormality biventricular Atrial fibrillation with controlled ventricular response. Mild carbon dioxide decreased with indicating of mild acidosis suspicious of metformin which was discontinued Diabetes mellitus type 2 covered with insulin to scale Dehydration mild Cognitive function impairment Mild depression. Severe debility with wobbly on walking. Plan: 1. Will continue the current treatment #2 waiting for neurology evaluation #3 waiting for the cardiology input 4. In regard of diabetes mellitus will discontinue metformin and start Jardiance small dose 5 mg 5. Discontinuation of Lasix with the mild dehydration 6. Starting IV 0.9 normal saline 20 cc an hour for gentle hydration 7. Discontinuation of the Lasix. 8. Waiting also for the input of the case investigator and discharge planning for [facility] and rehab for acceptance as well 9. Patient , and [facility] for cardiac treatment, could not take care of her and she need constant care and her family wants her to be in a assisted. Objective - Vital Signs Vital signs: Vital Signs Temp 98.4 F 07/31/23 12:40 Pulse 59 L 07/31/23 12:40 Resp 18 07/31/23 12:40 BP 143/76 07/31/23 12:40 Pulse Ox 98 07/31/23 12:40 FiO2 Intake & Output 07/30/23 07/31/23 07/31/23 18:59 06:59 18:59 Output Total 200 Balance -200 Weight 77.111 kg Output: Urine 200 Other: Voiding Method External Catheter External Catheter External Catheter # Voids 1 # Bowel Movements 1 - Labs CBC & Chem 7: 07/30/23 06:10 07/31/23 05:42 Labs: Abnormal Lab Results - Last 24 Hours (Table) 07/30/23 07/30/23 07/31/23 Range/Units 16:29 16:29 05:42 Carbon Dioxide 20.9 L (21.6-31.8) mmol/L Anion Gap 17.10 H (4.00-12.00) mmol/L Est GFR (CKD-EPI) 40 L (>=60) Glucose 142 H (70-110) mg/dL POC Glucose (mg/dL) (70-110) mg/dL Hemoglobin A1c 7.3 H (<=6.0) % Magnesium 1.4 L (1.5-2.4) mg/dL Total Protein 5.4 L (6.2-8.2) g/dL Albumin 3.2 L (3.8-4.9) g/dL Albumin/Globulin Ratio 1.45 L (1.60-3.17) Ratio Procalcitonin 0.11 H (0.02-0.09) ng/mL 07/31/23 07/31/23 07/31/23 Range/Units 07:39 11:50 16:59 Carbon Dioxide (21.6-31.8) mmol/L Anion Gap (4.00-12.00) mmol/L Est GFR (CKD-EPI) (>=60) Glucose (70-110) mg/dL POC Glucose (mg/dL) 138 H 176 H 151 H (70-110) mg/dL Hemoglobin A1c (<=6.0) % Magnesium (1.5-2.4) mg/dL Total Protein (6.2-8.2) g/dL Albumin (3.8-4.9) g/dL Albumin/Globulin Ratio (1.60-3.17) Ratio Procalcitonin (0.02-0.09) ng/mL
[2023-07-31] MEDS: DAPAGLIFLOZIN PROPANEDIOL 5 MG TABLET PO SCH (18:32)
[2023-07-31] MEDS: SODIUM CHLORIDE 0.9% 500 ML 500 ML IV SCH (18:32)
[2023-07-31 20:28] LABS: Glucose,Whole Blood 212 mg/dL (70-110)
[2023-07-31] MEDS: MIRTAZAPINE 15 MG TAB PO SCH (20:39)
[2023-07-31] MEDS: LATANOPROST 0.005% OPHTH DROPS 2.5 ML BTL BOTH EYES SCH (21:36)
--- NOTE | 2023-08-01 06:11 | P.CONS ---
History of Present Illness - Reason for Consult Consult date: 07/31/23 - History of Present Illness Patient is a 88-year-old female with a past medical history significant for diabetes mellitus hypertension atrial fibrillation history of colon cancer patient was brought into the hospital for possible placement as apparently the patient lives alone at home and the is in the hospital and cannot be kept at home alone patient on arrival to the ER was without any complaint patient did have underlying history of dementia baseline alert oriented x 2 patient on presentation to the hospital was noticed to be afebrile and no fever have been recorded subsequently patient was not tachycardic hypotensive or hypoxic patient did have a white count of 6.8 with no left shift she did have elevated BUN and creatinine admission subsequently creatinine has normalized liver isms are normal patient procalcitonin was mildly elevated at 0.11 prompted this infectious disease consultation patient did have a negative UA I did order chest x-ray which was reported negative for acute cardiopulmonary disease process infectious disease was consulted regarding suspicious for infection elevated procalcitonin. Patient as mentioned earlier has been afebrile patient overall not a very good historian however she is simply breathing comfortably on room air and specifically for any chest pain or cough reply was no no vomiting or diarrhea has been noticed the patient did have a large blister to the right lateral knee area no clear history of any trauma or fall or any drainage Past Medical History Past Medical History: Atrial Fibrillation, Cancer, Diabetes Mellitus, Hypertension Additional Past Medical History / Comment(s): colon cancer History of Any Multi-Drug Resistant Organisms: None Reported Past Surgical History: Bowel Resection, Cholecystectomy, Hernia Repair, Hyst erectomy Additional Past Surgical History / Comment(s): cataract surgery; bowel resection June 2017 r/t colon cancer Past Anesthesia/Blood Transfusion Reactions: Postoperative Nausea & Vomiting (PONV) Additional Past Anesthesia/Blood Transfusion Reaction / Comm: Has had blood transfusion; no reaction. Past Psychological History: No Psychological Hx Reported Smoking Status: Never smoker Past Alcohol Use History: None Reported Past Drug Use History: None Reported - Past Family History Sister(s) Family Medical History: Cancer Additional Family Medical History / Comment(s): both sisters had cancer. one had colon cancer. other sister in her thirties from cancer (unknown) but she had a hysterectomy prior to her . Brother(s) Family Medical History: Cancer Additional Family Medical History / Comment(s): colon cancer Mother Family Medical History: Cancer Additional Family Medical History / Comment(s): breast cancer and colon cancer Father Family Medical History: CVA/TIA, Dementia, Diabetes Mellitus Medications and Allergies Home Medications Medication Instructions Recorded Confirmed Type Furosemide [Lasix] 20 mg PO DAILY 01/20/20 07/29/23 History Timolol 0.5% Ophth Soln [Timoptic 1 drop BOTH EYES BID 01/20/20 07/29/23 History 0.5% Ophth Soln] metFORMIN HCL [Glucophage] 1,000 mg PO DAILY 01/20/20 07/29/23 History Ketorolac 0.5% Ophth Soln [Acular 1 drop LEFT EYE QID 07/29/23 07/29/23 History 0.5%] Latanoprost [Latanoprost 0.005%] 1 drop BOTH EYES HS 07/29/23 07/29/23 History Vit C/E/Zn/Coppr/Lutein/Zeaxan 1 cap PO DAILY 07/29/23 07/29/23 History [Preservision Areds 2 Softgel] atenoloL [Tenormin] 25 mg PO DAILY 07/29/23 07/29/23 History Allergies Allergy/AdvReac Type Severity Reaction Status Date / Time No Known Allergies Allergy Verified 07/29/23 16:41 Physical Exam Vitals: Vital Signs Temp Pulse Pulse Resp BP BP Pulse Ox 07/31/23 07:30 98 F 64 18 167/77 94 L 07/31/23 02:00 98.4 F 58 L 16 150/77 94 L 07/30/23 23:15 98.3 F 58 L 16 148/79 94 L 07/30/23 22:00 60 20 155/85 97 07/30/23 15:20 98.9 F 57 L 16 148/80 94 L Intake and Output 07/30/23 07/31/23 07/31/23 22:59 06:59 14:59 Output Total 200 Balance -200 Output: Urine 200 Other: Voiding Method External Catheter External Catheter Results CBC & Chem 7: 07/30/23 06:10 07/31/23 05:42 Labs: Abnormal Lab Results - Last 24 Hours (Table) 07/30/23 07/30/23 07/30/23 Range/Units 06:10 06:10 11:57 MCHC 31.3 L (32.0-37.0) g/dL RDW 15.8 H (11.5-14.5) % Eosinophils # 0.03 L (0.04-0.35) X 10*3/uL Potassium 6.2 A* (3.5-5.5) mmol/L Carbon Dioxide 21.1 L (21.6-31.8) mmol/L Anion Gap 13.90 H (4.00-12.00) mmol/L BUN (7-17) mg/dL Creatinine (0.52-1.04) mg/dL Est GFR (CKD-EPI) 40 L (>=60) Glucose 144 H (70-110) mg/dL POC Glucose (mg/dL) 146 H (70-110) mg/dL Hemoglobin A1c (<=6.0) % Total Protein (6.3-8.2) g/dL Albumin (3.5-5.0) g/dL Procalcitonin (0.02-0.09) ng/mL 07/30/23 07/30/23 07/30/23 Range/Units 16:29 16:29 16:29 MCHC (32.0-37.0) g/dL RDW (11.5-14.5) % Eosinophils # (0.04-0.35) X 10*3/uL Potassium (3.5-5.5) mmol/L Carbon Dioxide (21.6-31.8) mmol/L Anion Gap (4.00-12.00) mmol/L BUN 24 H (7-17) mg/dL Creatinine 1.09 H (0.52-1.04) mg/dL Est GFR (CKD-EPI) (>=60) Glucose 145 H (70-110) mg/dL POC Glucose (mg/dL) (70-110) mg/dL Hemoglobin A1c 7.3 H (<=6.0) % Total Protein 5.9 L (6.3-8.2) g/dL Albumin 3.1 L (3.5-5.0) g/dL Procalcitonin 0.11 H (0.02-0.09) ng/mL 07/30/23 07/31/23 Range/Units 16:34 07:39 MCHC (32.0-37.0) g/dL RDW (11.5-14.5) % Eosinophils # (0.04-0.35) X 10*3/uL Potassium (3.5-5.5) mmol/L Carbon Dioxide (21.6-31.8) mmol/L Anion Gap (4.00-12.00) mmol/L BUN (7-17) mg/dL Creatinine (0.52-1.04) mg/dL Est GFR (CKD-EPI) (>=60) Glucose (70-110) mg/dL POC Glucose (mg/dL) 137 H 138 H (70-110) mg/dL Hemoglobin A1c (<=6.0) % Total Protein (6.3-8.2) g/dL Albumin (3.5-5.0) g/dL Procalcitonin (0.02-0.09) ng/mL Assessment and Plan Plan: 1patient did have mildly elevated procalcitonin of 0.11 and this patient currently do not have any fever white count is normal patient did not have any wheezes or crackle on clinical examination and did have a normal chest x-ray clinical suspicion is low for pneumonia for which this biomarker is specific 2-patient also noticed to have a blister to the right lateral knee/leg area but no features of any cellulitis we will recommend local care 3-no need for systemic antibiotic therapy 4-local care to the right lateral knee blister area with a ABD and will benefit from mild compression dressing with Dale wrap We will follow on clinical condition and cultures to further adjust medication if needed Thank you for this consultation we will follow the patient along with you Dictation was produced using [employer] software. please excuse any grammatical, word or spelling errors.
[2023-08-01 07:03] LABS: Glucose,Whole Blood 151 mg/dL (70-110)
[2023-08-01] MEDS: INSULIN ASPART (NovoLOG) 100 UNIT/ML VIAL SQ SCH ×3 (07:58→17:29)
[2023-08-01] MEDS: VIT A,C & E-LUTEIN-MINERALS 1 EACH TAB PO SCH (09:44)
[2023-08-01] MEDS: atenoloL 25 MG TAB PO SCH (09:44)
[2023-08-01] MEDS: DAPAGLIFLOZIN PROPANEDIOL 5 MG TABLET PO SCH ×2 (09:44→10:22)
[2023-08-01] MEDS: TIMOLOL 0.5% OPHTH DROPS 5 ML BTL BOTH EYES SCH ×2 (09:45→20:02)
[2023-08-01] MEDS: KETOROLAC 0.5% OPHTH DROPS 5 ML BTL LEFT EYE SCH ×4 (09:45→21:34)
[2023-08-01 11:55] LABS: Glucose,Whole Blood 134 mg/dL (70-110)
[2023-08-01] MEDS ORDERED: CYANOCOBALAMIN 1,000 MCG/ML 1 ML VIAL IM ONE (14:35)
--- NOTE | 2023-08-01 14:57 | P.CNNES ---
History of Present Illness Consult date: 08/01/23 Requesting physician: Omid Cuevas Reason for Consult: Progressive dementia with debility History of Present Illness: Patient is a 88-year-old right-handed female, who went to the hospital because having 1 week history of pain in the left lateral upper quadrant region. She said that she came to have it checked out. Vital signs on arrival blood pressure 164/93, which came up to 180/106 and then 158/99. Pulse rate 52, temperature 98.0. Most recent blood test shows normal electrolytes, BUN 20, creatinine 1.3. Hepatic panel is normal, troponin is negative. TSH is normal 1.67. Patient lives with her , has 4 children. She walks with a walker and has been using it for last 1 year. Patient claims her memory is good. She has never smoked does not drink alcohol. Denies any blood pressure or diabetes. No history of strokes or TIA. UA is negative. Hemoglobin A1c 7.3. EKG shows atrial fibrillation. There is no conduction block noted in the EKG. I spoke to patient's son and then patient's daughter Melody on the phone. Both of them mentioned that patient does not want to do anything around her. She just sits there most of the time. If the physical therapist comes, she is not too bad and would participate, otherwise she does not listen to her family. This is the reason, they brought her to the hospital so she can be evaluated for rehabilitation. They also mention that patient has mild dementia, and they are interested in patient to be started on some treatment for it. They believe her memory problem is going on for last 1 to 1-1/2 years. It has gotten slightly worse over time. Some days she is much clearer, the days she is slightly more confused. Review of Systems Constitutional: Denies chills, Denies fever Eyes: denies blurred vision, denies diplopia, denies pain Ears: deny: decreased hearing, ear discharge Ears, nose, mouth and throat: Denies headache, Denies sore throat, Denies vertigo Cardiovascular: Denies chest pain, Denies lightheadedness, Denies shortness of breath Respiratory: Reports cough, Denies excessive sputum Gastrointestinal: Denies abdominal pain, Denies diarrhea, Denies nausea, Denies vomiting Genitourinary: Denies urge incontinence, Denies urinary frequency Musculoskeletal: Denies low back pain, Denies myalgias, Denies neck pain Integumentary: Denies pruritus, Denies rash Neurological: Reports as per HPI Psychiatric: Denies anxiety, Denies depression Endocrine: Denies fatigue, Denies weight change Hematologic/Lymphatic: Reports easy bleeding, Reports easy bruising Past Medical History Past Medical History: Atrial Fibrillation, Cancer, Diabetes Mellitus, Hypertension Additional Past Medical History / Comment(s): colon cancer History of Any Multi-Drug Resistant Organisms: None Reported Past Surgical History: Bowel Resection, Cholecystectomy, Hernia Repair, Hy sterectomy Additional Past Surgical History / Comment(s): cataract surgery; bowel resection June 2017 r/t colon cancer Past Anesthesia/Blood Transfusion Reactions: Postoperative Nausea & Vomiting (PONV) Additional Past Anesthesia/Blood Transfusion Reaction / Comment(s): Has had blood transfusion; no reaction. Past Psychological History: No Psychological Hx Reported Smoking Status: Never smoker Past Alcohol Use History: None Reported Past Drug Use History: None Reported - Past Family History Sister(s) Family Medical History: Cancer Additional Family Medical History / Comment(s): both sisters had cancer. one had colon cancer. other sister in her thirties from cancer (unknown) but she had a hysterectomy prior to her . Brother(s) Family Medical History: Cancer Additional Family Medical History / Comment(s): colon cancer Mother Family Medical History: Cancer Additional Family Medical History / Comment(s): breast cancer and colon cancer Father Family Medical History: CVA/TIA, Dementia, Diabetes Mellitus Medications and Allergies Home Medications Medication Instructions Recorded Confirmed Type Furosemide [Lasix] 20 mg PO DAILY 01/20/20 07/29/23 History Timolol 0.5% Ophth Soln [Timoptic 1 drop BOTH EYES BID 01/20/20 07/29/23 History 0.5% Ophth Soln] metFORMIN HCL [Glucophage] 1,000 mg PO DAILY 01/20/20 07/29/23 History Ketorolac 0.5% Ophth Soln [Acular 1 drop LEFT EYE QID 07/29/23 07/29/23 History 0.5%] Latanoprost [Latanoprost 0.005%] 1 drop BOTH EYES HS 07/29/23 07/29/23 History Vit C/E/Zn/Coppr/Lutein/Zeaxan 1 cap PO DAILY 07/29/23 07/29/23 History [Preservision Areds 2 Softgel] atenoloL [Tenormin] 25 mg PO DAILY 07/29/23 07/29/23 History Allergies Allergy/AdvReac Type Severity Reaction Status Date / Time No Known Allergies Allergy Verified 07/29/23 16:41 Physical Examination - Vital Signs Vital Signs: Vital Signs Temp Pulse Resp BP Pulse Ox 08/01/23 13:53 98.4 F 74 20 162/75 96 08/01/23 07:05 98.5 F 75 16 165/84 96 08/01/23 02:00 98.4 F 67 16 177/80 91 L 07/31/23 20:00 98.4 F 83 16 119/83 92 L Intake and Output 07/31/23 08/01/23 08/01/23 22:59 06:59 14:59 Output Total 250 Balance -250 Output: Urine 250 Other: Voiding Method External Catheter External Catheter Patient is an elderly female, very pleasant, in no acute distress. Patient is alert awake. Patient knows that she is in [facility] in [facility] in [facility]. She believes it is late June and the year is 2001. She agrees that the [place] and new or have passed, but she still believes it is the month of June. She thinks it is "probably spring". She knows name of the current president. Speech and language functions are normal. Patient can name and repeat very well. No aphasia or dysarthria. Attention, concentration intact and fund of knowledge is slightly limited. Detailed cognitive function testing deferred. On cranial nerve examination, pupils are equal, round and reacting to light, visual ogles[place] are full on confrontation, with no neglect on double simultaneous stimulation. Extraocular muscles are intact with no nystagmus. Face is symmetric, tongue protrudes to the midline. Palatal elevation and sensation normal, hearing and shoulder shrug normal, facial sensation normal. On muscle strength testing, there is no pronator drift and the strength is normal in arms and legs distally and proximally, except hip flexion, which is about 4+ bilaterally (tested while being in the bed). Deep tendon reflexes are symmetric (right/left) knees to, ankles absent and plantars are downgoing bilaterally. Sensory to touch is equal with no neglect on double simultaneous stimulation. Cerebellar function showed no ataxia for [id number] testing, although patient is slightly tremulous. No dysdiadochokinesia. Tone and bulk of muscles normal. Gait deferred.. On general examination, there is no carotid bruit or murmur, S1-S2 audible. Chest is clear on consultation. Abdomen is soft nontender. No organomegaly, bowel sounds present. Peripheral pulses are present. No peripheral edema. Patient does have significant ecchymosis present in her arms. Results - Laboratory Findings CBC and BMP: 07/30/23 06:10 07/31/23 05:42 Abnormal Lab Findings: Abnormal Labs 07/29/23 07/29/23 07/29/23 16:29 16:29 16:29 MCHC RDW 15.6 H Lymphocytes # 0.9 L Eosinophils # Potassium Carbon Dioxide 20 L Anion Gap BUN 28 H Creatinine 1.21 H Est GFR (CKD-EPI) Glucose 143 H POC Glucose (mg/dL) Hemoglobin A1c Magnesium Total Protein Albumin Albumin/Globulin Ratio Procalcitonin Urine Protein Trace H 07/30/23 07/30/23 07/30/23 06:10 06:10 11:57 MCHC 31.3 L RDW 15.8 H Lymphocytes # Eosinophils # 0.03 L Potassium 6.2 A* Carbon Dioxide 21.1 L Anion Gap 13.90 H BUN Creatinine Est GFR (CKD-EPI) 40 L Glucose 144 H POC Glucose (mg/dL) 146 H Hemoglobin A1c Magnesium Total Protein Albumin Albumin/Globulin Ratio Procalcitonin Urine Protein 07/30/23 07/30/23 07/30/23 16:29 16:29 16:29 MCHC RDW Lymphocytes # Eosinophils # Potassium Carbon Dioxide Anion Gap BUN 24 H Creatinine 1.09 H Est GFR (CKD-EPI) Glucose 145 H POC Glucose (mg/dL) Hemoglobin A1c 7.3 H Magnesium Total Protein 5.9 L Albumin 3.1 L Albumin/Globulin Ratio Procalcitonin 0.11 H Urine Protein 07/30/23 07/31/23 07/31/23 16:34 05:42 07:39 MCHC RDW Lymphocytes # Eosinophils # Potassium Carbon Dioxide 20.9 L Anion Gap 17.10 H BUN Creatinine Est GFR (CKD-EPI) 40 L Glucose 142 H POC Glucose (mg/dL) 137 H 138 H Hemoglobin A1c Magnesium 1.4 L Total Protein 5.4 L Albumin 3.2 L Albumin/Globulin Ratio 1.45 L Procalcitonin Urine Protein 07/31/23 07/31/23 07/31/23 11:50 16:59 20:26 [facility] RDW Lymphocytes # Eosinophils # Potassium Carbon Dioxide Anion Gap BUN Creatinine Est GFR (CKD-EPI) Glucose POC Glucose (mg/dL) 176 H 151 H 212 H Hemoglobin A1c Magnesium Total Protein Albumin Albumin/Globulin Ratio Procalcitonin Urine Protein 08/01/23 08/01/23 07:02 11:54 MCHC RDW Lymphocytes # Eosinophils # Potassium Carbon Dioxide Anion Gap BUN Creatinine Est GFR (CKD-EPI) Glucose POC Glucose (mg/dL) 151 H 134 H Hemoglobin A1c Magnesium Total Protein Albumin Albumin/Globulin Ratio Procalcitonin Urine Protein Assessment and Plan Assessment: * Generalized weakness, debility, likely due to aging process. Patient's examination is normal. * Mild cognitive impairment * Atrial fibrillation * Moderate aortic stenosis * Moderate to severe MR * Hypertension * Diabetes Plan: * Patient's examination is normal. It is essentially unchanged as compared to my examination performed on 08/20/2019. * Patient's family interested in patient to be admitted for rehabilitation for some therapy. salvage mend worker intervention to address. * Family also concerned about patient's dementia, slightly getting worse. Patient has never been tried on any medications for dementia. We will start her on Aricept 5 mg daily. After 30 days, the dose may be increased to 10 mg daily. Thereafter she may follow-up with neurologist, and may consider adding Namenda if needed. * Patient does have significant cardiac conditions, including moderate to severe MR, and moderate aortic stenosis. Family does not wish to pursue any treatment for aortic stenosis. * Agree with Xarelto for atrial fibrillation for prevention of stroke. * 2D echo revealed mildly impaired left ventricular function with EF between 40 to 45%. Severe biatrial enlargement. Moderate to severe MR. Moderate aortic stenosis and moderate aortic insufficiency. Severely increased left atrial diameter. Severely increased left atrial volume. * Hemoglobin A1c 7.3. Recommend optimize control of diabetes to target A1c <7.0 * B12 372, folate 9.60. Patient has borderline B12, folate, we will start B12 and folate replacement. * TSH is normal 1.67. * PT, OT evaluate gait and some gait retraining. * Neurologically, no other workup indicated. Neurologically clear for transfer to rehab. Thank you for the consult.
--- NOTE | 2023-08-01 15:04 | CDI ---
Documentation Clarification Form Date: 08/01/2023 02:46:09 PM From: Peggy Pierson RN CCDS Phone: [phone] Admit Date: 07/29/2023 08:28:00 PM Patient Name: Alma Singer Visit Number: [id number] Discharge Date: ATTENTION: The Clinical Documentation Specialists (CDI) and [facility] Coding Staff appreciate your assistance in clarifying documentation. Please respond to the clarification below the line at the bottom and electronically sign. The CDI & [facility] Coding staff will review the response and follow-up if needed. Please note: Queries are made part of the Legal Health Record. If you have any questions, please contact the author of this message via ITS. Dr. Omid Cuevas Your patient has the documented diagnosis of unspecified Heart Failure, 07/30, H&P. Additional information regarding the type, acuity of CHF is requested. History/Risk Factors: 88-year-old female presented with progressive debility, confusion and disorientation with visual hallucination. Medical history: CHF, HTN, Permanent atrial fibrillation and aortic stenosis. 07/30, H&P Clinical Indicators: VS/Pulse OX: B/P 164/93 HR 52 Temp 98 F oral RR 18 SpO2 99% ra BNP, 07/30: [id number] Echocardiogram Results, 07/30: Mildly impaired LV function with EF 40-45%; Severe bilateral enlargement; Moderate to severe mitral regurgitation. Moderate aortic stenosis and moderate aortic insufficiency. Chest X Ray, 07/31: No acute cardiopulmonary disease / process Treatment: 07/30 07/31 Lasix 20mg PO daily; 07/31 Farxiga 5mg PO daily In your professional opinion, can you please clarify the acuity and type of CHF if known? [ X ] Chronic Systolic Heart Failure (reduced EF) [ ] Chronic Systolic & Diastolic Heart Failure [ ] Other, please specify [ ] Unable to determine (Template Last Revised: August 2020) Mybe check with the cardiology as we did not have mountain services manager opinion or diagnosis MTDD
[2023-08-01 17:11] LABS: Glucose,Whole Blood 152 mg/dL (70-110)
[2023-08-01] MEDS: RIVAROXABAN 15 MG TAB PO SCH (17:29)
[2023-08-01] MEDS: SODIUM CHLORIDE 0.9% 500 ML 500 ML IV SCH ×2 (18:48→20:02)
--- NOTE | 2023-08-01 18:58 | P.PN ---
Subjective Progress Note Date: 08/01/23 Progress note Date of service: 08/01/[address] Cuevas Patient seen today evaluated [id number] Patient also evaluated by Dr. Krishnamurthy the neurologist with the appreciated his opinion and his input for the exam. In regard of diabetes mellitus has been fairly well controlled with the current program with the POC monitoring indicating blood glucose 152 134 151. Vital sign temperature 98.9, pulse 74/m with the underlying controlled atrial fibrillation Respiratory rate 20 per minute Blood pressure 162/75 with not well-controlled blood pressure Oxygen saturation 96% on room air. She is conscious alert with the underlying confusion disorientation, neurocognitive function impairment and mild depression with the loss of appetite and mild dehydration. Patient had echocardiogram which is on the computer and I mentioned in detail in yesterday progress note. On the exam: Head was normal cephalic nontraumatic. And the she had underlying seasonality minimal intake of fluid and fluid. ambulatory with the generalized weakness and [place]. Neck was supple mild JVD no thyromegaly no lymphadenopathy trachea midline Chest clear to auscultation and percussion Heart: Irregular irregularity was controlled ventricular response with the murmur with the severe moderate to severe aortic stenosis and aortic regurg as well as mitral regurg with the diastolic dysfunction as well and atrial fibrill ation. I did not have from cardiology his no pain in regard of her actually functioning of the heart and if she had any and sitting for the question of the query that has been send to me and I requested because I don't have the data analytics architect opinion to be contacted the cardiology however patient currently stable. Abdomen is soft positive bowel sound previous history of surgery Extremities multiple bruises and she had wobbly on her feet and we asked rehabilitation as well and the she uses walker with on steady. Pulses is intact of the lower extremities however mildly decreased Neurological examination better Dr. Krishnamurthy Psychiatric examination per Dr. Benz's. We have pro-calcitonin was mildly elevated as well as carbon dioxide 20 the acidotic side and we discontinue metformin. With the assessment: Cardiomyopathy with a chronic congestive heart failure with the impaired ejection fraction to 40-45 and cardiomegaly Valvular heart disease with aortic stenosis, aortic regurg, mitral regurg, possible pulmonary hypertension. Atrial fibrillation was controlled ventricular response. 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 Krishnamurthy neurologist did not recommend for further testing i.e. CAT scan or MRI #2 we did consult rehabilitation #3 waiting for senior living acceptance to the patient with an available bed. #4 looking for [facility], or medical [place] [facility] [place] as the only 2 I go to to continue care for the patient #5 when the bed is available we'll transfer the patient to continue rehab and possible continue placement in the senior living as the family requesting and patient need more help as she living alone with her who is also having cardiac surgery and had cardiac problem Objective - Vital Signs Vital signs: Vital Signs Temp 98.4 F 08/01/23 13:53 Pulse 74 08/01/23 13:53 Resp 20 08/01/23 13:53 BP 162/75 08/01/23 13:53 Pulse Ox 96 08/01/23 13:53 FiO2 Intake & Output 07/31/23 08/01/23 08/01/23 18:59 06:59 18:59 Output Total 250 Balance -250 Output: Urine 250 Other: Voiding Method External Catheter External Catheter External Catheter # Voids 1 3 # Bowel Movements 1 - Labs CBC & Chem 7: 07/30/23 06:10 07/31/23 05:42 Labs: Abnormal Lab Results - Last 24 Hours (Table) 07/31/23 08/01/23 08/01/23 Range/Units 20:26 07:02 11:54 POC Glucose (mg/dL) 212 H 151 H 134 H (70-110) mg/dL 08/01/23 Range/Units 17:09 POC Glucose (mg/dL) 152 H (70-110) mg/dL
[2023-08-01] MEDS: MIRTAZAPINE 15 MG TAB PO SCH (20:01)
[2023-08-01] MEDS: LATANOPROST 0.005% OPHTH DROPS 2.5 ML BTL BOTH EYES SCH (20:02)
[2023-08-01 20:06] LABS: Glucose,Whole Blood 109 mg/dL (70-110)
[2023-08-01] MEDS ORDERED: DONEPEZIL 5 MG TAB PO SCH (21:00)
--- NOTE | 2023-08-02 01:29 | P.PN ---
Subjective Progress Note Date: 08/01/23 Principal diagnosis: Reason for follow-up is elevated procalcitonin question of pneumonia infection Patient is a 88-year-old female with a past medical history significa nt for diabetes mellitus hypertension atrial fibrillation history of colon cancer patient was brought into the hospital for possible placement, workup did include procalcitonin of 0.11 prompting this infectious disease consultation to rule out any infectious etiology. On today's evaluation that is 08/01/2023 patient remains to be afebrile, the patient is breathing comfortably and is currently on room air, the patient denies having any chest pain no significant cough or sputum production patient d enies having abdominal pain no nausea no vomiting and no diarrhea has been reported. No new labs has been obtained today patient did have a chest x-ray that was reported negative for acute cardiopulmonary disease Objective - Vital Signs Vital signs: Vital Signs Temp 98.5 F 08/01/23 07:05 Pulse 75 08/01/23 07:05 Resp 16 08/01/23 07:05 BP 165/84 08/01/23 07:05 Pulse Ox 96 08/01/23 07:05 FiO2 Intake & Output 07/31/23 08/01/23 08/01/23 18:59 06:59 18:59 Output Total 250 Balance -250 Output: Urine 250 Other: Voiding Method External Catheter External Catheter # Voids 1 # Bowel Movements 1 - Exam Elderly female lying in bed in no distress Respiratory system unlabored breathing decreased breath sound the base Heart S1-S2 regular Abdominal soft no tenderness Extremities right leg is currently wrapped in Dale wrap no drainage Exam completed with the help of PARTITION SETTER - Labs CBC & Chem 7: 07/30/23 06:10 07/31/23 05:42 Labs: Abnormal Lab Results - Last 24 Hours (Table) 07/31/23 07/31/23 07/31/23 Range/Units 05:42 11:50 16:59 Carbon Dioxide 20.9 L (21.6-31.8) mmol/L Anion Gap 17.10 H (4.00-12.00) mmol/L Est GFR (CKD-EPI) 40 L (>=60) Glucose 142 H (70-110) mg/dL POC Glucose (mg/dL) 176 H 151 H (70-110) mg/dL Magnesium 1.4 L (1.5-2.4) mg/dL Total Protein 5.4 L (6.2-8.2) g/dL Albumin 3.2 L (3.8-4.9) g/dL Albumin/Globulin Ratio 1.45 L (1.60-3.17) Ratio 07/31/23 08/01/23 Range/Units 20:26 07:02 Carbon Dioxide (21.6-31.8) mmol/L Anion Gap (4.00-12.00) mmol/L Est GFR (CKD-EPI) (>=60) Glucose (70-110) mg/dL POC Glucose (mg/dL) 212 H 151 H (70-110) mg/dL Magnesium (1.5-2.4) mg/dL Total Protein (6.2-8.2) g/dL Albumin (3.8-4.9) g/dL Albumin/Globulin Ratio (1.60-3.17) Ratio Assessment and Plan (1) Elevated procalcitonin Current Visit: Yes Status: Acute Code(s): R79.89 - OTHER SPECIFIED ABNORMAL FINDINGS OF BLOOD CHEMISTRY SNOMED Code(s): 248599699 Plan: 1patient did have mildly elevated procalcitonin of 0.11 and this patient currently do not have any fever white count is normal patient did not have any wheezes or crackle on clinical examination and did have a normal chest x-ray clinical suspicion is low for pneumonia for which this biomarker is specific 2-patient also noticed to have a blister to the right lateral knee/leg area but no features of any cellulitis we will recommend local care 3--local care to the right lateral knee blister area with a ABD and will benefit from mild compression dressing with Dale wrap Patient will monitor closely off antibiotic therapy Dictation was produced using [employer] software. please excuse any grammatical, word or spelling errors.
[2023-08-02 02:06] VITALS: RESP 18
[2023-08-02 07:33] LABS: Glucose,Whole Blood 127 mg/dL (70-110)
[2023-08-02] MEDS: INSULIN ASPART (NovoLOG) 100 UNIT/ML VIAL SQ SCH (07:43)
[2023-08-02 08:14] VITALS: PULSE 65; TEMP 97.3
[2023-08-02] MEDS ORDERED: FOLIC ACID 1 MG TAB PO SCH (09:00)
[2023-08-02] MEDS ORDERED: CYANOCOBALAMIN 500 MCG TAB PO SCH (09:00)
[2023-08-02] MEDS: atenoloL 25 MG TAB PO SCH (09:30)
[2023-08-02] MEDS: VIT A,C & E-LUTEIN-MINERALS 1 EACH TAB PO SCH (09:31)
[2023-08-02] MEDS: DAPAGLIFLOZIN PROPANEDIOL 5 MG TABLET PO SCH (09:31)
[2023-08-02] MEDS: KETOROLAC 0.5% OPHTH DROPS 5 ML BTL LEFT EYE SCH (09:32)
[2023-08-02] MEDS: TIMOLOL 0.5% OPHTH DROPS 5 ML BTL BOTH EYES SCH (09:32)
--- NOTE | 2023-08-02 09:45 | P.DS ---
Providers Date of admission: 07/29/23 20:28 Expected date of discharge: 08/02/23 Attending physician: Omid Cuevas Consults: 07/30/23 14:56 Consult Physician Stat Consulting Provider: [facility] [place] Consult Reason/Comments: Progressive dementia with debility Do you want consulting provider notified?: Yes 07/30/23 15:10 Consult Physician Urgent Consulting Provider: Sandor Bravo Consult Reason/Comments: Depression, anxiety, dementia Do you want consulting provider notified?: Yes 07/30/23 15:17 Consult Physician Urgent Consulting Provider: Dm Garzon Consult Reason/Comments: Severe aortic stenosis and regurg atrial fibr illation control Do you want consulting provider notified?: Yes, Notify in am 07/31/23 09:28 Consult Physician Urgent Consulting Provider: Ann Marie Davis Consult Reason/Comments: Suspicious of infection, elevated procalcitonin Do you want consulting provider notified?: Yes Primary care physician: Omid Cuevas Discharge summary Date of service 08/02/[address] Cuevas Disposition: Discharge from acute care Transfer to [facility] and rehab I will be following the patient in the residential. Final diagnosis: 1. Severe debility with the weakness, living alone and her is elderly sick need for further rehabilitation and placement in a residential 2. 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 Multiple valvular heart disease, including aortic stenosis, aortic regurg, severe biatrial enlargement, severe mitral regurg. 4. Atrial fibrillation with controlled ventricular response, on anticoagulant per her academic advisor Dr. Busch. 5. Neuro cognitive function impairment with mild depression seen by Dr. Castle as psychiatrist in the hospital 6. 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 Krishnamurthy in the hospital. 7. Dehydration with decreased intake. 8. Hypertension with hypertensive heart disease. 9. Confusion waxing and waning associated with progressive dementia 10. Need rehabilitation and progressive nursing care. 11. Vitamin B12 and folic acid borderline insufficiency and deficiency added medication for dementia as well by Dr. Krishnamurthy and the neurologist. #12 chronic congestive heart failure 13. No code supportive care only. Allergy is unknown Medication reconciled Discussed with her family 2 daughters who is a caregiver. Patient presentation in the ER Severe debility failure to thrive and multiple medical problems and not eating well or drinking well difficulty walking and confusing. On discharge: Vital signs stable temperature 97.3 pulse 65/min regular with atrial fibrillation Respiratory rate 18 Repeat blood pressure 160/80 before she taking her medication her oxygen saturation 95 on room air. Head was normocephalic atraumatic pupil was equal reactive and conjunctiva was pink sclera was nonicteric extraocular muscle movement was intact. Neck was supple no JVD no thyromegaly no lymphadenopathy there is bruits from aortic stenosis Skin multiple moles and keratosis Chest mild kyphoscoliosis normal breath sounds Heart: Irregular irregularities with the atrial fibrillation and murmur on the apex and aortic area and transmitted to the neck grade 3/6 no surgical approach patient could not tolerate Chronic congestive heart failure Abdomen soft positive bowel sounds history of previous surgery with colon cancer resection in [place]. And hysterectomy Extremities: Positive pulses however 1+/2+, no edema. Neurology refer to consultation of Dr. Krishnamurthy neurologist Psychiatry refer to the consultation to Dr. BRAVO psychiatrist. Assessment: Plan: Patient stable for discharge tomorrow [place] No code I will follow the patient in the residential Discussed with the family Time consumed 45 minutes with the family and patient. Patient Condition at Discharge: Stable Plan - Discharge Summary Discharge Rx Participant: Yes New Discharge Prescriptions: New Dapagliflozin Propanediol [Farxiga] 5 mg PO DAILY tab Mirtazapine [Remeron] 7.5 mg PO HS tab Acetaminophen Tab [Tylenol] 650 mg PO Q6HR PRN tab PRN Reason: Mild Pain Or Fever > 100.5 Cyanocobalamin [Vitamin B-12] 1,000 mcg PO DAILY tab Donepezil [Aricept] 5 mg PO HS tab Folic Acid 1 mg PO DAILY tab INSULIN ASPART (NovoLOG) [NovoLOG (formulary)] 2 - 10 unit SQ AC-TID each Rivaroxaban [Xarelto] 15 mg PO W/SUPPER tab Continue Timolol 0.5% Ophth Soln [Timoptic 0.5% Ophth Soln] 1 drop BOTH EYES BID Furosemide [Lasix] 20 mg PO DAILY Ketorolac 0.5% Ophth Soln [Acular 0.5%] 1 drop LEFT EYE QID atenoloL [Tenormin] 25 mg PO DAILY Vit C/E/Zn/Coppr/Lutein/Zeaxan [Preservision Areds 2 Softgel] 1 cap PO DAILY Latanoprost [Latanoprost 0.005%] 1 drop BOTH EYES HS Discontinued metFORMIN HCL [Glucophage] 1,000 mg PO DAILY Discharge Medication List Furosemide [Lasix] 20 mg PO DAILY 01/20/20 [History] Timolol 0.5% Ophth Soln [Timoptic 0.5% Ophth Soln] 1 drop BOTH EYES BID 01/20/20 [History] Ketorolac 0.5% Ophth Soln [Acular 0.5%] 1 drop LEFT EYE QID 07/29/23 [History] Latanoprost [Latanoprost 0.005%] 1 drop BOTH EYES HS 07/29/23 [History] Vit C/E/Zn/Coppr/Lutein/Zeaxan [Preservision Areds 2 Softgel] 1 cap PO DAILY 07/29/23 [History] atenoloL [Tenormin] 25 mg PO DAILY 07/29/23 [History] Acetaminophen Tab [Tylenol] 650 mg PO Q6HR PRN tab 08/02/23 [Rx] Cyanocobalamin [Vitamin B-12] 1,000 mcg PO DAILY tab 08/02/23 [Rx] Dapagliflozin Propanediol [Farxiga] 5 mg PO DAILY tab 08/02/23 [Rx] Donepezil [Aricept] 5 mg PO HS tab 08/02/23 [Rx] Folic Acid 1 mg PO DAILY tab 08/02/23 [Rx] INSULIN ASPART (NovoLOG) [NovoLOG (formulary)] 2 - 10 unit SQ AC-TID each 08/02/23 [Rx] Mirtazapine [Remeron] 7.5 mg PO HS tab 08/02/23 [Rx] Rivaroxaban [Xarelto] 15 mg PO W/SUPPER tab 08/02/23 [Rx] Follow up Appointment(s)/Referral(s): Omid Cuevas MD [Primary Care Provider] - 1-2 days Discharge/Stand Alone Forms: Who Do I Call?, Adult Foster Long Term List, Community Resources, Help In The Home, Personal [employer] Discharge Disposition: TRANSFER TO SNF/ECF Care Plan Goals (MU): No code Plan of Treatment: Continue the current medication Family 2 daughters requested no code order written.
[2023-08-02 13:07] VITALS: BP 161/82
== END 2023-08-02 12:40 | DRG 57 ==
LOC: EC 13:03 → 5NMEDONC 20:28
PROVIDERS: ADMIT Internal Medicine; ATTEND Internal Medicine
DX: G30.9 Alzheimer's disease, unspecified (principal); F02.C4 Dementia in other diseases classified elsewhere, severe, with anxiety; F02.C2 Dementia in other diseases classified elsewhere, severe, with psychotic disturbance; F02.C3 Dementia in other diseases classified elsewhere, severe, with mood disturbance; I13.0 Hypertensive heart and chronic kidney disease with heart failure and stage 1 through stage 4 chronic kidney disease, or unspecified chronic kidney disease; I48.21 Permanent atrial fibrillation; E86.0 Dehydration; E87.5 Hyperkalemia; N18.30 Chronic kidney disease, stage 3 unspecified; I50.9 Heart failure, unspecified; D63.1 Anemia in chronic kidney disease; F32.A Depression, unspecified; E11.22 Type 2 diabetes mellitus with diabetic chronic kidney disease; I08.3 Combined rheumatic disorders of mitral, aortic and tricuspid valves; I25.2 Old myocardial infarction; I27.20 Pulmonary hypertension, unspecified; I25.10 Atherosclerotic heart disease of native coronary artery without angina pectoris; R62.7 Adult failure to thrive; R53.81 Other malaise; R26.81 Unsteadiness on feet; I25.5 Ischemic cardiomyopathy; M41.9 Scoliosis, unspecified; R29.6 Repeated falls; Z79.01 Long term (current) use of anticoagulants; Z79.82 Long term (current) use of aspirin; Z79.84 Long term (current) use of oral hypoglycemic drugs; Z79.899 Other long term (current) drug therapy; Z66 Do not resuscitate; Z83.3 Family history of diabetes mellitus; Z80.0 Family history of malignant neoplasm of digestive organs; Z85.038 Personal history of other malignant neoplasm of large intestine; Z87.440 Personal history of urinary (tract) infections; Z90.49 Acquired absence of other specified parts of digestive tract; Z60.2 Problems related to living alone; Z28.310 Unvaccinated for COVID-19
CPT/HCPCS: 36415; 71046; 80048; 80053; 81003; 82607; 82746; 83036; 83735; 83880; 84145; 84443; 84484; 85025; 93005; 93306; 96374; 99285